=== PATIENT | female | born 1940 | race Caucasian/White ===

== ENCOUNTER → 2018-06-23 10:46 | Outpatient (CLI) | payer MEDICARE, SELFPAY ==
--- NOTE | 2018-06-23 | DI.MG.S_ITS ---
BILATERAL DIGITAL SCREENING MAMMOGRAM 3D/2D WITH CAD: 06/23/2018 CLINICAL: Routine screening. Personal history of breast cancer. Comparison is made to exams dated: 06/22/2017 mammogram, 05/24/2016 mammogram, and 05/05/2015 mammogram - [facility]. The tissue of both breasts is heterogeneously dense. This may lower the sensitivity of mammography. Current study was also evaluated with a Computer Aided Detection (CAD) system. There are benign post operative findings in the left breast. There also are benign calcifications in both breasts. No significant masses, calcifications, or other findings are seen in either breast. There has been no significant interval change. IMPRESSION: There is no mammographic evidence of malignancy. A 1 year screening mammogram is recommended. This exam was interpreted at Station ID: [id number]. NOTE: For mammograms, a report in lay terms will be sent to the patient. Approximately 15% of breast malignancies will not be visualized mammographically. In the management of a palpable breast mass, a negative mammogram must not discourage biopsy of a clinically suspicious lesion. Electronically Signed By: Ajay barrett/zaid:06/23/2018 12:11:02 copy to: Ney Matthew letter sent: Normal Exam ACR BI-RADS Category 2: Benign Finding(s) 3342F
[2018-06-23 12:15] LABS: Add Manual Diff / Slide Review NO; Basophils Absolute Auto 0 /uL (0-100); Basophils Percent Auto 0.4 % (0-2); Eosinophils Absolute Auto 300 /uL (0-450); Eosinophils Percent Auto 2.4 % (2-4); Hematocrit 41.4 % (36-46); Hemoglobin 14.2 g/dL (12.0-16.0); Lymphocytes Absolute Auto 4100 /uL (1100-4500); Lymphocytes Percent Auto 39.5 % (25-40); Mean Corpuscular HGB Conc 34.3 % (30-36); Mean Corpuscular Hemoglobin 31.2 PG (26-34); Mean Corpuscular Volume 90.8 fL (80-100); Monocytes Absolute Auto 1200 /uL (0-900); Monocytes Percent Auto 11.4 % (3-14); Neutrophils Absolute Auto 4800 /uL (1500-7000); Neutrophils Percent Auto 46.3 % (50-75); Platelet Count 175 X10^3/uL (150-400); Red Blood Cell Count 4.55 X10^6/uL (4.0-5.2); White Blood Cell Count 10.3 X10^3/uL (4.5-11.0)
[2018-06-23 12:50] LABS: Alanine Aminotransferase 28 IU/L (9-52); Albumin 4.2 g/dL (3.5-5.0); Albumin Globulin Ratio 1.4 (1.0-2.8); Alkaline Phosphatase 52 U/L (38-126); Aspartate Aminotransferase 29 IU/L (14-36); BUN Creatinine Ratio 18.9 (6-22); Bilirubin Total 0.5 mg/dL (0.2-1.3); Blood Urea Nitrogen 17 mg/dL (7-17); Calcium 10.3 mg/dL (8.4-10.2); Carbon Dioxide 28 mmol/L (22-32); Chloride 102 mmol/L (98-107); Estimated Glomerular Filt Rate > 60.0 mL/min (>60); Glucose 85 mg/dL (80-110); HEMOLYSIS < 15 (0-50); Potassium 3.9 mmol/L (3.4-5.1); Sodium 138 mmol/L (137-145); Total Protein 7.2 g/dL (6.3-8.2)
[2018-06-24 16:41] LABS: Cancer Antigen 27.29 15 U/mL (< 38)
== END ==
PROVIDERS: PCP Internal Medicine; Visit Provider Nurse Practitioner Gerontology
DX: Z12.31 Encounter for screening mammogram for malignant neoplasm of breast (principal); C50.912 Malignant neoplasm of unspecified site of left female breast
CPT/HCPCS: 36415; 77063; 77067; 80053; 85025; 86300

== ENCOUNTER → 2018-11-09 14:34 | Outpatient (CLI) | payer MEDICARE, SELFPAY ==
--- NOTE | 2018-11-09 | DI.RAD.S_ITS ---
PROCEDURE: XR CHEST 2V INDICATIONS: COUGH TECHNIQUE: 2 views of the chest were acquired. COMPARISON: Outside Film, CT, CT CHEST ABDOMEN PELVIS WITH CONTRAST, 08/19/2018, 21:21. [facility], , CHEST 1 VIEW, 04/27/2011, 18:08. FINDINGS: Surgical changes and devices: None. Lungs and pleura: Ill-defined ovoid masslike opacity measuring 5.4 x 3.4 cm projects in the right upper lobe, with central lucency, possible cavitation. No pleural effusions or pneumothorax. Scattered scarring/atelectasis. Mediastinum: Mediastinal contours are normal. Heart size is normal. Bones and chest wall: No suspicious bony abnormalities. Lateral curvature of the spine Soft tissues appear unremarkable. IMPRESSION: Ill-defined large masslike opacity with central lucency suggesting cavitation projecting in the right upper lobe, findings suspicious for cavitary pneumonia versus cavitary mass. Recommend further evaluation with dedicated chest CT. Findings and recommendations were personally telephoned and discussed with Dr. Collado at 1630 hours on 11/09/18. Dictated by: Ezekiel Castorena M.D. on 11/09/2018 at 15:52 Approved by: Ezekiel Castorena M.D. on 11/09/2018 at 16:38
== END ==
PROVIDERS: PCP Internal Medicine; Visit Provider Internal Medicine
DX: R05 Cough (principal)
CPT/HCPCS: 71046

== ENCOUNTER → 2018-11-10 11:37 | Outpatient (CLI) | payer MEDICARE, SELFPAY ==
--- NOTE | 2018-11-10 | DI.CT.S_ITS ---
PROCEDURE: CT CHEST W CON INDICATIONS: LESION OF LUNG TECHNIQUE: After the administration of intravenous contrast, 5 mm thick sections acquired from the pulmonary apices to the posterior costophrenic angles. 1 mm axial lung, 5 mm thick coronal and sagittal reformats and 7 mm axial MIP were acquired. For radiation dose reduction, the following was used: automated exposure control, adjustment of mA and/or kV according to patient size. COMPARISON: Outside Film, CT, CT CHEST ABDOMEN PELVIS WITH CONTRAST, 08/19/2018, 21:21. FINDINGS: Image quality: Excellent. Lungs and pleura: No acute air space opacities. There is a pleural-based 50 mm diameter soft tissue density focus within the right lung base posteriorly. There several new subpleural nodular densities within the right lateral and anterolateral lung base measuring 5-20 mm. There is a new cavitary mass within the superior segment right lower lobe measuring 54 mm. There is a new cavitary mass within the right upper lobe posteriorly measuring 43 mm. No pleural effusions or pneumothorax. Central and peripheral airways are patent and normal in caliber. Mediastinum: Heart size is normal. Calcification of the coronary vasculature. No pericardial effusion. No mediastinal or hilar adenopathy by size criteria. Thoracic aorta and central pulmonary arteries are normal in size. Low density filling defects within the distal aspect of the right main pulmonary artery, extending into the lobar, and segmental branches of the right upper, right middle, and right lower lobe pulmonary arterial branches. Small low density filling defects within the segmental branches of the left lower lobe pulmonary artery. Esophagus is normal in caliber. No hiatal hernia. Bones and chest wall: No suspicious bony lesions. No vertebral body compression fractures. No axillary or supraclavicular adenopathy by size criteria. Thyroid gland demonstrates a possible right lobe nodule measuring 13 mm. Abdomen: Visualized upper abdominal solid organs appear normal. Upper abdominal bowel loops are normal in caliber. IMPRESSION: 1. Bilateral right greater than left pulmonary emboli. 2. Right-sided pulmonary masses as described above, the larger 2 of which are cavitary. 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 Followup chest CT with contrast in 3 months is recommended to exclude the less likely possibility of underlying neoplasm. 3. Coronary artery disease. 4. Possible right thyroid mass, which could be further assessed with ultrasound, if clinically indicated. 5. Acute findings above discussed with Dr. Varma, covering for Dr. Collado, on 11.10.18 at 1335 hrs. Dictated by: Rolando Christine M.D. on 11/10/2018 at 13:34 Approved by: Rolando Christine M.D. on 11/10/2018 at 13:43
== END ==
PROVIDERS: PCP Internal Medicine; Visit Provider Internal Medicine
DX: J98.4 Other disorders of lung (principal); I26.99 Other pulmonary embolism without acute cor pulmonale; I25.10 Atherosclerotic heart disease of native coronary artery without angina pectoris
CPT/HCPCS: 71260; Q9967

== ENCOUNTER 2018-11-10 22:54 | Emergency (ER) | payer MEDICARE, SELFPAY ==
[2018-11-10 23:05] VITALS: BMI 25.7
[2018-11-10 23:11] VITALS: BP 107/45; PULSE 76; RESP 15; TEMP 36.5; O2SAT 95
[2018-11-10 23:30] VITALS: BP 96/44; PULSE 75; RESP 17; O2SAT 90
--- NOTE | 2018-11-10 23:48 | ED_ITS ---
HPI - SOB/Dyspnea General Chief Complaint: Shortness of Breath/Dyspnea Stated Complaint: blood clots in lungs per her doctor Time Seen by Provider: 11/10/18 23:33 Source: patient Mode of arrival: ambulatory Limitations: no limitations History of Present Illness The patient is a 77 year old Female with a history of breast cancer diagnosed i nitially in 2011. Brain metastasis were found August 2018. She completed her radiation therapy in September and has started on Faslodex and abemaciclib. She is currently on steroids daily. She has complained of a cough for the past month. She denies associated dyspnea, chest pain, or my office. Aspirin was stopped prior to the brain scans, flu fear of brain Mets. She is not otherwise anticoagulated. A CT done earlier today identified bilateral PEs. She was sent here by the on-call physician for go Dr. Varma. Review of the MRI done earlier this year showed no evidence of hemorrhage in the brain Mets. She is having no visual changes, headache, or acute mental status status. She has no focal weakness or numbness. She does have generalized weakness. She has had no fever. Other than issues involving cancer cancer treatment, she has not been ill. She has no history of GI bleed. Related Data Home Medications Medication Instructions Recorded Confirmed simvastatin 40 mg PO QDAY #0 10/04/12 11/07/18 metoprolol tartrate 25 mg PO BID #0 06/14/16 11/07/18 cholecalciferol (vitamin D3) 1,000 units DAILY 07/04/18 11/07/18 [Vitamin D3] dexamethasone 2 mg PO Q12H 09/13/18 11/07/18 docusate sodium 100 mg PO DAILY 09/13/18 11/07/18 pantoprazole [Protonix] 40 mg PO DAILY 09/13/18 11/07/18 nystatin 5 ml PO QID 09/14/18 11/07/18 Previous Rx's Medication Instructions Recorded letrozole [Femara] 2.5 mg PO QDAY #30 tab 08/19/16 abemaciclib 150 mg PO BID 30 Days #60 tab 10/10/18 dexamethasone 1 mg PO DAILY 60 Days #60 tab 10/25/18 enoxaparin [Lovenox] 80 mg SUBCUT Q12H #20 vial 11/11/18 Allergies Allergy/AdvReac Type Severity Reaction Status Date / Time Sulfa (Sulfonamide Allergy Intermediate rash, N/V Verified 11/07/18 09:39 Antibiotics) hydrochlorothiazide AdvReac Intermediate HALLUCINATI Verified 11/07/18 09:39 ONS hydrocodone AdvReac Mild N/V Verified 11/07/18 09:39 Review of Systems Review of Systems ROS Unobtainable: All systems reviewed & are unremarkable except as noted in HPI and below Constitutional Denies body ache(s), Denies fatigue, Denies fever(s), Denies headache(s), Reports lethargy and Denies weakness Eyes Denies change in vision and Denies diplopia ENT Ears, Nose, Mouth, and Throat: Denies headache(s) Comments: No complaints Cardiovascular Denies chest pain, Denies diaphoresis, Denies syncope and Denies dyspnea Respiratory Reports cough, Denies hemoptysis, Denies excessive phlegm production, Denies pain on inspiration and Denies dyspnea Gastrointestinal Gastrointestinal: Denies abdominal pain and Denies change in bowel habits Comments: No history of GI bleed Musculoskeletal Denies back pain Integumentary/Breasts Denies rash and Denies sores Neurologic Denies confusion, Denies syncope, Denies headache(s) and Denies weakness Psychiatric Denies anxiety, Denies confusion and Denies depression Endocrine Denies fatigue [facility] Medical History (Updated 11/11/18 @ 03:28 by Atul De La Fuente MD) Hyperlipidemia (Acute) Metastatic breast cancer (Acute) Social History (Updated 11/11/18 @ 03:19 by Atul De La Fuente MD) Smoking Status: Never smoker Exam Initial Vital Signs Initial Vital Signs: Vital Signs Temperature 97.7 F 11/10/18 23:11 Pulse Rate 76 11/10/18 23:11 Respiratory Rate 15 11/10/18 23:11 Blood Pressure 107/45 L 11/10/18 23:11 Pulse Oximetry 95 11/10/18 23:11 Const General: cooperative and comfortable Nutritional Appearance: well nourished Orientation: alert, awake, oriented x3 and not confused HENMT Head: normocephalic and atraumatic Face and sinus: no sinus tenderness and No dry mucous membranes Mouth: moist mucous membranes Throat: posterior oropharynx normal Eyes Conjunctivae: conjunctivae normal Sclera: sclerae normal Pupils: PERRL EOM: EOM intact bilaterally Neck Neck: No lymphadenopathy and No JVD Chest Chest: No tenderness Resp Effort & Inspection: normal respiratory effort, able to speak in complete sentences and no use of accessory muscles Auscultation: clear to auscultation bilaterally, no rales, no rhonchi and no wheezes Cardio Rate: regular rate Rhythm: regular rhythm Heart Sounds: S1 normal, S2 normal, no murmurs and no rubs Pulses: normal peripheral pulses GI Inspection: non-distended Palpation: soft, no hepatosplenomegaly, No guarding and No tender Auscultation: normal bowel sounds Skin General: no rashes or lesions noted, No jaundice and No petechiae Neuro General: alert, oriented x3, gait normal and no focal motor deficits Speech: speech normal Extrem General: full ROM and no clubbing, cyanosis or edema Psych Appearance: well kempt Mental Status: mental status grossly normal Attitude: cooperative Thought Content: normal and suicidality Judgment: judgment good Course Course Narrative: The patient came in with known bilateral PEs. The CT was based upon the patient's cough, no other symptoms. She denies chest pain, weakness, or dyspnea. Dr. Varma, the doctor who referred her here is also on- call. I reviewed a prior CT from [facility], showing the metastatic lesions, but no evidence of hemorrhage. She has the PEs. She has no evidence of acute bleeding. I had multiple conversations with the internists referred here, we decided on a repeat CT to ensure there is no necrotic change following the treatment for the metastatic lesions in her brain. There is no evidence of hemorrhage. With the ongoing conversations with Dr. Varma, it was decided that the best course of action is to treat the patient with Lovenox. Lovenox has been initiated. The patient's nurse will teach her to administer the medication at home. Orders Ordered: ED Orders 11/10/18 23:48 Prothrombin Time INR Stat 11/10/18 23:49 Consult to Respiratory Therapy Evaluate & Treat Basic Metabolic Panel Stat Blood Culture Stat Complete Blood Count AUTO DIFF Stat Magnesium Stat Procalcitonin Stat Troponin & CK Cardiac Panel Stat 11/11/18 01:13 CT head/brain wo con Stat Sodium Chloride (Normal Saline 0.9%) 1,000 mls @ 150 mls/hr IV CONT JEFFRY Last Admin: 11/11/18 00:57 Dose: 150 mls/hr Discontinued Medications Enoxaparin Sodium (Lovenox) 70 mg 1 mg/kg (70 mg) SUBCUT NOW ONE Stop: 11/11/18 02:54 Last Admin: 11/11/18 03:13 Dose: 70 mg Sodium Chloride (Normal Saline 0.9%) 1,000 mls @ 1,000 mls/hr IV BOLUS ONE Stop: 11/11/18 01:50 Last Admin: 11/11/18 02:24 Dose: Not Given Methylprednisolone (Solu-Medrol 125 Mg Vial) 125 mg IV NOW ONE Stop: 11/10/18 23:49 Last Admin: 11/11/18 00:25 Dose: 125 mg Metoprolol Tartrate (Lopressor) 5 mg IV Q5M JEFFRY Stop: 11/11/18 01:11 Metoprolol Tartrate (Lopressor) 25 mg PO NOW ONE Stop: 11/11/18 00:54 Last Admin: 11/11/18 00:57 Dose: 25 mg Vital Signs - 8 hr 11/10/18 23:11 11/10/18 23:30 11/11/18 01:09 Temperature 97.7 F Pulse Rate 76 75 83 Respiratory Rate 15 17 13 Blood Pressure [Right Arm] 107/45 L 96/44 L 93/38 L Pulse Oximetry 95 90 L 93 11/11/18 01:50 11/11/18 02:05 11/11/18 02:37 Temperature Pulse Rate 73 81 68 Respiratory Rate 18 17 21 Blood Pressure [Right Arm] 100/43 L 97/51 L 107/45 L Pulse Oximetry 93 93 98 11/11/18 03:00 Temperature Pulse Rate 74 Respiratory Rate 18 Blood Pressure [Right Arm] 108/44 L Pulse Oximetry 96 MDM - SOB/Dyspnea Lab Data Attestation: I reviewed the patient's lab results. Result diagrams: 11/11/18 00:21 11/11/18 00:21 Lab Results 11/11/18 11/11/18 11/11/18 Range/Units 00:21 00:21 00:21 WBC 4.5 (4.5-11.0) X10^3/uL RBC 3.08 L (4.0-5.2) X10^6/uL Hgb 9.7 L (12.0-16.0) g/dL Hct 28.0 L (36-46) % MCV 90.8 (80-100) fL MCH 31.5 (26-34) PG MCHC 34.7 (30-36) % RDW 18.0 H (11.6-14.8) % Plt Count 93 L (150-400) X10^3/uL Neut % (Auto) 71.0 (50-75) % Lymph % (Auto) 24.9 L (25-40) % Sampson % (Auto) 3.1 (3-14) % Eos % (Auto) 0.8 L (2-4) % Baso % (Auto) 0.2 (0-2) % Neut # (Auto) 3200 (2171-0128) /uL Lymph # (Auto) 1100 (0686-2589) /uL Sampson # (Auto) 100 (0-900) /uL Eos # (Auto) 0 (0-450) /uL Baso # (Auto) 0 (0-100) /uL PT 14.9 H (10.1-12.7) SECONDS INR 1.3 (0.9-1.3) Sodium 129 L (137-145) mmol/L Potassium 3.8 (3.4-5.1) mmol/L Chloride 94 L (98-107) mmol/L Carbon Dioxide 29 (22-32) mmol/L BUN 22 H (7-17) mg/dL Creatinine 1.30 H (0.52-1.04) mg/dL Estimated GFR 39.6 L (>60) mL/min BUN/Creatinine Ratio 16.9 (6-22) Glucose 95 (80-110) mg/dL Calcium 9.6 (8.4-10.2) mg/dL Magnesium 1.8 (1.6-2.3) mg/dL Total Creatine Kinase < 20 L (30-135) U/L CK-MB (CK-2) TNP CK-MB (CK-2) Rel Index TNP Troponin I 0.052 H (0.01-0.034) ng/mL Procalcitonin (<0.5) ng/mL 11/11/18 Range/Units 00:21 WBC (4.5-11.0) X10^3/uL RBC (4.0-5.2) X10^6/uL Hgb (12.0-16.0) g/dL Hct (36-46) % MCV (80-100) fL MCH (26-34) PG MCHC (30-36) % RDW (11.6-14.8) % Plt Count (150-400) X10^3/uL Neut % (Auto) (50-75) % Lymph % (Auto) (25-40) % Sampson % (Auto) (3-14) % Eos % (Auto) (2-4) % Baso % (Auto) (0-2) % Neut # (Auto) (3145-9158) /uL Lymph # (Auto) (6619-0816) /uL Sampson # (Auto) (0-900) /uL Eos # (Auto) (0-450) /uL Baso # (Auto) (0-100) /uL PT (10.1-12.7) SECONDS INR (0.9-1.3) Sodium (137-145) mmol/L Potassium (3.4-5.1) mmol/L Chloride (98-107) mmol/L Carbon Dioxide (22-32) mmol/L BUN (7-17) mg/dL Creatinine (0.52-1.04) mg/dL Estimated GFR (>60) mL/min BUN/Creatinine Ratio (6-22) Glucose (80-110) mg/dL Calcium (8.4-10.2) mg/dL Magnesium (1.6-2.3) mg/dL Total Creatine Kinase (30-135) U/L CK-MB (CK-2) CK-MB (CK-2) Rel Index Troponin I (0.01-0.034) ng/mL Procalcitonin 0.06 (<0.5) ng/mL Imaging Data CT scan - head: Radiologist's impression: CT findings are consistent with known metastatic lesions. There is no evidence of hemorrhage. Chest CTA: Radiologist's impression: From earlier today, CT of the chest revealed bilateral pulmonary embolism. Discharge Plan Departure Patient Disposition: Home Clinical Impression: Pulmonary embolism Instructions: DI for Pulmonary Embolism Activity Restrictions/Additional Instructions: Lovenox 70 mg injections 2 times daily as instructed by the ER nurse. Follow-up with Dr. Varma at the internal medicine clinic Tuesday morning, call for appointment. Return the ER if he developed difficulty breathing, chest pain, weakness/dizziness, or coughing blood. Prescriptions: New enoxaparin [Lovenox] 80 mg/0.8 mL syringe 80 mg SUBCUT Q12H Qty: 20 RF: 0 No Action simvastatin 40 MG tablet 40 mg PO QDAY Qty: 0 RF: 0 metoprolol tartrate 25 MG tablet 25 mg PO BID Qty: 0 RF: 0 letrozole [Femara] 2.5 MG tablet 2.5 mg PO QDAY Qty: 30 RF: 5 cholecalciferol (vitamin D3) [Vitamin D3] 1,000 unit Tablet 1,000 units DAILY RF: 0 dexamethasone 2 mg Tablet 2 mg PO Q12H RF: 0 pantoprazole [Protonix] 20 mg Tablet,Delayed Release (Dr/Ec) 40 mg PO DAILY RF: 0 docusate sodium 50 mg Capsule 100 mg PO DAILY RF: 0 nystatin 100,000 unit/mL Suspension 5 ml PO QID RF: 0 abemaciclib 150 mg Tablet 150 mg PO BID 30 Days Qty: 60 RF: 6 dexamethasone 1 mg Tablet 1 mg PO DAILY 60 Days Qty: 60 RF: 2 Referrals: Ney Matthew MD [Primary Care Provider] -
[2018-11-11] MEDS: methylPREDNISolone 125 MG/2 ML VIAL IV (00:25)
[2018-11-11 00:35] LABS: Add Manual Diff / Slide Review NO; Basophils Absolute Auto 0 /uL (0-100); Basophils Percent Auto 0.2 % (0-2); Eosinophils Absolute Auto 0 /uL (0-450); Eosinophils Percent Auto 0.8 % (2-4); Hemoglobin 9.7 g/dL (12.0-16.0); Lymphocytes Absolute Auto 1100 /uL (1100-4500); Lymphocytes Percent Auto 24.9 % (25-40); Mean Corpuscular HGB Conc 34.7 % (30-36); Mean Corpuscular Hemoglobin 31.5 PG (26-34); Mean Corpuscular Volume 90.8 fL (80-100); Monocytes Absolute Auto 100 /uL (0-900); Monocytes Percent Auto 3.1 % (3-14); Neutrophils Absolute Auto 3200 /uL (1500-7000); Platelet Count 93 X10^3/uL (150-400); Red Blood Cell Count 3.08 X10^6/uL (4.0-5.2); White Blood Cell Count 4.5 X10^3/uL (4.5-11.0)
[2018-11-11 00:36] LABS: INR 1.3 (0.9-1.3); Prothrombin Time 14.9 SECONDS (10.1-12.7)
[2018-11-11 00:42] LABS: BUN Creatinine Ratio 16.9 (6-22); Blood Urea Nitrogen 22 mg/dL (7-17); Calcium 9.6 mg/dL (8.4-10.2); Carbon Dioxide 29 mmol/L (22-32); Chloride 94 mmol/L (98-107); Creatine Kinase < 20 U/L (30-135); Estimated Glomerular Filt Rate 39.6 mL/min (>60); Glucose 95 mg/dL (80-110); HEMOLYSIS < 15 (0-50); Magnesium 1.8 mg/dL (1.6-2.3); Potassium 3.8 mmol/L (3.4-5.1); Sodium 129 mmol/L (137-145)
[2018-11-11 00:54] LABS: Troponin I 0.052 ng/mL (0.01-0.034)
[2018-11-11 00:57] LABS: Procalcitonin 0.06 ng/mL (<0.5)
[2018-11-11] MEDS: METOPROLOL IR 25 MG TABLET PO (00:57)
[2018-11-11] MEDS: SODIUM CHLORIDE 0.9% 1,000 ML 150 ML IV (00:57)
--- NOTE | 2018-11-11 00:58 | PC.NURSE ---
Patient in A-fib with RVR with rate in the 140's, Dr. De La Fuente at bedside to evaluate. patient states this happens all the time, just watch, it will go away. While writing orders, pt returned to NSR in 80's. Patient takes Metoprolol at home and order received for oral 25mg Metoprolol. Pt asymptomatic of A-fib.
[2018-11-11 01:09] VITALS: BP 93/38; PULSE 83; RESP 13; O2SAT 93
--- NOTE | 2018-11-11 01:13 | DI.CT.S_ITS ---
PROCEDURE: CT HEAD/BRAIN WO CON INDICATIONS: Breast cancer with brain Mets. TECHNIQUE: Noncontrast 4.5 mm thick angled axial sections acquired from the foramen magnum to the vertex, with coronal and sagittal reformats. For radiation dose reduction, the following was used: automated exposure control, adjustment of mA and/or kV according to patient size. COMPARISON: [facility], CT, CT HEAD WITHOUT CONTRAST, 08/19/2018, 15:54. Outside Film, CT, CT HEAD WITHOUT CONTRAST, 08/19/2018, 21:16. FINDINGS: Image quality: Excellent. CSF spaces: Basal cisterns are patent. No extra-axial fluid collections. The ventricles are symmetric in size and shape. Brain: No intracranial bleeds. Focal hypodense white matter is visualized within the left frontal lobe. When compared with the CT dated 08/19/18, this is markedly decreased in extent. Similarly, the focal hypodense mass within the left parietal lobe is markedly decreased in extent and now measures approximately 1.1 x 0.7 cm in the axial plane and previously measured 2.5 x 2.1 cm in the same plane. There is decreased mass effect and surrounding vasogenic edema. No new suspicious foci of vasogenic edema or new suspicious mass lesions. There is cerebral volume loss for age, with resultant ventricular and sulcal prominence. There are periventricular and deep white matter chronic small vessel ischemic changes. There is intracranial internal carotid artery atherosclerosis. Skull and face: Calvarium and visualized facial bones appear intact, without suspicious lesions. Sinuses: Visualized sinuses and mastoids are clear. IMPRESSION: 1. Marked decrease in the vasogenic edema likely associated with underlying mass at the right frontal lobe when compared with the CT dated 08/19/18 and marked decrease in the size of the hypodense mass within the left parietal lobe when compared with the prior CT. These findings suggest response to therapy. No new acute intracranial findings. These findings are concordant with the overnight interpretation. Dictated by: Leslie Chavarria M.D. on 11/11/2018 at 6:51 Approved by: Leslie Chavarria M.D. on 11/11/2018 at 6:55
[2018-11-11 01:50] VITALS: BP 100/43; PULSE 73; RESP 18; O2SAT 93
[2018-11-11 02:05] VITALS: BP 97/51; PULSE 81; RESP 17; O2SAT 93
[2018-11-11 02:37] VITALS: BP 107/45; PULSE 68; RESP 21; O2SAT 98
[2018-11-11 03:00] VITALS: BP 108/44; PULSE 74; RESP 18; O2SAT 96
[2018-11-11] MEDS: ENOXAPARIN 40 MG/0.4 ML SYRINGE 70 MG SUBCUT (03:13)
== END 2018-11-11 03:54 | disposition home or self-care (01) ==
PROVIDERS: Emergency Provider Emergency Medicine; PCP Internal Medicine
DX: I26.99 Other pulmonary embolism without acute cor pulmonale (principal); C79.31 Secondary malignant neoplasm of brain; I25.10 Atherosclerotic heart disease of native coronary artery without angina pectoris; J98.4 Other disorders of lung
CPT/HCPCS: 36415; 36591; 70450; 71260; 80048; 82550; 83735; 84145; 84484; 85025; 85610; 87040; 93041; 96361; 96372; 96374; 99284; J1650; J2930; Q9967

== ENCOUNTER 2018-11-13 11:00 | Emergency (ER) | payer MEDICARE, SELFPAY ==
[2018-11-13] VITALS (10 sets, daily range): BP systolic 98–146; BP diastolic 38–58; PULSE 85–114; RESP 16–25; TEMP 37.1; O2SAT 92–97
--- NOTE | 2018-11-13 11:24 | DI.RAD.S_ITS ---
PROCEDURE: XR CHEST 1V INDICATIONS: history of PE, generalized weakness TECHNIQUE: One view of the chest was acquired. COMPARISON: [facility], CR, XR CHEST 2V, 11/09/2018, 14:38. [facility], CR, CHEST 1 VIEW, 04/27/2011, 18:08. [facility], CR, CHEST 2 VIEW, 02/26/2011, 10:48. FINDINGS: Surgical changes and devices: Surgical clips project over the left axilla and lateral left chest wall. Lungs and pleura: There is redemonstration of peripherally opaque and centrally lucent masses consistent with cavitary lesions projecting over the right midlung field and right upper lobe, with the largest mass projecting over the right midlung field measuring 4.4 cm mediolateral by 3.0 cm craniocaudal (previously 5.4 cm mediolateral by 3.5 cm craniocaudal on comparison chest radiographs of 11/09/18). No pneumothorax or pleural effusion. Minimal lateral left basilar pulmonary opacities most consistent with atelectasis. Mediastinum: Mediastinal contours appear normal. Heart size is normal. There is calcified plaque of the aorta. Bones and chest wall: No suspicious bony lesions. Overlying soft tissues appear unremarkable. IMPRESSION: 1. Similar to slightly decreased in size peripherally opaque and centrally lucent masses consistent with cavitary lesions in the right lung as described above. 2. Minimal lateral left basilar pulmonary opacities most consistent with atelectasis. Dictated by: Haja Oswald M.D. on 11/13/2018 at 12:13 Approved by: Haja Oswald M.D. on 11/13/2018 at 12:20
[2018-11-13 11:39] LABS: Bacteria Urine None Seen; RBC Urine None Seen (0-5/HPF); WBC Urine None Seen (0-5/HPF)
[2018-11-13 11:41] LABS: Appearance Urine UA CLEAR; Bilirubin Urine UA NEGATIVE (NEGATIVE); Color Urine UA YELLOW; Glucose Urine UA NEGATIVE (Negative); Ketones Urine UA NEGATIVE (NEGATIVE); Leukocyte Esterase Urine UA NEGATIVE (NEGATIVE); Nitrite Urine UA NEGATIVE (Negative); Occult Blood Urine UA NEGATIVE (Negative); Protein Urine UA NEGATIVE (Negative); Specific Gravity Urine UA 1.015 (1.000-1.035); Urobilinogen Urine UA 0.2 E.U./dL (0.2)
--- NOTE | 2018-11-13 11:42 | PC.NURSE ---
c/o increased expressive aphasia and difficulty swallowing. Currently on steroid taper. Grand daughter states increase of symptoms over past 3 days. Recent dx of blood clots. On lovenox.
[2018-11-13] MEDS: SODIUM CHLORIDE 0.9% 1,000 ML 500 ML IV (11:45)
--- NOTE | 2018-11-13 11:50 | ED.WEAKNESS ---
HPI - Weakness <DIVYA Zhou - Last Filed: 11/14/18 12:30> General Chief complaint: Weakness Stated complaint: generalized weakness Time Seen by Provider: 11/13/18 11:00 Source: patient, family and EMS Mode of arrival: EMS Limitations: other (slow to answer the questions) History of Present Illness HPI Narrative: The patient is a 77 year old Female who was transported via ambulance from with chief complain of generalized weakness and dehydration. She has newly diagnosed pulmonary embolism a few days ago and had started on Lovenox 80 mg b.i.d. dose. she also has a history of breast cancer diagnosed initially in 2011. Brain metastasis were found August 2018. She completed her radiation therapy in September and has started on Faslodex and abemaciclib. She is currently on steroids daily. She denies cough, shortness of breath or chest pain. She is having no visual changes, headache, or acute mental status status changes. However, when she arrived to ED, she appears to be responding verbally in a slow manner and with difficulty selecting words or replying to questions. She has no focal weakness or numbness. She has had no fever. she reports she has been having increasing urinary output for the last couple of days since the Lasix 20 mg was started for lower leg edema. also due to this she reports having pressure injury on her buttock. She reports she was able to ambulate at home to the bathroom using a walker up until yesterday, but she could not walk today due to generalized weakness. The daughter of patient inpatient both state that patient declines to drink fluid due to the discomfort in her throat. The daughter states patient has been using Nystatin oral medication. She has an appointment with Dr. Varma who is on-call for Dr. Matthew today but was not able to make for this appointment and decided to come in for on evaluation in the ED. Related Data Home Medications Medication Instructions Recorded Confirmed simvastatin 40 mg PO QDAY #0 10/04/12 11/07/18 metoprolol tartrate 25 mg PO BID #0 06/14/16 11/07/18 cholecalciferol (vitamin D3) 1,000 units DAILY 07/04/18 11/07/18 [Vitamin D3] dexamethasone 2 mg PO Q12H 09/13/18 11/07/18 docusate sodium 100 mg PO DAILY 09/13/18 11/07/18 pantoprazole [Protonix] 40 mg PO DAILY 09/13/18 11/07/18 nystatin 5 ml PO QID 09/14/18 11/07/18 Previous Rx's Medication Instructions Recorded letrozole [Femara] 2.5 mg PO QDAY #30 tab 08/19/16 abemaciclib 150 mg PO BID 30 Days #60 tab 10/10/18 dexamethasone 1 mg PO DAILY 60 Days #60 tab 10/25/18 enoxaparin [Lovenox] 80 mg SUBCUT Q12H #20 vial 11/11/18 lidocaine HCl [Lidocaine Viscous] 15 ml MM Q4-6H PRN #60 ml 11/13/18 Allergies Allergy/AdvReac Type Severity Reaction Status Date / Time Sulfa (Sulfonamide Allergy Intermediate rash, N/V Verified 11/13/18 11:09 Antibiotics) hydrochlorothiazide AdvReac Intermediate HALLUCINATI Verified 11/13/18 11:09 ONS hydrocodone AdvReac Mild N/V Verified 11/13/18 11:09 Review of Systems <DIVYA Zhou - Last Filed: 11/14/18 12:30> Review of Systems General: see HPI. HEENT: Reports dry and sore throat, difficulty swallowing. Denies sinus pain, ear pain, dizziness. Respiratory: Denies dyspnea, cough, wheezing, hemoptysis, sputum. Cardiovascular: Reports bilateral leg swelling. Denies chest pain, palpitations, orthopnea. Gastrointestinal: See HPI. : Reports urinary frequency. Denies dysuria, hematuria, urinary retention. Musculoskeletal: Denies weakness, joint pain or bony pain. Skin: Denies rash, skin lesions, or other. Neurologic: Reports generalized weakness. Denies headache, numbness, change in speech pattern, confusion, seizures, incoordination. Psychiatric: No concerning psychosocial issues. 12-point review of systems is negative except for those stated above. PFSH <DIVYA Zhou - Last Filed: 11/14/18 12:30> Medical History (Updated 11/14/18 @ 11:41 by DIVYA Zhou) Hyperlipidemia (Acute) Metastatic breast cancer (Acute) Brain cancer (Acute) Pulmonary embolism (Acute) Social History (Updated 11/14/18 @ 11:42 by DIVYA Zhou) details: lives at home Smoking Status: Never smoker Social History (Updated 11/14/18 @ 11:42 by DIVYA Zhou) details: lives at home Smoking Status: Never smoker Exam <DIVYA Zhou - Last Filed: 11/14/18 12:30> Narrative Exam Narrative: GEN: Alert, oriented x 3, ill appearing and pale, and in no acute distress. Head: Normal cephalic, atraumatic. No scalp or temporal tenderness, palpable mass or rash. EYES: Pupils are equal, round, and reactive to light and accommodation. Extraocular muscles are intact bilaterally. There is no subconjunctival hemorrhage, exudate and sclera non-icteric. ENT: Bilateral auditory canals and tympanic membranes. Hearing grossly intact. Nose without bleeding, purulent discharge. Facial sinuses nontender to palpate. Mucous membrane very dry, no mucosal lesion. Throat without erythema, tonsillar hypertrophy or exudate. Uvula in midline, airway patent. Neck: Trachea in midline. No JVD, non-tender without lymphadenopathy. No masses or thyroid megaly. Supple, non-tender and meningeal signs. CARDIAC: Normal regular rate and rhythm without murmurs, gallops, or rubs. No chest wall tenderness. No peripheral edema, cyanosis, pale. Capillary refill is less than 2 seconds. No carotid bruits. RESPIRATORY: Lungs are cleat to auscultate bilaterally. No cough, wheezes, rales, or rhonchi. No stridor, respiratory distress, increase work of breathing, or accessary muscle used. ABD: Abdomen soft, nontender and non-distended. No guarding or rebound tenderness to palpate. Bowel sounds are normal in all 4 quadrants. There is no palpable masses or organomegaly. EXT: Painless ROM of all extremities with no loss of sensation, strength, effusion or edema. SKIN: Warm, dry, pale for patient. Large area of pressure injury stage 2 on bilateral buttock. BACK: Nontender without deformity or crepitance. No flank tenderness. NEUROLOGICAL: Alert and oriented to place, time and person. No facial droops. Strength and sensation symmetric and intact throughout. PSYCHIATRIC: No abnormal affect or abnormal behaviors during the examination. Initial Vital Signs Initial Vital Signs: Vital Signs Temperature 98.8 F 11/13/18 11:00 Pulse Rate 95 H 11/13/18 11:00 Respiratory Rate 18 11/13/18 11:00 Blood Pressure 110/48 L 11/13/18 11:00 Pulse Oximetry 95 11/13/18 11:00 <Josh Bowers DO - Last Filed: 11/14/18 23:32> Initial Vital Signs Initial Vital Signs: Vital Signs Temperature 98.8 F 11/13/18 11:00 Pulse Rate 95 H 11/13/18 11:00 Respiratory Rate 18 11/13/18 11:00 Blood Pressure 110/48 L 11/13/18 11:00 Pulse Oximetry 95 11/13/18 11:00 Course <DIVYA Zhou - Last Filed: 11/14/18 12:30> Orders Ordered: Discontinued Medications Al Hydrox/Mg Hydrox/Simethicone 20 ml/ Lidocaine HCl 15 ml 0 ml PO NOW ONE Stop: 11/13/18 16:41 Last Admin: 11/13/18 17:07 Dose: Not Given Sodium Chloride (Normal Saline 0.9%) 1,000 mls @ 500 mls/hr IV BOLUS ONE Stop: 11/13/18 13:25 Last Infusion: 11/13/18 14:05 Dose: 500 mls/hr Admin: 11/13/18 11:45 Dose: 500 mls/hr Metoprolol Tartrate (Lopressor) 25 mg PO NOW ONE Stop: 11/13/18 14:45 Last Admin: 11/13/18 14:57 Dose: Not Given Reevaluation(s) Reevaluation #2: The patient reports her weakness has improved a little after 1 liter of NS infusion. She is able to take pudding by PO with coughing, gagging. However, noticed her HR has increased to 110- 140's. The patient reports she has a history of afib and takes Metoprolol 25 mg PO as needed for this. EKG has ordered and the Metoprolol has been Rx'd Time: 15:02 Reevaluation #3: The patient is able to tolerate small sips of p.o. fluids and 2 cups of pudding without coughing, chocking, or clearing throat. I offered lidocaine oral gel for her sore throat to help hydrate herself orally but she declined to use it in ED. She was able to take a few steps with a walker and assistance. She reports her bathroom is nearby her room and she does not travel far in the house usually. Her heart rate has improved to rate in 80's after the initial dose of the patient's own metoprolol. She reports feeling improved and ready to go home. Time: 17:17 Vital Signs - 8 hr 11/13/18 11:00 11/13/18 11:37 11/13/18 12:07 Temperature 98.8 F Pulse Rate 95 H 90 87 Respiratory Rate 18 18 17 Blood Pressure 110/48 L Blood Pressure [Right Wrist] 146/54 H 121/47 L Pulse Oximetry 95 95 92 11/13/18 13:12 11/13/18 14:50 11/13/18 15:00 Temperature Pulse Rate 85 114 H 108 H Respiratory Rate 16 25 H 20 Blood Pressure Blood Pressure [Right Wrist] 113/38 L 106/41 L 103/47 L Pulse Oximetry 93 93 11/13/18 15:30 11/13/18 16:00 11/13/18 16:36 Temperature Pulse Rate 96 H 90 89 Respiratory Rate 18 19 Blood Pressure Blood Pressure [Right Wrist] 104/45 L 98/58 L 102/54 L Pulse Oximetry 97 11/13/18 17:22 Temperature Pulse Rate 94 H Respiratory Rate Blood Pressure Blood Pressure [Right Wrist] 112/41 L Pulse Oximetry 92 <Josh Bowers DO - Last Filed: 11/14/18 23:32> Orders Ordered: Discontinued Medications Al Hydrox/Mg Hydrox/Simethicone 20 ml/ Lidocaine HCl 15 ml 0 ml PO NOW ONE Stop: 11/13/18 16:41 Last Admin: 11/13/18 17:07 Dose: Not Given Sodium Chloride (Normal Saline 0.9%) 1,000 mls @ 500 mls/hr IV BOLUS ONE Stop: 11/13/18 13:25 Last Infusion: 11/13/18 14:05 Dose: 500 mls/hr Admin: 11/13/18 11:45 Dose: 500 mls/hr Metoprolol Tartrate (Lopressor) 25 mg PO NOW ONE Stop: 11/13/18 14:45 Last Admin: 11/13/18 14:57 Dose: Not Given Vital Signs - 8 hr 11/13/18 11:00 11/13/18 11:37 11/13/18 12:07 Temperature 98.8 F Pulse Rate 95 H 90 87 Respiratory Rate 18 18 17 Blood Pressure 110/48 L Blood Pressure [Right Wrist] 146/54 H 121/47 L Pulse Oximetry 95 95 92 11/13/18 13:12 11/13/18 14:50 11/13/18 15:00 Temperature Pulse Rate 85 114 H 108 H Respiratory Rate 16 25 H 20 Blood Pressure Blood Pressure [Right Wrist] 113/38 L 106/41 L 103/47 L Pulse Oximetry 93 93 11/13/18 15:30 11/13/18 16:00 11/13/18 16:36 Temperature Pulse Rate 96 H 90 89 Respiratory Rate 18 19 Blood Pressure Blood Pressure [Right Wrist] 104/45 L 98/58 L 102/54 L Pulse Oximetry 97 11/13/18 17:22 Temperature Pulse Rate 94 H Respiratory Rate Blood Pressure Blood Pressure [Right Wrist] 112/41 L Pulse Oximetry 92 MDM - Weakness <DIVYA Zhou - Last Filed: 11/14/18 12:30> Differential Diagnosis Differential diagnosis: Likely anemia, sepsis, dehydration and other (stroke, hypokalemia, hypoglycemia) Medical Records Attestation: I reviewed the patient's medical records. Lab Data Attestation: I reviewed the patient's lab results. Result diagrams: 11/13/18 12:35 11/13/18 13:33 Lab Results 11/13/18 11/13/18 11/13/18 Range/Units 11:20 12:35 12:35 WBC 3.6 L (4.5-11.0) X10^3/uL RBC 3.00 L (4.0-5.2) X10^6/uL Hgb 9.7 L (12.0-16.0) g/dL Hct 27.1 L (36-46) % MCV 90.4 (80-100) fL MCH 32.3 (26-34) PG MCHC 35.7 (30-36) % RDW 18.4 H (11.6-14.8) % Plt Count 115 L (150-400) X10^3/uL Neut % (Auto) 68.9 (50-75) % Lymph % (Auto) 26.1 (25-40) % Shelby % (Auto) 3.8 (3-14) % Eos % (Auto) 0.5 L (2-4) % Baso % (Auto) 0.7 (0-2) % Neut # (Auto) 2500 (3023-6556) /uL Lymph # (Auto) 900 L (3476-6728) /uL Shelby # (Auto) 100 (0-900) /uL Eos # (Auto) 0 (0-450) /uL Baso # (Auto) 0 (0-100) /uL PT 14.4 H (10.1-12.7) SECONDS INR 1.3 (0.9-1.3) Sodium (137-145) mmol/L Potassium (3.4-5.1) mmol/L Chloride (98-107) mmol/L Carbon Dioxide (22-32) mmol/L BUN (7-17) mg/dL Creatinine (0.52-1.04) mg/dL Estimated GFR (>60) mL/min BUN/Creatinine Ratio (6-22) Glucose (80-110) mg/dL Calcium (8.4-10.2) mg/dL Total Bilirubin (0.2-1.3) mg/dL AST (14-36) IU/L ALT (9-52) IU/L Alkaline Phosphatase (38-126) U/L Total Protein (6.3-8.2) g/dL Albumin (3.5-5.0) g/dL Globulin (1.7-4.1) g/dL Albumin/Globulin Ratio (1.0-2.8) Urine Color Yellow Urine Appearance Clear Urine pH 7.0 (4.5-8.0) Ur Specific Tyler 1.015 (1.000-1.035) Urine Protein Negative (Negative) Urine Glucose (UA) Negative (Negative) g/dL Urine Ketones Negative (NEGATIVE) Urine Occult Blood Negative (Negative) Urine Nitrate Negative (Negative) Urine Bilirubin Negative (NEGATIVE) Urine Urobilinogen 0.2 (0.2) E.U./dL Ur Leukocyte Esterase Negative (NEGATIVE) Urine RBC None seen (0-5/HPF) Urine WBC None seen (0-5/HPF) Urine Bacteria None seen (None) Ur Culture Indicated? Cult not indicated Micro UA Comment Microscopic normal 11/13/18 Range/Units 13:33 WBC (4.5-11.0) X10^3/uL RBC (4.0-5.2) X10^6/uL Hgb (12.0-16.0) g/dL Hct (36-46) % MCV (80-100) fL MCH (26-34) PG MCHC (30-36) % RDW (11.6-14.8) % Plt Count (150-400) X10^3/uL Neut % (Auto) (50-75) % Lymph % (Auto) (25-40) % Shelby % (Auto) (3-14) % Eos % (Auto) (2-4) % Baso % (Auto) (0-2) % Neut # (Auto) (8811-8829) /uL Lymph # (Auto) (7170-0297) /uL Shelby # (Auto) (0-900) /uL Eos # (Auto) (0-450) /uL Baso # (Auto) (0-100) /uL PT (10.1-12.7) SECONDS INR (0.9-1.3) Sodium 128 L (137-145) mmol/L Potassium 3.5 (3.4-5.1) mmol/L Chloride 93 L (98-107) mmol/L Carbon Dioxide 32 (22-32) mmol/L BUN 26 H (7-17) mg/dL Creatinine 1.20 H (0.52-1.04) mg/dL Estimated GFR 43.4 L (>60) mL/min BUN/Creatinine Ratio 21.7 (6-22) Glucose 74 L (80-110) mg/dL Calcium 9.2 (8.4-10.2) mg/dL Total Bilirubin 0.6 (0.2-1.3) mg/dL AST 16 (14-36) IU/L ALT 26 (9-52) IU/L Alkaline Phosphatase 67 (38-126) U/L Total Protein 5.4 L (6.3-8.2) g/dL Albumin 2.9 L (3.5-5.0) g/dL Globulin 2.5 (1.7-4.1) g/dL Albumin/Globulin Ratio 1.2 (1.0-2.8) Urine Color Urine Appearance Urine pH (4.5-8.0) Ur Specific Tyler (1.000-1.035) Urine Protein (Negative) Urine Glucose (UA) (Negative) g/dL Urine Ketones (NEGATIVE) Urine Occult Blood (Negative) Urine Nitrate (Negative) Urine Bilirubin (NEGATIVE) Urine Urobilinogen (0.2) E.U./dL Ur Leukocyte Esterase (NEGATIVE) Urine RBC (0-5/HPF) Urine WBC (0-5/HPF) Urine Bacteria (None) Ur Culture Indicated? Micro UA Comment Imaging Data Chest x-ray: Radiologist's impression: [address] [address] XRay Report Signed Patient: Val Reyes AMR#: [id number] : 1Acct:[id number] Age/Sex: 78 / FDate of Service: 11/13/18 Loc: ED Accession Number: [id number] Procedure: XR chest 1V Ordering Provider: Don Hung PROCEDURE: XR CHEST 1V INDICATIONS: history of PE, generalized weakness TECHNIQUE: One view of the chest was acquired. COMPARISON: [facility], CR, XR CHEST 2V, 11/09/2018, 14:38. [facility], CR, CHEST 1 VIEW, 04/27/2011, 18:08. [facility], CR, CHEST 2 VIEW, 02/26/2011, 10:48. FINDINGS: Surgical changes and devices: Surgical clips project over the left axilla and lateral left chest wall. Lungs and pleura: There is redemonstration of peripherally opaque and centrally lucent masses consistent with cavitary lesions projecting over the right midlung field and right upper lobe, with the largest mass projecting over the right midlung field measuring 4.4 cm mediolateral by 3.0 cm craniocaudal (previously 5.4 cm mediolateral by 3.5 cm craniocaudal on comparison chest radiographs of 11/09/18). No pneumothorax or pleural effusion. Minimal lateral left basilar pulmonary opacities most consistent with atelectasis. Mediastinum: Mediastinal contours appear normal. Heart size is normal. There is calcified plaque of the aorta. Bones and chest wall: No suspicious bony lesions. Overlying soft tissues appear unremarkable. IMPRESSION: 1. Similar to slightly decreased in size peripherally opaque and centrally lucent masses consistent with cavitary lesions in the right lung as described above. 2. Minimal lateral left basilar pulmonary opacities most consistent with atelectasis. Dictated by: Haja Oswald M.D. on 11/13/2018 at 12:13 Approved by: Haja Oswald M.D. on 11/13/2018 at 12:20 ECG Data Attestation: I personally reviewed and interpreted this ECG as follows: Prior ECG tracings: not available for review Interpretation: Sinus tachycardia with occasional size supraventricular premature complexes rate at [address] depression. normal axis. MDM Narrative Medical decision making narrative: This is a 78-year-old female patient who was brought in by ambulance from her home to ED with generalized weakness and dehydration. She has a history of breast cancer which has met her brain. She also recently diagnosed with pulmonary embolism and is on Lovenox in twice a day daily. Her daughter also reported that she recently started on Lasix 20 mg daily for her lower extremity edema. She has discomfort in her throat from thrush and this has caused for her to not hydrating adequately at home. The CBC indicates she has a neutropenia as compared to a week ago. She also has trending down hemoglobin and hematocrit as well as RBC during this month. These changes are possibly due to her new oral chemotherapy agent. Today sodium level was lower than her usual chronic hyponatremia, however her potassium was 3.5 despite her use of Lasix. The BUN, creatinine indicate, she has acute dehydration. However her GFR, creatinine have improved mildly from 2 days ago. She was received 1 L of normal saline infusion during her stay and she felt improved. Her glucose was 74 and she was able to tolerate 2 cups of pudding without nausea or vomiting. I was concerned for possible changes in her mentation and expressive aphasia initially. However, after talking with the patient and the daughter, there was no acute changes and they agreed not to repeat head CT without no focal neuro deficit. During the course of ED stay, she developed symptomatic sinus tachycardia with occasional SVT up to rate in 140s. Given her history of AFib, obtained EKG and gently corrected with patient's home medication as she requested. Her rhythm has converted to sinus rhythm rate at 80s after 30 minutes approximately and her symptoms such as palpitations improved as well. We then placed Anne catheter initially when she arrived, but it was removed prior her discharge. The urine test was negative for infection. Her chest x-ray indicates no acute changes today however it shows minimal atelectasis in left lateral basilar region. The P appears to be slightly decreased in size according to the chest x-ray. She was able to ambulate few steps with a walker and minimal assistance ED as she does not ambulate much at home at this timeWe discussed in length about the importance of hydration at home. She was informed that using lidocaine gel for her sore throat and continue to hydrate to avoid dehydration. Also we talked about using barrier cream on her buttock and to change Madeline pads frequently to avoid worsening pressure injury on her buttocks. We also talked about following up with her primary care provider on Lasix, whether this could be discontinued, changing in strength or frequency to present recurring dehydration. All the findings were discussed with patient and daughter at the bedside and all the questions expressed or addressed. They both agreed with treatment plan and discharged to be home with close follow-up with her primary physician tomorrow as scheduled. <Josh Bowers, DO - Last Filed: 11/14/18 23:32> Lab Data Lab Results 11/13/18 11/13/18 11/13/18 Range/Units 11:20 12:35 12:35 WBC 3.6 L (4.5-11.0) X10^3/uL RBC 3.00 L (4.0-5.2) X10^6/uL Hgb 9.7 L (12.0-16.0) g/dL Hct 27.1 L (36-46) % MCV 90.4 (80-100) fL MCH 32.3 (26-34) PG MCHC 35.7 (30-36) % RDW 18.4 H (11.6-14.8) % Plt Count 115 L (150-400) X10^3/uL Neut % (Auto) 68.9 (50-75) % Lymph % (Auto) 26.1 (25-40) % Shelby % (Auto) 3.8 (3-14) % Eos % (Auto) 0.5 L (2-4) % Baso % (Auto) 0.7 (0-2) % Neut # (Auto) 2500 (2348-6828) /uL Lymph # (Auto) 900 L (2500-7316) /uL Shelby # (Auto) 100 (0-900) /uL Eos # (Auto) 0 (0-450) /uL Baso # (Auto) 0 (0-100) /uL PT 14.4 H (10.1-12.7) SECONDS INR 1.3 (0.9-1.3) Sodium (137-145) mmol/L Potassium (3.4-5.1) mmol/L Chloride (98-107) mmol/L Carbon Dioxide (22-32) mmol/L BUN (7-17) mg/dL Creatinine (0.52-1.04) mg/dL Estimated GFR (>60) mL/min BUN/Creatinine Ratio (6-22) Glucose (80-110) mg/dL Calcium (8.4-10.2) mg/dL Total Bilirubin (0.2-1.3) mg/dL AST (14-36) IU/L ALT (9-52) IU/L Alkaline Phosphatase (38-126) U/L Total Protein (6.3-8.2) g/dL Albumin (3.5-5.0) g/dL Globulin (1.7-4.1) g/dL Albumin/Globulin Ratio (1.0-2.8) Urine Color Yellow Urine Appearance Clear Urine pH 7.0 (4.5-8.0) Ur Specific Tyler 1.015 (1.000-1.035) Urine Protein Negative (Negative) Urine Glucose (UA) Negative (Negative) g/dL Urine Ketones Negative (NEGATIVE) Urine Occult Blood Negative (Negative) Urine Nitrate Negative (Negative) Urine Bilirubin Negative (NEGATIVE) Urine Urobilinogen 0.2 (0.2) E.U./dL Ur Leukocyte Esterase Negative (NEGATIVE) Urine RBC None seen (0-5/HPF) Urine WBC None seen (0-5/HPF) Urine Bacteria None seen (None) Ur Culture Indicated? Cult not indicated Micro UA Comment Microscopic normal 11/13/18 Range/Units 13:33 WBC (4.5-11.0) X10^3/uL RBC (4.0-5.2) X10^6/uL Hgb (12.0-16.0) g/dL Hct (36-46) % MCV (80-100) fL MCH (26-34) PG MCHC (30-36) % RDW (11.6-14.8) % Plt Count (150-400) X10^3/uL Neut % (Auto) (50-75) % Lymph % (Auto) (25-40) % Shelby % (Auto) (3-14) % Eos % (Auto) (2-4) % Baso % (Auto) (0-2) % Neut # (Auto) (4592-9836) /uL Lymph # (Auto) (6965-1799) /uL Shelby # (Auto) (0-900) /uL Eos # (Auto) (0-450) /uL Baso # (Auto) (0-100) /uL PT (10.1-12.7) SECONDS INR (0.9-1.3) Sodium 128 L (137-145) mmol/L Potassium 3.5 (3.4-5.1) mmol/L Chloride 93 L (98-107) mmol/L Carbon Dioxide 32 (22-32) mmol/L BUN 26 H (7-17) mg/dL Creatinine 1.20 H (0.52-1.04) mg/dL Estimated GFR 43.4 L (>60) mL/min BUN/Creatinine Ratio 21.7 (6-22) Glucose 74 L (80-110) mg/dL Calcium 9.2 (8.4-10.2) mg/dL Total Bilirubin 0.6 (0.2-1.3) mg/dL AST 16 (14-36) IU/L ALT 26 (9-52) IU/L Alkaline Phosphatase 67 (38-126) U/L Total Protein 5.4 L (6.3-8.2) g/dL Albumin 2.9 L (3.5-5.0) g/dL Globulin 2.5 (1.7-4.1) g/dL Albumin/Globulin Ratio 1.2 (1.0-2.8) Urine Color Urine Appearance Urine pH (4.5-8.0) Ur Specific Tyler (1.000-1.035) Urine Protein (Negative) Urine Glucose (UA) (Negative) g/dL Urine Ketones (NEGATIVE) Urine Occult Blood (Negative) Urine Nitrate (Negative) Urine Bilirubin (NEGATIVE) Urine Urobilinogen (0.2) E.U./dL Ur Leukocyte Esterase (NEGATIVE) Urine RBC (0-5/HPF) Urine WBC (0-5/HPF) Urine Bacteria (None) Ur Culture Indicated? Micro UA Comment Discharge Plan Departure Patient Disposition: Home Clinical Impression: Generalized weakness, Dehydration, Hyponatremia Pulmonary embolism Qualifiers: Pulmonary embolism type: unspecified Chronicity: unspecified Acute cor pulmonale presence: without acute cor pulmonale Qualified Code(s): I26.99 - Other pulmonary embolism without acute cor pulmonale Discharge Date/Time: 11/13/18 17:48 Interventions: ED Discharge Assessment Last Done: 11/13/18 17:47 Instructions: DI for Dehydration -- Adult, DI for Hyponatremia, DI for Muscle Weakness Activity Restrictions/Additional Instructions: You have been diagnosed with [dehydration, generalized weakness, low sodium blood level. This may due to the medication usage of Lasix and not being able to orally hydrate from throat/mouth pain. Your lab and xray tests have no significant changes from the recent tests. What to do: *Take your medications as directed. Your medication, Lidocaine, has been eRX to [facility]. *Follow up with your primary care provider tomorrow as scheduled. Let them know you were seen in the ED and that we asked you to be seen in follow up. *Return to ED if you have any new, worsening, or concerning symptoms, such as chest pain, trouble breathing, dizziness, fainting like episodes, increasing weakness. Please Hydrate herself with gently after taking the pain medication as needed. Prescriptions: New lidocaine HCl [Lidocaine Viscous] 2 % solution 15 ml MM Q4-6H PRN (Reason: pain) Qty: 60 RF: 0 No Action simvastatin 40 MG tablet 40 mg PO QDAY Qty: 0 RF: 0 metoprolol tartrate 25 MG tablet 25 mg PO BID Qty: 0 RF: 0 letrozole [Femara] 2.5 MG tablet 2.5 mg PO QDAY Qty: 30 RF: 5 cholecalciferol (vitamin D3) [Vitamin D3] 1,000 unit Tablet 1,000 units DAILY RF: 0 dexamethasone 2 mg Tablet 2 mg PO Q12H RF: 0 pantoprazole [Protonix] 20 mg Tablet,Delayed Release (Dr/Ec) 40 mg PO DAILY RF: 0 docusate sodium 50 mg Capsule 100 mg PO DAILY RF: 0 nystatin 100,000 unit/mL Suspension 5 ml PO QID RF: 0 abemaciclib 150 mg Tablet 150 mg PO BID 30 Days Qty: 60 RF: 6 dexamethasone 1 mg Tablet 1 mg PO DAILY 60 Days Qty: 60 RF: 2 enoxaparin [Lovenox] 80 mg/0.8 mL syringe 80 mg SUBCUT Q12H Qty: 20 RF: 0 Referrals: Ney Matthew MD [Primary Care Provider] - <Josh Bowers DO - Last Filed: 11/14/18 23:32> Cosign ED Attending Evonature Attestation: I was immediately available in the department for consultation. Documentation has been reviewed. I agree with assessment and plan.
[2018-11-13 12:10] LABS: Culture Indicated Urine Cult Not Indicated; Urine Comments Microscopic Normal
[2018-11-13 12:45] LABS: Add Manual Diff / Slide Review NO; Basophils Absolute Auto 0 /uL (0-100); Basophils Percent Auto 0.7 % (0-2); Eosinophils Absolute Auto 0 /uL (0-450); Eosinophils Percent Auto 0.5 % (2-4); Hematocrit 27.1 % (36-46); Hemoglobin 9.7 g/dL (12.0-16.0); Lymphocytes Absolute Auto 900 /uL (1100-4500); Lymphocytes Percent Auto 26.1 % (25-40); Mean Corpuscular HGB Conc 35.7 % (30-36); Mean Corpuscular Hemoglobin 32.3 PG (26-34); Mean Corpuscular Volume 90.4 fL (80-100); Monocytes Absolute Auto 100 /uL (0-900); Monocytes Percent Auto 3.8 % (3-14); Neutrophils Absolute Auto 2500 /uL (1500-7000); Neutrophils Percent Auto 68.9 % (50-75); Platelet Count 115 X10^3/uL (150-400); Red Cell Distribution Width 18.4 % (11.6-14.8); White Blood Cell Count 3.6 X10^3/uL (4.5-11.0)
[2018-11-13 12:59] LABS: INR 1.3 (0.9-1.3); Prothrombin Time 14.4 SECONDS (10.1-12.7)
[2018-11-13 13:47] LABS: Alanine Aminotransferase 26 IU/L (9-52); Albumin 2.9 g/dL (3.5-5.0); Albumin Globulin Ratio 1.2 (1.0-2.8); Alkaline Phosphatase 67 U/L (38-126); Aspartate Aminotransferase 16 IU/L (14-36); BUN Creatinine Ratio 21.7 (6-22); Bilirubin Total 0.6 mg/dL (0.2-1.3); Blood Urea Nitrogen 26 mg/dL (7-17); Calcium 9.2 mg/dL (8.4-10.2); Carbon Dioxide 32 mmol/L (22-32); Chloride 93 mmol/L (98-107); Estimated Glomerular Filt Rate 43.4 mL/min (>60); Globulin 2.5 g/dL (1.7-4.1); Glucose 74 mg/dL (80-110); HEMOLYSIS 28 (0-50); Potassium 3.5 mmol/L (3.4-5.1); Sodium 128 mmol/L (137-145); Total Protein 5.4 g/dL (6.3-8.2)
--- NOTE | 2018-11-13 14:43 | ED_ITS ---
HPI - Weakness <DIVYA Zhou - Last Filed: 11/14/18 12:30> General Chief complaint: Weakness Stated complaint: generalized weakness Time Seen by Provider: 11/13/18 11:00 Source: patient, family and EMS Mode of arrival: EMS Limitations: other (slow to answer the questions) History of Present Illness HPI Narrative: The patient is a 77 year old Female who was transported via ambulance from with chief complain of generalized weakness and dehydration. She has newly diagnosed pulmonary embolism a few days ago and had started on Lovenox 80 mg b.i.d. dose. she also has a history of breast cancer diagnosed initially in 2011. Brain metastasis were found August 2018. She completed her radiation therapy in September and has started on Faslodex and abemaciclib. She is currently on steroids daily. She denies cough, shortness of breath or chest pain. She is having no visual changes, headache, or acute mental status status changes. However, when she arrived to ED, she appears to be responding verbally in a slow manner and with difficulty selecting words or replying to questions. She has no focal weakness or numbness. She has had no fever. she reports she has been having increasing urinary output for the last couple of days since the Lasix 20 mg was started for lower leg edema. also due to this she reports having pressure injury on her buttock. She reports she was able to ambulate at home to the bathroom using a walker up until yesterday, but she could not walk today due to generalized weakness. The daughter of patient inpatient both state that patient declines to drink fluid due to the discomfort in her throat. The daughter states patient has been using Nystatin oral medication. She has an appointment with Dr. Varma who is on-call for Dr. Dat reese today but was not able to make for this appointment and decided to come in for on evaluation in the ED. Related Data Home Medications Medication Instructions Recorded Confirmed simvastatin 40 mg PO QDAY #0 10/04/12 11/07/18 metoprolol tartrate 25 mg PO BID #0 06/14/16 11/07/18 cholecalciferol (vitamin D3) 1,000 units DAILY 07/04/18 11/07/18 [Vitamin D3] dexamethasone 2 mg PO Q12H 09/13/18 11/07/18 docusate sodium 100 mg PO DAILY 09/13/18 11/07/18 pantoprazole [Protonix] 40 mg PO DAILY 09/13/18 11/07/18 nystatin 5 ml PO QID 09/14/18 11/07/18 Previous Rx's Medication Instructions Recorded letrozole [Femara] 2.5 mg PO QDAY #30 tab 08/19/16 abemaciclib 150 mg PO BID 30 Days #60 tab 10/10/18 dexamethasone 1 mg PO DAILY 60 Days #60 tab 10/25/18 enoxaparin [Lovenox] 80 mg SUBCUT Q12H #20 vial 11/11/18 lidocaine HCl [Lidocaine Viscous] 15 ml MM Q4-6H PRN #60 ml 11/13/18 Allergies Allergy/AdvReac Type Severity Reaction Status Date / Time Sulfa (Sulfonamide Allergy Intermediate rash, N/V Verified 11/13/18 11:09 Antibiotics) hydrochlorothiazide AdvReac Intermediate HALLUCINATI Verified 11/13/18 11:09 ONS hydrocodone AdvReac Mild N/V Verified 11/13/18 11:09 Review of Systems <DIVYA Zhou - Last Filed: 11/14/18 12:30> Review of Systems General: see HPI. HEENT: Reports dry and sore throat, difficulty swallowing. Denies sinus pain, ear pain, dizziness. Respiratory: Denies dyspnea, cough, wheezing, hemoptysis, sputum. Cardiovascular: Reports bilateral leg swelling. Denies chest pain, palpitati ons, orthopnea. Gastrointestinal: See HPI. : Reports urinary frequency. Denies dysuria, hematuria, urinary retention. Musculoskeletal: Denies weakness, joint pain or bony pain. Skin: Denies rash, skin lesions, or other. Neurologic: Reports generalized weakness. Denies headache, numbness, change in speech pattern, confusion, seizures, incoordination. Psychiatric: No concerning psychosocial issues. 12-point review of systems is negative except for those stated above. PFSH <DIVYA Zhou - Last Filed: 11/14/18 12:30> Medical History (Updated 11/14/18 @ 11:41 by DIVYA Zhou) Hyperlipidemia (Acute) Metastatic breast cancer (Acute) Brain cancer (Acute) Pulmonary embolism (Acute) Social History (Updated 11/14/18 @ 11:42 by DIVYA Zhou) details: lives at home Smoking Status: Never smoker Social History (Updated 11/14/18 @ 11:42 by DIVYA Zhou) details: lives at home Smoking Status: Never smoker Exam <DIVYA Zhou - Last Filed: 11/14/18 12:30> Narrative Exam Narrative: GEN: Alert, oriented x 3, ill appearing and pale, and in no acute distress. Head: Normal cephalic, atraumatic. No scalp or temporal tenderness, palpable mass or rash. EYES: Pupils are equal, round, and reactive to light and accommodation. Extraocular muscles are intact bilaterally. There is no subconjunctival hemor rhage, exudate and sclera non-icteric. ENT: Bilateral auditory canals and tympanic membranes. Hearing grossly intact. Nose without bleeding, purulent discharge. Facial sinuses nontender to palpate. Mucous membrane very dry, no mucosal lesion. Throat without erythema, tonsillar hypertrophy or exudate. Uvula in midline, airway patent. Neck: Trachea in midline. No JVD, non-tender without lymphadenopathy. No masses or thyroid megaly. Supple, non-tender and meningeal signs. CARDIAC: Normal regular rate and rhythm without murmurs, gallops, or rubs. No chest wall tenderness. No peripheral edema, cyanosis, pale. Capillary refill is less than 2 seconds. No carotid bruits. RESPIRATORY: Lungs are cleat to auscultate bilaterally. No cough, wheezes, rales, or rhonchi. No stridor, respiratory distress, increase work of breathing, or accessary muscle used. ABD: Abdomen soft, nontender and non-distended. No guarding or rebound tenderness to palpate. Bowel sounds are normal in all 4 quadrants. There is no palpable masses or organomegaly. EXT: Painless ROM of all extremities with no loss of sensation, strength, effusion or edema. SKIN: Warm, dry, pale for patient. Large area of pressure injury stage 2 on bilateral buttock. BACK: Nontender without deformity or crepitance. No flank tenderness. NEUROLOGICAL: Alert and oriented to place, time and person. No facial droops. Strength and sensation symmetric and intact throughout. PSYCHIATRIC: No abnormal affect or abnormal behaviors during the examination. Initial Vital Signs Initial Vital Signs: Vital Signs Temperature 98.8 F 11/13/18 11:00 Pulse Rate 95 H 11/13/18 11:00 Respiratory Rate 18 11/13/18 11:00 Blood Pressure 110/48 L 11/13/18 11:00 Pulse Oximetry 95 11/13/18 11:00 <Josh Bowers DO - Last Filed: 11/14/18 23:32> Initial Vital Signs Initial Vital Signs: Vital Signs Temperature 98.8 F 11/13/18 11:00 Pulse Rate 95 H 11/13/18 11:00 Respiratory Rate 18 11/13/18 11:00 Blood Pressure 110/48 L 11/13/18 11:00 Pulse Oximetry 95 11/13/18 11:00 Course <Don HungDIVYA - Last Filed: 11/14/18 12:30> Orders Ordered: Discontinued Medications Al Hydrox/Mg Hydrox/Simethicone 20 ml/ Lidocaine HCl 15 ml 0 ml PO NOW ONE Stop: 11/13/18 16:41 Last Admin: 11/13/18 17:07 Dose: Not Given Sodium Chloride (Normal Saline 0.9%) 1,000 mls @ 500 mls/hr IV BOLUS ONE Stop: 11/13/18 13:25 Last Infusion: 11/13/18 14:05 Dose: 500 mls/hr Admin: 11/13/18 11:45 Dose: 500 mls/hr Metoprolol Tartrate (Lopressor) 25 mg PO NOW ONE Stop: 11/13/18 14:45 Last Admin: 11/13/18 14:57 Dose: Not Given Reevaluation(s) Reevaluation #2: The patient reports her weakness has improved a little after 1 liter of NS infusion. She is able to take pudding by PO with coughing, gagging. However, noticed her HR has increased to 110- 140's. The patient reports she has a history of afib and takes Metoprolol 25 mg PO as needed for this. EKG has ordered and the Metoprolol has been Rx'd Time: 15:02 Reevaluation #3: The patient is able to tolerate small sips of p.o. fluids and 2 cups of pudding without coughing, chocking, or clearing throat. I offered lidocaine oral gel for her sore throat to help hydrate herself orally but she declined to use it in ED. She was able to take a few steps with a walker and assistance. She reports her bathroom is nearby her room and she does not travel far in the house usually. Her heart rate has improved to rate in 80's after the initial dose of the patient's own metoprolol. She reports feeling improved and ready to go home. Time: 17:17 Vital Signs - 8 hr 11/13/18 11:00 11/13/18 11:37 11/13/18 12:07 Temperature 98.8 F Pulse Rate 95 H 90 87 Respiratory Rate 18 18 17 Blood Pressure 110/48 L Blood Pressure [Right Wrist] 146/54 H 121/47 L Pulse Oximetry 95 95 92 11/13/18 13:12 11/13/18 14:50 11/13/18 15:00 Temperature Pulse Rate 85 114 H 108 H Respiratory Rate 16 25 H 20 Blood Pressure Blood Pressure [Right Wrist] 113/38 L 106/41 L 103/47 L Pulse Oximetry 93 93 11/13/18 15:30 11/13/18 16:00 11/13/18 16:36 Temperature Pulse Rate 96 H 90 89 Respiratory Rate 18 19 Blood Pressure Blood Pressure [Right Wrist] 104/45 L 98/58 L 102/54 L Pulse Oximetry 97 11/13/18 17:22 Temperature Pulse Rate 94 H Respiratory Rate Blood Pressure Blood Pressure [Right Wrist] 112/41 L Pulse Oximetry 92 <Josh Bowers DO - Last Filed: 11/14/18 23:32> Orders Ordered: Discontinued Medications Al Hydrox/Mg Hydrox/Simethicone 20 ml/ Lidocaine HCl 15 ml 0 ml PO NOW ONE Stop: 11/13/18 16:41 Last Admin: 11/13/18 17:07 Dose: Not Given Sodium Chloride (Normal Saline 0.9%) 1,000 mls @ 500 mls/hr IV BOLUS ONE Stop: 11/13/18 13:25 Last Infusion: 11/13/18 14:05 Dose: 500 mls/hr Admin: 11/13/18 11:45 Dose: 500 mls/hr Metoprolol Tartrate (Lopressor) 25 mg PO NOW ONE Stop: 11/13/18 14:45 Last Admin: 11/13/18 14:57 Dose: Not Given Vital Signs - 8 hr 11/13/18 11:00 11/13/18 11:37 11/13/18 12:07 Temperature 98.8 F Pulse Rate 95 H 90 87 Respiratory Rate 18 18 17 Blood Pressure 110/48 L Blood Pressure [Right Wrist] 146/54 H 121/47 L Pulse Oximetry 95 95 92 11/13/18 13:12 11/13/18 14:50 11/13/18 15:00 Temperature Pulse Rate 85 114 H 108 H Respiratory Rate 16 25 H 20 Blood Pressure Blood Pressure [Right Wrist] 113/38 L 106/41 L 103/47 L Pulse Oximetry 93 93 11/13/18 15:30 11/13/18 16:00 11/13/18 16:36 Temperature Pulse Rate 96 H 90 89 Respiratory Rate 18 19 Blood Pressure Blood Pressure [Right Wrist] 104/45 L 98/58 L 102/54 L Pulse Oximetry 97 11/13/18 17:22 Temperature Pulse Rate 94 H Respiratory Rate Blood Pressure Blood Pressure [Right Wrist] 112/41 L Pulse Oximetry 92 MDM - Weakness <DIVYA Zhou - Last Filed: 11/14/18 12:30> Differential Diagnosis Differential diagnosis: Likely anemia, sepsis, dehydration and other (stroke, hypokalemia, hypoglycemia) Medical Records Attestation: I reviewed the patient's medical records. Lab Data Attestation: I reviewed the patient's lab results. Result diagrams: 11/13/18 12:35 11/13/18 13:33 Lab Results 11/13/18 11/13/18 11/13/18 Range/Units 11:20 12:35 12:35 WBC 3.6 L (4.5-11.0) X10^3/uL RBC 3.00 L (4.0-5.2) X10^6/uL Hgb 9.7 L (12.0-16.0) g/dL Hct 27.1 L (36-46) % MCV 90.4 (80-100) fL MCH 32.3 (26-34) PG MCHC 35.7 (30-36) % RDW 18.4 H (11.6-14.8) % Plt Count 115 L (150-400) X10^3/uL Neut % (Auto) 68.9 (50-75) % Lymph % (Auto) 26.1 (25-40) % [place] % (Auto) 3.8 (3-14) % Eos % (Auto) 0.5 L (2-4) % Baso % (Auto) 0.7 (0-2) % Neut # (Auto) 2500 (0045-0051) /uL Lymph # (Auto) 900 L (4264-9528) /uL [place] # (Auto) 100 (0-900) /uL Eos # (Auto) 0 (0-450) /uL Baso # (Auto) 0 (0-100) /uL PT 14.4 H (10.1-12.7) SECONDS INR 1.3 (0.9-1.3) Sodium (137-145) mmol/L Potassium (3.4-5.1) mmol/L Chloride (98-107) mmol/L Carbon Dioxide (22-32) mmol/L BUN (7-17) mg/dL Creatinine (0.52-1.04) mg/dL Estimated GFR (>60) mL/min BUN/Creatinine Ratio (6-22) Glucose (80-110) mg/dL Calcium (8.4-10.2) mg/dL Total Bilirubin (0.2-1.3) mg/dL AST (14-36) IU/L ALT (9-52) IU/L Alkaline Phosphatase (38-126) U/L Total Protein (6.3-8.2) g/dL Albumin (3.5-5.0) g/dL Globulin (1.7-4.1) g/dL Albumin/Globulin Ratio (1.0-2.8) Urine Color Yellow Urine Appearance Clear Urine pH 7.0 (4.5-8.0) Ur Specific [place] 1.015 (1.000-1.035) Urine Protein Negative (Negative) Urine Glucose (UA) Negative (Negative) g/dL Urine Ketones Negative (NEGATIVE) Urine Occult Blood Negative (Negative) Urine Nitrate Negative (Negative) Urine Bilirubin Negative (NEGATIVE) Urine Urobilinogen 0.2 (0.2) E.U./dL Ur Leukocyte Esterase Negative (NEGATIVE) Urine RBC None seen (0-5/HPF) Urine WBC None seen (0-5/HPF) Urine Bacteria None seen (None) Ur Culture Indicated? Cult not indicated Micro UA Comment Microscopic normal 11/13/18 Range/Units 13:33 WBC (4.5-11.0) X10^3/uL RBC (4.0-5.2) X10^6/uL Hgb (12.0-16.0) g/dL Hct (36-46) % MCV (80-100) fL MCH (26-34) PG MCHC (30-36) % RDW (11.6-14.8) % Plt Count (150-400) X10^3/uL Neut % (Auto) (50-75) % Lymph % (Auto) (25-40) % [place] % (Auto) (3-14) % Eos % (Auto) (2-4) % Baso % (Auto) (0-2) % Neut # (Auto) (3202-2489) /uL Lymph # (Auto) (6632-7212) /uL [place] # (Auto) (0-900) /uL Eos # (Auto) (0-450) /uL Baso # (Auto) (0-100) /uL PT (10.1-12.7) SECONDS INR (0.9-1.3) Sodium 128 L (137-145) mmol/L Potassium 3.5 (3.4-5.1) mmol/L Chloride 93 L (98-107) mmol/L Carbon Dioxide 32 (22-32) mmol/L BUN 26 H (7-17) mg/dL Creatinine 1.20 H (0.52-1.04) mg/dL Estimated GFR 43.4 L (>60) mL/min BUN/Creatinine Ratio 21.7 (6-22) Glucose 74 L (80-110) mg/dL Calcium 9.2 (8.4-10.2) mg/dL Total Bilirubin 0.6 (0.2-1.3) mg/dL AST 16 (14-36) IU/L ALT 26 (9-52) IU/L Alkaline Phosphatase 67 (38-126) U/L Total Protein 5.4 L (6.3-8.2) g/dL Albumin 2.9 L (3.5-5.0) g/dL Globulin 2.5 (1.7-4.1) g/dL Albumin/Globulin Ratio 1.2 (1.0-2.8) Urine Color Urine Appearance Urine pH (4.5-8.0) Ur Specific [place] (1.000-1.035) Urine Protein (Negative) Urine Glucose (UA) (Negative) g/dL Urine Ketones (NEGATIVE) Urine Occult Blood (Negative) Urine Nitrate (Negative) Urine Bilirubin (NEGATIVE) Urine Urobilinogen (0.2) E.U./dL Ur Leukocyte Esterase (NEGATIVE) Urine RBC (0-5/HPF) Urine WBC (0-5/HPF) Urine Bacteria (None) Ur Culture Indicated? Micro UA Comment Imaging Data Chest x-ray: Radiologist's impression: [address] [id number] XRay Report Signed Patient: Val Reyes AMR#: [id number] : 1Acct:[id number] Age/Sex: 78 / FDate of Service: 11/13/18 Loc: ED Accession Number: [id number] Procedure: XR chest 1V Ordering Provider: Don Hung PROCEDURE: XR CHEST 1V INDICATIONS: history of PE, generalized weakness TECHNIQUE: One view of the chest was acquired. COMPARISON: [facility], CR, XR CHEST 2V, 11/09/2018, 14:38. [facility], CR, CHEST 1 VIEW, 04/27/2011, 18:08. [facility], CR, CHEST 2 VIEW, 02/26/2011, 10:48. FINDINGS: Surgical changes and devices: Surgical clips project over the left axilla and la teral left chest wall. Lungs and pleura: There is redemonstration of peripherally opaque and centrally lucent masses consistent with cavitary lesions projecting over the right midlung field and right upper lobe, with the largest mass projecting over the right midlung field measuring 4.4 cm mediolateral by 3.0 cm craniocaudal (previously 5.4 cm mediolateral by 3.5 cm craniocaudal on comparison chest radiographs of 11/09/18). No pneumothorax or pleural effusion. Minimal lateral left basilar pulmonary opacities most consistent with atelectasis. Mediastinum: Mediastinal contours appear normal. Heart size is normal. There is calcified plaque of the aorta. Bones and chest wall: No suspicious bony lesions. Overlying soft tissues appear unremarkable. IMPRESSION: 1. Similar to slightly decreased in size peripherally opaque and centrally lucent masses consistent with cavitary lesions in the right lung as described above. 2. Minimal lateral left basilar pulmonary opacities most consistent with atelectasis. Dictated by: Edward Oswald, M.D. on 11/13/2018 at 12:13 Approved by: Haja Oswald M.D. on 11/13/2018 at 12:20 ECG Data Attestation: I personally reviewed and interpreted this ECG as follows: Prior ECG tracings: not available for review Interpretation: Sinus tachycardia with occasional size supraventricular premature complexes rate at [address] depression. normal axis. MDM Narrative Medical decision making narrative: This is a 78-year-old female patient who was brought in by ambulance from her home to ED with generalized weakness and dehydration. She has a history of breast cancer which has met her brain. She also recently diagnosed with pulmonary embolism and is on Lovenox in twice a day daily. Her daughter also reported that she recently started on Lasix 20 mg daily for her lower extremity edema. She has discomfort in her throat from thrush and this has caused for her to not hydrating adequately at home. The CBC indicates she has a neutropenia as compared to a week ago. She also has trending down hemoglobin and hematocrit as well as RBC during this month. These changes are possibly due to her new oral chemotherapy agent. Today sodium level was lower than her usual chronic hyponatremia, however her potassium was 3.5 despite her use of Lasix. The BUN, creatinine indicate, she has acute dehydration. However her GFR, creatinine have improved mildly from 2 days ago. She was received 1 L of normal saline infusion during her stay and she felt improved. Her glucose was 74 and she was able to tolerate 2 cups of pudding without nausea or vomiting. I was concerned for possible changes in her mentation and expressive aphasia initially. However, after talking with the patient and the daughter, there was no acute changes and they agreed not to repeat head CT without no focal neuro deficit. During the course of ED stay, she developed symptomatic sinus tachycardia with occasional SVT up to rate in 140s. Given her history of AFib, obtained EKG and gently corrected with patient's home medication as she requested. Her rhythm has converted to sinus rhythm rate at 80s after 30 minutes approximately and her symptoms such as palpitations improved as well. We then placed Anne catheter initially when she arrived, but it was removed prior her discharge. The urine test was negative for infection. Her chest x-ray indicates no acute changes today however it shows minimal atelectasis in left lateral basilar region. The P appears to be slightly decreased in size according to the chest x-ray. She was able to ambulate few steps with a walker and minimal assistance ED as she does not ambulate much at home at this timeWe discussed in length about the importance of hydration at home. She was informed that using lidocaine gel for her sore throat and continue to hydrate to avoid dehydration. Also we talked about using barrier cream on her buttock and to change Madeline pads frequently to avoid worsening pressure injury on her buttocks. We also talked about following up with her primary care provider on Lasix, whether this could be discontinued, changing in strength or frequency to present recurring dehydration. All the findings were discussed with patient and daughter at the bedside and all the questions expressed or addressed. They both agreed with treatment plan and discharged to be home with close follow-up with her primary physician tomorrow as scheduled. <Josh Bowers, DO - Last Filed: 11/14/18 23:32> Lab Data Lab Results 11/13/18 11/13/18 11/13/18 Range/Units 11:20 12:35 12:35 WBC 3.6 L (4.5-11.0) X10^3/uL RBC 3.00 L (4.0-5.2) X10^6/uL Hgb 9.7 L (12.0-16.0) g/dL Hct 27.1 L (36-46) % MCV 90.4 (80-100) fL MCH 32.3 (26-34) PG MCHC 35.7 (30-36) % RDW 18.4 H (11.6-14.8) % Plt Count 115 L (150-400) X10^3/uL Neut % (Auto) 68.9 (50-75) % Lymph % (Auto) 26.1 (25-40) % [place] % (Auto) 3.8 (3-14) % Eos % (Auto) 0.5 L (2-4) % Baso % (Auto) 0.7 (0-2) % Neut # (Auto) 2500 (5092-3856) /uL Lymph # (Auto) 900 L (9682-6530) /uL [place] # (Auto) 100 (0-900) /uL Eos # (Auto) 0 (0-450) /uL Baso # (Auto) 0 (0-100) /uL PT 14.4 H (10.1-12.7) SECONDS INR 1.3 (0.9-1.3) Sodium (137-145) mmol/L Potassium (3.4-5.1) mmol/L Chloride (98-107) mmol/L Carbon Dioxide (22-32) mmol/L BUN (7-17) mg/dL Creatinine (0.52-1.04) mg/dL Estimated GFR (>60) mL/min BUN/Creatinine Ratio (6-22) Glucose (80-110) mg/dL Calcium (8.4-10.2) mg/dL Total Bilirubin (0.2-1.3) mg/dL AST (14-36) IU/L ALT (9-52) IU/L Alkaline Phosphatase (38-126) U/L Total Protein (6.3-8.2) g/dL Albumin (3.5-5.0) g/dL Globulin (1.7-4.1) g/dL Albumin/Globulin Ratio (1.0-2.8) Urine Color Yellow Urine Appearance Clear Urine pH 7.0 (4.5-8.0) Ur Specific [place] 1.015 (1.000-1.035) Urine Protein Negative (Negative) Urine Glucose (UA) Negative (Negative) g/dL Urine Ketones Negative (NEGATIVE) Urine Occult Blood Negative (Negative) Urine Nitrate Negative (Negative) Urine Bilirubin Negative (NEGATIVE) Urine Urobilinogen 0.2 (0.2) E.U./dL Ur Leukocyte Esterase Negative (NEGATIVE) Urine RBC None seen (0-5/HPF) Urine WBC None seen (0-5/HPF) Urine Bacteria None seen (None) Ur Culture Indicated? Cult not indicated Micro UA Comment Microscopic normal 11/13/18 Range/Units 13:33 WBC (4.5-11.0) X10^3/uL RBC (4.0-5.2) X10^6/uL Hgb (12.0-16.0) g/dL Hct (36-46) % MCV (80-100) fL MCH (26-34) PG MCHC (30-36) % RDW (11.6-14.8) % Plt Count (150-400) X10^3/uL Neut % (Auto) (50-75) % Lymph % (Auto) (25-40) % [place] % (Auto) (3-14) % Eos % (Auto) (2-4) % Baso % (Auto) (0-2) % Neut # (Auto) (9622-1054) /uL Lymph # (Auto) (5701-0282) /uL [place] # (Auto) (0-900) /uL Eos # (Auto) (0-450) /uL Baso # (Auto) (0-100) /uL PT (10.1-12.7) SECONDS INR (0.9-1.3) Sodium 128 L (137-145) mmol/L Potassium 3.5 (3.4-5.1) mmol/L Chloride 93 L (98-107) mmol/L Carbon Dioxide 32 (22-32) mmol/L BUN 26 H (7-17) mg/dL Creatinine 1.20 H (0.52-1.04) mg/dL Estimated GFR 43.4 L (>60) mL/min BUN/Creatinine Ratio 21.7 (6-22) Glucose 74 L (80-110) mg/dL Calcium 9.2 (8.4-10.2) mg/dL Total Bilirubin 0.6 (0.2-1.3) mg/dL AST 16 (14-36) IU/L ALT 26 (9-52) IU/L Alkaline Phosphatase 67 (38-126) U/L Total Protein 5.4 L (6.3-8.2) g/dL Albumin 2.9 L (3.5-5.0) g/dL Globulin 2.5 (1.7-4.1) g/dL Albumin/Globulin Ratio 1.2 (1.0-2.8) Urine Color Urine Appearance Urine pH (4.5-8.0) Ur Specific [place] (1.000-1.035) Urine Protein (Negative) Urine Glucose (UA) (Negative) g/dL Urine Ketones (NEGATIVE) Urine Occult Blood (Negative) Urine Nitrate (Negative) Urine Bilirubin (NEGATIVE) Urine Urobilinogen (0.2) E.U./dL Ur Leukocyte Esterase (NEGATIVE) Urine RBC (0-5/HPF) Urine WBC (0-5/HPF) Urine Bacteria (None) Ur Culture Indicated? Micro UA Comment Discharge Plan Departure Patient Disposition: Home Clinical Impression: Generalized weakness, Dehydration, Hyponatremia Pulmonary embolism Qualifiers: Pulmonary embolism type: unspecified Chronicity: unspecified Acute cor pulmonale presence: without acute cor pulmonale Qualified Code(s): I26.99 - Ot her pulmonary embolism without acute cor pulmonale Discharge Date/Time: 11/13/18 17:48 Interventions: ED Discharge Assessment Last Done: 11/13/18 17:47 Instructions: DI for Dehydration -- Adult, DI for Hyponatremia, DI for Muscle Weakness Activity Restrictions/Additional Instructions: You have been diagnosed with [dehydration, generalized weakness, low sodium blood level. This may due to the medication usage of Lasix and not being able to orally hydrate from throat/mouth pain. Your lab and xray tests have no significant changes from the recent tests. What to do: *Take your medications as directed. Your medication, Lidocaine, has been eRX to [facility]. *Follow up with your primary care provider tomorrow as scheduled. Let them know you were seen in the ED and that we asked you to be seen in follow up. *Return to ED if you have any new, worsening, or concerning symptoms, such as chest pain, trouble breathing, dizziness, fainting like episodes, increasing weakness. Please Hydrate herself with gently after taking the pain medication as needed. Prescriptions: New lidocaine HCl [Lidocaine Viscous] 2 % solution 15 ml MM Q4-6H PRN (Reason: pain) Qty: 60 RF: 0 No Action simvastatin 40 MG tablet 40 mg PO QDAY Qty: 0 RF: 0 metoprolol tartrate 25 MG tablet 25 mg PO BID Qty: 0 RF: 0 letrozole [Femara] 2.5 MG tablet 2.5 mg PO QDAY Qty: 30 RF: 5 cholecalciferol (vitamin D3) [Vitamin D3] 1,000 unit Tablet 1,000 units DAILY RF: 0 dexamethasone 2 mg Tablet 2 mg PO Q12H RF: 0 pantoprazole [Protonix] 20 mg Tablet,Delayed Release (Dr/Ec) 40 mg PO DAILY RF: 0 docusate sodium 50 mg Capsule 100 mg PO DAILY RF: 0 nystatin 100,000 unit/mL Suspension 5 ml PO QID RF: 0 abemaciclib 150 mg Tablet 150 mg PO BID 30 Days Qty: 60 RF: 6 dexamethasone 1 mg Tablet 1 mg PO DAILY 60 Days Qty: 60 RF: 2 enoxaparin [Lovenox] 80 mg/0.8 mL syringe 80 mg SUBCUT Q12H Qty: 20 RF: 0 Referrals: Ney Matthew MD [Primary Care Provider] - <Josh Bowers DO - Last Filed: 11/14/18 23:32> Cosign ED Attending Lucia Attestation: I was immediately available in the department for consultation. Documentation has been reviewed. I agree with assessment and plan.
--- NOTE | 2018-11-13 14:58 | PC.NURSE ---
pt took home metoprolol 12.5mg, ok'd by damaris mdm sr
--- NOTE | 2018-11-13 17:06 | PC.NURSE ---
Pt drinking PO fluids without difficulty. Declines GI cocktail.
== END 2018-11-13 17:48 | disposition home or self-care (01) ==
PROVIDERS: Emergency Provider Nurse Practitioner Family; PCP Internal Medicine
DX: R53.1 Weakness (principal); E86.0 Dehydration; E87.1 Hypo-osmolality and hyponatremia; I26.99 Other pulmonary embolism without acute cor pulmonale
CPT/HCPCS: 36415; 51701; 71045; 80053; 81001; 85025; 85610; 93005; 96360; 96361; 99284; 99285

== ENCOUNTER → 2018-11-14 13:35 | Outpatient (CLI) | payer MEDICARE, SELFPAY ==
[2018-11-14 14:46] LABS: Add Manual Diff / Slide Review NO; Basophils Absolute Auto 0 /uL (0-100); Basophils Percent Auto 0.3 % (0-2); Eosinophils Absolute Auto 0 /uL (0-450); Eosinophils Percent Auto 0.3 % (2-4); Hematocrit 28.9 % (36-46); Hemoglobin 10.1 g/dL (12.0-16.0); Lymphocytes Absolute Auto 900 /uL (1100-4500); Lymphocytes Percent Auto 20.2 % (25-40); Mean Corpuscular HGB Conc 35.1 % (30-36); Mean Corpuscular Hemoglobin 31.9 PG (26-34); Mean Corpuscular Volume 91.1 fL (80-100); Monocytes Absolute Auto 100 /uL (0-900); Monocytes Percent Auto 2.8 % (3-14); Neutrophils Absolute Auto 3600 /uL (1500-7000); Neutrophils Percent Auto 76.4 % (50-75); Platelet Count 115 X10^3/uL (150-400); Red Blood Cell Count 3.17 X10^6/uL (4.0-5.2); Red Cell Distribution Width 19.9 % (11.6-14.8); White Blood Cell Count 4.7 X10^3/uL (4.5-11.0)
[2018-11-14 15:25] LABS: HEMOLYSIS < 15 (0-50); Iron 24 ug/dL (37-170)
[2018-11-14 15:27] LABS: BUN Creatinine Ratio 19.2 (6-22); Blood Urea Nitrogen 23 mg/dL (7-17); Calcium 9.8 mg/dL (8.4-10.2); Carbon Dioxide 28 mmol/L (22-32); Chloride 93 mmol/L (98-107); Estimated Glomerular Filt Rate 43.4 mL/min (>60); Glucose 170 mg/dL (80-110); HEMOLYSIS < 15 (0-50); Potassium 3.4 mmol/L (3.4-5.1); Sodium 130 mmol/L (137-145)
[2018-11-14 15:35] LABS: Percent Iron Saturation 11 % (15-50); Total Iron Binding Capacity 219 ug/dL (265-497); Transferrin 167 mg/dL (206-381)
[2018-11-14 15:57] LABS: Sodium Urine Random 21 mmol/L (30-90)
[2018-11-14 16:29] LABS: Folate 18.6 ng/mL (2.76-20.0); Vitamin B12 329 pg/mL (239-931)
[2018-11-16 16:43] LABS: Osmolality, Serum 278 mosm/kg (260-310)
[2018-11-16 16:46] LABS: Osmolality Urine 532 mOsm/kg (50-1200)
== END ==
PROVIDERS: PCP Internal Medicine; Visit Provider Internal Medicine
DX: D64.9 Anemia, unspecified (principal); R06.00 Dyspnea, unspecified; E87.1 Hypo-osmolality and hyponatremia
CPT/HCPCS: 36415; 80048; 82607; 82728; 82746; 83540; 83550; 83930; 83935; 84300; 85025

== ENCOUNTER → 2019-01-30 08:40 | Oncology outpatient (ONC) | payer MEDICARE, SELFPAY ==
[2018-07-04 13:45] VITALS: BP 147/68; PULSE 78; RESP 18; TEMP 37; O2SAT 98
--- NOTE | 2018-07-04 14:46 | ONC.APRN.PN ---
PN -Subjective Interval history: The patient is a 77 year old Female who is being seen in the clinic 07/04/2018 for left-sided breast cancer. She initially presented with a small primary lesion but had 16 of 17 nodes positive for disease. She underwent lumpectomy, lower outer quadrant, left breast on 04/27/11 with axillary dissection and went on to complete postoperative AC x 4 cycles followed by weekly Taxol, completed 11/12/11, then radiation completed 01/07/12. Letrozole initiated 12/2011. She is in her 7th year of follow up. Val continues to have chronic left arm edema. Not getting any worse, she wears a compression sleeve daily. Every now and then she will see PT she finds significant improvement after therapy, massage, and wraps. Otherwise stable no new complaints today. Although she does report and ghost rash. She reports a rash that comes and goes with no rhyme or reason. Primarily located on her back and her legs. Does not itch or burn or bother her rather she just notices it. When she takes Claritin she will not see it however if she stops the Claritin for a day or 2 the rash will appear again. She thinks it is related to letrozole. Patient denies cough, fever, chills. No chest pain, shortness of breath. No nausea or abdominal pain. No new musculoskeletal pain, headaches. No issues with bladder or bowels. Appetite is stable. Weight is stable. No headaches. No change in activity tolerance. Annual bilateral screening mammogram June 23, 2018 was without evidence of malignancy. Past Medical History The patient's past medical history is significant for: 1. Left-sided breast cancer. This was an unusual situation with a small primary but 16 of 17 nodes positive, the largest focus 2.7 cm. She underwent lumpectomy, lower outer quadrant, left breast, 04/27/2011, with axillary dissection. She completed postoperative AC x4 followed by weekly Taxol, completed 11/12/2011, with radiation completed 01/07/2012 and letrozole started 12/2011, now in year 4 followup. 2. KRISSY-BSO 1991. 3. Premarin, 1991 through 2006. 4. Appendectomy. 5. G2, P2, Ab0. 6. Hypertension. Past Surgical History The patient's past surgical history includes: 1. Left-sided breast cancer. This was an unusual situation with a small primary but 16 of 17 nodes positive, the largest focus 2.7 cm. She underwent lumpectomy, lower outer quadrant, left breast, 04/27/2011, with axillary dissection. She completed postoperative AC x4 followed by weekly Taxol, completed 11/12/2011, with radiation completed 01/07/2012 and letrozole started 12/2011, now in year 4 followup. 2. KRISSY-BSO 1991. 4. Appendectomy. Home Medications and Allergies Home Medications Medication Instructions Recorded Confirmed Type aspirin 81 mg PO QDAY #0 10/04/12 07/04/18 History simvastatin 40 mg PO QDAY #0 10/04/12 07/04/18 History metoprolol tartrate 25 mg PO BID #0 06/14/16 07/04/18 History letrozole [Femara] 2.5 mg PO QDAY #30 tab 08/19/16 07/04/18 Rx calcium carbonate [Calcium 500] 07/04/18 History cholecalciferol (vitamin D3) 07/04/18 History [Vitamin D3] Allergies Allergy/AdvReac Type Severity Reaction Status Date / Time Sulfa (Sulfonamide Allergy Unknown Unverified 08/03/17 13:01 Antibiotics) hydrochlorothiazide AdvReac Mild HALLUCINATI Unverified 08/03/17 13:01 ONS hydrocodone AdvReac Mild N/V Unverified 08/03/17 13:01 Exam Vital signs: Vital Signs Temp Pulse Resp BP Pulse Ox 07/04/18 13:45 98.6 F 78 18 147/68 H 98 Intake and Output 07/03/18 07/04/18 07/04/18 23:59 07:59 15:59 Other: Weight 71.8 kg Patient Weight 07/05/18 07:59 Weight 71.8 kg - Constitutional positive no acute distress - Routine HEENT Exam Eye: Present: conjunctivae pink. Absent: conjunctival icterus, scleral injection ENT: Present: mucous membranes moist, oropharynx clear - Routine Neck Exam Present: supple. Absent: lymphadenopathy - Routine Chest/Breast/Axilla Exam Breast: Absent: tenderness, induration, mass Axillae: Absent: lymphadenopathy, mass, tenderness - Routine Respiratory Exam Present: Clear to auscultation bilaterally, rales. Absent: rhonchi, wheezes - Routine Cardiovascular Exam Present: RRR, S1, S2. Absent: murmur, gallop, rubs, JVD - Routine Abdominal Exam Present: soft, normoactive bowel sounds. Absent: tenderness, distended, organomegaly - Routine Extremities Exam Absent: edema, calf tenderness - Routine Skin Exam Present: intact, normal turgor. Absent: rash - Routine Neurological Exam Present: alert, oriented X3 - Routine Psychiatric Exam Present: normal affect Assessment and Plan (1) Adenocarcinoma of left breast Current visit: No Status: Acute Patient is a 77-year-old female who we follow in this clinic for breast cancer. She does have high risk disease, she had a very small primary lesion however 16/17 nodes were positive. Reassuringly on exam today no clinical signs or symptoms to suggest disease recurrence. CBC, CMP unremarkable. CA 27-29 remains within normal limits. Routine annual bilateral screening mammogram June 23, 2018 was without evidence of disease. She is tolerating letrozole without adverse effects. Return to clinic in 6 months time I would like for her to establish care with 1 of our new oncologists. - Time Spent with Patient 20 mins face to face 5 mins prior review of records, labs mammo 5 mins dictation, orders
[2018-09-13 16:06] VITALS: BP 131/66; PULSE 62; RESP 18; TEMP 36.4; O2SAT 96
--- NOTE | 2018-09-13 17:17 | ONC.PN ---
PN -Subjective Interval history: Diagnosis: Breast cancer. Previous treatment: 1. Lumpectomy and axillary node dissection in April 2011. Her primary tumor measured 2.7 cm. Sixteen of 17 lymph nodes were positive. 2. Adjuvant chemotherapy with Adriamycin Cytoxan followed by Taxol finishing in October 2011. 3. Adjuvant radiation finishing in December 2011 4. Letrozole beginning in December 2011. Interval history: The patient is a 77 year old Female who is being seen in the clinic 07/04/2018 for left-sided breast cancer. Since her last visit here, she developed acute onset of word-finding difficulty. She had a CT scan and an MRI that confirmed brain metastasis. CT scan of the chest abdomen pelvis did not show any evidence of systemic disease. She was started on dexamethasone and her symptoms have improved. She was seen done in [place] and a biopsy was recommended. She did not want to go through with it. She has met with Radiation Oncology and is planning stereotactic radiation. She has had a treatment planning session but does not yet have a start date for her radiation. She is not having any pain. She denies any seizures. Her word finding difficulty has improved although not completely resolved. She has noted some vision changes that she attributes to her glasses. She has had some neuropathy in her feet that is gotten worse but denies any other focal numbness or weakness. Her appetite has been good. No nausea or vomiting. No shortness of breath or cough. No GI complaints. She is otherwise without complaint today. Past Medical History The patient's past medical history is significant for: 1. Left-sided breast cancer. This was an unusual situation with a small primary but 16 of 17 nodes positive, the largest focus 2.7 cm. She underwent lumpectomy, lower outer quadrant, left breast, 04/27/2011, with axillary dissection. She completed postoperative AC x4 followed by weekly Taxol, completed 11/12/2011, with radiation completed 01/07/2012 and letrozole started 12/2011, now in year 4 followup. 2. KRISSY-BSO 1991. 3. Premarin, 1991 through 2006. 4. Appendectomy. 5. G2, P2, Ab0. 6. Hypertension. Social history: She is here with her daughter today. She lives by herself and is a . She does smoke about a half a pack of cigarettes daily. Her family history is notable for a niece with breast cancer. There is no other family history of malignancy. Her had a mesothelial my. Home Medications and Allergies Home Medications Medication Instructions Recorded Confirmed Type simvastatin 40 mg PO QDAY #0 10/04/12 09/13/18 History metoprolol tartrate 25 mg PO BID #0 06/14/16 09/13/18 History letrozole [Femara] 2.5 mg PO QDAY #30 tab 08/19/16 09/13/18 Rx cholecalciferol (vitamin D3) 1,000 units DAILY 07/04/18 09/13/18 History [Vitamin D3] abemaciclib 150 mg PO BID 30 Days #60 tab 09/13/18 Rx dexamethasone 2 mg PO Q12H 09/13/18 09/13/18 History docusate sodium 100 mg PO DAILY 09/13/18 09/13/18 History pantoprazole [Protonix] 40 mg PO DAILY 09/13/18 09/13/18 History Allergies Allergy/AdvReac Type Severity Reaction Status Date / Time Sulfa (Sulfonamide Allergy Unknown Unverified 08/03/17 13:01 Antibiotics) hydrochlorothiazide AdvReac Mild HALLUCINATI Unverified 08/03/17 13:01 ONS hydrocodone AdvReac Mild N/V Unverified 08/03/17 13:01 Exam Vital signs: Vital Signs Temp Pulse Resp BP Pulse Ox 09/13/18 16:06 97.5 F L 62 18 131/66 96 Intake and Output 09/13/18 09/13/18 09/13/18 07:59 15:59 23:59 Other: Weight 72.6 kg Patient Weight 09/13/18 23:59 Weight 72.6 kg - Constitutional positive no acute distress, positive average body habitus - Routine HEENT Exam Head: Present: normocephalic, atraumatic Eye: Present: EOMI, PERRL. Absent: conjunctival icterus, scleral injection ENT: Present: mucous membranes moist, oropharynx clear Comments: She does have some thrush on the soft palate. - Routine Neck Exam Present: supple. Absent: lymphadenopathy, thyromegaly - Routine Respiratory Exam Present: Clear to auscultation bilaterally. Absent: rales, wheezes - Routine Cardiovascular Exam Present: RRR, S1, S2. Absent: murmur - Routine Abdominal Exam Present: soft, normoactive bowel sounds. Absent: tenderness, organomegaly, mass - Routine Extremities Exam Present: edema. Absent: cyanosis, clubbing Comments: She has 1+ bilateral lower extremity edema. - Routine Back/Spine Exam Back/Spine: Absent: paraspinal tenderness, vertebral tenderness - Routine Skin Exam Present: intact. Absent: petechiae, rash - Routine Neurological Exam Present: alert, oriented X3 Her speech is somewhat slow but clear. She is a little bit unsteady on her gait. - Routine Psychiatric Exam Present: normal affect, normal thought process Assessment and Plan (1) Adenocarcinoma of left breast Current visit: No Status: Acute 78-year-old woman with a history of node positive breast cancer. She is about 7 years out from her diagnosis and now has evidence of brain metastasis. Symptomatic leak, she has improved since starting on steroids and will continue on her current dose of 2 mg twice a day. She will go ahead with stereotactic radiation. She does not have any evidence of disease progression outside the brain. We will plan on switching her treatment to fulvestrant plus abemaciclib. Side effects including hot flashes and pain at the injection site with fulvestrant reviewed. We also talked about cytopenias and fatigue with the CDK inhibitor. She does understand that the goal of therapy is prolongation of survival but not cure. She is willing to proceed. She will continue letrozole until she starts her new treatment. I would anticipate starting shortly after the completion of her radiation.
--- NOTE | 2018-09-14 14:29 | ONC.SCHED ---
Started an expedited appeal for patients chemo drug being denied
[2018-10-10 15:01] LABS: Add Manual Diff / Slide Review NO; Basophils Absolute Auto 100 /uL (0-100); Basophils Percent Auto 0.4 % (0-2); Eosinophils Absolute Auto 0 /uL (0-450); Eosinophils Percent Auto 0.1 % (2-4); Lymphocytes Absolute Auto 11900 /uL (1100-4500); Lymphocytes Percent Auto 53.9 % (25-40); Mean Corpuscular HGB Conc 34.1 % (30-36); Monocytes Absolute Auto 600 /uL (0-900); Monocytes Percent Auto 2.9 % (3-14); Neutrophils Absolute Auto 9400 /uL (1500-7000); Neutrophils Percent Auto 42.7 % (50-75); Platelet Count 87 X10^3/uL (150-400); Red Blood Cell Count 4.18 X10^6/uL (4.0-5.2); Red Cell Distribution Width 16.4 % (11.6-14.8); White Blood Cell Count 22.1 X10^3/uL (4.5-11.0)
[2018-10-10 15:07] VITALS: BP 144/75; PULSE 63; RESP 14; TEMP 36.8; O2SAT 97
[2018-10-10] MEDS: FULVESTRANT 250 MG/5 ML SYR 500 MG IM (15:54)
--- NOTE | 2018-10-10 17:11 | P.PNONC_ITS ---
PN -Subjective Interval history: Diagnosis: Breast cancer. Previous treatment: 1. Lumpectomy and axillary node dissection in April 2011. Her primary tumor measured 2.7 cm. Sixteen of 17 lymph nodes were positive. 2. Adjuvant chemotherapy with Adriamycin Cytoxan followed by Taxol finishing in October 2011. 3. Adjuvant radiation finishing in December 2011 4. Letrozole beginning in December 2011. 5. Radiation therapy for brain metastasis finishing September 2018 6. Faslodex and abemaciclib beginning September 2018 Interval history: The patient is a 77 year old Female who is being seen in the clinic 07/04/2018 for left-sided breast cancer. Since her last visit here, she developed acute onset of word-finding difficulty. She had a CT scan and an MRI that confirmed brain metastasis. CT scan of the chest abdomen pelvis did not show any evidence of systemic disease. She was started on dexamethasone and her symptoms have improved. She has completed her stereotactic radiation and has been tapering her dose of dexamethasone. Is down to 2 mg daily. She has had some edema while she has been on the dexamethasone. She has noted some difficulty sleeping but her memory and word finding difficulties have improved. She has not had any headaches or seizures. No focal numbness or weakness. Her appetite has been good. No nausea or vomiting. No shortness of breath or cough. She has not yet received her abemaciclib pills. Past Medical History The patient's past medical history is significant for: 1. Left-sided breast cancer. This was an unusual situation with a small primary but 16 of 17 nodes positive, the largest focus 2.7 cm. She underwent lumpectomy, lower outer quadrant, left breast, 04/27/2011, with axillary dissection. She completed postoperative AC x4 followed by weekly Taxol, completed 11/12/2011, with radiation completed 01/07/2012 and letrozole started 12/2011, now in year 4 followup. 2. KRISSY-BSO 1991. 3. Premarin, 1991 through 2006. 4. Appendectomy. 5. G2, P2, Ab0. 6. Hypertension. . Home Medications and Allergies Home Medications Medication Instructions Recorded Confirmed Type simvastatin 40 mg PO QDAY #0 10/04/12 10/10/18 History metoprolol tartrate 25 mg PO BID #0 06/14/16 10/10/18 History letrozole [Femara] 2.5 mg PO QDAY #30 tab 08/19/16 10/10/18 Rx cholecalciferol (vitamin D3) 1,000 units DAILY 07/04/18 10/10/18 History [Vitamin D3] dexamethasone 2 mg PO Q12H 09/13/18 10/10/18 History docusate sodium 100 mg PO DAILY 09/13/18 10/10/18 History pantoprazole [Protonix] 40 mg PO DAILY 09/13/18 10/10/18 History nystatin 5 ml PO QID 09/14/18 10/10/18 History abemaciclib 150 mg PO BID 30 Days #60 tab 10/10/18 Rx Allergies Allergy/AdvReac Type Severity Reaction Status Date / Time Sulfa (Sulfonamide Allergy Unknown Unverified 08/03/17 13:01 Antibiotics) hydrochlorothiazide AdvReac Mild HALLUCINATI Unverified 08/03/17 13:01 ONS hydrocodone AdvReac Mild N/V Unverified 08/03/17 13:01 Exam Vital signs: Vital Signs Temp Pulse Resp BP Pulse Ox 10/10/18 15:07 98.2 F 63 14 144/75 H 97 Intake and Output 10/10/18 10/10/18 10/10/18 07:59 15:59 23:59 Other: Weight 72.8 kg Patient Weight 10/10/18 23:59 Weight 72.8 kg - Constitutional positive no acute distress, positive average body habitus Comments: She does have a mildly cushingoid appearance. - Routine HEENT Exam Head: Present: normocephalic, atraumatic Eye: Present: EOMI, PERRL. Absent: conjunctival icterus, scleral injection ENT: Present: mucous membranes moist, oropharynx clear - Routine Neck Exam Present: supple. Absent: lymphadenopathy - Routine Respiratory Exam Present: Clear to auscultation bilaterally. Absent: rales, wheezes - Routine Cardiovascular Exam Present: RRR, S1, S2. Absent: murmur - Routine Abdominal Exam Present: soft, normoactive bowel sounds. Absent: tenderness, organomegaly, mass - Routine Extremities Exam Present: edema. Absent: cyanosis, clubbing Comments: She has 2+ bilateral lower extremity edema. - Routine Skin Exam Present: intact. Absent: petechiae, rash - Routine Neurological Exam Present: alert, oriented X3 - Routine Psychiatric Exam Present: normal affect, normal thought process Results - Labs Laboratory Last Values WBC 22.1 X10^3/uL (4.5-11.0) H 10/10/18 14:45 RBC 4.18 X10^6/uL (4.0-5.2) 10/10/18 14:45 Hgb 13.0 g/dL (12.0-16.0) 10/10/18 14:45 Hct 38.0 % (36-46) 10/10/18 14:45 MCV 91.0 fL (80-100) 10/10/18 14:45 MCH 31.0 PG (26-34) 10/10/18 14:45 MCHC 34.1 % (30-36) 10/10/18 14:45 RDW 16.4 % (11.6-14.8) H 10/10/18 14:45 Plt Count 87 X10^3/uL (150-400) L 10/10/18 14:45 Neut % (Auto) 42.7 % (50-75) L 10/10/18 14:45 Lymph % (Auto) 53.9 % (25-40) H 10/10/18 14:45 [place] % (Auto) 2.9 % (3-14) L 10/10/18 14:45 Eos % (Auto) 0.1 % (2-4) L 10/10/18 14:45 Baso % (Auto) 0.4 % (0-2) 10/10/18 14:45 Neut # (Auto) 9400 /uL (7113-5745) H 10/10/18 14:45 Lymph # (Auto) 78971 /uL (4646-4774) H 10/10/18 14:45 [place] # (Auto) 600 /uL (0-900) 10/10/18 14:45 Eos # (Auto) 0 /uL (0-450) 10/10/18 14:45 Baso # (Auto) 100 /uL (0-100) 10/10/18 14:45 Assessment and Plan (1) Adenocarcinoma of left breast Current visit: No Status: Acute 78-year-old woman with a history of node positive breast cancer. She is about 7 years out from her diagnosis and now has evidence of brain metastasis. She will continue to taper her dose of dexamethasone as directed by Radiation Oncology. She did get her 1st Faslodex injection today. She will be due for her next in 2 weeks. Will trying get her started on her abemaciclib as soon as she can get the pills. She will return to clinic here in a few weeks for follow-up.
--- NOTE | 2018-10-11 09:02 | ONC.SCHED ---
Per Nancy...Schedule this patient @ 8:30 or 9:00
--- NOTE | 2018-10-11 11:15 | PC.NURSE ---
VVO order given to specialty Joan crowell for Abemaciclib.
[2018-10-25 08:49] VITALS: BP 154/89; PULSE 135; RESP 18; TEMP 36.7; O2SAT 98
--- NOTE | 2018-10-25 09:14 | P.PNONC_ITS ---
PN -Subjective Interval history: Diagnosis: Breast cancer. Previous treatment: 1. Lumpectomy and axillary node dissection in April 2011. Her primary tumor measured 2.7 cm. Sixteen of 17 lymph nodes were positive. 2. Adjuvant chemotherapy with Adriamycin Cytoxan followed by Taxol finishing in October 2011. 3. Adjuvant radiation finishing in December 2011 4. Letrozole beginning in December 2011. 5. Radiation therapy for brain metastasis finishing September 2018 6. Faslodex and abemaciclib beginning September 2018 Interval history: The patient is a 77 year old Female who returns today for follow-up. She has history of breast cancer diagnosed initially in 2011. She had 16 positive lymph nodes. She had been stable on letrozole but unfortunate was found to have brain metastasis earlier this year. She completed her radiation therapy in September and has started on Faslodex and abemaciclib. Thus far, she has been tolerating them well although she has just started the oral medication. She has not had any nausea or vomiting. No worsening hot flashes. She has not had any diarrhea. No fevers or chills. She has recently developed symptoms of UTI. She has had urinary frequency and lack of control. She also has tried to cut back on the dose of her dexamethasone from 2 mg daily to 2 mg every other day and has had increased headache and confusion with that. She has had some difficulty sleeping. Her appetite has been good. No nausea or vomiting. No shortness of breath. She denies any other changes in her health. Past Medical History The patient's past medical history is significant for: 1. Left-sided breast cancer. This was an unusual situation with a small primary but 16 of 17 nodes positive, the largest focus 2.7 cm. She underwent lumpectomy, lower outer quadrant, left breast, 04/27/2011, with axillary dissection. She completed postoperative AC x4 followed by weekly Taxol, completed 11/12/2011, with radiation completed 01/07/2012 and letrozole started 12/2011, now in year 4 followup. 2. KRISSY-BSO 1991. 3. Premarin, 1991 through 2006. 4. Appendectomy. 5. G2, P2, Ab0. 6. Hypertension. . - Patient Self-Reported Symptoms SR ears, nose, mouth, throat issues: Cough SR respiratory issues: Mucous SR Genitourinary issues: Frequent urination, Burning/painful urination, Incontinence SR Musculoskeletal issues: Muscle pain or cramps, Back or neck pain SR Neuro issues: Numbness or tingling SR Endocrine issues: Excessive urination Home Medications and Allergies Home Medications Medication Instructions Recorded Confirmed Type simvastatin 40 mg PO QDAY #0 10/04/12 10/25/18 History metoprolol tartrate 25 mg PO BID #0 06/14/16 10/25/18 History letrozole [Femara] 2.5 mg PO QDAY #30 tab 08/19/16 10/25/18 Rx cholecalciferol (vitamin D3) 1,000 units DAILY 07/04/18 10/25/18 History [Vitamin D3] dexamethasone 2 mg PO Q12H 09/13/18 10/25/18 History docusate sodium 100 mg PO DAILY 09/13/18 10/25/18 History pantoprazole [Protonix] 40 mg PO DAILY 09/13/18 10/25/18 History nystatin 5 ml PO QID 09/14/18 10/25/18 History abemaciclib 150 mg PO BID 30 Days #60 tab 10/10/18 10/25/18 Rx dexamethasone 1 mg PO DAILY 60 Days #60 tab 10/25/18 Rx nitrofurantoin monohyd/m-cryst 100 mg PO Q12H 7 Days #14 cap 10/25/18 Rx [Macrobid] Allergies Allergy/AdvReac Type Severity Reaction Status Date / Time Sulfa (Sulfonamide Allergy Unknown Unverified 08/03/17 13:01 Antibiotics) hydrochlorothiazide AdvReac Mild HALLUCINATI Unverified 08/03/17 13:01 ONS hydrocodone AdvReac Mild N/V Unverified 08/03/17 13:01 Exam Vital signs: Vital Signs Temp Pulse Resp BP Pulse Ox 10/25/18 08:49 98.1 F 135 H 18 154/89 H 98 Intake and Output 10/24/18 10/25/18 10/25/18 23:59 07:59 15:59 Other: Weight 72.1 kg Patient Weight 10/25/18 23:59 Weight 72.1 kg - Constitutional positive no acute distress, positive obese - Routine HEENT Exam Head: Present: normocephalic, atraumatic, cushingoid faces Eye: Present: EOMI, PERRL. Absent: conjunctival icterus, scleral injection ENT: Present: mucous membranes moist, oropharynx clear - Routine Neck Exam Present: supple. Absent: lymphadenopathy, thyromegaly - Routine Respiratory Exam Present: Clear to auscultation bilaterally. Absent: rales, wheezes - Routine Cardiovascular Exam Present: RRR, S1, S2. Absent: murmur - Routine Abdominal Exam Present: soft, normoactive bowel sounds. Absent: tenderness, organomegaly, mass - Routine Extremities Exam Present: edema. Absent: cyanosis, clubbing Comments: She has 1+ bilateral lower extremity edema mostly in the feet. - Routine Back/Spine Exam Back/Spine: Absent: vertebral tenderness - Routine Skin Exam Present: intact. Absent: petechiae, wounds, rash - Routine Neurological Exam Present: alert, oriented X3 - Routine Psychiatric Exam Present: normal affect, normal thought process Results - Labs Laboratory Last Values WBC 22.1 X10^3/uL (4.5-11.0) H 10/10/18 14:45 RBC 4.18 X10^6/uL (4.0-5.2) 10/10/18 14:45 Hgb 13.0 g/dL (12.0-16.0) 10/10/18 14:45 Hct 38.0 % (36-46) 10/10/18 14:45 MCV 91.0 fL (80-100) 10/10/18 14:45 MCH 31.0 PG (26-34) 10/10/18 14:45 MCHC 34.1 % (30-36) 10/10/18 14:45 RDW 16.4 % (11.6-14.8) H 10/10/18 14:45 Plt Count 87 X10^3/uL (150-400) L 10/10/18 14:45 Neut % (Auto) 42.7 % (50-75) L 10/10/18 14:45 Lymph % (Auto) 53.9 % (25-40) H 10/10/18 14:45 [place] % (Auto) 2.9 % (3-14) L 10/10/18 14:45 Eos % (Auto) 0.1 % (2-4) L 10/10/18 14:45 Baso % (Auto) 0.4 % (0-2) 10/10/18 14:45 Neut # (Auto) 9400 /uL (6142-2969) H 10/10/18 14:45 Lymph # (Auto) 93274 /uL (3176-7194) H 10/10/18 14:45 [place] # (Auto) 600 /uL (0-900) 10/10/18 14:45 Eos # (Auto) 0 /uL (0-450) 10/10/18 14:45 Baso # (Auto) 100 /uL (0-100) 10/10/18 14:45 Assessment and Plan (1) Adenocarcinoma of left breast Current visit: No Status: Acute 78-year-old woman with a history of node positive breast cancer. She is about 7 years out from her diagnosis and now has evidence of brain metastasis. I did give her prescription for 1 mg dexamethasone pills. She will trying go to 1 mg daily. If her symptoms worsen then she will stay at 1-1/2 for 2 mg daily. She is due for Faslodex injection today. I think she will start her 2nd cycle in 2 weeks. She will continue with abemacliclib. She does have symptoms of a UTI. We will plan on checking a UA and culture today. I did get a prescription for Macrobid.
[2018-10-25 09:40] LABS: Hematocrit 39.5 % (36-46); Hemoglobin 13.4 g/dL (12.0-16.0); Mean Corpuscular HGB Conc 33.9 % (30-36); Mean Corpuscular Hemoglobin 30.7 PG (26-34); Mean Corpuscular Volume 90.5 fL (80-100); Platelet Count 162 X10^3/uL (150-400); Red Blood Cell Count 4.36 X10^6/uL (4.0-5.2); Red Cell Distribution Width 17.6 % (11.6-14.8)
[2018-10-25 09:50] LABS: Add Manual Diff / Slide Review YES
[2018-10-25 09:51] LABS: Alanine Aminotransferase 29 IU/L (9-52); Albumin 3.5 g/dL (3.5-5.0); Albumin Globulin Ratio 1.2 (1.0-2.8); Alkaline Phosphatase 99 U/L (38-126); Aspartate Aminotransferase 24 IU/L (14-36); BUN Creatinine Ratio 18.9 (6-22); Bilirubin Total 0.9 mg/dL (0.2-1.3); Blood Urea Nitrogen 17 mg/dL (7-17); Calcium 9.5 mg/dL (8.4-10.2); Carbon Dioxide 27 mmol/L (22-32); Chloride 97 mmol/L (98-107); Estimated Glomerular Filt Rate > 60.0 mL/min (>60); Globulin 2.9 g/dL (1.7-4.1); Glucose 109 mg/dL (80-110); HEMOLYSIS < 15 (0-50); Sodium 133 mmol/L (137-145); Total Protein 6.4 g/dL (6.3-8.2)
[2018-10-25] MEDS: FULVESTRANT 250 MG/5 ML SYR 500 MG IM (10:10)
[2018-10-25 10:22] LABS: Appearance Urine UA CLOUDY; Bilirubin Urine UA NEGATIVE (NEGATIVE); Color Urine UA YELLOW; Glucose Urine UA NEGATIVE (Negative); Ketones Urine UA NEGATIVE (NEGATIVE); Leukocyte Esterase Urine UA 3+ (NEGATIVE); Nitrite Urine UA NEGATIVE (Negative); Occult Blood Urine UA 3+ (Negative); Protein Urine UA 1+ (Negative); Urobilinogen Urine UA 0.2 E.U./dL (0.2)
[2018-10-25 11:10] LABS: Bacteria Urine Many (>30); Culture Indicated Urine Specimen Cultured; RBC Urine 10-30/HPF (0-5/HPF); Squamous Epithelial Cell Urine 1-5 /HPF (0-5/HPF); WBC Urine >100/HPF (0-5/HPF)
[2018-10-25 11:40] LABS: Anisocytosis 1+; Nucleated Red Blood Cells 1 #/Diff; Polychromasia 1+
[2018-10-28 15:55] LABS: CA 15-3 10 U/mL (< 32)
[2018-11-07 08:43] VITALS: BP 110/46; PULSE 102; RESP 16; TEMP 36.7; O2SAT 100
--- NOTE | 2018-11-07 08:58 | ONC.PN ---
PN -Subjective Interval history: Diagnosis: Breast cancer. Previous treatment: 1. Lumpectomy and axillary node dissection in April 2011. Her primary tumor measured 2.7 cm. Sixteen of 17 lymph nodes were positive. 2. Adjuvant chemotherapy with Adriamycin Cytoxan followed by Taxol finishing in October 2011. 3. Adjuvant radiation finishing in December 2011 4. Letrozole beginning in December 2011. 5. Radiation therapy for brain metastasis finishing September 2018 6. Faslodex and abemaciclib beginning September 2018 Interval history: The patient is a 77 year old Female who returns today for follow-up. She has history of breast cancer diagnosed initially in 2011. She had 16 positive lymph nodes. She had been stable on letrozole but unfortunate was found to have brain metastasis earlier this year. She completed her radiation therapy in September and has started on Faslodex and abemaciclib. Since her last visit, she has been feeling generally well. She has been able to decrease the dose of her dexamethasone. She is currently taking a half a mg daily. Her daughter notes that following each decrease in the this, she has had about 3 days of fatigue and increased confusion that then revert to her baseline. She is not having any headaches. No fevers or chills. No focal weakness. She has been walking with a walker. Appetite has been good. No nausea or vomiting. She did have 1 or 2 episodes of diarrhea but in general has been tending towards constipation. She did have an episode were paramedics were called. She was found to have a tachycardia. At resolved with the medication and she was not brought to the hospital. There is no indication of seizures although she may have had syncope. She is not having any pain. She is tolerating the abemaciclib without any side effects. She is due for a Faslodex injection today. She denies any other changes in her health. Past Medical History The patient's past medical history is significant for: 1. Left-sided breast cancer. This was an unusual situation with a small primary but 16 of 17 nodes positive, the largest focus 2.7 cm. She underwent lumpectomy, lower outer quadrant, left breast, 04/27/2011, with axillary dissection. She completed postoperative AC x4 followed by weekly Taxol, completed 11/12/2011, with radiation completed 01/07/2012 and letrozole started 12/2011, now in year 4 followup. 2. KRISSY-BSO 1991. 3. Premarin, 1991 through 2006. 4. Appendectomy. 5. G2, P2, Ab0. 6. Hypertension. . - Patient Self-Reported Symptoms SR Constitution: Fatigue/Malaise SR ears, nose, mouth, throat issues: Cough SR respiratory issues: Cough SR Cardiovascular issues: Palpitations SR Genitourinary issues: Incontinence SR Musculoskeletal issues: Difficulty walking SR Neuro issues: Difficulty balancing SR Endocrine issues: Excessive urination Home Medications and Allergies Home Medications Medication Instructions Recorded Confirmed Type simvastatin 40 mg PO QDAY #0 10/04/12 11/07/18 History metoprolol tartrate 25 mg PO BID #0 06/14/16 11/07/18 History letrozole [Femara] 2.5 mg PO QDAY #30 tab 08/19/16 11/07/18 Rx cholecalciferol (vitamin D3) 1,000 units DAILY 07/04/18 11/07/18 History [Vitamin D3] dexamethasone 2 mg PO Q12H 09/13/18 11/07/18 History docusate sodium 100 mg PO DAILY 09/13/18 11/07/18 History pantoprazole [Protonix] 40 mg PO DAILY 09/13/18 11/07/18 History nystatin 5 ml PO QID 09/14/18 11/07/18 History abemaciclib 150 mg PO BID 30 Days #60 tab 10/10/18 11/07/18 Rx dexamethasone 1 mg PO DAILY 60 Days #60 tab 10/25/18 11/07/18 Rx Allergies Allergy/AdvReac Type Severity Reaction Status Date / Time Sulfa (Sulfonamide Allergy Unknown Unverified 08/03/17 13:01 Antibiotics) hydrochlorothiazide AdvReac Mild HALLUCINATI Unverified 08/03/17 13:01 ONS hydrocodone AdvReac Mild N/V Unverified 08/03/17 13:01 Exam Vital signs: Vital Signs Temp Pulse Resp BP Pulse Ox 11/07/18 08:43 98.0 F 102 H 16 110/46 L 100 - Constitutional positive no acute distress, positive average body habitus Comments: She is in a wheelchair. - Routine HEENT Exam Head: Present: normocephalic, atraumatic Eye: Present: EOMI, PERRL. Absent: conjunctival icterus, scleral injection ENT: Present: mucous membranes moist, oropharynx clear - Routine Neck Exam Present: supple. Absent: lymphadenopathy, thyromegaly - Routine Respiratory Exam Present: Clear to auscultation bilaterally. Absent: rales, wheezes - Routine Cardiovascular Exam Present: RRR, S1, S2. Absent: murmur - Routine Abdominal Exam Present: soft, normoactive bowel sounds. Absent: tenderness, organomegaly, mass - Routine Extremities Exam Present: edema. Absent: cyanosis, clubbing Comments: She has 1 to 2+ bilateral lower extremity edema. - Routine Skin Exam Present: intact. Absent: petechiae, rash - Routine Neurological Exam Present: alert, oriented X3 - Routine Psychiatric Exam Present: normal affect, normal thought process Results - Labs Laboratory Last Values WBC 26.0 X10^3/uL (4.5-11.0) H 10/25/18 09:25 RBC 4.36 X10^6/uL (4.0-5.2) 10/25/18 09:25 Hgb 13.4 g/dL (12.0-16.0) 10/25/18 09:25 Hct 39.5 % (36-46) 10/25/18 09:25 MCV 90.5 fL (80-100) 10/25/18 09:25 MCH 30.7 PG (26-34) 10/25/18 09:25 MCHC 33.9 % (30-36) 10/25/18 09:25 RDW 17.6 % (11.6-14.8) H 10/25/18 09:25 Plt Count 162 X10^3/uL (150-400) 10/25/18 09:25 Neut % (Auto) Not Reportable 10/25/18 09:25 Lymph % (Auto) Not Reportable 10/25/18 09:25 [place] % (Auto) Not Reportable 10/25/18 09:25 Eos % (Auto) Not Reportable 10/25/18 09:25 Baso % (Auto) Not Reportable 10/25/18 09:25 Neut # (Auto) 9400 /uL (4412-7358) H 10/10/18 14:45 Lymph # (Auto) Not Reportable 10/25/18 09:25 [place] # (Auto) Not Reportable 10/25/18 09:25 Eos # (Auto) 0 /uL (0-450) 10/10/18 14:45 Baso # (Auto) Not Reportable 10/25/18 09:25 Seg Neutrophils % 61.0 % (38-70) 10/25/18 09:25 Band Neutrophils % 4.0 % (3-7) 10/25/18 09:25 Lymphocytes % (Manual) 27.0 % (25-45) 10/25/18 09:25 Monocytes % (Manual) 8.0 % (2-11) 10/25/18 09:25 Nucleated RBCs 1 #/Diff (-0) H 10/25/18 09:25 RBC Morphology Not Reportable 10/25/18 09:25 Polychromasia 1+ H 10/25/18 09:25 Anisocytosis 1+ H 10/25/18 09:25 Sodium 133 mmol/L (137-145) L 10/25/18 09:25 Potassium 4.0 mmol/L (3.4-5.1) 10/25/18 09:25 Chloride 97 mmol/L (98-107) L 10/25/18 09:25 Carbon Dioxide 27 mmol/L (22-32) 10/25/18 09:25 BUN 17 mg/dL (7-17) 10/25/18 09:25 Creatinine 0.90 mg/dL (0.52-1.04) 10/25/18 09:25 Estimated GFR > 60.0 mL/min (>60) 10/25/18 09:25 BUN/Creatinine Ratio 18.9 (6-22) 10/25/18 09:25 Glucose 109 mg/dL (80-110) 10/25/18 09:25 Calcium 9.5 mg/dL (8.4-10.2) 10/25/18 09:25 Total Bilirubin 0.9 mg/dL (0.2-1.3) 10/25/18 09:25 AST 24 IU/L (14-36) 10/25/18 09:25 ALT 29 IU/L (9-52) 10/25/18 09:25 Alkaline Phosphatase 99 U/L (38-126) 10/25/18 09:25 Total Protein 6.4 g/dL (6.3-8.2) 10/25/18 09:25 Albumin 3.5 g/dL (3.5-5.0) 10/25/18 09:25 Globulin 2.9 g/dL (1.7-4.1) 10/25/18 09:25 Albumin/Globulin Ratio 1.2 (1.0-2.8) 10/25/18 09:25 Breast [employer] Ag 10 U/mL (< 32) 10/25/18 09:25 Urine Color Yellow 10/25/18 10:00 Urine Appearance Cloudy 10/25/18 10:00 Urine pH 8.0 (4.5-8.0) 10/25/18 10:00 Ur Specific [place] 1.020 (1.000-1.035) 10/25/18 10:00 Urine Protein 1+ (Negative) H 10/25/18 10:00 Urine Glucose (UA) Negative g/dL (Negative) 10/25/18 10:00 Urine Ketones Negative (NEGATIVE) 10/25/18 10:00 Urine Occult Blood 3+ (Negative) H 10/25/18 10:00 Urine Nitrate Negative (Negative) 10/25/18 10:00 Urine Bilirubin Negative (NEGATIVE) 10/25/18 10:00 Urine Urobilinogen 0.2 E.U./dL (0.2) 10/25/18 10:00 Ur Leukocyte Esterase 3+ (NEGATIVE) H 10/25/18 10:00 Urine RBC 10-30/hpf (0-5/HPF) H 10/25/18 10:00 Urine WBC >100/hpf (0-5/HPF) H 10/25/18 10:00 Ur Squamous Epith Cells 1-5 /hpf (0-5/HPF) 10/25/18 10:00 Urine Bacteria Many (>30) (None) H 10/25/18 10:00 Ur Culture Indicated? Specimen cultured 10/25/18 10:00 Assessment and Plan (1) Adenocarcinoma of left breast Current visit: No Status: Acute 78-year-old woman with a history of node positive breast cancer. She is about 7 years out from her diagnosis and now has evidence of brain metastasis. She has completed her radiation and is now on Faslodex and abemaciclib. She has been tolerating it well. It is too soon yet to tell whether she is responding. She will continue with her current regimen and return to clinic in about 4 weeks for follow-up. She is due for Faslodex injection today. She will continue to slowly decrease the dose of her dexamethasone. She will go to a half a mg every other day for 1-2 weeks and then try and stop.
[2018-11-07 09:05] LABS: Add Manual Diff / Slide Review NO; Basophils Absolute Auto 100 /uL (0-100); Basophils Percent Auto 0.8 % (0-2); Eosinophils Absolute Auto 100 /uL (0-450); Eosinophils Percent Auto 0.9 % (2-4); Hematocrit 31.5 % (36-46); Hemoglobin 10.8 g/dL (12.0-16.0); Lymphocytes Absolute Auto 1700 /uL (1100-4500); Lymphocytes Percent Auto 26.1 % (25-40); Mean Corpuscular HGB Conc 34.3 % (30-36); Mean Corpuscular Hemoglobin 31.2 PG (26-34); Monocytes Absolute Auto 100 /uL (0-900); Neutrophils Absolute Auto 4500 /uL (1500-7000); Neutrophils Percent Auto 70.2 % (50-75); Platelet Count 106 X10^3/uL (150-400); Red Blood Cell Count 3.46 X10^6/uL (4.0-5.2); Red Cell Distribution Width 17.5 % (11.6-14.8); White Blood Cell Count 6.4 X10^3/uL (4.5-11.0)
[2018-11-07 09:17] LABS: Alanine Aminotransferase 14 IU/L (9-52); Albumin 2.8 g/dL (3.5-5.0); Albumin Globulin Ratio 1.1 (1.0-2.8); Alkaline Phosphatase 85 U/L (38-126); Aspartate Aminotransferase 15 IU/L (14-36); Bilirubin Total 0.6 mg/dL (0.2-1.3); Blood Urea Nitrogen 22 mg/dL (7-17); Calcium 9.6 mg/dL (8.4-10.2); Carbon Dioxide 25 mmol/L (22-32); Chloride 98 mmol/L (98-107); Estimated Glomerular Filt Rate 53.6 mL/min (>60); Globulin 2.6 g/dL (1.7-4.1); Glucose 117 mg/dL (80-110); HEMOLYSIS < 15 (0-50); Potassium 4.3 mmol/L (3.4-5.1); Sodium 132 mmol/L (137-145); Total Protein 5.4 g/dL (6.3-8.2)
[2018-11-07 09:23] VITALS: BP 116/58
[2018-11-07] MEDS: FULVESTRANT 250 MG/5 ML SYR 500 MG IM (09:35)
[2018-11-09 14:23] LABS: CA 15-3 10 U/mL (< 32)
--- NOTE | 2018-11-15 14:58 | PC.NURSE ---
Spoke with pt's daughter, Chiara via phone. Chiara reports that pt was seen in the ED on Tuesday for a blood clot. Chiara wanting to know if pt should continue medication Abemaciclib, because per specialty pharmacy, Abemaciclib can cause blood clots. This poem writer spoke with Dr. Bañuelos and per Dr. Bañuelos pt needs to remain on it as long as she is taking her anticoagulants. Instructed Chiara on Dr. Bañuelos's orders and instructed her that pt would need to seek immediate medical attention if s/s of embolism returned. Discussed different s/s of blood clots with pt's daughter, she verbalized understanding. Faxed form notifying it is okay to proceed with pt's Abemaciclib to specialty pharmacy.
[2018-12-05 08:47] VITALS: BP 119/67; PULSE 100; RESP 20; TEMP 36.7; O2SAT 96
--- NOTE | 2018-12-05 09:27 | P.PNONC_ITS ---
PN -Subjective Interval history: Diagnosis: Breast cancer. Previous treatment: 1. Lumpectomy and axillary node dissection in April 2011. Her primary tumor measured 2.7 cm. Sixteen of 17 lymph nodes were positive. 2. Adjuvant chemotherapy with Adriamycin Cytoxan followed by Taxol finishing in October 2011. 3. Adjuvant radiation finishing in December 2011 4. Letrozole beginning in December 2011. 5. Radiation therapy for brain metastasis finishing September 2018 6. Faslodex and abemaciclib beginning September 2018 Interval history: The patient is a 77 year old Female who returns today for follow-up. She has history of breast cancer diagnosed initially in 2011. She had 16 positive lymph nodes. She had been stable on letrozole but unfortunate was found to have brain metastasis earlier this year. She completed her radiation therapy in September and has started on Faslodex and abemaciclib. Since her last visit, she developed some increasing shortness of breath and cough. She was seen by her primary physician. CT scan showed bilateral pulmonary emboli. She was started on Lovenox. She has been tolerating the injections without too much difficulty. She has not noticed any unusual bleeding but has had some easy bruising. She still has some cough. She also has some dyspnea on exertion. She denies any pain in the chest. A few days later, she developed some increasing lower extremity edema. She was given some Lasix. She then developed progressive weakness and fatigue. She was seen in the emergency room and treated with IV fluids with some improvement in her symptoms. Since then, she has continued to feel weak and tired. She is spending more time in bed and in a chair. She was having some diarrhea and then developed a sore on her buttocks. She has been using Silvadene cream and a pad. It is tempering kiln tender. She remains on just a half a mg daily of dexamethasone. She is not having any headaches. No focal numbness or weakness. She has not had any obvious seizures. Her daughter describe some ?blacking out episodes? these tend to last just a few seconds at a time. The patient does not lose consciousness and reports that she is able to hear during them. They seem to occur most frequently when moving from a lying to either sitting or standing position or from urination. But they do not happen every time. She has been tolerating her Faslodex injections with only some minimal pain at the injection site. She has some hot flashes but they are fairly rare. She has not noticed any side effects that she attributes to the abemaciclib. Past Medical History The patient's past medical history is significant for: 1. Left-sided breast cancer. This was an unusual situation with a small primary but 16 of 17 nodes positive, the largest focus 2.7 cm. She underwent lumpectomy, lower outer quadrant, left breast, 04/27/2011, with axillary dissection. She completed postoperative AC x4 followed by weekly Taxol, completed 11/12/2011, with radiation completed 01/07/2012 and letrozole started 12/2011, now in year 4 followup. 2. KRISSY-BSO 1991. 3. Premarin, 1991 through 2006. 4. Appendectomy. 5. G2, P2, Ab0. 6. Hypertension. 7. PE October 2018 . - Patient Self-Reported Symptoms SR Constitution: Fatigue/Malaise SR ears, nose, mouth, throat issues: Cough SR respiratory issues: Cough, Shortness of breath SR Cardiovascular issues: Palpitations, Dizzy/lightheaded SR Genitourinary issues: Incontinence SR Musculoskeletal issues: Difficulty walking SR Neuro issues: Difficulty balancing SR Endocrine issues: Cold intolerance, Excessive urination Home Medications and Allergies Home Medications Medication Instructions Recorded Confirmed Type metoprolol tartrate 25 mg PO BID #0 06/14/16 12/05/18 History dexamethasone 2 mg PO Q12H 09/13/18 12/05/18 History docusate sodium 100 mg PO DAILY 09/13/18 12/05/18 History pantoprazole [Protonix] 40 mg PO DAILY 09/13/18 12/05/18 History nystatin 5 ml PO QID 09/14/18 12/05/18 History abemaciclib 150 mg PO BID 30 Days #60 tab 10/10/18 12/05/18 Rx dexamethasone 1 mg PO DAILY 60 Days #60 tab 10/25/18 12/05/18 Rx enoxaparin [Lovenox] 80 mg SUBCUT Q12H #20 vial 11/11/18 12/05/18 Rx lidocaine HCl [Lidocaine Viscous] 15 ml MM Q4-6H PRN #60 ml 11/13/18 12/05/18 Rx acetaminophen [Tylenol] 325 mg PO Q6H PRN 12/05/18 12/05/18 History Allergies Allergy/AdvReac Type Severity Reaction Status Date / Time Sulfa (Sulfonamide Allergy Intermediate rash, N/V Verified 11/13/18 11:09 Antibiotics) hydrochlorothiazide AdvReac Intermediate HALLUCINATI Verified 11/13/18 11:09 ONS hydrocodone AdvReac Mild N/V Verified 11/13/18 11:09 Exam Vital signs: Vital Signs Temp Pulse Resp BP Pulse Ox 12/05/18 08:47 98.1 F 100 H 20 119/67 96 Intake and Output 12/04/18 12/05/18 12/05/18 23:59 07:59 15:59 Other: Weight 68.1 kg Patient Weight 12/05/18 23:59 Weight 68.1 kg - Constitutional positive no acute distress, positive chronically ill appearing Comments: She is in a wheelchair and wrapped in a blanket. She is modestly cushingoid in appearance. Her speech is somewhat slow. - Routine HEENT Exam Head: Present: normocephalic, atraumatic, cushingoid faces Eye: Present: EOMI, PERRL. Absent: conjunctival icterus, scleral injection ENT: Present: mucous membranes moist Comments: She does have some thrush on the soft palate. - Routine Neck Exam Present: supple. Absent: lymphadenopathy, thyromegaly - Routine Chest/Breast/Axilla Exam Chest wall exam standard: Absent: tenderness - Routine Respiratory Exam Present: Clear to auscultation bilaterally. Absent: rales, wheezes - Routine Cardiovascular Exam Present: RRR, S1, S2. Absent: murmur - Routine Abdominal Exam Present: soft, normoactive bowel sounds. Absent: tenderness, organomegaly, mass - Routine Extremities Exam Present: edema. Absent: cyanosis, clubbing Comments: She has trace to 1+ lower extremity edema. - Routine Skin Exam Present: intact, ecchymosis. Absent: petechiae, rash - Routine Neurological Exam Present: alert, oriented X3 - Routine Psychiatric Exam Comments: She does appear to be somewhat withdrawn or depressed. Results - Labs Laboratory Last Values WBC 6.4 X10^3/uL (4.5-11.0) 11/07/18 08:35 RBC 3.46 X10^6/uL (4.0-5.2) L 11/07/18 08:35 Hgb 10.8 g/dL (12.0-16.0) L 11/07/18 08:35 Hct 31.5 % (36-46) L 11/07/18 08:35 MCV 91.0 fL (80-100) 11/07/18 08:35 MCH 31.2 PG (26-34) 11/07/18 08:35 MCHC 34.3 % (30-36) 11/07/18 08:35 RDW 17.5 % (11.6-14.8) H 11/07/18 08:35 Plt Count 106 X10^3/uL (150-400) L 11/07/18 08:35 Neut % (Auto) 70.2 % (50-75) 11/07/18 08:35 Lymph % (Auto) 26.1 % (25-40) 11/07/18 08:35 [place] % (Auto) 2.0 % (3-14) L 11/07/18 08:35 Eos % (Auto) 0.9 % (2-4) L 11/07/18 08:35 Baso % (Auto) 0.8 % (0-2) 11/07/18 08:35 Neut # (Auto) 4500 /uL (6436-2642) 11/07/18 08:35 Lymph # (Auto) 1700 /uL (2272-7886) 11/07/18 08:35 [place] # (Auto) 100 /uL (0-900) 11/07/18 08:35 Eos # (Auto) 100 /uL (0-450) 11/07/18 08:35 Baso # (Auto) 100 /uL (0-100) 11/07/18 08:35 Seg Neutrophils % 61.0 % (38-70) 10/25/18 09:25 Band Neutrophils % 4.0 % (3-7) 10/25/18 09:25 Lymphocytes % (Manual) 27.0 % (25-45) 10/25/18 09:25 Monocytes % (Manual) 8.0 % (2-11) 10/25/18 09:25 Nucleated RBCs 1 #/Diff (-0) H 10/25/18 09:25 RBC Morphology Not Reportable 10/25/18 09:25 Polychromasia 1+ H 10/25/18 09:25 Anisocytosis 1+ H 10/25/18 09:25 Sodium 132 mmol/L (137-145) L 11/07/18 08:35 Potassium 4.3 mmol/L (3.4-5.1) 11/07/18 08:35 Chloride 98 mmol/L (98-107) 11/07/18 08:35 Carbon Dioxide 25 mmol/L (22-32) 11/07/18 08:35 BUN 22 mg/dL (7-17) H 11/07/18 08:35 Creatinine 1.00 mg/dL (0.52-1.04) 11/07/18 08:35 Estimated GFR 53.6 mL/min (>60) L 11/07/18 08:35 BUN/Creatinine Ratio 22.0 (6-22) 11/07/18 08:35 Glucose 117 mg/dL (80-110) H 11/07/18 08:35 Calcium 9.6 mg/dL (8.4-10.2) 11/07/18 08:35 Total Bilirubin 0.6 mg/dL (0.2-1.3) 11/07/18 08:35 AST 15 IU/L (14-36) 11/07/18 08:35 ALT 14 IU/L (9-52) 11/07/18 08:35 Alkaline Phosphatase 85 U/L (38-126) 11/07/18 08:35 Total Protein 5.4 g/dL (6.3-8.2) L 11/07/18 08:35 Albumin 2.8 g/dL (3.5-5.0) L 11/07/18 08:35 Globulin 2.6 g/dL (1.7-4.1) 11/07/18 08:35 Albumin/Globulin Ratio 1.1 (1.0-2.8) 11/07/18 08:35 Breast [employer] Ag 10 U/mL (< 32) 11/07/18 08:35 Urine Color Yellow 10/25/18 10:00 Urine Appearance Cloudy 10/25/18 10:00 Urine pH 8.0 (4.5-8.0) 10/25/18 10:00 Ur Specific [place] 1.020 (1.000-1.035) 10/25/18 10:00 Urine Protein 1+ (Negative) H 10/25/18 10:00 Urine Glucose (UA) Negative g/dL (Negative) 10/25/18 10:00 Urine Ketones Negative (NEGATIVE) 10/25/18 10:00 Urine Occult Blood 3+ (Negative) H 10/25/18 10:00 Urine Nitrate Negative (Negative) 10/25/18 10:00 Urine Bilirubin Negative (NEGATIVE) 10/25/18 10:00 Urine Urobilinogen 0.2 E.U./dL (0.2) 10/25/18 10:00 Ur Leukocyte Esterase 3+ (NEGATIVE) H 10/25/18 10:00 Urine RBC 10-30/hpf (0-5/HPF) H 10/25/18 10:00 Urine WBC >100/hpf (0-5/HPF) H 10/25/18 10:00 Ur Squamous Epith Cells 1-5 /hpf (0-5/HPF) 10/25/18 10:00 Urine Bacteria Many (>30) (None) H 10/25/18 10:00 Ur Culture Indicated? Specimen cultured 10/25/18 10:00 Assessment and Plan (1) Adenocarcinoma of left breast Current visit: No Status: Acute 78-year-old woman with a history of node positive breast cancer. She is about 7 years out from her diagnosis and now has evidence of brain metastasis. She has completed her radiation and is now on Faslodex and abemaciclib. It is possible that the abemaciclib may be contributing to some weakness and fatigue. She will try to hold the medication for we can see if her symptoms improve at all. If not, she will resume at her usual dose. If she does feel better, we will need to consider either dose reduction or stopping. She will continue with her Faslodex injection today. She will return to clinic in 4 weeks for follow-up. She would benefit I think from some physical therapy. It is a bit of a challenge for her daughter to bring her into clinic and if she is eligible for home physical therapy I think that would be a better option for her. Her daughter he did have questions about hospice. The specifically, she was wondering what the proper time would be. At this point, she seems to have responded to her radiation with decrease in the size of her brain metastasis and decrease in her edema. She does not have measurable disease in other locations. With therapy, her median survival I think is likely to be more than a year and potentially several years. It is difficult for me to say what her prognosis would be without active therapy, but at this point I think it is likely that she would live probably more than 6 months. If she elects to stop therapy, that may change. She will return to clinic in 4 weeks for follow-up. 40 minutes was spent with the patient and her daughter the majority in counseling.
[2018-12-05 09:54] LABS: Add Manual Diff / Slide Review NO; Basophils Absolute Auto 0 /uL (0-100); Basophils Percent Auto 0.5 % (0-2); Eosinophils Absolute Auto 0 /uL (0-450); Eosinophils Percent Auto 0.5 % (2-4); Hematocrit 29.5 % (36-46); Hemoglobin 10.4 g/dL (12.0-16.0); Lymphocytes Absolute Auto 500 /uL (1100-4500); Lymphocytes Percent Auto 10.5 % (25-40); Mean Corpuscular HGB Conc 35.1 % (30-36); Monocytes Absolute Auto 100 /uL (0-900); Monocytes Percent Auto 2.2 % (3-14); Neutrophils Absolute Auto 4000 /uL (1500-7000); Neutrophils Percent Auto 86.3 % (50-75); Platelet Count 180 X10^3/uL (150-400); Red Blood Cell Count 3.04 X10^6/uL (4.0-5.2); Red Cell Distribution Width 22.3 % (11.6-14.8); White Blood Cell Count 4.6 X10^3/uL (4.5-11.0)
[2018-12-05 10:02] LABS: Alanine Aminotransferase 12 IU/L (9-52); Albumin 2.8 g/dL (3.5-5.0); Alkaline Phosphatase 66 U/L (38-126); Aspartate Aminotransferase 20 IU/L (14-36); Bilirubin Total 0.6 mg/dL (0.2-1.3); Blood Urea Nitrogen 22 mg/dL (7-17); Calcium 11.6 mg/dL (8.4-10.2); Carbon Dioxide 28 mmol/L (22-32); Chloride 98 mmol/L (98-107); Globulin 2.9 g/dL (1.7-4.1); Glucose 122 mg/dL (80-110); HEMOLYSIS 15 (0-50); Potassium 3.1 mmol/L (3.4-5.1); Sodium 134 mmol/L (137-145); Total Protein 5.7 g/dL (6.3-8.2)
[2018-12-05 10:10] LABS: Anisocytosis 2+; Macrocytosis 1+
[2018-12-05] MEDS: FULVESTRANT 250 MG/5 ML SYR 500 MG IM (10:35)
--- NOTE | 2018-12-05 10:52 | PC.NURSE ---
pt weak. layed across stretcher for IM injections
--- NOTE | 2018-12-05 11:36 | ONC.MSW ---
Description: Home Health Referral Activity: Per Dr. Bañuelos and family's request, this V[employer] GL[employer] JOINTER FEEDBACK completed a Home Health referral to [facility]. Requesting PT and RN services. Faxed in to their intake. No further needs indicated at this time.
--- NOTE | 2018-12-06 09:03 | PC.NURSE ---
Dr. Bañuelos informed this data analyst report writer that pt needed to come into clinic for Zometa and IVF r/t to elevated calcium result. Spoke with pt's daughter, Ayesha, pt scheduled to come in at noon.
[2018-12-06 12:47] VITALS: BP 92/46; PULSE 107; RESP 20; TEMP 36.4; O2SAT 96
[2018-12-06] MEDS: SODIUM CHLORIDE 0.9% 1,000 ML 1000 ML IV (12:51)
[2018-12-06] MEDS: ZOLEDRONIC ACID 4 MG in SODIUM CHLORIDE 0.9% 100 ML 315 ML IV (12:52)
[2018-12-06 14:37] VITALS: BP 112/50; PULSE 98
--- NOTE | 2018-12-06 14:39 | ONC.MSW ---
Description: T/C re: start date for Home Health Activity: [facility] called to request a new start date for pt to begin this coming 12/08/18, and requested this in writing from Dr. Bañuelos. MANAGER SAFE obtained his signature and faxed the note back as requested.
--- NOTE | 2018-12-06 15:51 | PC.NURSE ---
Dr. Bañuelos would like pt to come in next week for blood draw, order entered. This comic book writer left message on pt's daughter's phone. Pt's daughter,Ayesha, instructed this comic book writer that if she didn't answer phone to go ahead and leave a voicemail.
[2018-12-07 15:01] LABS: CA 15-3 20 U/mL (< 32)
--- NOTE | 2018-12-12 17:59 | PC.NURSE ---
HOME HEALTH PT: Riley Auguste, PT of [facility] called that his is starting PT for patient 2x/week for 4 weeks. He will send a written order for signature by Dr. Bañuelos if no objection to this plan. Note sent to Dr. Bañuelos for approval.
[2018-12-13 10:18] LABS: Add Manual Diff / Slide Review NO; Basophils Absolute Auto 0 /uL (0-100); Basophils Percent Auto 0.8 % (0-2); Eosinophils Absolute Auto 0 /uL (0-450); Eosinophils Percent Auto 0.5 % (2-4); Hematocrit 31.1 % (36-46); Hemoglobin 10.9 g/dL (12.0-16.0); Lymphocytes Absolute Auto 600 /uL (1100-4500); Lymphocytes Percent Auto 11.7 % (25-40); Mean Corpuscular Hemoglobin 34.2 PG (26-34); Mean Corpuscular Volume 97.8 fL (80-100); Monocytes Absolute Auto 200 /uL (0-900); Monocytes Percent Auto 3.5 % (3-14); Neutrophils Absolute Auto 4200 /uL (1500-7000); Neutrophils Percent Auto 83.5 % (50-75); Platelet Count 181 X10^3/uL (150-400); Red Blood Cell Count 3.18 X10^6/uL (4.0-5.2); Red Cell Distribution Width 21.4 % (11.6-14.8); White Blood Cell Count 5.1 X10^3/uL (4.5-11.0)
[2018-12-13 10:27] LABS: Alanine Aminotransferase 37 IU/L (9-52); Albumin 2.7 g/dL (3.5-5.0); Albumin Globulin Ratio 0.9 (1.0-2.8); Alkaline Phosphatase 154 U/L (38-126); Aspartate Aminotransferase 35 IU/L (14-36); Bilirubin Total 0.7 mg/dL (0.2-1.3); Blood Urea Nitrogen 14 mg/dL (7-17); Calcium 9.3 mg/dL (8.4-10.2); Carbon Dioxide 25 mmol/L (22-32); Chloride 102 mmol/L (98-107); Estimated Glomerular Filt Rate 53.6 mL/min (>60); Globulin 3.1 g/dL (1.7-4.1); Glucose 129 mg/dL (80-110); HEMOLYSIS < 15 (0-50); Potassium 3.9 mmol/L (3.4-5.1); Sodium 135 mmol/L (137-145); Total Protein 5.8 g/dL (6.3-8.2)
[2018-12-13 10:39] LABS: Polychromasia 1+
[2018-12-13 10:40] LABS: Anisocytosis 2+
--- NOTE | 2018-12-13 14:56 | PC.NURSE ---
Per Dr. Bañuelos pt should continue oral Potassium and restart Ibrance. Spoke with pt's daughter, Ayesha, and let her know Dr. Bañuelos's instructions, Ayesha verbalized understanding.
--- NOTE | 2018-12-19 15:47 | PC.NURSE ---
HOME HEALTH-OT AND BATH AIDE: verbal order was given by Dr. Bañuelos for bath aide and OT evjewel and communicated to [facility] at [phone].
[2019-01-02 08:52] VITALS: BP 101/59; PULSE 99; RESP 16; TEMP 36.4; O2SAT 94
--- NOTE | 2019-01-02 09:03 | P.PNONC_ITS ---
PN -Subjective Interval history: Diagnosis: Breast cancer. Previous treatment: 1. Lumpectomy and axillary node dissection in April 2011. Her primary tumor measured 2.7 cm. Sixteen of 17 lymph nodes were positive. 2. Adjuvant chemotherapy with Adriamycin Cytoxan followed by Taxol finishing in October 2011. 3. Adjuvant radiation finishing in December 2011 4. Letrozole beginning in December 2011. 5. Radiation therapy for brain metastasis finishing September 2018 6. Faslodex and abemaciclib beginning September 2018 Interval history: The patient is a 77 year old Female who returns today for follow-up. She has history of breast cancer diagnosed initially in 2011. She had 16 positive lymph nodes. She had been stable on letrozole but unfortunate was found to have brain metastasis earlier this year. She completed her radiation therapy in September and has started on Faslodex and abemaciclib. Since her last visit here, she has been feeling a little bit better. She was found to have hypercalcemia at her last visit and had a Zometa infusion. She is due for another 1 today. Over the last month, her strength and energy level have improved a little bit. She is working with physical therapy at home. She has poor appetite. She is drinking plenty of fluids and protein shakes but is not eating much solid food. She has been on a half a mg a day of dexamethasone. She has not had any seizures or headache. No focal numbness or weakness. Her speech has been somewhat slow and diminished. She did resume abemaciclib and has been tolerating it without any difficulty. She denies any other changes in her health. Past Medical History The patient's past medical history is significant for: 1. Left-sided breast cancer. This was an unusual situation with a small primary but 16 of 17 nodes positive, the largest focus 2.7 cm. She underwent lumpectomy, lower outer quadrant, left breast, 04/27/2011, with axillary dissection. She completed postoperative AC x4 followed by weekly Taxol, completed 11/12/2011, with radiation completed 01/07/2012 and letrozole started 12/2011, now in year 4 followup. 2. KRISSY-BSO 1991. 3. Premarin, 1991 through 2006. 4. Appendectomy. 5. G2, P2, Ab0. 6. Hypertension. 7. PE October 2018 . - Patient Self-Reported Symptoms SR Constitution: Fatigue/Malaise SR ears, nose, mouth, throat issues: Cough SR respiratory issues: Cough, Shortness of breath SR Cardiovascular issues: Dizzy/lightheaded SR Gastrointestinal issues: Poor or no appetite SR Genitourinary issues: Incontinence SR Musculoskeletal issues: Muscle weakness SR Neuro issues: Lightheaded/dizzy SR Endocrine issues: Cold intolerance, Excessive urination Home Medications and Allergies Home Medications Medication Instructions Recorded Confirmed Type metoprolol tartrate 25 mg PO BID #0 06/14/16 12/05/18 History docusate sodium 100 mg PO DAILY 09/13/18 12/05/18 History pantoprazole [Protonix] 40 mg PO DAILY 09/13/18 12/05/18 History nystatin 5 ml PO QID 09/14/18 12/05/18 History abemaciclib 150 mg PO BID 30 Days #60 tab 10/10/18 12/05/18 Rx dexamethasone 1 mg PO DAILY 60 Days #60 tab 10/25/18 12/05/18 Rx enoxaparin [Lovenox] 80 mg SUBCUT Q12H #20 vial 11/11/18 12/05/18 Rx lidocaine HCl [Lidocaine Viscous] 15 ml MM Q4-6H PRN #60 ml 11/13/18 12/05/18 Rx acetaminophen [Tylenol] 325 mg PO Q6H PRN 12/05/18 12/05/18 History potassium chloride [Klor-Con 8 meq PO BID 30 Days #60 cap 12/05/18 Rx Sprinkle] Allergies Allergy/AdvReac Type Severity Reaction Status Date / Time Sulfa (Sulfonamide Allergy Intermediate rash, N/V Verified 11/13/18 11:09 Antibiotics) hydrochlorothiazide AdvReac Intermediate HALLUCINATI Verified 11/13/18 11:09 ONS hydrocodone AdvReac Mild N/V Verified 11/13/18 11:09 Exam Vital signs: Vital Signs Temp Pulse Resp BP Pulse Ox 01/02/19 08:52 97.6 F 99 H 16 101/59 L 94 Intake and Output 01/01/19 01/02/19 01/02/19 23:59 07:59 15:59 Other: Weight 68.1 kg Patient Weight 01/02/19 23:59 Weight 68.1 kg - Constitutional positive no acute distress, positive chronically ill appearing Comments: She has some mildly cushingoid in appearance. She is in a wheelchair. - Routine HEENT Exam Head: Present: normocephalic, atraumatic Eye: Present: EOMI, PERRL. Absent: conjunctival icterus, scleral injection ENT: Present: mucous membranes moist Comments: She has some thrush on the palate and buccal mucosa. - Routine Neck Exam Present: supple. Absent: lymphadenopathy, thyromegaly - Routine Respiratory Exam Present: Clear to auscultation bilaterally. Absent: rales, wheezes - Routine Cardiovascular Exam Present: RRR, S1, S2. Absent: murmur - Routine Abdominal Exam Present: soft, normoactive bowel sounds. Absent: tenderness, organomegaly, mass - Routine Extremities Exam Present: edema. Absent: cyanosis, clubbing Comments: She has trace to 1+ bilateral lower extremity edema. - Routine Back/Spine Exam Back/Spine: Absent: vertebral tenderness - Routine Skin Exam Present: intact. Absent: petechiae, rash - Routine Neurological Exam Present: alert, oriented X3 - Routine Psychiatric Exam Present: normal affect, normal thought process Results - Labs Laboratory Last Values WBC 5.1 X10^3/uL (4.5-11.0) 12/13/18 10:02 RBC 3.18 X10^6/uL (4.0-5.2) L 12/13/18 10:02 Hgb 10.9 g/dL (12.0-16.0) L 12/13/18 10:02 Hct 31.1 % (36-46) L 12/13/18 10:02 MCV 97.8 fL (80-100) 12/13/18 10:02 MCH 34.2 PG (26-34) H 12/13/18 10:02 MCHC 35.0 % (30-36) 12/13/18 10:02 RDW 21.4 % (11.6-14.8) H 12/13/18 10:02 Plt Count 181 X10^3/uL (150-400) 12/13/18 10:02 Neut % (Auto) 83.5 % (50-75) H 12/13/18 10:02 Lymph % (Auto) 11.7 % (25-40) L 12/13/18 10:02 [place] % (Auto) 3.5 % (3-14) 12/13/18 10:02 Eos % (Auto) 0.5 % (2-4) L 12/13/18 10:02 Baso % (Auto) 0.8 % (0-2) 12/13/18 10:02 Neut # (Auto) 4200 /uL (7761-1854) 12/13/18 10:02 Lymph # (Auto) 600 /uL (3653-5313) L 12/13/18 10:02 [place] # (Auto) 200 /uL (0-900) 12/13/18 10:02 Eos # (Auto) 0 /uL (0-450) 12/13/18 10:02 Baso # (Auto) 0 /uL (0-100) 12/13/18 10:02 Seg Neutrophils % 61.0 % (38-70) 10/25/18 09:25 Band Neutrophils % 4.0 % (3-7) 10/25/18 09:25 Lymphocytes % (Manual) 27.0 % (25-45) 10/25/18 09:25 Monocytes % (Manual) 8.0 % (2-11) 10/25/18 09:25 Nucleated RBCs 1 #/Diff (-0) H 10/25/18 09:25 RBC Morphology Not Reportable 12/13/18 10:02 Polychromasia 1+ H 12/13/18 10:02 Anisocytosis 2+ H 12/13/18 10:02 Macrocytosis 1+ H 12/05/18 09:45 Sodium 135 mmol/L (137-145) L 12/13/18 10:02 Potassium 3.9 mmol/L (3.4-5.1) 12/13/18 10:02 Chloride 102 mmol/L (98-107) 12/13/18 10:02 Carbon Dioxide 25 mmol/L (22-32) 12/13/18 10:02 BUN 14 mg/dL (7-17) 12/13/18 10:02 Creatinine 1.00 mg/dL (0.52-1.04) 12/13/18 10:02 Estimated GFR 53.6 mL/min (>60) L 12/13/18 10:02 BUN/Creatinine Ratio 14.0 (6-22) 12/13/18 10:02 Glucose 129 mg/dL (80-110) H 12/13/18 10:02 Calcium 9.3 mg/dL (8.4-10.2) 12/13/18 10:02 Total Bilirubin 0.7 mg/dL (0.2-1.3) 12/13/18 10:02 AST 35 IU/L (14-36) 12/13/18 10:02 ALT 37 IU/L (9-52) 12/13/18 10:02 Alkaline Phosphatase 154 U/L (38-126) H D 12/13/18 10:02 Total Protein 5.8 g/dL (6.3-8.2) L 12/13/18 10:02 Albumin 2.7 g/dL (3.5-5.0) L 12/13/18 10:02 Globulin 3.1 g/dL (1.7-4.1) 12/13/18 10:02 Albumin/Globulin Ratio 0.9 (1.0-2.8) L 12/13/18 10:02 Breast [employer] Ag 10 U/mL (< 32) 11/07/18 08:35 CA 15-3 Antigen 20 U/mL (< 32) 12/05/18 09:45 Urine Color Yellow 10/25/18 10:00 Urine Appearance Cloudy 10/25/18 10:00 Urine pH 8.0 (4.5-8.0) 10/25/18 10:00 Ur Specific [place] 1.020 (1.000-1.035) 10/25/18 10:00 Urine Protein 1+ (Negative) H 10/25/18 10:00 Urine Glucose (UA) Negative g/dL (Negative) 10/25/18 10:00 Urine Ketones Negative (NEGATIVE) 10/25/18 10:00 Urine Occult Blood 3+ (Negative) H 10/25/18 10:00 Urine Nitrate Negative (Negative) 10/25/18 10:00 Urine Bilirubin Negative (NEGATIVE) 10/25/18 10:00 Urine Urobilinogen 0.2 E.U./dL (0.2) 10/25/18 10:00 Ur Leukocyte Esterase 3+ (NEGATIVE) H 10/25/18 10:00 Urine RBC 10-30/hpf (0-5/HPF) H 10/25/18 10:00 Urine WBC >100/hpf (0-5/HPF) H 10/25/18 10:00 Ur Squamous Epith Cells 1-5 /hpf (0-5/HPF) 10/25/18 10:00 Urine Bacteria Many (>30) (None) H 10/25/18 10:00 Ur Culture Indicated? Specimen cultured 10/25/18 10:00 Assessment and Plan (1) Adenocarcinoma of left breast Current visit: No Status: Acute 78-year-old woman with a history of node positive breast cancer. She is about 7 years out from her diagnosis and now has evidence of brain metastasis. She has completed her radiation and is now on Faslodex and abemaciclib. She seems to be tolerating it well. Clinically she has been stable. She does have some hypercalcemia and will continue with monthly Zometa. She will continue with physical therapy. She will increase the dose of her dexamethasone to 1 mg daily. She will also restart her nystatin. She will return to clinic in about 4 weeks for follow-up.
[2019-01-02 09:55] LABS: Alanine Aminotransferase 59 IU/L (9-52); Albumin 2.6 g/dL (3.5-5.0); Alkaline Phosphatase 163 U/L (38-126); Aspartate Aminotransferase 45 IU/L (14-36); Bilirubin Total 0.4 mg/dL (0.2-1.3); Blood Urea Nitrogen 25 mg/dL (7-17); Calcium 11.2 mg/dL (8.4-10.2); Carbon Dioxide 23 mmol/L (22-32); Chloride 99 mmol/L (98-107); Estimated Glomerular Filt Rate 53.6 mL/min (>60); Globulin 2.7 g/dL (1.7-4.1); Glucose 117 mg/dL (80-110); HEMOLYSIS < 15 (0-50); Potassium 4.3 mmol/L (3.4-5.1); Sodium 133 mmol/L (137-145); Total Protein 5.3 g/dL (6.3-8.2)
[2019-01-02] MEDS: ZOLEDRONIC ACID 4 MG in SODIUM CHLORIDE 0.9% 100 ML 55 ML IV (10:29)
[2019-01-02] MEDS: SODIUM CHLORIDE 0.9% 1,000 ML 1000 ML IV (10:32)
[2019-01-02] MEDS: FULVESTRANT 250 MG/5 ML SYR 500 MG IM (12:57)
[2019-01-03 15:08] LABS: CA 15-3 22 U/mL (< 32)
[2019-01-30 08:58] VITALS: BP 121/74; PULSE 94; RESP 18; TEMP 36.8; O2SAT 100
[2019-01-30 09:16] LABS: Add Manual Diff / Slide Review NO; Basophils Absolute Auto 100 /uL (0-100); Basophils Percent Auto 1.5 % (0-2); Eosinophils Absolute Auto 100 /uL (0-450); Eosinophils Percent Auto 2.7 % (2-4); Hemoglobin 13.3 g/dL (12.0-16.0); Lymphocytes Absolute Auto 700 /uL (1100-4500); Lymphocytes Percent Auto 15.5 % (25-40); Mean Corpuscular Hemoglobin 35.1 PG (26-34); Mean Corpuscular Volume 103.2 fL (80-100); Monocytes Absolute Auto 300 /uL (0-900); Monocytes Percent Auto 7.8 % (3-14); Neutrophils Absolute Auto 3100 /uL (1500-7000); Neutrophils Percent Auto 72.5 % (50-75); Platelet Count 161 X10^3/uL (150-400); Red Blood Cell Count 3.78 X10^6/uL (4.0-5.2); Red Cell Distribution Width 16.6 % (11.6-14.8); White Blood Cell Count 4.2 X10^3/uL (4.5-11.0)
--- NOTE | 2019-01-30 09:16 | ONC.PN ---
PN -Subjective Interval history: Diagnosis: Breast cancer. Previous treatment: 1. Lumpectomy and axillary node dissection in April 2011. Her primary tumor measured 2.7 cm. Sixteen of 17 lymph nodes were positive. 2. Adjuvant chemotherapy with Adriamycin Cytoxan followed by Taxol finishing in October 2011. 3. Adjuvant radiation finishing in December 2011 4. Letrozole beginning in December 2011. 5. Radiation therapy for brain metastasis finishing September 2018 6. Faslodex and abemaciclib beginning September 2018 Interval history: The patient is a 77 year old Female who returns today for follow-up. She has history of breast cancer diagnosed initially in 2011. She had 16 positive lymph nodes. She was found to have brain metastasis earlier this year. She completed her radiation therapy in September and has started on Faslodex and abemaciclib. Since her last visit here, she increase the dose of her dexamethasone to 1.5 mg daily. She has been feeling a little bit better. Her appetite has improved. She is not having any nausea or vomiting. Her daughter notes that her speech has been better. She has been able to cooperate more with physical therapy and is able to walk to the bathroom. She is not having any pain. She denies any shortness of breath or cough. No diarrhea. No fevers chills or sweats. She has noted a decrease in her hearing. She has been on Lovenox for a PE since October. She has been getting tired of the injections into abdominal bruising. She and her daughter interested in switching to an oral medication if possible. Past Medical History The patient's past medical history is significant for: 1. Left-sided breast cancer. This was an unusual situation with a small primary but 16 of 17 nodes positive, the largest focus 2.7 cm. She underwent lumpectomy, lower outer quadrant, left breast, 04/27/2011, with axillary dissection. She completed postoperative AC x4 followed by weekly Taxol, completed 11/12/2011, with radiation completed 01/07/2012 and letrozole started 12/2011, now in year 4 followup. 2. KRISSY-BSO 1991. 3. Premarin, 1991 through 2006. 4. Appendectomy. 5. G2, P2, Ab0. 6. Hypertension. 7. PE October 2018 . - Patient Self-Reported Symptoms SR Constitution: Fatigue/Malaise SR ears, nose, mouth, throat issues: Cough SR respiratory issues: Cough, Shortness of breath SR Cardiovascular issues: Dizzy/lightheaded SR Gastrointestinal issues: Poor or no appetite SR Genitourinary issues: Incontinence SR Musculoskeletal issues: Muscle weakness SR Neuro issues: Lightheaded/dizzy SR Endocrine issues: Cold intolerance, Excessive urination Home Medications and Allergies Home Medications Medication Instructions Recorded Confirmed Type metoprolol tartrate 25 mg PO BID #0 06/14/16 01/30/19 History docusate sodium 100 mg PO DAILY 09/13/18 01/30/19 History pantoprazole [Protonix] 40 mg PO DAILY 09/13/18 01/30/19 History nystatin 5 ml PO QID 09/14/18 01/30/19 History abemaciclib 150 mg PO BID 30 Days #60 tab 10/10/18 01/30/19 Rx dexamethasone 1 mg PO DAILY 60 Days #60 tab 10/25/18 01/30/19 Rx enoxaparin [Lovenox] 80 mg SUBCUT Q12H #20 vial 11/11/18 01/30/19 Rx lidocaine HCl [Lidocaine Viscous] 15 ml MM Q4-6H PRN #60 ml 11/13/18 01/30/19 Rx acetaminophen [Tylenol] 325 mg PO Q6H PRN 12/05/18 01/30/19 History potassium chloride [Klor-Con 8 meq PO BID 30 Days #60 cap 12/05/18 01/30/19 Rx Sprinkle] rivaroxaban [Xarelto] 20 mg PO DAILY #30 tab 01/30/19 Rx Allergies Allergy/AdvReac Type Severity Reaction Status Date / Time Sulfa (Sulfonamide Allergy Intermediate rash, N/V Verified 11/13/18 11:09 Antibiotics) hydrochlorothiazide AdvReac Intermediate HALLUCINATI Verified 11/13/18 11:09 ONS hydrocodone AdvReac Mild N/V Verified 11/13/18 11:09 Exam Vital signs: Vital Signs Temp Pulse Resp BP Pulse Ox 01/30/19 08:58 98.2 F 94 H 18 121/74 100 Intake and Output 01/29/19 01/30/19 01/30/19 23:59 07:59 15:59 Other: Weight 60.2 kg Patient Weight 01/30/19 23:59 Weight 60.2 kg - Constitutional positive no acute distress, positive chronically ill appearing Comments: She is in a wheelchair. - Routine HEENT Exam Head: Present: normocephalic, atraumatic Eye: Present: EOMI, PERRL. Absent: conjunctival icterus, scleral injection ENT: Present: mucous membranes moist, oropharynx clear Comments: The left tympanic membrane appears normal. On the right, it is largely obscured by wax. - Routine Neck Exam Present: supple. Absent: lymphadenopathy, thyromegaly - Routine Chest/Breast/Axilla Exam Axillae: Absent: lymphadenopathy - Routine Respiratory Exam Present: Clear to auscultation bilaterally. Absent: rales, wheezes - Routine Cardiovascular Exam Present: RRR, S1, S2. Absent: murmur - Routine Abdominal Exam Present: soft, normoactive bowel sounds. Absent: tenderness, organomegaly, mass Comments: She does have multiple ecchymoses on the abdomen. - Routine Extremities Exam Absent: cyanosis, clubbing, edema - Routine Back/Spine Exam Back/Spine: Absent: vertebral tenderness - Routine Skin Exam Present: intact, ecchymosis. Absent: petechiae, rash - Routine Neurological Exam Present: alert She appears to be more alert and more talkative than previous visit. - Routine Psychiatric Exam Present: normal affect, normal thought process Results - Labs Laboratory Last Values WBC 5.1 X10^3/uL (4.5-11.0) 12/13/18 10:02 RBC 3.18 X10^6/uL (4.0-5.2) L 12/13/18 10:02 Hgb 10.9 g/dL (12.0-16.0) L 12/13/18 10:02 Hct 31.1 % (36-46) L 12/13/18 10:02 MCV 97.8 fL (80-100) 12/13/18 10:02 MCH 34.2 PG (26-34) H 12/13/18 10:02 MCHC 35.0 % (30-36) 12/13/18 10:02 RDW 21.4 % (11.6-14.8) H 12/13/18 10:02 Plt Count 181 X10^3/uL (150-400) 12/13/18 10:02 Neut % (Auto) 83.5 % (50-75) H 12/13/18 10:02 Lymph % (Auto) 11.7 % (25-40) L 12/13/18 10:02 [place] % (Auto) 3.5 % (3-14) 12/13/18 10:02 Eos % (Auto) 0.5 % (2-4) L 12/13/18 10:02 Baso % (Auto) 0.8 % (0-2) 12/13/18 10:02 Neut # (Auto) 4200 /uL (5775-5094) 12/13/18 10:02 Lymph # (Auto) 600 /uL (5347-9689) L 12/13/18 10:02 [place] # (Auto) 200 /uL (0-900) 12/13/18 10:02 Eos # (Auto) 0 /uL (0-450) 12/13/18 10:02 Baso # (Auto) 0 /uL (0-100) 12/13/18 10:02 Seg Neutrophils % 61.0 % (38-70) 10/25/18 09:25 Band Neutrophils % 4.0 % (3-7) 10/25/18 09:25 Lymphocytes % (Manual) 27.0 % (25-45) 10/25/18 09:25 Monocytes % (Manual) 8.0 % (2-11) 10/25/18 09:25 Nucleated RBCs 1 #/Diff (-0) H 10/25/18 09:25 RBC Morphology Not Reportable 12/13/18 10:02 Polychromasia 1+ H 12/13/18 10:02 Anisocytosis 2+ H 12/13/18 10:02 Macrocytosis 1+ H 12/05/18 09:45 Sodium 133 mmol/L (137-145) L 01/02/19 09:33 Potassium 4.3 mmol/L (3.4-5.1) 01/02/19 09:33 Chloride 99 mmol/L (98-107) 01/02/19 09:33 Carbon Dioxide 23 mmol/L (22-32) 01/02/19 09:33 BUN 25 mg/dL (7-17) H 01/02/19 09:33 Creatinine 1.00 mg/dL (0.52-1.04) 01/02/19 09:33 Estimated GFR 53.6 mL/min (>60) L 01/02/19 09:33 BUN/Creatinine Ratio 25.0 (6-22) H 01/02/19 09:33 Glucose 117 mg/dL (80-110) H 01/02/19 09:33 Calcium 11.2 mg/dL (8.4-10.2) H 01/02/19 09:33 Total Bilirubin 0.4 mg/dL (0.2-1.3) 01/02/19 09:33 AST 45 IU/L (14-36) H 01/02/19 09:33 ALT 59 IU/L (9-52) H 01/02/19 09:33 Alkaline Phosphatase 163 U/L (38-126) H 01/02/19 09:33 Total Protein 5.3 g/dL (6.3-8.2) L 01/02/19 09:33 Albumin 2.6 g/dL (3.5-5.0) L 01/02/19 09:33 Globulin 2.7 g/dL (1.7-4.1) 01/02/19 09:33 Albumin/Globulin Ratio 1.0 (1.0-2.8) 01/02/19 09:33 Breast [facility] Ag 10 U/mL (< 32) 11/07/18 08:35 CA 15-3 Antigen 22 U/mL (< 32) 01/02/19 08:16 Urine Color Yellow 10/25/18 10:00 Urine Appearance Cloudy 10/25/18 10:00 Urine pH 8.0 (4.5-8.0) 10/25/18 10:00 Ur Specific [place] 1.020 (1.000-1.035) 10/25/18 10:00 Urine Protein 1+ (Negative) H 10/25/18 10:00 Urine Glucose (UA) Negative g/dL (Negative) 10/25/18 10:00 Urine Ketones Negative (NEGATIVE) 10/25/18 10:00 Urine Occult Blood 3+ (Negative) H 10/25/18 10:00 Urine Nitrate Negative (Negative) 10/25/18 10:00 Urine Bilirubin Negative (NEGATIVE) 10/25/18 10:00 Urine Urobilinogen 0.2 E.U./dL (0.2) 10/25/18 10:00 Ur Leukocyte Esterase 3+ (NEGATIVE) H 10/25/18 10:00 Urine RBC 10-30/hpf (0-5/HPF) H 10/25/18 10:00 Urine WBC >100/hpf (0-5/HPF) H 10/25/18 10:00 Ur Squamous Epith Cells 1-5 /hpf (0-5/HPF) 10/25/18 10:00 Urine Bacteria Many (>30) (None) H 10/25/18 10:00 Ur Culture Indicated? Specimen cultured 10/25/18 10:00 Assessment and Plan (1) Adenocarcinoma of left breast Current visit: No Status: Acute 78-year-old woman with a history of node positive breast cancer. She is about 7 years out from her diagnosis and now has evidence of brain metastasis. She has completed her radiation and is now on Faslodex and abemaciclib. She seems to be tolerating it well. Clinically she has been stable. She is due for follow-up scans and will get the scheduled. She does have history of hypercalcemia and will continue with monthly Zometa. She will continue with physical therapy. She will continue with 1.5 mg daily of dexamethasone. She will also change her anticoagulant to Xarelto when she runs out of her Lovenox.. She will return to clinic in about 4 weeks for follow-up.
[2019-01-30 09:51] LABS: Alanine Aminotransferase 321 IU/L (9-52); Albumin 3.5 g/dL (3.5-5.0); Albumin Globulin Ratio 1.3 (1.0-2.8); Alkaline Phosphatase 364 U/L (38-126); Aspartate Aminotransferase 155 IU/L (14-36); BUN Creatinine Ratio 27.5 (6-22); Bilirubin Total 0.5 mg/dL (0.2-1.3); Blood Urea Nitrogen 22 mg/dL (7-17); Calcium 9.9 mg/dL (8.4-10.2); Carbon Dioxide 24 mmol/L (22-32); Chloride 101 mmol/L (98-107); Estimated Glomerular Filt Rate > 60.0 mL/min (>60); Globulin 2.7 g/dL (1.7-4.1); Glucose 110 mg/dL (80-110); HEMOLYSIS < 15 (0-50); Potassium 4.1 mmol/L (3.4-5.1); Sodium 133 mmol/L (137-145); Total Protein 6.2 g/dL (6.3-8.2)
[2019-01-30] MEDS: SODIUM CHLORIDE 0.9% 1,000 ML 1000 ML IV (11:27)
[2019-01-30] MEDS: INFLUENZA HD VACCINE 0.5 ML SYRINGE IM (11:29)
[2019-01-30] MEDS: ZOLEDRONIC ACID 4 MG in SODIUM CHLORIDE 0.9% 100 ML 200 ML IV (11:39)
[2019-01-30] MEDS: FULVESTRANT 250 MG/5 ML SYR 500 MG IM (12:00)
--- NOTE | 2019-01-30 14:53 | ONC.SCHED ---
Left msg. for daughter to schedule patient per a sticky note put on my desk.
[2019-02-01 17:02] LABS: CA 15-3 28 U/mL (< 32)
--- NOTE | 2019-02-07 11:57 | ONC.SCHED ---
telephone call from Riley therapist at [facility]: PT plan is for 2 times per week for 6 weeks
[2019-02-17 16:26] LABS: CA 15-3 14 U/mL (< 32)
--- NOTE | 2019-02-19 16:25 | PC.NURSE ---
HOLD ABEMACICLIB: per note from Dr. Bañuelos in response to patient's lab results faxed to him on 02/15, patient to continue to hold abemaciclib.
--- NOTE | 2019-02-19 16:29 | PC.NURSE ---
Daughter Ayesha informed re continued hold on oral chemotherapy.
== END ==
PROVIDERS: PCP Internal Medicine
DX: C50.512 Malignant neoplasm of lower-outer quadrant of left female breast (principal); C79.31 Secondary malignant neoplasm of brain; J90 Pleural effusion, not elsewhere classified; E83.52 Hypercalcemia; I10 Essential (primary) hypertension; Z23 Encounter for immunization; Z79.811 Long term (current) use of aromatase inhibitors
CPT/HCPCS: 36415; 80053; 81001; 85025; 86300; 87077; 87086; 87186; 90471; 90662; 96360; 96361; 96365; 96372; 96401; 96402; 99214; 99215; J3489; J9395

== ENCOUNTER 2019-02-15 07:29 | Inpatient (IN) | payer MEDICARE, SELFPAY ==
[2019-02-15] VITALS (8 sets, daily range): BP systolic 101–152; BP diastolic 43–88; PULSE 56–71; RESP 16–18; TEMP 36.2–36.8; O2SAT 98–100; BMI 21.9
--- NOTE | 2019-02-15 07:43 | ED_ITS ---
HPI - Abdominal Pain General Chief Complaint: Abdominal Pain Stated Complaint: stomach pains, lower left side Time Seen by Provider: 02/15/19 07:35 Source: patient and family Mode of arrival: Wheelchair Limitations: no limitations History of Present Illness HPI narrative: 78-year-old female here for evaluation of left-sided/left lower quadrant abdominal pain. Patient states the symptoms started last evening. Was a gradual onset. No nausea vomiting. No diarrhea. Patient has had issues with constipation in the past and has been a couple days since she has had a bowel movement. No urinary symptoms. She has had a hysterectomy and an appendectomy. She is currently on a 2 week break from an oral chemotherapy agent for breast cancer which has known metastasis in the past. Related Data Home Medications Medication Instructions Recorded Confirmed metoprolol tartrate 25 mg PO BID PRN #0 06/14/16 02/15/19 docusate sodium 100 mg PO DAILY PRN 09/13/18 02/15/19 nystatin 5 ml PO QID 09/14/18 02/15/19 acetaminophen [Tylenol] 325 mg PO Q6H PRN 12/05/18 02/15/19 dexamethasone 1.5 mg PO DAILY 02/15/19 02/15/19 enoxaparin [Lovenox] 70 mg SUBCUT Q12H 02/15/19 02/15/19 latanoprost 1 drp OPHTHALMIC (EYE) QPM 02/15/19 02/15/19 pantoprazole 40 mg PO DAILY 02/15/19 02/15/19 Previous Rx's Medication Instructions Recorded abemaciclib 150 mg PO BID 30 Days #60 tab 10/10/18 lidocaine HCl [Lidocaine Viscous] 15 ml MM Q4-6H PRN #60 ml 11/13/18 potassium chloride [Klor-Con 8 meq PO BID 30 Days #60 cap 12/05/18 Sprinkle] rivaroxaban [Xarelto] 20 mg PO DAILY #30 tab 01/30/19 Allergies Allergy/AdvReac Type Severity Reaction Status Date / Time Sulfa (Sulfonamide Allergy Intermediate rash, N/V Verified 02/15/19 07:37 Antibiotics) hydrochlorothiazide AdvReac Intermediate HALLUCINATI Verified 02/15/19 07:37 ONS hydrocodone AdvReac Mild N/V Verified 02/15/19 07:37 Review of Systems Constitutional Constitutional: Denies fever(s) and Denies headache(s) ENT Ears, Nose, Mouth, and Throat: Denies headache(s) Cardiovascular Cardiovascular: Denies chest pain and Denies dyspnea Respiratory Respiratory: Denies dyspnea Gastrointestinal Gastrointestinal: Reports abdominal pain, Reports constipation, Denies diarrhea, Denies nausea and Denies vomiting Genitourinary Genitourinary: Denies dysuria and Denies vaginal discharge Musculoskeletal Musculoskeletal: Denies myalgias and Denies arthralgias Integumentary/Breasts Skin/Breast: Denies lesions and Denies rash Neurologic Neurologic: Denies behavioral changes and Denies headache(s) Psychiatric Psychiatric: Denies behavioral changes Hematologic/Lymphatic Hematologic/Lymphatic: Denies easy bleeding and Denies easy bruising Patient History Medical History Brain cancer (Acute) Hyperlipidemia (Acute) Metastatic breast cancer (Acute) Pulmonary embolism (Acute) Surgical History History of hysterectomy (Acute) Hx of appendectomy (Acute) Social History details: lives at home Smoking Status: Never smoker alcohol intake frequency: 0-2 drinks per day Substance Use Type: does not use Exam Initial Vital Signs Initial Vital Signs: Vital Signs Temperature 98.1 F 02/15/19 07:37 Pulse Rate 61 02/15/19 07:37 Respiratory Rate 16 02/15/19 07:37 Blood Pressure 124/56 L 02/15/19 07:37 Pulse Oximetry 100 02/15/19 07:37 Const General: cooperative, comfortable and well developed Orientation: alert and awake [facility] Head: normal to inspection and normocephalic Resp Effort & Inspection: normal respiratory effort Auscultation: clear to auscultation bilaterally Cardio Rate: regular rate Rhythm: regular rhythm GI Inspection: non-distended Palpation: soft, No firm and tender (Left-sided abdomen/left lower quadrant) Skin Lesions: no lesions Rashes: no rashes Neuro General: alert and awake Cognition: normal cognition Speech: speech normal Extrem General: normal to inspection and capillary refill normal Psych Appearance: grossly normal and well kempt Scores GCS Bridget coma scale eye opening: Spontaneous Bridget coma scale verbal response: Orientated Bridget coma scale motor response: Obey commands [place] coma scale total score: 15 Course Orders Ordered: ED Orders 02/15/19 07:40 Complete Blood Count AUTO DIFF Stat Comprehensive Metabolic Panel Stat Lipase Stat Partial Thromboplastin Time Stat Prothrombin Time INR Stat 02/15/19 08:44 CT abdomen pelvis w con Stat Discontinued Medications Sodium Chloride (Normal Saline 0.9%) 1,000 mls @ 1,000 mls/hr IV BOLUS ONE Stop: 02/15/19 08:46 Last Infusion: 02/15/19 09:58 Dose: 0 mls/hr Documented by: Admin: 02/15/19 07:58 Dose: 1,000 mls/hr Documented by: BLADE Ketorolac Tromethamine (Toradol) 30 mg IV NOW ONE Stop: 02/15/19 07:48 Last Admin: 02/15/19 07:58 Dose: 30 mg Documented by: BLADE Morphine Sulfate (Morphine) 2 mg IV NOW ONE Stop: 02/15/19 12:07 Last Admin: 02/15/19 12:10 Dose: 2 mg Documented by: BLADE Vital Signs Vital signs: Vital Signs - 8 hr 02/15/19 07:37 02/15/19 08:07 02/15/19 09:02 Temperature 98.1 F Pulse Rate 61 56 L 60 Respiratory Rate 16 18 16 Blood Pressure 124/56 L Blood Pressure [Right Arm] 116/88 139/63 Pulse Oximetry 100 100 100 02/15/19 09:30 02/15/19 10:35 02/15/19 11:19 Temperature 98.1 F Pulse Rate 66 67 67 Respiratory Rate 16 16 Blood Pressure Blood Pressure [Right Arm] 152/71 H 147/63 H Pulse Oximetry 100 100 100 MDM - Abdominal Pain Lab Data Attestation: I reviewed the patient's lab results. Result diagrams: 02/15/19 07:40 02/15/19 07:40 Labs: Lab Results 02/15/19 02/15/19 02/15/19 Range/Units 07:40 07:40 07:40 WBC 5.3 (4.5-11.0) X10^3/uL RBC 3.63 L (4.0-5.2) X10^6/uL Hgb 13.2 (12.0-16.0) g/dL Hct 38.1 (36-46) % MCV 105.0 H (80-100) fL MCH 36.4 H (26-34) PG MCHC 34.6 (30-36) % RDW 16.1 H (11.6-14.8) % Plt Count 141 L (150-400) X10^3/uL Neut % (Auto) Not Reportable Lymph % (Auto) Not Reportable [place] % (Auto) Not Reportable Eos % (Auto) Not Reportable Baso % (Auto) Not Reportable Lymph # (Auto) Not Reportable [place] # (Auto) Not Reportable Baso # (Auto) Not Reportable Total Counted 100 Seg Neutrophils % 67.0 (38-70) % Band Neutrophils % 5.0 (3-7) % Lymphocytes % (Manual) 11.0 L (25-45) % Atypical Lymphs % 6.0 H ( - 0) % Monocytes % (Manual) 9.0 (2-11) % Eosinophils % (Manual) 1.0 L (2-4) % Metamyelocytes % 1.0 H (-0) % Neutrophils # (Manual) 3816 (0372-3781) /uL Platelet Estimate Decreased on smear Plt Morphology Comment RBC Morphology See below Macrocytosis 2+ H PT 10.1 (10.1-12.7) SECONDS INR 0.9 (0.9-1.3) APTT 32 (26.4-36.2) SECONDS Sodium 134 L (137-145) mmol/L Potassium 4.1 (3.4-5.1) mmol/L Chloride 100 (98-107) mmol/L Carbon Dioxide 28 (22-32) mmol/L BUN 24 H (7-17) mg/dL Creatinine 0.70 (0.52-1.04) mg/dL Estimated GFR > 60.0 (>60) mL/min BUN/Creatinine Ratio 34.3 H (6-22) Glucose 95 (80-110) mg/dL Calcium 9.8 (8.4-10.2) mg/dL Total Bilirubin 0.5 (0.2-1.3) mg/dL AST 93 H (14-36) IU/L ALT 241 H (9-52) IU/L Alkaline Phosphatase 199 H (38-126) U/L Total Protein 6.3 (6.3-8.2) g/dL Albumin 3.6 (3.5-5.0) g/dL Globulin 2.7 (1.7-4.1) g/dL Albumin/Globulin Ratio 1.3 (1.0-2.8) Lipase 255 (23-300) U/L Imaging Data CT scan - abdomen: Radiologist's impression: [address] [address] [address] Scan Report Signed Patient: Val Reyes [facility]#: [id number] : 1Acct:[id number] Age/Sex: 78 / FDate of Service: 02/15/19 Loc: ED Accession Number: [id number] Procedure: CT abdomen pelvis w con Ordering Provider: Sahil Valenica D.O. PROCEDURE: CT ABDOMEN PELVIS W CON INDICATIONS: Left-sided abdominal pain TECHNIQUE: After the administration of intravenous contrast, 5 mm thick sections acquired from the diaphragm to the symphysis. 5 mm coronal and sagittal reformats were acquired. For radiation dose reduction, the following was used: automated exposure control, adjustment of mA and/or kV according to patient size. COMPARISON: CT chest, abdomen and pelvis 08/19/2018. FINDINGS: Image quality: Excellent. ABDOMEN: Lung bases: Patchy groundglass opacity in the right lower lobe. Mild bibasilar streaky opacity. No pleural effusion. Heart size is normal. Small hiatal hernia. Solid organs: Liver is normal in size and enhancement. Gallbladder is unremarkable. Biliary system is non dilated. Pancreas enhances normally. Spleen is normal in size and enhancement. No adrenal nodules. Kidneys demonstrate normal size and enhanc ement, without hydronephrosis. Similar small renal cysts. Peritoneum and bowel: Mildly dilated loops of small bowel in the lower abdomen/pelvis, (). No free fluid or air. Appendix is absent. Surgical clips in the left abdomen and adjacent to the transverse colon. Nodes and vessels: No retroperitoneal or mesenteric adenopathy by size criteria. Aorta and inferior vena cava are normal in size. Extensive calcified plaque in the abdominal aorta. Miscellaneous: No ventral hernias. PELVIS: Genitourinary: Bladder wall thickness is normal. Trace free fluid. Miscellaneous: No inguinal hernias or adenopathy. A trace dependent fluid in the buttocks region. Small subcutaneous nodules in the ventral abdominal wall likely due to subcutaneous injections. Bones: No suspicious bony lesions. No vertebral body compression fractures. IMPRESSION: 1. A few mildly dilated loops of small bowel in the lower abdomen/pelvis with possible adhesion. Findings are suspicious for early small bowel obstruction. 2. No acute inflammatory process identified. 3. Patchy groundglass opacity at the right lung base. This may be due to infectious/inflammatory etiology or fluid overload. Less likely atelectasis. Comment: Findings were discussed with Sahil Valencia at the time of dictation. Dictated by: René Daniel M.D. on 02/15/2019 at 8:56 Approved by: René Daniel M.D. on 02/15/2019 at 9:15 MDM Narrative Medical decision making narrative: Patient does have quite a bit of tenderness in the left lower quadrant. The CT scan is concerning for potential early small-bowel obstruction. I did discuss the case with Dr. Dumont with general surgery who evaluated the patient here in the emergency department. She did not feel that the patient had an emergent surgical condition however did feel that the patient needed admitted under observation. She asked that Medicine admit the patient given her history of cancer. I did discuss the case with Dr. Terry on-call for the hospitalist team who will admit the patient. I did discuss the CT findings with the patient and family were bedside. They expressed understanding and agreement with plan. Discharge Plan Departure Patient Disposition: Admitted as Observation Clinical Impression: Small bowel obstruction, Metastatic breast cancer Discharge Date/Time: 02/15/19 12:28 Admit Date/Time: 02/15/19 12:04 Admit Provider: Paulino Terry
[2019-02-15] MEDS: SODIUM CHLORIDE 0.9% 1,000 ML 1000 ML IV (07:58)
[2019-02-15] MEDS: KETOROLAC 60 MG/2 ML VIAL 30 MG IV (07:58)
[2019-02-15 08:03] LABS: INR 0.9 (0.9-1.3); Prothrombin Time 10.1 SECONDS (10.1-12.7)
[2019-02-15 08:06] LABS: PTT Partial Thromboplastin Tim 32 SECONDS (26.4-36.2)
[2019-02-15 08:10] LABS: Alanine Aminotransferase 241 IU/L (9-52); Albumin 3.6 g/dL (3.5-5.0); Albumin Globulin Ratio 1.3 (1.0-2.8); Alkaline Phosphatase 199 U/L (38-126); Aspartate Aminotransferase 93 IU/L (14-36); BUN Creatinine Ratio 34.3 (6-22); Bilirubin Total 0.5 mg/dL (0.2-1.3); Blood Urea Nitrogen 24 mg/dL (7-17); Calcium 9.8 mg/dL (8.4-10.2); Carbon Dioxide 28 mmol/L (22-32); Chloride 100 mmol/L (98-107); Estimated Glomerular Filt Rate > 60.0 mL/min (>60); Globulin 2.7 g/dL (1.7-4.1); Glucose 95 mg/dL (80-110); HEMOLYSIS < 15 (0-50); Lipase 255 U/L (23-300); Potassium 4.1 mmol/L (3.4-5.1); Sodium 134 mmol/L (137-145); Total Protein 6.3 g/dL (6.3-8.2)
[2019-02-15 08:11] LABS: Hematocrit 38.1 % (36-46); Hemoglobin 13.2 g/dL (12.0-16.0); Mean Corpuscular HGB Conc 34.6 % (30-36); Mean Corpuscular Hemoglobin 36.4 PG (26-34); Platelet Count 141 X10^3/uL (150-400); Red Blood Cell Count 3.63 X10^6/uL (4.0-5.2); Red Cell Distribution Width 16.1 % (11.6-14.8); White Blood Cell Count 5.3 X10^3/uL (4.5-11.0)
[2019-02-15 08:14] LABS: Add Manual Diff / Slide Review YES
[2019-02-15 08:31] LABS: Neutrophils Absolute Manual 3816 /uL (3000-5900); Total Cells Counted 100
[2019-02-15 08:33] LABS: Macrocytosis 2+
[2019-02-15 08:35] LABS: Platelet Estimate Decreased on smear
--- NOTE | 2019-02-15 08:44 | DI.CT.S_ITS ---
PROCEDURE: CT ABDOMEN PELVIS W CON INDICATIONS: Left-sided abdominal pain TECHNIQUE: After the administration of intravenous contrast, 5 mm thick sections acquired from the diaphragm to the symphysis. 5 mm coronal and sagittal reformats were acquired. For radiation dose reduction, the following was used: automated exposure control, adjustment of mA and/or kV according to patient size. COMPARISON: CT chest, abdomen and pelvis 08/19/2018. FINDINGS: Image quality: Excellent. ABDOMEN: Lung bases: Patchy groundglass opacity in the right lower lobe. Mild bibasilar streaky opacity. No pleural effusion. Heart size is normal. Small hiatal hernia. Solid organs: Liver is normal in size and enhancement. Gallbladder is unremarkable. Biliary system is non dilated. Pancreas enhances normally. Spleen is normal in size and enhancement. No adrenal nodules. Kidneys demonstrate normal size and enhancement, without hydronephrosis. Similar small renal cysts. Peritoneum and bowel: Mildly dilated loops of small bowel in the lower abdomen/pelvis, (2/72). No free fluid or air. Appendix is absent. Surgical clips in the left abdomen and adjacent to the transverse colon. Nodes and vessels: No retroperitoneal or mesenteric adenopathy by size criteria. Aorta and inferior vena cava are normal in size. Extensive calcified plaque in the abdominal aorta. Miscellaneous: No ventral hernias. PELVIS: Genitourinary: Bladder wall thickness is normal. Trace free fluid. Miscellaneous: No inguinal hernias or adenopathy. A trace dependent fluid in the buttocks region. Small subcutaneous nodules in the ventral abdominal wall likely due to subcutaneous injections. Bones: No suspicious bony lesions. No vertebral body compression fractures. IMPRESSION: 1. A few mildly dilated loops of small bowel in the lower abdomen/pelvis with possible adhesion. Findings are suspicious for early small bowel obstruction. 2. No acute inflammatory process identified. 3. Patchy groundglass opacity at the right lung base. This may be due to infectious/inflammatory etiology or fluid overload. Less likely atelectasis. Comment: Findings were discussed with Sahil Valencia at the time of dictation. Dictated by: René Daniel M.D. on 02/15/2019 at 8:56 Approved by: René Daniel M.D. on 02/15/2019 at 9:15
--- NOTE | 2019-02-15 09:57 | PC.NURSE ---
noted redness, skin breakdown, related to daughter at bs.
--- NOTE | 2019-02-15 11:49 | P.CONS_ITS ---
History of Present Illness Consult details Date Patient Seen: 02/15/19 Time Patient Seen: 11:50 Chief complaint: stomach pains, lower left side Reason for consult: Abdominal pain, PSBO Requesting provider: Sahil Valencia Narrative: This is a 78 yo woman with history of chronic constipation, stage 4 breast cancer with brain mets currently on chemotherapy (which is on hold for elevated LFT's), appendectomy, trans vaginal hysterectomy, PE/DVT on chronic anticoagulation with Lovenox. She presents today with severe abdominal pain which started this morning. Per the patient's daughter she was fine last night last she checked on her around 11:00 p.m.. The patient has a tendency towards constipation, which was better while she was on her chemotherapy. However the chemotherapy was stopped about 2 weeks ago for increasing LFTs. Since then the patient has struggled again with chronic constipation, and her last bowel movement or flatus was about 2 days ago. Her daughter attempted giving her a stool softener, but did not give her a laxative as the patient was concerned about having diarrhea. Abdominal CT scan done in the ER shows a few dilated loops of small bowel in the mid abdomen, and some constipation. She is currently having some periumbilical pain. Nothing in particular seems to worsen or relieves the pain. ROS: Patient denies chest pain, shortness of breath, burning with urination, epigastric pain or postprandial pain. She reports generalized weakness and fatigue. She reports a sacral pressure sore which is healing, and urinary incontinence. Otherwise review of systems is negative other than as mentioned in the HPI. PE: GENERAL: Ill-appearing woman lying on her right side. Appears stated age. HENT: Normocephalic, atraumatic. Hearing intact. Oral mucosa dry. EYES: Conjunctiva pink, sclera white, no periorbital swelling. CARDIOVASCULAR: Regular rate, regular rhythm RESPIRATORY: Normal respiratory rate, breathing comfortably on room air. GASTROINTESTINAL: Abdomen soft and non-distended, tender to palpation in the left mid abdomen just lateral to the umbilicus. No other abdominal tenderness. Ecchymoses noted from her Lovenox shots. GENITALURINARY: No flank tenderness. MUSCULOSKELETAL: Generally weak. Equal tone and mass bilaterally. SKIN: Warm, dry, soft, appropriate color for ethnicity. NEURO: Delayed responses, but appears alert, and oriented to self and situation. No gross sensory deficits. PSYCH: Appropriate affect and mood. [facility] Medical History Brain cancer (Acute) Hyperlipidemia (Acute) Metastatic breast cancer (Acute) Pulmonary embolism (Acute) Surgical History History of hysterectomy (Acute) Hx of appendectomy (Acute) Social History details: lives at home household members: family and children Smoking Status: Former smoker alcohol intake: never Meds Home Medications and Allergies Home Medications Medication Instructions Recorded Confirmed Type metoprolol tartrate 25 mg PO BID PRN #0 06/14/16 02/15/19 History docusate sodium 100 mg PO DAILY PRN 09/13/18 02/15/19 History nystatin 5 ml PO QID 09/14/18 02/15/19 History abemaciclib 150 mg PO BID 30 Days #60 tab 10/10/18 02/15/19 Rx lidocaine HCl [Lidocaine Viscous] 15 ml MM Q4-6H PRN #60 ml 11/13/18 02/15/19 Rx acetaminophen [Tylenol] 325 mg PO Q6H PRN 12/05/18 02/15/19 History potassium chloride [Klor-Con 8 meq PO BID 30 Days #60 cap 12/05/18 02/15/19 Rx Sprinkle] rivaroxaban [Xarelto] 20 mg PO DAILY #30 tab 01/30/19 02/15/19 Rx dexamethasone 1.5 mg PO DAILY 02/15/19 02/15/19 History enoxaparin [Lovenox] 70 mg SUBCUT Q12H 02/15/19 02/15/19 History latanoprost 1 drp OPHTHALMIC (EYE) QPM 02/15/19 02/15/19 History pantoprazole 40 mg PO DAILY 02/15/19 02/15/19 History Allergies Allergy/AdvReac Type Severity Reaction Status Date / Time Sulfa (Sulfonamide Allergy Intermediate rash, N/V Verified 02/15/19 07:37 Antibiotics) hydrochlorothiazide AdvReac Intermediate HALLUCINATI Verified 02/15/19 07:37 ONS hydrocodone AdvReac Mild N/V Verified 02/15/19 07:37 Exam Vital Signs (past 8 hours): - 02/15/19 07:37 02/15/19 08:07 02/15/19 09:02 Temperature 98.1 F Pulse Rate 61 56 L 60 Respiratory Rate 16 18 16 Blood Pressure 124/56 L Blood Pressure [Right Arm] 116/88 139/63 Pulse Oximetry 100 100 100 02/15/19 09:30 02/15/19 10:35 02/15/19 11:19 Temperature 98.1 F Pulse Rate 66 67 67 Respiratory Rate 16 16 Blood Pressure Blood Pressure [Right Arm] 152/71 H 147/63 H Pulse Oximetry 100 100 100 Oxygen Delivery Method Room Air Objective Labs Result Diagrams: 02/15/19 07:40 02/15/19 07:40 Labs: Laboratory Results - last 24 hr 02/15/19 02/15/19 02/15/19 07:40 07:40 07:40 WBC 5.3 RBC 3.63 L Hgb 13.2 Hct 38.1 MCV 105.0 H MCH 36.4 H MCHC 34.6 RDW 16.1 H Plt Count 141 L Neut % (Auto) Not Reportable Lymph % (Auto) Not Reportable [place] % (Auto) Not Reportable Eos % (Auto) Not Reportable Baso % (Auto) Not Reportable Lymph # (Auto) Not Reportable [place] # (Auto) Not Reportable Baso # (Auto) Not Reportable Total Counted 100 Seg Neutrophils % 67.0 Band Neutrophils % 5.0 Lymphocytes % (Manual) 11.0 L Atypical Lymphs % 6.0 H Monocytes % (Manual) 9.0 Eosinophils % (Manual) 1.0 L Metamyelocytes % 1.0 H Neutrophils # (Manual) 3816 Platelet Estimate Decreased on smear Plt Morphology Comment RBC Morphology See below Macrocytosis 2+ H PT 10.1 INR 0.9 APTT 32 Sodium 134 L Potassium 4.1 Chloride 100 Carbon Dioxide 28 BUN 24 H Creatinine 0.70 Estimated GFR > 60.0 BUN/Creatinine Ratio 34.3 H Glucose 95 Calcium 9.8 Total Bilirubin 0.5 AST 93 H ALT 241 H Alkaline Phosphatase 199 H Total Protein 6.3 Albumin 3.6 Globulin 2.7 Albumin/Globulin Ratio 1.3 Lipase 255 Assessment & Plan Assessment and plan (1) Small bowel obstruction: Problem details: This patient has some dilated loops of small bowel, and may have an early partial small bowel obstruction. She likely has some adhesive disease in the abdomen, and with her constipation those 2 things together probably resulting in her symptoms. I recommend that we admit her to the hospital under the hospitalist service given all of her other comorbidities and illnesses, and hydrate her, and provided gentle bowel regimen until she starts to pass gas and stool. She may continue her anticoagulation at this time as she is likely not going to the operating room. If he does end up needing to go to surgery, we will have to deal with withholding her anticoagulation. She is very weak but ambulation would help her, I would recommend that we attempt to have her ambulate 20 minutes 3 times a day. Plan: NPO except sips of water and ice chips. May take her p.o. meds. Continue anticoagulation for now Ambulate 20 minutes 3 times a day--PT consult ordered Check electrolytes, and keep her potassium greater than 4 and magnesium greater than 2 Rectal suppository with Dulcolax once daily MiraLax p.o. t.i.d. until she passes a bowel movement, hold if nauseated or vomiting No NGT unless intractable vomiting Current visit: Yes Status: Acute (2) Metastatic breast cancer: Problem details: Patient's chemotherapy treatment is currently on hold. Current visit: Yes Status: Acute (3) Pulmonary embolism: Problem details: The patient is on her baseline anticoagulation, and may continue that for now as we are not currently planning to take her to surgery. Current visit: No Status: Acute (4) Anticoagulated by anticoagulation treatment: Problem details: As above Current visit: Yes Status: Acute (5) Transaminitis: Problem details: Likely secondary to her chemotherapy, and seem to be gradually resolving. Would just monitor this for now. Current visit: Yes Status: Acute
[2019-02-15] MEDS: MORPHINE 2 MG/ML INJ IV (12:10)
--- NOTE | 2019-02-15 12:19 | PC.NURSE ---
rn to call back.
--- NOTE | 2019-02-15 15:10 | PM.HP.1 ---
History of Present Illness History of Present Illness Date Patient Seen: 02/15/19 Time Patient Seen: 14:00 Chief complaint: stomach pains, lower left side Narrative: Val Reyes is a 78-year-old female with past medical history of stage IV breast cancer with brain metastases currently on chemotherapy (last dose 2 weeks ago now on hold secondary to elevated liver function tests), PE on chronic anticoagulation currently on Lovenox with plan to transition to Xarelto, chronic constipation (usually improves with chemotherapy), and hypertension who presented with left lower abdominal pain starting this morning when she woke up. She Has not last flat us or had a bowel movement in the last 2 days, and then tented Colace this morning but this did not help. She describes the abdominal pain as crampy, nonradiating, and severe at times and comes in waves. She came into the emergency room for further evaluation. She denies any fevers, chills, nausea or vomiting, dysuria. She has generalized fatigue but this is relatively unchanged. She does not feel hungry at this time. In the ED, her vital signs are unremarkable. She underwent a CT scan shows a few dilated loops of bowel and constipation. She was seen by surgery who recommended observation, but admission to medicine given her oncologic history. She does not currently have an NG tube, but she quickly developed some abdominal pain and retching when arriving to the floor so she remains NPO at this time. Patient History Medical History Brain cancer (Acute) Hyperlipidemia (Acute) Metastatic breast cancer (Acute) Pulmonary embolism (Acute) Surgical History History of hysterectomy (Acute) Hx of appendectomy (Acute) Family & Social History Social History: household members family,children Prior Living Arrangements House Safety & Behavioral: Feels Safe in Current Yes Environment Been Physically Hurt or No Threatened By a Person Suicidal Ideation Description None Suicide Plan Description No Plan Tobacco & Substance use: Tobacco type cigarettes Smoking Status Former smoker alcohol intake never alcohol intake frequency 0-2 drinks per day Substance Use Type does not use Meds Home Medications and Allergies Home Medications Medication Instructions Recorded Confirmed Type metoprolol tartrate 25 mg PO BID PRN #0 06/14/16 02/15/19 History docusate sodium 100 mg PO DAILY PRN 09/13/18 02/15/19 History nystatin 5 ml PO QID 09/14/18 02/15/19 History abemaciclib 150 mg PO BID 30 Days #60 tab 10/10/18 02/15/19 Rx lidocaine HCl [Lidocaine Viscous] 15 ml MM Q4-6H PRN #60 ml 11/13/18 02/15/19 Rx acetaminophen [Tylenol] 325 mg PO Q6H PRN 12/05/18 02/15/19 History potassium chloride [Klor-Con 8 meq PO BID 30 Days #60 cap 12/05/18 02/15/19 Rx Sprinkle] rivaroxaban [Xarelto] 20 mg PO DAILY #30 tab 01/30/19 02/15/19 Rx dexamethasone 1.5 mg PO DAILY 02/15/19 02/15/19 History enoxaparin [Lovenox] 70 mg SUBCUT Q12H 02/15/19 02/15/19 History latanoprost 1 drp OPHTHALMIC (EYE) QPM 02/15/19 02/15/19 History pantoprazole 40 mg PO DAILY 02/15/19 02/15/19 History Allergies Allergy/AdvReac Type Severity Reaction Status Date / Time Sulfa (Sulfonamide Allergy Intermediate rash, N/V Verified 02/15/19 07:37 Antibiotics) hydrochlorothiazide AdvReac Intermediate HALLUCINATI Verified 02/15/19 07:37 ONS hydrocodone AdvReac Mild N/V Verified 02/15/19 07:37 Review of Systems Review of Systems Narrative: All other systems reviewed with the patient and are negative unless otherwise stated. Exam Vital Signs (past 8 hours): - 02/15/19 07:37 02/15/19 08:07 02/15/19 09:02 Temperature 98.1 F Pulse Rate 61 56 L 60 Respiratory Rate 16 18 16 Blood Pressure 124/56 L Blood Pressure [Right Arm] 116/88 139/63 Pulse Oximetry 100 100 100 02/15/19 09:30 02/15/19 10:35 02/15/19 11:19 Temperature 98.1 F Pulse Rate 66 67 67 Respiratory Rate 16 16 Blood Pressure Blood Pressure [Right Arm] 152/71 H 147/63 H Pulse Oximetry 100 100 100 02/15/19 12:40 Temperature 98.2 F Pulse Rate 71 Respiratory Rate 18 Blood Pressure 116/63 Blood Pressure [Right Arm] Pulse Oximetry 98 Oxygen Delivery Method Room Air Oxygen Flow Rate 0 Narrative Exam Narrative: GENERAL APPEARANCE: Well developed, well nourished, in no acute distress. SKIN: Inspection of the skin reveals no rashes, ulcerations or petechiae. HEENT: The sclerae were anicteric and conjunctivae were pink and moist. Extraocular movements were intact and pupils were equal, round with normal accommodation. External inspection of the ears and nose showed no scars, lesions, or masses. Lips, teeth, and gums showed normal mucosa. The oral mucosa, hard and soft palate, tongue and posterior pharynx were unremarkable. NECK: Supple and symmetric. There was no thyroid enlargement, and no tenderness, or masses were felt. CHEST: Normal AP diameter and normal contour without any kyphoscoliosis. LUNGS: Auscultation of the lungs revealed no wheezes, rhonchi, or rales. CARDIOVASCULAR: There was a regular rate and rhythm without any murmurs, gallops, rubs. Peripheral pulses were 2+ and symmetric. ABDOMEN: Soft and nontender with normal bowel sounds. No ascites was noted. MUSCULOSKELETAL: There was no tenderness or effusions noted. Muscle strength and tone were normal. EXTREMITIES: No cyanosis, clubbing or edema. NEUROLOGIC: Alert and oriented x 3. She exhibits deficits in short-term memory. She has a lower extremity peripheral neuropathy bilaterally with diminished sensation to touch. She is overall weak and fatigued but has no localizing neurological deficits. Objective Labs Result Diagrams: 02/15/19 07:40 02/15/19 07:40 Labs: Laboratory Results - last 24 hr 02/15/19 02/15/19 02/15/19 07:40 07:40 07:40 WBC 5.3 RBC 3.63 L Hgb 13.2 Hct 38.1 MCV 105.0 H MCH 36.4 H MCHC 34.6 RDW 16.1 H Plt Count 141 L Neut % (Auto) Not Reportable Lymph % (Auto) Not Reportable [place] % (Auto) Not Reportable Eos % (Auto) Not Reportable Baso % (Auto) Not Reportable Lymph # (Auto) Not Reportable [place] # (Auto) Not Reportable Baso # (Auto) Not Reportable Total Counted 100 Seg Neutrophils % 67.0 Band Neutrophils % 5.0 Lymphocytes % (Manual) 11.0 L Atypical Lymphs % 6.0 H Monocytes % (Manual) 9.0 Eosinophils % (Manual) 1.0 L Metamyelocytes % 1.0 H Neutrophils # (Manual) 3816 Platelet Estimate Decreased on smear Plt Morphology Comment RBC Morphology See below Macrocytosis 2+ H PT 10.1 INR 0.9 APTT 32 Sodium 134 L Potassium 4.1 Chloride 100 Carbon Dioxide 28 BUN 24 H Creatinine 0.70 Estimated GFR > 60.0 BUN/Creatinine Ratio 34.3 H Glucose 95 Calcium 9.8 Total Bilirubin 0.5 AST 93 H ALT 241 H Alkaline Phosphatase 199 H Total Protein 6.3 Albumin 3.6 Globulin 2.7 Albumin/Globulin Ratio 1.3 Lipase 255 Assessment & Plan Assessment & Plan narrative: Val Reyes is a 78-year-old female with past medical history of stage IV breast cancer with brain metastases currently on chemotherapy (last dose 2 weeks ago now on hold secondary to elevated liver function tests), PE on chronic anticoagulation currently on Lovenox with plan to transition to Xarelto, chronic constipation (usually improves with chemotherapy), and hypertension who presented with left lower abdominal pain starting this morning when she woke up, she was admitted to Medicine for further observation of her small bowel obstruction as per surgery recommendation. 1. Partial small-bowel obstruction, acute, present on admission -likely secondary to adhesive disease. Appreciate surgical recommendations which are listed below. NPO except sips of water and ice chips. May take her p.o. meds. Continue anticoagulation for now Ambulate 20 minutes 3 times a day--PT consult ordered Check electrolytes, and keep her potassium greater than 4 and magnesium greater than 2 Rectal suppository with Dulcolax once daily MiraLax p.o. t.i.d. until she passes a bowel movement, hold if nauseated or vomiting No NGT unless intractable vomiting 2. Stage IV breast cancer, active, present on admission - -continue to hold patient's chemotherapy given elevated liver enzymes -she remains on dexamethasone for brain metastases. -previous breast cancer history is well outlined in Dr. Bañuelos's most recent clinic note 3. Elevated liver enzymes, present on admission -likely secondary to chemotherapy regimen. -continue to monitor LFTs 4. History of pulmonary embolism on anticoagulation, active, present on admission - -can continue Lovenox, patient currently planning to switch to Xarelto as outpatient but given possible, however unlikely, surgical intervention patient should continue Lovenox inpatient. 5. HTN - can continue home metorpolol 25 mg BID with holding parameters. 6. Chronic constipation, present on admission - please see management as noted above. Code: DNR/ DNI Dispo: Admit as inpatient for partial small bowel obstruction as stay is expected to exceed two midnight.
[2019-02-15] MEDS: ONDANSETRON 4 MG/2 ML INJ IV (15:39)
[2019-02-15] MEDS: KETOROLAC 30 MG/ML VIAL IV ×2 (15:46→21:11)
[2019-02-15] MEDS: SODIUM CHLORIDE 0.9% 1,000 ML 100 ML IV (15:47)
[2019-02-15] MEDS: POLYETHYLENE GLYCOL 3350 17 GM POWD.PACK PO ×2 (15:48→21:09)
[2019-02-15] MEDS: ENOXAPARIN 80 MG/0.8 ML SYRINGE 70 MG SUBCUT (15:48)
--- NOTE | 2019-02-15 15:50 | PC.NURSE ---
ABEMACICLIB: Patient was told per vo from Dr. Bañuelos to hold oral chemo due to a abnormal lab value on 01/30 and to recheck CMP in two weeks. Lab results sent to Dr. Bañuelos with this note for further action - please instruct patient whether to restart medication.
[2019-02-15] MEDS: BISACODYL 10 MG SUPP PR (17:29)
[2019-02-15] MEDS: DOCUSATE 100 MG CAPSULE PO (21:09)
[2019-02-15] MEDS: METOCLOPRAMIDE 10 MG/2 ML INJ 5 MG IV (22:02)
--- NOTE | 2019-02-15 22:28 | PC.NURSE ---
Addendum entered by Priti Suarez R.N. 02/15/19 22:58: NG tube attempted in R. Nare and L. Nare. Pt started to gag and pulled out tube. Sats remained 96% during insertion attempt. Pt declined further attempts. Provider called to notify but no answer in hospitalist office. Original Note: Pt continues to have nausea; zofran ordered q 8 hrs. Hospitalist notified. NG tube ordered. Discussed order with pt and pt states she is not sure if she wants it and wants time to think about it as she states she is starting to feel better. Will reattempt pt's consent in a few min.
[2019-02-16] VITALS (11 sets, daily range): BP systolic 96–145; BP diastolic 43–80; PULSE 66–127; RESP 14–18; TEMP 36.2–36.9; O2SAT 94–99; BMI 21.6
[2019-02-16] MEDS: ONDANSETRON 4 MG/2 ML INJ IV ×2 (00:53→11:33)
[2019-02-16] MEDS: SODIUM CHLORIDE 0.9% 1,000 ML 100 ML IV ×3 (00:54→21:11)
[2019-02-16] MEDS: ENOXAPARIN 80 MG/0.8 ML SYRINGE 70 MG SUBCUT ×2 (03:21→17:03)
--- NOTE | 2019-02-16 06:12 | PC.NURSE ---
Patient had 500 ml emesis. Refused NGT, right nare is bleeding. declined miralax due to nausea.
[2019-02-16 06:26] LABS: Hematocrit 38.1 % (36-46); Hemoglobin 13.1 g/dL (12.0-16.0); Mean Corpuscular HGB Conc 34.3 % (30-36); Mean Corpuscular Hemoglobin 36.1 PG (26-34); Mean Corpuscular Volume 105.2 fL (80-100); Platelet Count 125 X10^3/uL (150-400); Red Blood Cell Count 3.62 X10^6/uL (4.0-5.2); Red Cell Distribution Width 16.4 % (11.6-14.8); White Blood Cell Count 3.4 X10^3/uL (4.5-11.0)
[2019-02-16 06:28] LABS: Add Manual Diff / Slide Review YES
[2019-02-16 06:33] LABS: Albumin Globulin Ratio 1.3 (1.0-2.8); Bilirubin Total 0.9 mg/dL (0.2-1.3); Blood Urea Nitrogen 24 mg/dL (7-17); Calcium 8.7 mg/dL (8.4-10.2); Carbon Dioxide 21 mmol/L (22-32); Chloride 103 mmol/L (98-107); Estimated Glomerular Filt Rate > 60.0 mL/min (>60); Globulin 2.3 g/dL (1.7-4.1); Glucose 136 mg/dL (80-110); Magnesium 1.7 mg/dL (1.6-2.3); Sodium 133 mmol/L (137-145); Total Protein 5.3 g/dL (6.3-8.2)
[2019-02-16 06:36] LABS: HEMOLYSIS 53 (0-50)
[2019-02-16 06:37] LABS: Potassium 4.7 mmol/L (3.4-5.1)
[2019-02-16 06:38] LABS: Alanine Aminotransferase 150 IU/L (9-52); Aspartate Aminotransferase 49 IU/L (14-36)
[2019-02-16 06:40] LABS: Alkaline Phosphatase 156 U/L (38-126)
[2019-02-16] MEDS: KETOROLAC 30 MG/ML VIAL IV ×2 (06:46→14:54)
[2019-02-16 07:23] LABS: Neutrophils Absolute Manual 2516 /uL (3000-5900); Total Cells Counted 100
[2019-02-16 07:24] LABS: Macrocytosis 3+
--- NOTE | 2019-02-16 07:32 | P.PN_ITS ---
Subjective Subjective Date Patient Seen: 02/16/19 Time Patient Seen: 07:32 Interval history: Pt vomited twice overnight, and refused NGT. Had some bleeding from right nare. Extremely weak and not ambulating. Exam Vital Signs (past 8 hours): - 02/16/19 00:20 02/16/19 00:30 02/16/19 05:58 Temperature 97.7 F 97.7 F Pulse Rate 70 114 H Respiratory Rate 16 16 Blood Pressure 104/58 L 145/80 H Pulse Oximetry 99 99 94 Oxygen Delivery Method Room Air Oxygen Flow Rate 0 Narrative Exam Narrative: GENERAL: Alert, comfortable, appears fatigued HENT: Normocephalic, atraumatic. Hearing intact. Oral mucosa is pink and moist. Crust of blood at right nare. EYES: Conjunctiva pink, sclera white, no periorbital swelling. RESPIRATORY: Normal respiratory rate, breathing comfortably on room air. GASTROINTESTINAL: Abdomen soft and non-distended; mild TTP left of umbilicus GENITALURINARY: No flank tenderness. MUSCULOSKELETAL: Equal tone and mass bilaterally. NEURO: Oriented to self and situation. No gross sensory deficits PSYCH: Appropriate affect and mood. Objective Labs Result Diagrams: 02/16/19 06:05 02/16/19 06:05 Labs: Laboratory Results - last 24 hr 02/15/19 02/15/19 02/15/19 07:40 07:40 07:40 WBC 5.3 RBC 3.63 L Hgb 13.2 Hct 38.1 MCV 105.0 H MCH 36.4 H MCHC 34.6 RDW 16.1 H Plt Count 141 L Neut % (Auto) Not Reportable Lymph % (Auto) Not Reportable [place] % (Auto) Not Reportable Eos % (Auto) Not Reportable Baso % (Auto) Not Reportable Lymph # (Auto) Not Reportable [place] # (Auto) Not Reportable Baso # (Auto) Not Reportable Total Counted 100 Seg Neutrophils % 67.0 Band Neutrophils % 5.0 Lymphocytes % (Manual) 11.0 L Atypical Lymphs % 6.0 H Monocytes % (Manual) 9.0 Eosinophils % (Manual) 1.0 L Metamyelocytes % 1.0 H Neutrophils # (Manual) 3816 Platelet Estimate Decreased on smear Plt Morphology Comment RBC Morphology See below Macrocytosis 2+ H PT 10.1 INR 0.9 APTT 32 Sodium 134 L Potassium 4.1 Chloride 100 Carbon Dioxide 28 BUN 24 H Creatinine 0.70 Estimated GFR > 60.0 BUN/Creatinine Ratio 34.3 H Glucose 95 Calcium 9.8 Magnesium Total Bilirubin 0.5 AST 93 H ALT 241 H Alkaline Phosphatase 199 H Total Protein 6.3 Albumin 3.6 Globulin 2.7 Albumin/Globulin Ratio 1.3 Lipase 255 02/16/19 02/16/19 06:05 06:05 WBC 3.4 L RBC 3.62 L Hgb 13.1 Hct 38.1 MCV 105.2 H MCH 36.1 H MCHC 34.3 RDW 16.4 H Plt Count 125 L Neut % (Auto) Not Reportable Lymph % (Auto) Not Reportable [place] % (Auto) Not Reportable Eos % (Auto) Not Reportable Baso % (Auto) Not Reportable Lymph # (Auto) Not Reportable [place] # (Auto) Not Reportable Baso # (Auto) Not Reportable Total Counted 100 Seg Neutrophils % 72.0 H Band Neutrophils % 2.0 L Lymphocytes % (Manual) 15.0 L Atypical Lymphs % 8.0 H Monocytes % (Manual) 1.0 L Eosinophils % (Manual) 2.0 Metamyelocytes % Neutrophils # (Manual) 2516 L Platelet Estimate Plt Morphology Comment RBC Morphology Not Reportable Macrocytosis 3+ H PT INR APTT Sodium 133 L Potassium 4.7 Chloride 103 Carbon Dioxide 21 L BUN 24 H Creatinine 0.60 Estimated GFR > 60.0 BUN/Creatinine Ratio 40.0 H Glucose 136 H Calcium 8.7 Magnesium 1.7 Total Bilirubin 0.9 AST 49 H ALT 150 H Alkaline Phosphatase 156 H Total Protein 5.3 L Albumin 3.0 L Globulin 2.3 Albumin/Globulin Ratio 1.3 Lipase Assessment & Plan Assessment and plan (1) Transaminitis: Problem details: Likely secondary to her chemotherapy, and seem to be gradually resolving. Would just monitor this for now. Current visit: Yes Status: Acute (2) Anticoagulated by anticoagulation treatment: Problem details: As above Current visit: Yes Status: Acute (3) Pulmonary embolism: Problem details: The patient is on her baseline anticoagulation, and may continue that for now as we are not currently planning to take her to surgery. Current visit: No Status: Acute (4) Small bowel obstruction: Problem details: This patient has some dilated loops of small bowel, and may have an early partial small bowel obstruction vs back pressure from constipation. She likely has some adhesive disease in the abdomen, and with her constipation those 2 things together probably resulting in her symptoms. She vomited twice last night, and refused an NG tube. She is not currently nauseated. She has not passed any gas or stool for 3 days. She has a suppository in now and is about to attempt to get up with physical therapy. She is very weak but ambulation would help her. I would recommend that we attempt to have her ambulate 20 minutes 3 times a day. Recommendations: NPO except sips of water and ice chips. May take her p.o. meds as tolerated. If the patient continues to vomit consider re-addressing the conversation of placing an NG tube Continue anticoagulation for now Ambulate 20 minutes 3 times a day--PT consult ordered Follow electrolytes, and keep her potassium greater than 4 and magnesium greater than 2 Rectal suppository with Dulcolax once daily MiraLax p.o. t.i.d. until she passes a bowel movement, hold if nauseated or vomiting No NGT unless intractable vomiting Current visit: Yes Status: Acute (5) Hyperlipidemia: Current visit: No Status: Acute (6) Metastatic breast cancer: Problem details: Patient's chemotherapy treatment is currently on hold. Current visit: Yes Status: Acute (7) Adenocarcinoma of left breast: Current visit: No Status: Acute
[2019-02-16] MEDS: DOCUSATE 100 MG CAPSULE PO (09:22)
[2019-02-16] MEDS: dexAMETHasone 1 MG TABLET 1.5 MG PO (09:22)
[2019-02-16] MEDS: PANTOPRAZOLE 40 MG TABLET PO (09:22)
--- NOTE | 2019-02-16 10:16 | PC.NURSE ---
Day shift: Ok with Dr Lloyd for Pt to continue to sleep at this time. Will give SUP per rectum when Pt awake. Will continue to monitor. Call light in reach.
--- NOTE | 2019-02-16 10:29 | PC.NURSE ---
Day shift: Pt tachy in 110's to 120's. Denies any chest pain. Dr Lloyd is aware.
[2019-02-16] MEDS: METOPROLOL IR 25 MG TABLET PO ×2 (10:51→21:17)
[2019-02-16] MEDS: BISACODYL 10 MG SUPP PR (10:52)
--- NOTE | 2019-02-16 11:10 | PC.NURSE ---
Day shift: Gave SUP rectal at this time. Pt tolerated well. Will get her to [facility] in about 20 minutes. Will continue to monitor. CAll light in reach.
[2019-02-16] MEDS: METOPROLOL TARTRATE 5 MG/5 ML INJ IV (11:29)
--- NOTE | 2019-02-16 11:47 | PT.IIE ---
Current Diagnoses Malignant neoplasm of unspecified site of left female breast (02/15/19) Malignant neoplasm of unspecified site of unspecified female breast (02/15/19) Hyperlipidemia, unspecified (02/15/19) Other pulmonary embolism without acute cor pulmonale (02/15/19) Unspecified intestinal obstruction, unspecified as to partial versus complete obstruction (02/15/19) Nonspecific elevation of levels of transaminase and lactic acid dehydrogenase [LDH] (02/15/19) FDC (current) use of anticoagulants (02/15/19) Surgical History (Last Reviewed 02/15/19 @ 12:02 by Stefany Dumont MD) History of hysterectomy (Acute) Hx of appendectomy (Acute) Medical History (Last Reviewed 02/15/19 @ 12:02 by Stefany Dumont MD) Brain cancer (Acute) Hyperlipidemia (Acute) Metastatic breast cancer (Acute) Pulmonary embolism (Acute) Physical Therapy Inpatient Evaluation/Re-Eval M1 PT/OT-IP Prior Functional Status Start: 02/16/19 12:46 Freq: NEEDED Status: Active Protocol: Document 02/16/19 11:47 AB (Rec: 02/16/19 13:23 AB [id number]) Medical Review Prior Functional Status Medical History Reviewed Yes Diet/Fluid Consistency NPO Communication has problems with word finding Mobility and Gait per daughter: pt requires SBA with bed mobility, transfers and ambulation using FWW. uses a 4WW for outdoor ambulation but uses a manual w /c for long distance mobility. Activities of Daily Living and IADL's has a bath aide that comes in to assist pt daughter stated that she assists pt with dressing if needed Social History Household Members family,children Living Arrangements House Number of Floors (Floors) 3 or More Floors Number of Stairs To Enter/Railing? ramp to enter; pt stays on main level of the house Home Equipment Front Wheel Walker,Four Wheel Walker,Manual Wheelchair Employment Status Retired Additional Social History Comment daughter stated that pt has 24 /7 assist at home M2 PT-IP Current Condition Start: 02/16/19 12:46 Freq: NEEDED Status: Active Protocol: Document 02/16/19 11:47 AB (Rec: 02/16/19 13:23 AB [id number]) Physical Therapy Current Condition Current Condition Evaluation Date 10/25/19 Treatment Diagnosis SBO; breast CA with brain mets ; difficulty in walking Onset Date 02/15/19 Precautions Other Precautions falls M3 PT-IP Subjective Start: 02/16/19 12:46 Freq: NEEDED Status: Active Protocol: Document 02/16/19 11:47 AB (Rec: 02/16/19 13:23 AB [id number]) Subjective Physical Therapy Visit Type Type Initial Evaluation Visit Start Time 11:47 Visit Stop Time 12:12 Total Visit Minutes 25 Number of POSTPARTUM RN Visits 0 Physical Therapy Visit Comments Patient Comments pt requires encouragement to participate M4 PT-IP Mobility and Gait Start: 02/16/19 12:46 Freq: NEEDED Status: Active Protocol: Document 02/16/19 11:47 AB (Rec: 02/16/19 13:23 AB [id number]) PT-Bed Mobility Assessment Supine to Sit Supine to Sit Maximum Assistance,1 Person Assistance,2 Person Assistance ,Bedrails Sit to Supine Sit to Supine Maximum Assistance,1 Person Assistance Scooting Scooting to Edge of Bed Maximum Assistance PT-Transfer Assessment Sit to and From Stand Sit to and from Stand Maximum Assistance,1 Person Assistance,2 Person Assistance ,Use of Upper Extremities Equipment Transfer Assistive Device Gait Belt,Front Wheeled Walker Orthotic/Prosthetic Devices or Brace: No Comments Mobility Comments pt completed supine to sit max A x 1-2 and max cues; has increase posterior lean requiring max A to maintain sitting balance with initial sitting on EOB. pt required max A to scoot to the EOB. pt requesting to lie down upon sitting but encouraged to sit up and stand. pt completed sit to stand max A x 2 and max cues. pt was only able to stand for ~ 5 sec and stated that she has to lie down. unable to state what she is feeling. unable to check BP due to pt needing to urgently lie back down. pt assisted in bed. positioned in bed requiring max A x 2 and max cues. call light and table placed within reach. Gait Assessment Comments Gait Comments unable at this time PT-Balance Assessment Sitting Balance and Reactions Static Sitting Balance Ability Fair Dynamic Sitting Balance Ability Poor Standing Balance and Reactions Static Standing Balance Ability Poor Dynamic Standing Balance Ability Poor Device Used FWW M5 PT-IP Objective Assessments Start: 02/16/19 12:46 Freq: NEEDED Status: Active Protocol: Document 02/16/19 11:47 AB (Rec: 02/16/19 13:23 AB [id number]) Orientation Orientation/Cognition Level of Alertness Alert Orientation Name Language Function Ability Word Finding Difficulties,Hard of Hearing Safety Awareness Decreased Safety Awareness Memory Description Short Term Impaired,Fdc Impaired Gross Range of Motion Lower Extremity ROM Assessment Within Functional Limits Strength Lower Extremity Strength Assessment Bilaterally Impaired Hip 3+/5 Knee 3+/5 M6 PT-IP Treatment Start: 02/16/19 12:46 Freq: NEEDED Status: Active Protocol: Document 02/16/19 11:47 AB (Rec: 02/16/19 13:23 AB [id number]) Physical Therapy Treatment Education Education Provided Safety M7 PT-IP Assessment and Plan Start: 02/16/19 12:46 Freq: NEEDED Status: Active Protocol: Document 02/16/19 11:47 AB (Rec: 02/16/19 13:23 AB [id number]) PT Summary Assessment and Plan Potential Rehabilitation Potential Fair Status of Condition at Evaluation Evolving Summary Impairments Pain,ROM,Strength,Balance, Coordination,Sensation,Tone, Cognition,Bed Mobility, Transfers,Gait,Activity Tolerance Assessment Summary pt requiring max A x 2 with mobility and unable to tolerate much activity. d/c plan depending on progress. daughter stated that pt has 24 /7 assist at home. will continue to assess progress for safe d/c plan. Goals Bed Mobility Goal Standby Assistance Transfer Goal Standby Assistance,Front Wheeled Walker Gait Goal Standby Assistance,Front Wheel Walker Gait Distance 100 Days to Meet Goals 10 Frequency of Treatment Frequency Of Treatment Once a Day Treatment Plan Physical Therapy Treatment Plan Bed Mobility Training,Transfer Training,Gait Training, Therapeutic Exercise,Balance Retraining,Discharge Planning, Hot or Cold Pack,Neuromuscular Re-ed,Coordination Retraining ,Manual Therapy Other Recommendations and Next Treatment transfers, ambulation Focus Recommendations To Nursing Amount of Assist Needed 2 Person Assist Discharge Recommendations PT Discharge Recommendations Home with 24/7 Assist,SNF Rehab Other Discharge Recommendations SNF vs home wit 24/7 and HHPT: depending on progress
[2019-02-16] MEDS: POLYETHYLENE GLYCOL 3350 17 GM POWD.PACK PO ×2 (14:19→21:17)
--- NOTE | 2019-02-16 15:35 | CM.DANOTE ---
DCP Brief assessment: EMR reviewed: Patient is a 78 yr old female who was admitted IP for nausea and vomiting. Patient was very tired and in pain when CM meeting. CM met with patient at bedside and patient was on pain medication and very sleepy. patient stated her daughter is her DPOA [phone]. Patient PCP is Dr. Matthew. PT evaluation pending. Insurance: 1st: Medicare 2nd: A[employer]. Plan: To be determined once CM is able to complete assessment with patient and/ or family. PT/OT evaluations are in, CM department to follow closely to determine D/c Planning needs. Arti Lentz RN Discharge Planning/Care Management CM Discharge Assessment Start: 02/16/19 15:31 Freq: Status: Active Protocol: Document 02/16/19 15:32 HS (Rec: 02/16/19 15:35 HS [id number]) Discharge Planning Assessment Assigned Mirror Framer Arti Lentz RN DPOA/Assigned Designee Name Chiara Landry (Daughter) Contact Information [phone] Advance Directives? Yes History Provided By Patient Has Patient been admitted in last 30 No days? Prior Living Arrangements House Household Members family,children Type of transporation used prior to Drives own vehicle admit Is patient alert and oriented? No: Patient on Pain Med and sleepy Caregiver for Another No Whiteboard Updated in Patient Room with Yes name and ext. # of Mirror Framer Review Status In Process Next Review Type Continued Stay Review
--- NOTE | 2019-02-16 16:21 | DIET.PN ---
Dietary Progress Note Assessment: 78y F admitted for Partial SBO and chronic constipation, has not had BM in 3d. Pt has met Br Ca to brain experiencing 14% unintentional wt loss in 6w (severe). HT: 165.1cm WT: 59kg UBW: per [facility] records 01/02/19: 68.1kg, 10/10/18: 72.8kg BMI: 21.6 (low for age) Labs: high liver enzymes, TP 5.3 L, Alb 3.0 L, Bun 24 H MNA: 9 at risk [place]: 17 Nutrition Diagnosis: Severe Acute PCM r/t progression of met Br Ca to brain aeb 14% wt loss in 6w (severe), BMI low for age (21.6). Interventions: Recc liberalized general diet order when appropriate c PRO smoothies tid or Enlive tid to support PCM Diet Order: NPO EER: 1500kcal, 70g PRO (1.2g/kg), 1.7L fluids Monitoring/Evaluations: diet order advancement, POs, wt
--- NOTE | 2019-02-16 17:36 | PM.PN.1 ---
Subjective Subjective Date Patient Seen: 02/16/19 Interval history: Val Reyes is a 78-year-old female with past medical history of stage IV breast cancer with brain metastases currently on chemotherapy (last dose 2 weeks ago now on hold secondary to elevated liver function tests), PE on chronic anticoagulation currently on Lovenox with plan to transition to Xarelto, chronic constipation (usually improves with chemotherapy), and hypertension who presented with left lower abdominal pain. The patient is resting in bed comfortably. She lacks motivation and she herself endorses lethargy and lack of energy. She endorses mild abdominal pain but then is unable to directly show me where her pain is located. She also complains of intermittent nausea. She has had no further emesis. She has no other complaints and denies headache, shortness of breath, chest pain, abdominal pain, nausea, vomiting, fever, chills, dysuria, diarrhea or constipation. She is voiding and eliminating without difficulty. She is up ambulating with assistance. She was initially barely able to get up this morning with physical therapy but later this afternoon was able to walk to the bedside chair and around the room with nursing staff. Exam Vital Signs (past 8 hours): - 02/16/19 10:00 02/16/19 10:55 02/16/19 14:00 Temperature 98.2 F 98.5 F Pulse Rate 127 H 83 Respiratory Rate 18 18 Blood Pressure 96/43 L 96/50 L Pulse Oximetry 95 97 99 02/16/19 17:05 Temperature 98.4 F Pulse Rate 69 Respiratory Rate 16 Blood Pressure 106/57 L Pulse Oximetry 97 Oxygen Delivery Method Room Air Oxygen Flow Rate 0 Narrative Exam Narrative: General: Elderly female lying in bed and in no acute distress, appears chronically ill, lethargic and depressed mood but otherwise appropriately interactive. HEENT: Normocephalic, atraumatic. External ears without defect. Pupils equal, round, and reactive to light. Anicteric sclerae, moist conjunctivae, and no lid lag. Neck: Supple with full range of motion. No jugular venous distension. No lymphadenopathy or thyromegaly. Cardiovascular: Regular rate and rhythm without murmurs, rubs, or gallops appreciated. Small macular lesion on right chest. Pulmonary: Clear to auscultation bilaterally without crackles, wheezes, or rhonchi. Normal respiratory effort with no use of accessory muscles. Abdomen: Soft, obese, mild distention, pinpoint tenderness in LLQ. No hepatosplenomegaly or masses appreciated. Mild resolving ecchymoses on abdomen. Extremities: No clubbing, cyanosis, or edema. Skin: Normal temperature, turgor, and texture; no rash, ulcers, or subcutaneous nodules appreciated. Neurological: Cranial nerves grossly intact. Psychiatric: Depressed mood and normal affect. Alert and oriented to person, place, and time. Objective Labs Result Diagrams: 02/16/19 06:05 02/16/19 06:05 Labs: Laboratory Results - last 24 hr 02/16/19 02/16/19 06:05 06:05 WBC 3.4 L RBC 3.62 L Hgb 13.1 Hct 38.1 MCV 105.2 H MCH 36.1 H MCHC 34.3 RDW 16.4 H Plt Count 125 L Neut % (Auto) Not Reportable Lymph % (Auto) Not Reportable [place] % (Auto) Not Reportable Eos % (Auto) Not Reportable Baso % (Auto) Not Reportable Lymph # (Auto) Not Reportable [place] # (Auto) Not Reportable Baso # (Auto) Not Reportable Total Counted 100 Seg Neutrophils % 72.0 H Band Neutrophils % 2.0 L Lymphocytes % (Manual) 15.0 L Atypical Lymphs % 8.0 H Monocytes % (Manual) 1.0 L Eosinophils % (Manual) 2.0 Neutrophils # (Manual) 2516 L RBC Morphology Not Reportable Macrocytosis 3+ H Sodium 133 L Potassium 4.7 Chloride 103 Carbon Dioxide 21 L BUN 24 H Creatinine 0.60 Estimated GFR > 60.0 BUN/Creatinine Ratio 40.0 H Glucose 136 H Calcium 8.7 Magnesium 1.7 Total Bilirubin 0.9 AST 49 H ALT 150 H Alkaline Phosphatase 156 H Total Protein 5.3 L Albumin 3.0 L Globulin 2.3 Albumin/Globulin Ratio 1.3 Assessment & Plan Assessment & Plan narrative: Val Reyes is a 78-year-old female with past medical history of stage IV breast cancer with brain metastases currently on chemotherapy (last dose 2 weeks ago now on hold secondary to elevated liver function tests), PE on chronic anticoagulation currently on Lovenox with plan to transition to Xarelto, chronic constipation (usually improves with chemotherapy), and hypertension who presented with left lower abdominal pain. 1. Partial small-bowel obstruction, acute, present on admission. Active. -Patient presented with LLQ abdominal pain and was found to have partial SBO with significant stool load. -CT abdomen and pelvis demonstrated a few mildly dilated loops of small bowel in the lower abdomen/pelvis with possible adhesion suspicious for early small bowel obstruction. -Consulted general surgery, Dr. Dumont, and we appreciate her recommendations which are listed below. -NPO except sips of water and ice chips and may take her PO medications. -Continue anticoagulation with Lovenox for now. -Ambulate 20 minutes 3 times a day. Consulted physical therapy for evaluation and treatment. -Replete electrolytes as needed with goal K > 4.0 and Mg > 2.0. -Rectal suppository with Dulcolax once daily and miralax 3 times daily until she passes a bowel movement. Hold if nauseated or vomiting. -No NGT unless intractable vomiting. 2. Stage IV breast cancer with brain metastases, present on admission. Active. -Followed by Dr. Bañuelos of oncology. Continue to hold patient's chemotherapy given elevated liver enzymes. -Continue dexamethasone for brain metastases and cerebral edema and Zometa for history of hypercalcemia of malignancy. 3. Chronic transaminitis, secondary to chemotherapy, present on admission. Stable. -Followed by Dr. Bañuelos of oncology. Chemotherapy regimen with Faslodex and abemaciclib is currently on hold due to transaminitis. -Continue to monitor LFTs. 4. History of pulmonary embolism on anticoagulation, present on admission. Stable. -Patient is on Lovenox currently and plans to switch to Xarelto as an outpatient. Due to unlikely need for surgical intervention patient should continue Lovenox while inpatient. 5. Hypertension, chronic, present on admission. Stable. -Continue home metoprolol 25 mg twice daily with holding parameters. 6. Chronic constipation, present on admission - please see management as noted above. Code: DNR/ DNI Disposition: Patient will likely discharge home with home health versus intermediate facility for rehabilitation once partial small bowel obstruction has resolved.
[2019-02-16] MEDS: MAGNESIUM SULFATE 2 GM/50 ML PIGGYBACK IV (19:38)
--- NOTE | 2019-02-16 20:41 | PC.NURSE ---
Nickel sized formed stool in brief. Attempted commode with only urine and post-suppository mucous. 02/16/19 2030
[2019-02-17] VITALS (9 sets, daily range): BP systolic 121–138; BP diastolic 59–72; PULSE 74–90; RESP 14–18; TEMP 36.6–37.6; O2SAT 96–99
[2019-02-17] MEDS: ONDANSETRON 4 MG/2 ML INJ IV ×4 (00:03→12:50)
[2019-02-17] MEDS: ENOXAPARIN 80 MG/0.8 ML SYRINGE 70 MG SUBCUT ×2 (03:45→14:46)
[2019-02-17 06:53] LABS: Hematocrit 36.9 % (36-46); Hemoglobin 12.9 g/dL (12.0-16.0); Mean Corpuscular HGB Conc 34.9 % (30-36); Mean Corpuscular Hemoglobin 36.3 PG (26-34); Platelet Count 107 X10^3/uL (150-400); Red Blood Cell Count 3.55 X10^6/uL (4.0-5.2); Red Cell Distribution Width 16.2 % (11.6-14.8); White Blood Cell Count 4.5 X10^3/uL (4.5-11.0)
[2019-02-17 06:54] LABS: Add Manual Diff / Slide Review YES
[2019-02-17 07:07] LABS: Alanine Aminotransferase 110 IU/L (9-52); Albumin 2.9 g/dL (3.5-5.0); Albumin Globulin Ratio 1.1 (1.0-2.8); Alkaline Phosphatase 125 U/L (38-126); Aspartate Aminotransferase 35 IU/L (14-36); BUN Creatinine Ratio 42.9 (6-22); Bilirubin Total 0.8 mg/dL (0.2-1.3); Blood Urea Nitrogen 30 mg/dL (7-17); Calcium 8.4 mg/dL (8.4-10.2); Carbon Dioxide 21 mmol/L (22-32); Chloride 106 mmol/L (98-107); Estimated Glomerular Filt Rate > 60.0 mL/min (>60); Globulin 2.7 g/dL (1.7-4.1); Glucose 109 mg/dL (80-110); HEMOLYSIS 49 (0-50); Magnesium 2.7 mg/dL (1.6-2.3); Potassium 4.6 mmol/L (3.4-5.1); Sodium 134 mmol/L (137-145); Total Protein 5.6 g/dL (6.3-8.2)
[2019-02-17] MEDS: SODIUM CHLORIDE 0.9% 1,000 ML 100 ML IV ×2 (07:23→18:20)
[2019-02-17 07:51] LABS: Neutrophils Absolute Manual 3375 /uL (3000-5900); Total Cells Counted 100
[2019-02-17 07:54] LABS: Anisocytosis 1+; Dohle Bodies 2+; Macrocytosis 2+; Polychromasia 1+; Toxic Vacuolation Present
[2019-02-17] MEDS: BISACODYL 10 MG SUPP PR (08:50)
[2019-02-17] MEDS: KETOROLAC 30 MG/ML VIAL IV (08:58)
[2019-02-17] MEDS: PROCHLORPERAZINE 10 MG/2 ML VIAL IV ×2 (09:34→16:34)
[2019-02-17] MEDS: PANTOPRAZOLE 40 MG TABLET PO (09:38)
[2019-02-17] MEDS: dexAMETHasone 1 MG TABLET 1.5 MG PO (09:39)
--- NOTE | 2019-02-17 10:35 | PC.NURSE ---
Addendum entered by Sakshi Santamaria R.N. 02/17/19 12:14: GI/MS- awakened for phys therapy, pt assisted to dangle position w/general weakness, using fww, able stand and ambul into br w/a very small smear brown stool, states no flatus, ret to chair to try and take miralax w/sips juice. Addendum entered by Sakshi Santamaria R.N. 02/17/19 11:35: GI - pt dozing after compazine administered, ativan held at this time. Original Note: AM NOTE - pt is awake, very [place], no aids, positioned upright, has emesis bag resting on her chest, complaint continued nausea, occassional has had small emesis thin green fluid, bt are present, incont urine, while pericare performed, admin dulcolax suppos, pt has x2 areas redness each buttock, no opening noted, barrier cream applied and waffle cushion placed underneath buttock area, discussed nausea with Dr. Lloyd and new orders rec'd, admin 1st zofran, then compazine, use ativan as a x1 dose only if necessary, per pt, only takes metoprolol only when pt feels symptomatic.
--- NOTE | 2019-02-17 11:24 | P.PN_ITS ---
Subjective Subjective Date Patient Seen: 02/17/19 Time Patient Seen: 11:25 Interval history: Had a couple episodes of spit up overnight no ricki emesis. Nausea seems improved since starting Compazine in addition to Zofran. Has been receiving enemas and had 1 small hard BM overnight. Exam Vital Signs (past 8 hours): - 02/17/19 05:47 02/17/19 08:28 02/17/19 10:44 Temperature 98.6 F 98.2 F Pulse Rate 74 76 Respiratory Rate 16 14 Blood Pressure 121/59 L 126/66 Pulse Oximetry 99 97 96 Oxygen Delivery Method Room Air Oxygen Flow Rate 0 Narrative Exam Narrative: General elderly malnourished chronically ill-appearing woman Chest nonlabored respirations no audible wheezes Abdomen soft, mildly distended, no tenderness Objective Labs Result Diagrams: 02/17/19 06:40 02/17/19 06:40 Labs: Laboratory Results - last 24 hr 02/17/19 02/17/19 06:40 06:40 WBC 4.5 RBC 3.55 L Hgb 12.9 Hct 36.9 MCV 104.0 H MCH 36.3 H MCHC 34.9 RDW 16.2 H Plt Count 107 L Neut % (Auto) Not Reportable Lymph % (Auto) Not Reportable [place] % (Auto) Not Reportable Eos % (Auto) Not Reportable Baso % (Auto) Not Reportable Lymph # (Auto) Not Reportable [place] # (Auto) Not Reportable Baso # (Auto) Not Reportable Total Counted 100 Seg Neutrophils % 8.0 L D Band Neutrophils % 67.0 H Lymphocytes % (Manual) 12.0 L Monocytes % (Manual) 10.0 Eosinophils % (Manual) 1.0 L Metamyelocytes % 2.0 H Neutrophils # (Manual) 3375 Toxic Vacuolation Present H Dohle Bodies 2+ H RBC Morphology See below Polychromasia 1+ H Anisocytosis 1+ H Macrocytosis 2+ H Sodium 134 L Potassium 4.6 Chloride 106 Carbon Dioxide 21 L BUN 30 H Creatinine 0.70 Estimated GFR > 60.0 BUN/Creatinine Ratio 42.9 H Glucose 109 Calcium 8.4 Magnesium 2.7 H Total Bilirubin 0.8 AST 35 ALT 110 H Alkaline Phosphatase 125 Total Protein 5.6 L Albumin 2.9 L Globulin 2.7 Albumin/Globulin Ratio 1.1 Assessment & Plan Assessment & Plan narrative: 78-year-old woman with stage IV breast cancer with a partial small-bowel obstruction, previous abdominal surgeries. She has been refusing the NG tube thus far. In the interval 24 hours she has had a few episodes of spit up no ricki emesis and a small bowel movement. May hold off on NG tube for now continue but if true emesis will need nasogastric tube. Continue enemas as written as large component of her presentation may be secondary to chronic constipation. NPO IV fluids
--- NOTE | 2019-02-17 11:50 | PT.IPTN ---
Current Diagnoses Malignant neoplasm of unspecified site of left female breast (02/15/19) Malignant neoplasm of unspecified site of unspecified female breast (02/15/19) Hyperlipidemia, unspecified (02/15/19) Other pulmonary embolism without acute cor pulmonale (02/15/19) Unspecified intestinal obstruction, unspecified as to partial versus complete obstruction (02/15/19) Nonspecific elevation of levels of transaminase and lactic acid dehydrogenase [LDH] (02/15/19) custodial (current) use of anticoagulants (02/15/19) Physical Therapy Treatment Note M2 PT-IP Current Condition Start: 02/16/19 12:46 Freq: NEEDED Status: Active Protocol: Document 02/16/19 11:47 AB (Rec: 02/16/19 13:23 AB [id number]) Physical Therapy Current Condition Current Condition Evaluation Date 02/16/19 Treatment Diagnosis SBO; breast CA with brain mets ; difficulty in walking Onset Date 02/15/19 Precautions Other Precautions falls M3 PT-IP Subjective Start: 02/16/19 12:46 Freq: NEEDED Status: Active Protocol: Document 02/17/19 11:50 AB (Rec: 02/17/19 13:53 AB [id number]) Subjective Physical Therapy Visit Type Type Treatment Note Visit Start Time 11:50 Visit Stop Time 12:10 Total Visit Minutes 20 Number of PUBLISHING SYSTEMS ANALYST Visits 0 Physical Therapy Visit Comments Patient Comments pt agreeable to do PT M4 PT-IP Mobility and Gait Start: 02/16/19 12:46 Freq: NEEDED Status: Active Protocol: Document 02/17/19 11:50 AB (Rec: 02/17/19 13:53 AB [id number]) PT-Bed Mobility Assessment Supine to Sit Supine to Sit Maximum Assistance,1 Person Assistance PT-Transfer Assessment Sit to and From Stand Sit to and from Stand Minimal Assistance,1 Person Assistance,Use of Upper Extremities Equipment Transfer Assistive Device Gait Belt,Front Wheeled Walker Orthotic/Prosthetic Devices or Brace: No Transfers Transfer Destination Toilet Transfer Technique pt ambulated using FWW Transfer Ability Level of Assist Minimal Assistance,1 Person Assistance,Use of Upper Extremities Comments Mobility Comments pt completed supine to sit max xA and cues. presented with difficulty with bed mobility and required increase time to complete task. pt completed sit to stand from EOB min A and cues and ambulated to the toilet using FWW min A and cues. pt preferred to use the bedside commode placed in the toilet instead of the toilet seat. completed sit to stand from the commode min A and cues. agreed to ambulated and completed. pt sat on chair. positioned pt. call light and table placed within reach. BP 127/71 Gait Assessment Gait Gait Assistance Required: Minimum Assistance Distance (Feet) 40 Able to Maintain Weight Bearing Status Yes During Gait Assistive Devices Assistive Device Gait Belt,Front Wheeled Walker Orthotic/Prosthetic Devices or Brace: No Gait Deviations General Gait Pattern Antalgic,Decreased Stride Length,Decreased Feet Clearance Factors Limiting Gait Function Factors Limiting Gait Function Decreased Activity Tolerance, Decreased Strength,Poor Balance,Poor Safety Awareness Comments Gait Comments pt presents with unsteady gait with LOB x 1 requiring min A for stability. M5 PT-IP Objective Assessments Start: 02/16/19 12:46 Freq: NEEDED Status: Active Protocol: Document 02/16/19 11:47 AB (Rec: 02/16/19 13:23 AB [id number]) Orientation Orientation/Cognition Level of Alertness Alert Orientation Name Language Function Ability Word Finding Difficulties,Hard of Hearing Safety Awareness Decreased Safety Awareness Memory Description Short Term Impaired,Core Cleaner Impaired Gross Range of Motion Lower Extremity ROM Assessment Within Functional Limits Strength Lower Extremity Strength Assessment Bilaterally Impaired Hip 3+/5 Knee 3+/5 M6 PT-IP Treatment Start: 02/16/19 12:46 Freq: NEEDED Status: Active Protocol: Document 02/16/19 11:47 AB (Rec: 02/16/19 13:23 AB [id number]) Physical Therapy Treatment Education Education Provided Safety M7 PT-IP Assessment and Plan Start: 02/16/19 12:46 Freq: NEEDED Status: Active Protocol: Document 02/17/19 11:50 AB (Rec: 02/17/19 13:53 AB [id number]) PT Summary Assessment and Plan Potential Rehabilitation Potential Good Summary Progress Towards Goals Slow Progress due to Medical Issues,Slow Progress due to Activity Tolerance Assessment Summary pt requiring min A with mobility and presents with decrease activity tolerance. pt plans to go home with her daughter/family to assist her. will continue to assess progress for safe d/c plan. Goals Bed Mobility Goal Standby Assistance Transfer Goal Standby Assistance,Front Wheeled Walker Gait Goal Standby Assistance,Front Wheel Walker Gait Distance 100 Days to Meet Goals 10 Frequency of Treatment Frequency Of Treatment Once a Day Treatment Plan Physical Therapy Treatment Plan Bed Mobility Training,Transfer Training,Gait Training, Therapeutic Exercise,Balance Retraining,Discharge Planning, Hot or Cold Pack,Neuromuscular Re-ed,Coordination Retraining ,Manual Therapy Other Recommendations and Next Treatment transfers, ambulation Focus Recommendations To Nursing Amount of Assist Needed 1 Person Assist Discharge Recommendations PT Discharge Recommendations Home with 15/11 Assist,SNF Rehab Other Discharge Recommendations SNF vs home two [facility] 15/11 and HHPT: depending on progress
[2019-02-17] MEDS: DOCUSATE 100 MG CAPSULE PO (11:52)
[2019-02-17] MEDS: POLYETHYLENE GLYCOL 3350 17 GM POWD.PACK PO (11:52)
--- NOTE | 2019-02-17 14:43 | P.PN_ITS ---
Subjective Subjective Date Patient Seen: 02/17/19 Interval history: Val Reyes is a 78-year-old female with past medical history of stage IV breast cancer with brain metastases currently on chemotherapy (last dose 2 weeks ago now on hold secondary to elevated liver function tests), PE on chronic anticoagulation currently on Lovenox with plan to transition to Xarelto, chronic constipation (usually improves with chemotherapy), and hypertension who presented with left lower abdominal pain. The patient is resting in bed and appears mildly uncomfortable. She is more nauseated today and continues to spit up bile like emesis. She continues to refuse NG tube for now. She continues to endorse lethargy. She endorses mild abdominal discomfort but appears to be improved on physical exam. She has no other complaints and denies headache, shortness of breath, chest pain, abdominal pain, nausea, vomiting, fever, chills, dysuria, diarrhea or constipation. She is voiding without difficulty. She Has had 1 small BM with suppository. She is up ambulating with assistance and encouraged to continue to get up and ambulate. Exam Vital Signs (past 8 hours): - 02/17/19 10:44 02/17/19 12:16 02/17/19 15:35 Temperature 98 F 98.1 F Pulse Rate 83 Respiratory Rate 14 16 Blood Pressure 125/71 138/72 Pulse Oximetry 96 98 96 02/17/19 16:42 Temperature Pulse Rate Respiratory Rate Blood Pressure Pulse Oximetry 96 Oxygen Delivery Method Room Air Oxygen Flow Rate 0 Narrative Exam Narrative: General: Elderly female lying in bed and in no acute distress, appears chronically ill, lethargic and depressed mood but otherwise appropriately interactive. HEENT: Normocephalic, atraumatic. External ears without defect. Pupils equal, round, and reactive to light. Anicteric sclerae, moist conjunctivae, and no lid lag. Neck: Supple with full range of motion. No jugular venous distension. No lymphadenopathy or thyromegaly. Cardiovascular: Regular rate and rhythm without murmurs, rubs, or gallops appreciated. Small macular lesion on right chest. Pulmonary: Clear to auscultation bilaterally without crackles, wheezes, or rhonchi. Normal respiratory effort with no use of accessory muscles. Abdomen: Soft, obese, bowel sounds present, mild distention, minimal tenderness to palpation. No hepatosplenomegaly or masses appreciated. Mild resolving ecchymoses on abdomen. Extremities: No clubbing, cyanosis, or edema. Skin: Normal temperature, turgor, and texture; no rash, ulcers, or subcutaneous nodules appreciated. Neurological: Cranial nerves grossly intact. Psychiatric: Depressed mood and normal affect. Alert and oriented to person, place, and time. Objective Labs Result Diagrams: 02/17/19 06:40 02/17/19 06:40 Labs: Laboratory Results - last 24 hr 02/17/19 02/17/19 06:40 06:40 WBC 4.5 RBC 3.55 L Hgb 12.9 Hct 36.9 MCV 104.0 H MCH 36.3 H MCHC 34.9 RDW 16.2 H Plt Count 107 L Neut % (Auto) Not Reportable Lymph % (Auto) Not Reportable [place] % (Auto) Not Reportable Eos % (Auto) Not Reportable Baso % (Auto) Not Reportable Lymph # (Auto) Not Reportable [place] # (Auto) Not Reportable Baso # (Auto) Not Reportable Total Counted 100 Seg Neutrophils % 8.0 L D Band Neutrophils % 67.0 H Lymphocytes % (Manual) 12.0 L Monocytes % (Manual) 10.0 Eosinophils % (Manual) 1.0 L Metamyelocytes % 2.0 H Neutrophils # (Manual) 3375 Toxic Vacuolation Present H Dohle Bodies 2+ H RBC Morphology See below Polychromasia 1+ H Anisocytosis 1+ H Macrocytosis 2+ H Sodium 134 L Potassium 4.6 Chloride 106 Carbon Dioxide 21 L BUN 30 H Creatinine 0.70 Estimated GFR > 60.0 BUN/Creatinine Ratio 42.9 H Glucose 109 Calcium 8.4 Magnesium 2.7 H Total Bilirubin 0.8 AST 35 ALT 110 H Alkaline Phosphatase 125 Total Protein 5.6 L Albumin 2.9 L Globulin 2.7 Albumin/Globulin Ratio 1.1 Assessment & Plan Assessment & Plan narrative: Val Reyes is a 78-year-old female with past medical history of stage IV breast cancer with brain metastases currently on chemotherapy (last dose 2 weeks ago now on hold secondary to elevated liver function tests), PE on chronic anticoagulation currently on Lovenox with plan to transition to Xarelto, chronic constipation (usually improves with chemotherapy), and hypertension who presented with left lower abdominal pain. 1. Partial small-bowel obstruction, acute, present on admission. Active. -Patient presented with LLQ abdominal pain and was found to have partial SBO with significant stool load. -CT abdomen and pelvis demonstrated a few mildly dilated loops of small bowel in the lower abdomen/pelvis with possible adhesion suspicious for early small bowel obstruction. -Consulted general surgery, Dr. Brown, who continues to follow and we appreciate his time and care of the patient. -NPO except sips of water and ice chips and may take her PO medications. -Continue anticoagulation with Lovenox for now. -Continue physical therapy for evaluation and treatment and encourage ambulation 3 times daily. -Replete electrolytes as needed with goal K > 4.0 and Mg > 2.0. -Rectal suppository with Dulcolax once daily and miralax 3 times daily until she passes a bowel movement. Hold if nauseated or vomiting. -No NGT unless intractable vomiting. 2. Stage IV breast cancer with brain metastases, present on admission. Active. -Followed by Dr. Bañuelos of oncology. Continue to hold patient's chemotherapy given elevated liver enzymes. -Continue dexamethasone for brain metastases and cerebral edema and Zometa for history of hypercalcemia of malignancy. 3. Chronic transaminitis, secondary to chemotherapy, present on admission. Stable. -Followed by Dr. Bañuelos of oncology. Chemotherapy regimen with Faslodex and abemaciclib is currently on hold due to transaminitis. -Continue to monitor LFTs. 4. History of pulmonary embolism on anticoagulation, present on admission. Stable. -Patient is on Lovenox currently and plans to switch to Xarelto as an outpatien t. Due to unlikely need for surgical intervention patient should continue Lovenox while inpatient. 5. Hypertension, chronic, present on admission. Stable. -Continue home metoprolol 25 mg twice daily with holding parameters. 6. Chronic constipation, present on admission. Active. -See management as noted above. Code: DNR/ DNI Disposition: Patient remains inpatient and will likely discharge home with home health versus senior living facility for rehabilitation once partial small bowel obstruction has resolved.
--- NOTE | 2019-02-17 15:13 | CM.DPC ---
DCP Cont: Called daughter, Chiara Landry, to reach out to her and discuss planning. Daughter stated, she does not want to go to skilled, and she has plenty of support. Daughter stated that she has caregiving experience, lives with patient, and has her children for support as well. Stated that patient was recently discharged from [facility], and would like to pursue this. She would need new orders, as well as face to face. Met briefly with patient who was sitting up in bed, quiet. She is ok with plan for home health. Daughter, Chiara, stated that her oncologist in [facility] was to order MRI for her head, and was to be done outpatient on Tuesday. She is wondering if they can do that here, if she isn't discharged yet. Let her know that this can be discussed at team rounds. P: DCP to continue to follow. At this time, plan is for home health with [facility]. Will need nursing, P.T, O.T, and new face to face. Sofia Alexandre RN/Vault Installer
--- NOTE | 2019-02-17 15:30 | OT.IP.TRT ---
Current Diagnoses Malignant neoplasm of unspecified site of left female breast (02/15/19) Malignant neoplasm of unspecified site of unspecified female breast (02/15/19) Hyperlipidemia, unspecified (02/15/19) Other pulmonary embolism without acute cor pulmonale (02/15/19) Unspecified intestinal obstruction, unspecified as to partial versus complete obstruction (02/15/19) Nonspecific elevation of levels of transaminase and lactic acid dehydrogenase [LDH] (02/15/19) terminal gauger supervisor (current) use of anticoagulants (02/15/19) Occupational Therapy Treatment Note M3 OT- IP Subjective and Pain Start: 02/17/19 18:23 Freq: Status: Active Protocol: Document 02/17/19 15:30 [facility] (Rec: 02/17/19 18:26 [facility] [id number]) OT- Subjective Occupational Therapy Visit Type Type Patient Refusal Notes Attempted to see pt for OT eval. Pt states feeling nauseous and not wanting to do OT eval. In addition pt states able to do her ADL's and daughter can assist if needed.
[2019-02-18] VITALS (9 sets, daily range): BP systolic 118–143; BP diastolic 60–90; PULSE 77–90; RESP 16–18; TEMP 36.1–37.6; O2SAT 90–98
[2019-02-18] MEDS: ONDANSETRON 4 MG/2 ML INJ IV ×2 (03:36→22:21)
[2019-02-18] MEDS: ENOXAPARIN 80 MG/0.8 ML SYRINGE 70 MG SUBCUT ×2 (03:37→18:06)
[2019-02-18] MEDS: SODIUM CHLORIDE 0.9% 1,000 ML 100 ML IV ×2 (03:39→14:18)
[2019-02-18 05:48] LABS: Hematocrit 33.9 % (36-46); Hemoglobin 11.8 g/dL (12.0-16.0); Mean Corpuscular Hemoglobin 36.4 PG (26-34); Mean Corpuscular Volume 104.2 fL (80-100); Platelet Count 120 X10^3/uL (150-400); Red Blood Cell Count 3.25 X10^6/uL (4.0-5.2); Red Cell Distribution Width 15.5 % (11.6-14.8); White Blood Cell Count 4.7 X10^3/uL (4.5-11.0)
[2019-02-18 05:52] LABS: Add Manual Diff / Slide Review YES
[2019-02-18 05:53] LABS: Magnesium 2.6 mg/dL (1.6-2.3)
[2019-02-18 05:54] LABS: Alanine Aminotransferase 85 IU/L (9-52); Albumin 2.6 g/dL (3.5-5.0); Alkaline Phosphatase 112 U/L (38-126); Aspartate Aminotransferase 27 IU/L (14-36); BUN Creatinine Ratio 44.3 (6-22); Bilirubin Total 0.7 mg/dL (0.2-1.3); Blood Urea Nitrogen 31 mg/dL (7-17); Calcium 7.7 mg/dL (8.4-10.2); Carbon Dioxide 22 mmol/L (22-32); Chloride 109 mmol/L (98-107); Estimated Glomerular Filt Rate > 60.0 mL/min (>60); Globulin 2.6 g/dL (1.7-4.1); Glucose 108 mg/dL (80-110); HEMOLYSIS 50 (0-50); Potassium 4.2 mmol/L (3.4-5.1); Sodium 135 mmol/L (137-145); Total Protein 5.2 g/dL (6.3-8.2)
[2019-02-18 07:06] LABS: Anisocytosis 1+; Dohle Bodies 3+; Macrocytosis 1+; Neutrophils Absolute Manual 3760 /uL (3000-5900); Polychromasia 1+; Total Cells Counted 100; Toxic Granulation Present
[2019-02-18] MEDS: PROCHLORPERAZINE 10 MG/2 ML VIAL IV ×2 (08:18→23:35)
[2019-02-18] MEDS: dexAMETHasone 1 MG TABLET 1.5 MG PO (10:10)
[2019-02-18] MEDS: PANTOPRAZOLE 40 MG TABLET PO (10:13)
[2019-02-18] MEDS: DOCUSATE 100 MG CAPSULE PO (10:13)
[2019-02-18] MEDS: BISACODYL 10 MG SUPP PR (10:14)
[2019-02-18] MEDS: METOPROLOL IR 25 MG TABLET PO (10:16)
--- NOTE | 2019-02-18 10:43 | PC.NURSE ---
Addendum entered by Sakshi Santamaria R.N. 02/18/19 15:06: GI - per berna Suggs in xr, pt ng was clamped for test at 1420. Addendum entered by Sakshi Santamaria R.N. 02/18/19 12:09: GI - pt given 0.25mg iv ativan prior to placement ng tube by ER nurse, immediate return medium brown thin fluid, placed on LIS, taped at 65cm, xr for placement completed, pt tolerated well. Original Note: AM NOTE - pt is awake, continues to hold emesis bag under chin but states she feels better, underlying nausea is present and when repositioned will have a hiccup w/small qty thin green bile like fluid, denies flatus, bt are hypo, greater r quadrant, admin compazine for nausea this am and pt was able to mckinley meds with sip water later, dulcolax suppos admin, barrier cream to redness buttock area, no openings noted, phys therapy in to mobilize and pt was assisted up with fww, able ambul around in room to bsc, hr did elev to 160's during activity, sat in chair to rest.
--- NOTE | 2019-02-18 10:58 | PT.IPTN ---
Current Diagnoses Malignant neoplasm of unspecified site of left female breast (02/15/19) Malignant neoplasm of unspecified site of unspecified female breast (02/15/19) Hyperlipidemia, unspecified (02/15/19) Other pulmonary embolism without acute cor pulmonale (02/15/19) Unspecified intestinal obstruction, unspecified as to partial versus complete obstruction (02/15/19) Nonspecific elevation of levels of transaminase and lactic acid dehydrogenase [LDH] (02/15/19) nursing home (current) use of anticoagulants (02/15/19) Physical Therapy Treatment Note M2 PT-IP Current Condition Start: 02/16/19 12:46 Freq: NEEDED Status: Active Protocol: Document 02/16/19 11:47 AB (Rec: 02/16/19 13:23 AB [id number]) Physical Therapy Current Condition Current Condition Evaluation Date 02/16/19 Treatment Diagnosis SBO; breast CA with brain mets ; difficulty in walking Onset Date 02/15/19 Precautions Other Precautions falls M3 PT-IP Subjective Start: 02/16/19 12:46 Freq: NEEDED Status: Active Protocol: Document 02/18/19 10:37 [facility] (Rec: 02/18/19 11:25 [facility] [id number]) Subjective Physical Therapy Visit Type Type Treatment Note Visit Start Time 10:37 Visit Stop Time 10:58 Total Visit Minutes 21 Number of ROUNDHOUSE FIRER/FIREMAN Visits 1 Physical Therapy Visit Comments Patient Comments pt agreeable to do PT M4 PT-IP Mobility and Gait Start: 02/16/19 12:46 Freq: NEEDED Status: Active Protocol: Document 02/18/19 10:37 [facility] (Rec: 02/18/19 11:25 [facility] [id number]) PT-Bed Mobility Assessment Supine to Sit Supine to Sit Minimal Assistance,1 Person Assistance,Head of Bed Elevated,Bedrails Sit to Supine Sit to Supine Standby Assistance Scooting Scooting to Edge of Bed Standby Assistance PT-Transfer Assessment Sit to and From Stand Sit to and from Stand Contact Guard Assistance,1 Person Assistance,Use of Upper Extremities Equipment Transfer Assistive Device Gait Belt,Front Wheeled Walker Orthotic/Prosthetic Devices or Brace: No Transfers Transfer Destination Bed,Chair,Toilet Transfer Technique pt ambulated using FWW Transfer Ability Level of Assist Minimal Assistance,1 Person Assistance,Use of Upper Extremities Comments Mobility Comments Pt required Min A for supine to sit with cues for sequencing logroll to right. Pt able to stand CGA and get back into bed SBA. Pt sat on BSC but was unable to have BM, RN informed. Gait Assessment Gait Gait Assistance Required: Minimum Assistance Distance (Feet) 20 Able to Maintain Weight Bearing Status Yes During Gait Assistive Devices Assistive Device Gait Belt,Front Wheeled Walker Orthotic/Prosthetic Devices or Brace: No Factors Limiting Gait Function Factors Limiting Gait Function Decreased Activity Tolerance, Decreased Strength,Poor Balance,Poor Safety Awareness Comments Gait Comments Pt had no LOB but required Min A and assist with IV pole. M5 PT-IP Objective Assessments Start: 02/16/19 12:46 Freq: NEEDED Status: Active Protocol: Document 02/16/19 11:47 AB (Rec: 02/16/19 13:23 AB [id number]) Orientation Orientation/Cognition Level of Alertness Alert Orientation Name Language Function Ability Word Finding Difficulties,Hard of Hearing Safety Awareness Decreased Safety Awareness Memory Description Short Term Impaired,Bilingual Spanish Inbound Sales Impaired Gross Range of Motion Lower Extremity ROM Assessment Within Functional Limits Strength Lower Extremity Strength Assessment Bilaterally Impaired Hip 3+/5 Knee 3+/5 M6 PT-IP Treatment Start: 02/16/19 12:46 Freq: NEEDED Status: Active Protocol: Document 02/16/19 11:47 AB (Rec: 02/16/19 13:23 AB [id number]) Physical Therapy Treatment Education Education Provided Safety M7 PT-IP Assessment and Plan Start: 02/16/19 12:46 Freq: NEEDED Status: Active Protocol: Document 02/18/19 10:37 [facility] (Rec: 02/18/19 11:25 CLB [id number]) PT Summary Assessment and Plan Summary Progress Towards Goals Slow Progress due to Medical Issues,Slow Progress due to Activity Tolerance Assessment Summary Pt with decreased activity tolerance was able to ambulate ~20ft before she felt she could do no more. Pt agreed to sit on BSC but was unable to have BM. Pt did improve with bed mobility and sit-stand. Pt had emesis after ambulation. Left pt in bed with alarm on and all needs within reach. Daughter present in room. Goals Bed Mobility Goal Standby Assistance Transfer Goal Standby Assistance,Front Wheeled Walker Gait Goal Standby Assistance,Front Wheel Walker Gait Distance 100 Days to Meet Goals 10 Frequency of Treatment Frequency Of Treatment Once a Day Treatment Plan Physical Therapy Treatment Plan Bed Mobility Training,Transfer Training,Gait Training, Therapeutic Exercise,Balance Retraining,Discharge Planning, Hot or Cold Pack,Neuromuscular Re-ed,Coordination Retraining ,Manual Therapy Other Recommendations and Next Treatment transfers, ambulation Focus Recommendations To Nursing Amount of Assist Needed 1 Person Assist Discharge Recommendations PT Discharge Recommendations Home with 15/11 Assist,SNF Rehab Other Discharge Recommendations SNF vs home [facility] 15/11 and HHPT: depending on progress
--- NOTE | 2019-02-18 11:37 | PM.PN.1 ---
Subjective Subjective Date Patient Seen: 02/18/19 Interval history: Val Reyes is a 78-year-old female with past medical history of stage IV breast cancer with brain metastases currently on chemotherapy (last dose 2 weeks ago now on hold secondary to elevated liver function tests), PE on chronic anticoagulation currently on Lovenox with plan to transition to Xarelto, chronic constipation (usually improves with chemotherapy), and hypertension who presented with left lower abdominal pain and found to have partial SBO. The patient is resting in bed. She continues to be intermittently nauseated and spitting up bile like emesis. Again discussed NG tube for which the patient is now willing to again attempt placement of NG tube to help with bowel decompression and perform a small-bowel follow-through in the next several days. She continues to have mild pinpoint tenderness and left lower quadrant of abdomen on exam. She continues to endorse lethargy. She has no other complaints and denies headache, shortness of breath, chest pain, fever, chills, dysuria, diarrhea or constipation. She is voiding without difficulty. She has had 1 small BM with suppository. She is up ambulating with assistance and continue to encourage ambulation with nursing 3 times a day. Exam Vital Signs (past 8 hours): - 02/18/19 03:40 02/18/19 07:45 02/18/19 09:00 Temperature 99.6 F 98.7 F Pulse Rate 79 90 Respiratory Rate 18 17 Blood Pressure 140/62 141/62 H Pulse Oximetry 95 97 95 Oxygen Delivery Method Room Air Oxygen Flow Rate 0 Narrative Exam Narrative: General: Elderly female lying in bed and in no acute distress, appears chronically ill, lethargic and depressed mood but otherwise appropriately interactive. HEENT: Normocephalic, atraumatic. External ears without defect. Pupils equal, round, and reactive to light. Anicteric sclerae, moist conjunctivae, and no lid lag. Neck: Supple with full range of motion. No jugular venous distension. No lymphadenopathy or thyromegaly. Cardiovascular: Regular rate and rhythm without murmurs, rubs, or gallops appreciated. Small macular lesion on right chest. Pulmonary: Clear to auscultation bilaterally without crackles, wheezes, or rhonchi. Normal respiratory effort with no use of accessory muscles. Abdomen: Soft, obese, hypoactive bowel sounds, mild distention, mild pinpoint tenderness to palpation in LLQ. No hepatosplenomegaly or masses appreciated. Mild resolving ecchymoses on abdomen. Extremities: No clubbing, cyanosis, or edema. Skin: Normal temperature, turgor, and texture; no rash, ulcers, or subcutaneous nodules appreciated. Neurological: Cranial nerves grossly intact. Psychiatric: Depressed mood and normal affect. Alert and oriented to person, place, and time. Objective Labs Result Diagrams: 02/18/19 05:35 02/18/19 05:35 Labs: Laboratory Results - last 24 hr 02/18/19 02/18/19 02/18/19 05:35 05:35 05:35 WBC 4.7 RBC 3.25 L Hgb 11.8 L Hct 33.9 L MCV 104.2 H MCH 36.4 H MCHC 35.0 RDW 15.5 H Plt Count 120 L Neut % (Auto) Not Reportable Lymph % (Auto) Not Reportable [place] % (Auto) Not Reportable Eos % (Auto) Not Reportable Baso % (Auto) Not Reportable Lymph # (Auto) Not Reportable [place] # (Auto) Not Reportable Baso # (Auto) Not Reportable Total Counted 100 Seg Neutrophils % 33.0 L D Band Neutrophils % 47.0 H Lymphocytes % (Manual) 8.0 L Monocytes % (Manual) 11.0 Metamyelocytes % 1.0 H Neutrophils # (Manual) 3760 Toxic Granulation Present H Dohle Bodies 3+ H RBC Morphology See below Polychromasia 1+ H Anisocytosis 1+ H Macrocytosis 1+ H Sodium 135 L Potassium 4.2 Chloride 109 H Carbon Dioxide 22 BUN 31 H Creatinine 0.70 Estimated GFR > 60.0 BUN/Creatinine Ratio 44.3 H Glucose 108 Calcium 7.7 L Magnesium 2.6 H Total Bilirubin 0.7 AST 27 ALT 85 H Alkaline Phosphatase 112 Total Protein 5.2 L Albumin 2.6 L Globulin 2.6 Albumin/Globulin Ratio 1.0 Assessment & Plan Assessment & Plan narrative: Val Reyes is a 78-year-old female with past medical history of stage IV breast cancer with brain metastases currently on chemotherapy (last dose 2 weeks ago now on hold secondary to elevated liver function tests), PE on chronic anticoagulation currently on Lovenox with plan to transition to Xarelto, chronic constipation (usually improves with chemotherapy), and hypertension who presented with left lower abdominal pain. 1. Partial small-bowel obstruction, acute, present on admission. Active. -Patient presented with LLQ abdominal pain and was found to have partial SBO with significant stool load. -CT abdomen and pelvis demonstrated a few mildly dilated loops of small bowel in the lower abdomen/pelvis with possible adhesion suspicious for early small bowel obstruction. -Consulted general surgery who continue to follow and we appreciate their time and care of the patient. -NPO except sips of water and ice chips and PO medications. -Continue anticoagulation with Lovenox for now. -Continue physical therapy for evaluation and treatment and encourage ambulation 3 times daily with nursing. -Replete electrolytes as needed with goal K > 4.0 and Mg > 2.0. -Rectal suppository with Dulcolax once daily and Miralax 3 times daily until she passes a bowel movement. Hold if nauseated or vomiting. -Plan to again attempt NG tube placement for bowel decompression and to perform small bowel follow through. 2. Stage IV breast cancer with brain metastases, present on admission. Active. -Followed by Dr. Bañuelos of oncology. Continue to hold patient's chemotherapy given elevated liver enzymes. -Continue dexamethasone for brain metastases and cerebral edema and Zometa for history of hypercalcemia of malignancy. 3. Chronic transaminitis, secondary to chemotherapy, present on admission. Resolving. -Followed by Dr. Bañuelos of oncology. Chemotherapy regimen with Faslodex and abemaciclib is currently on hold due to transaminitis. -Continue to monitor LFTs. 4. History of pulmonary embolism on anticoagulation, present on admission. Stable. -Patient is on Lovenox currently and plans to switch to Xarelto as an outpatient. Due to unlikely need for surgical intervention patient should continue Lovenox while inpatient. 5. Hypertension, chronic, present on admission. Stable. -Continue home metoprolol 25 mg twice daily with holding parameters. 6. Chronic constipation, present on admission. Active. -See management as noted above. Code: DNR/ DNI Disposition: Patient remains inpatient and will likely discharge home with home health versus shelter facility for rehabilitation once partial small bowel obstruction has resolved.
[2019-02-18] MEDS: LORazepam 2 MG/ML INJ 0.25 MG IV (11:46)
[2019-02-18] MEDS: LIDOCAINE 2% INJ SDV 3.1 ML INH (11:49)
--- NOTE | 2019-02-18 12:05 | DI.RAD.S_ITS ---
PROCEDURE: XR CHEST 1V INDICATIONS: NG placement TECHNIQUE: One view of the chest was acquired. COMPARISON: [facility], CR, XR CHEST 1V, 11/13/2018, 11:47. FINDINGS: Surgical changes and devices: A nasogastric tube is present curled in the left upper quadrant of the abdomen. Surgical clips of left breast lumpectomy and left axillary dissection are present. Lungs and pleura: Multifocal bilateral patchy alveolar opacities are present in the visible lung rodriguez. Overall lung volumes are low which accentuates the interstitial markings. No pleural effusions or pneumothorax. Mediastinum: Mediastinal contours appear normal. Heart size is normal. Bones and chest wall: No suspicious bony lesions. Overlying soft tissues appear unremarkable. IMPRESSION: 1. Adequate placement of nasogastric tube. 2. Since the prior study there has been decrease in lung volumes and bilateral mild patchy alveolar opacities superimposed on coarse interstitial markings. Underlying infection is not excluded. Clinical correlation recommended. Dictated by: Ana Toribio M.D. on 02/18/2019 at 12:26 Approved by: Ana Toribio M.D. on 02/18/2019 at 12:29
--- NOTE | 2019-02-18 12:25 | CM.DPC ---
DCP Cont: Discussed patient at team rounds. Dr. Lloyd is encouraging patient to have NG tube, and will be discussing with her today. Discussed home health services as well, and had Dr. Lloyd sign face to face. Patient had used [facility] before, so will use them again, for they are familiar with patient. Added nursing to assess bowel sounds, med management, and also added P.T, O.T. Went ahead and faxed over history and physical, today's progress notes, orders, face to face, and face sheet to [facility]. Daughter is primary caregiver. P: Anticipate that patient will be here for a few more days, but went ahead and initiated home health process with [facility], so they can review. They will need discharge summary when patient is discharged. Daughter and patient have re-emphasized that she does not want detention. Sofia Alexandre, RN/Product Management Specialist
--- NOTE | 2019-02-18 13:40 | DI.RAD.S_ITS ---
PROCEDURE: XR ABDOMEN MIN 2V INDICATIONS: f/u sbo vs ileus/obstipation TECHNIQUE: 2 views of the abdomen were acquired. COMPARISON: [facility], CR, XR CHEST 1V, 02/18/2019, 12:07. [facility], CT, CT ABDOMEN PELVIS W CON, 02/15/2019, 8:18. FINDINGS: Surgical changes and devices: A gastric tube is seen, with the tip overlying the fundus of the stomach. Abdominal clips are seen, which are most numerous within the right lower quadrant. Bowel: No pneumoperitoneum. Abnormally dilated loops of small bowel are seen, which measure up to 3.8 cm. On the decubitus image, no differential air-fluid levels can be seen. Soft tissues: No masses; visualized solid organ contours appear normal in size. No suspicious abdominal calcifications. Bones: No suspicious bony abnormalities. Degenerative changes are seen, which are worst involving the lower lumbar spine. IMPRESSION: Abnormally dilated loops of small bowel are seen. These imaging findings are most in keeping with ileus, although differential diagnosis would also include small bowel obstruction. If clinically appropriate, a followup CT study, performed with oral contrast with a long dwell time (at least 4 hours) could be considered for further evaluation. Dictated by: Joaquin Velasquez M.D. on 02/18/2019 at 13:08 Approved by: Joaquin Velasquez M.D. on 02/18/2019 at 13:10
--- NOTE | 2019-02-18 14:12 | DI.RAD.S_ITS ---
PROCEDURE: FL SMALL BOWEL FOLLOW THROUGH INDICATIONS: diagnostic/therapeutic. sbo vs other COMPARISON: [facility], CR, XR ABDOMEN 1V, 02/19/2019, 8:13. FINDINGS: KUB: Preprocedural messenger copy film demonstrates a normal bowel gas pattern. No suspicious abdominal calcifications. Visualized solid organ contours appear normal. No suspicious bony abnormalities. Small bowel: Stomach is markedly dilated There is delayed transit time of contrast through the small bowel. Small bowel loops are diffusely dilated. Mucosal folds are smooth and of normal thickness. No definite focal transition point clearly identified Ill-defined opacities in the right lung. IMPRESSION: Appearance compatible with distal small bowel obstruction. If the patient's symptoms do not improve, continued surveillance with abdominal series radiographs could be performed. Dictated by: Ezekiel Castorena M.D. on 02/19/2019 at 11:00 Approved by: Ezekiel Castorena M.D. on 02/19/2019 at 11:10
--- NOTE | 2019-02-18 14:42 | P.PN_ITS ---
Subjective Subjective Date Patient Seen: 02/18/19 Time Patient Seen: 14:00 Interval history: Patient was seen. She is rather somnolent after Ativan to place an NG tube. Exam Vital Signs (past 8 hours): - 02/18/19 07:45 02/18/19 09:00 Temperature 98.7 F Pulse Rate 90 Respiratory Rate 17 Blood Pressure 141/62 H Pulse Oximetry 97 95 Oxygen Delivery Method Room Air Oxygen Flow Rate 0 Narrative Exam Narrative: Palpating her abdomen did not cause her to be aroused. She is breathing spontaneously. No palpable masses or obvious hernias of the abdominal wall. Objective Labs Result Diagrams: 02/18/19 05:35 02/18/19 05:35 Labs: Laboratory Results - last 24 hr 02/18/19 02/18/19 02/18/19 05:35 05:35 05:35 WBC 4.7 RBC 3.25 L Hgb 11.8 L Hct 33.9 L MCV 104.2 H MCH 36.4 H MCHC 35.0 RDW 15.5 H Plt Count 120 L Neut % (Auto) Not Reportable Lymph % (Auto) Not Reportable [place] % (Auto) Not Reportable Eos % (Auto) Not Reportable Baso % (Auto) Not Reportable Lymph # (Auto) Not Reportable [place] # (Auto) Not Reportable Baso # (Auto) Not Reportable Total Counted 100 Seg Neutrophils % 33.0 L D Band Neutrophils % 47.0 H Lymphocytes % (Manual) 8.0 L Monocytes % (Manual) 11.0 Metamyelocytes % 1.0 H Neutrophils # (Manual) 3760 Toxic Granulation Present H Dohle Bodies 3+ H RBC Morphology See below Polychromasia 1+ H Anisocytosis 1+ H Macrocytosis 1+ H Sodium 135 L Potassium 4.2 Chloride 109 H Carbon Dioxide 22 BUN 31 H Creatinine 0.70 Estimated GFR > 60.0 BUN/Creatinine Ratio 44.3 H Glucose 108 Calcium 7.7 L Magnesium 2.6 H Total Bilirubin 0.7 AST 27 ALT 85 H Alkaline Phosphatase 112 Total Protein 5.2 L Albumin 2.6 L Globulin 2.6 Albumin/Globulin Ratio 1.0 Assessment & Plan Assessment & Plan narrative: I reviewed the patient's x-rays from earlier today. She has some small bowel dilatation filled with air in the central abdomen. No free air is appreciated. NG tube is in the stomach. Will begin a small-bowel follow-through with water soluble contrast. Patient is presently fully anticoagulated on Lovenox. I am quite concerned about her left shift with 47 bands. It turns out this is an improvement over yesterday when they were over 60. She is on a variety of medications that may impact her white blood cell count and I am not sure where she is in her treatment for her breast cancer and whether that had caused a leukopenia and she is now producing white cells. Will continue to follow. Small-bowel follow-through ordered.
[2019-02-18] MEDS: KETOROLAC 30 MG/ML VIAL IV (19:21)
--- NOTE | 2019-02-18 20:55 | PC.NURSE ---
PATIENTS NG TUBE CONTINUES TO BE CLAMPED FOR SMALL BOWEL FOLLOW THROUGH, HAS HAD 1 SMALL EMESIS OF APROX.75ML. UP OUT OF BED AMBULATING IN HALLS WITH WALKER AND SBA.
[2019-02-19] VITALS (27 sets, daily range): BP systolic 76–143; BP diastolic 17–85; PULSE 83–240; RESP 12–20; TEMP 36.3–36.8; O2SAT 50–100
--- NOTE | 2019-02-19 | PATH_ITS ---
[facility] Accession Number: [id number] . 01 Material submitted: . small bowel - SMALL BOWEL SEGMENT WITH PERFORATION . 01 Clinical history: . STOMACH PAINS, LOWER LEFT SIDE . 02 Diagnosis: Small Bowel Segment, Resection: Ulcerated small bowel with perforation and focal serositis. No evidence of vasculitis or thrombosis. Adjacent mucosa is negative for chronic or active inflammation. Serosal fibrovascular tissue, consistent with adhesion. Negative for dysplasia and malignancy. MRV 02/22/2019 1309 Local . 02 Electronically signed: . June Obando MD, Pathologist NPI- [id number] . 01 Gross description: . Received in formalin, labeled small bowel segment with perforation, is an unoriented segment of small bowel (length-2.5 cm, resection margin #1 diameter-2.2 cm, resection margin #2 diameter-1.4 cm). The resection margins are received opened. The mucosa is escobar with normal folds. No nodules, masses or lesions are identified. The resection margins are inked black. Section code: (A1) longitudinal sections with resection margins and defect, defect is entirely submitted; (A2) additional longitudinal sections with margins containing tissue surrounding the defect. ([id number]) /MRV 02/22/2019 1309 Local . 02 Pathologist provided ICD-10: K56.609 . 02 CPT . 759860 Performed at: 01 [facility] [address] [facility] [address], [place], [place] [id number] MD Joel Lindo MD Phone: [phone] Performed at: 02 [facility] [address] [place], [place] [id number] MD June Obando MD Phone: [phone]
--- NOTE | 2019-02-19 | DI.RAD.S_ITS ---
PROCEDURE: XR CHEST 1V INDICATIONS: ET LINE PLACEMENT/STATUS POST SURGERY TECHNIQUE: One view of the chest was acquired. COMPARISON: [facility], CR, XR CHEST 1V, 02/20/2019, 5:45. [facility], CR, XR CHEST 1V, 02/18/2019, 12:07. FINDINGS: Surgical changes and devices: The endotracheal tube is present with the tip 4 cm above norm. There is a right PICC with the tip in the area of SVC. A nasogastric tube is present with the tip in the stomach. Lungs and pleura: Bilateral air space infiltrates consistent with pneumonia, slightly increased compared to last exam. No pleural effusions or pneumothorax. Mediastinum: Mediastinal contours appear normal. Heart size is normal. Bones and chest wall: No suspicious bony lesions. Overlying soft tissues appear unremarkable. IMPRESSION: 1. Endotracheal tube, right PICC and nasogastric tube as described. 2. Bilateral air space infiltrates appear slightly increased, consistent with worsening pneumonia. No significant discrepancy with the security shift supervisor radiology preliminary report. Dictated by: Dorothea Doan M.D. on 02/20/2019 at 8:19 Approved by: Dorothea Doan M.D. on 02/20/2019 at 8:22
[2019-02-19] MEDS: SODIUM CHLORIDE 0.9% 1,000 ML 100 ML IV (00:16)
[2019-02-19] MEDS: KETOROLAC 30 MG/ML VIAL IV (02:13)
[2019-02-19] MEDS: ENOXAPARIN 80 MG/0.8 ML SYRINGE 70 MG SUBCUT (03:14)
--- NOTE | 2019-02-19 03:44 | DI.RAD.S_ITS ---
PROCEDURE: XR ACUTE ABDOMEN SERIES INDICATIONS: abdominal pain TECHNIQUE: One view chest and two views of the abdomen were acquired. COMPARISON: [facility], CR, XR CHEST 1V, 02/18/2019, 12:07. FINDINGS: Surgical changes and devices: Enteric tube is present with its tip projecting in the stomach. Multiple surgical clips. Chest: Multifocal right lung patchy consolidative opacities which appear increased since the prior study. Heart size is normal. No pleural effusions. No pneumoperitoneum. Multiple dilated small bowel loops are seen diffusely. No definite transition point is seen however this suggests distal small obstruction. There are air-fluid levels. Bones: No suspicious bony lesions. IMPRESSION: Radiographic appearance suggests distal small bowel obstruction. Enteric tube as above. Multifocal right lung consolidative opacities suggesting pneumonia and/or aspiration. Findings concordant with the preliminary study interpretation provided at the time of the exam. Dictated by: Ezekiel Castorena M.D. on 02/19/2019 at 8:45 Approved by: Ezekiel Castorena M.D. on 02/19/2019 at 8:50
[2019-02-19] MEDS: SODIUM CHLORIDE 0.9% 500 ML IV (04:32)
[2019-02-19 04:33] LABS: PCO2 ABG 22.9 mmHg (35-45); PO2 ABG 88 mmHg (80-100); pH ABG 7.36 (7.35-7.45)
[2019-02-19 04:34] LABS: HCO3 ABG 13 mmol/L (22-26); Oxygen Saturation ABG 97 % (95-100); TCO2 ABG 14 mmol/L (21-31)
[2019-02-19 04:35] LABS: Fractionated Inspired Oxygen 100
[2019-02-19 04:39] LABS: Add Manual Diff / Slide Review YES; Hematocrit 32.5 % (36-46); Hemoglobin 11.5 g/dL (12.0-16.0); Mean Corpuscular HGB Conc 35.5 % (30-36); Mean Corpuscular Hemoglobin 36.2 PG (26-34); Platelet Count 134 X10^3/uL (150-400); Red Blood Cell Count 3.19 X10^6/uL (4.0-5.2); Red Cell Distribution Width 15.6 % (11.6-14.8); White Blood Cell Count 2.2 X10^3/uL (4.5-11.0)
[2019-02-19 04:43] LABS: Lactate (Lactic Acid) 2.7 mmol/L (0.7-2.1)
[2019-02-19 04:45] LABS: Alanine Aminotransferase 67 IU/L (9-52); Albumin 2.4 g/dL (3.5-5.0); Alkaline Phosphatase 107 U/L (38-126); Aspartate Aminotransferase 17 IU/L (14-36); BUN Creatinine Ratio 33.3 (6-22); Bilirubin Total 0.8 mg/dL (0.2-1.3); Blood Urea Nitrogen 30 mg/dL (7-17); Calcium 7.7 mg/dL (8.4-10.2); Carbon Dioxide 17 mmol/L (22-32); Chloride 121 mmol/L (98-107); Estimated Glomerular Filt Rate > 60.0 mL/min (>60); Globulin 2.5 g/dL (1.7-4.1); Glucose 144 mg/dL (80-110); HEMOLYSIS < 15 (0-50); Sodium 144 mmol/L (137-145); Total Protein 4.9 g/dL (6.3-8.2)
[2019-02-19 04:51] LABS: Magnesium 2.5 mg/dL (1.6-2.3)
[2019-02-19] MEDS: METOPROLOL TARTRATE 5 MG/5 ML INJ IV ×4 (04:52→18:46)
[2019-02-19 04:53] LABS: Potassium 2.7 mmol/L (3.4-5.1)
[2019-02-19] MEDS: SODIUM CHLORIDE 0.9% 500 ML 1000 ML IV (04:54)
[2019-02-19 05:00] LABS: Troponin I 0.321 ng/mL (0.01-0.034)
[2019-02-19] MEDS: POTASSIUM CHLORIDE 40 MEQ in SODIUM CHLORIDE 0.9% 500 ML 130 ML IV (05:22)
--- NOTE | 2019-02-19 05:42 | P.EN_ITS ---
Event Note Date Patient Seen: 02/19/19 Time Patient Seen: 03:30 Event Note: Approached by RN at approximately 0330 am notified of status change in patient's condition Patient reported to be tachycardic, hypoxic, and hypotensive w/ SBP in the mid 80s and labile heart rate of 160-200s Off Note At approximately 3:00 a.m. f/u on status of patient's NGT, still clamped. Asked RN to call Radiology STAT to discuss. Patient was undergoing small bowel study, with extended well time. There has not been any communication from Radiology since most recent imaging at approximately 11:30 p.m. on 02/18. Patient was nauseated, she has not had any overt vomiting or complaints of abdominal discomf ort since imaging from 23:30. Vitals have been fairly stable. It was reported to me that there was no further movement of the contrast with 2330 abdominal imaging. There was no notification received from radiology and no imaging available for review in the diagnostic section. Asked for patient's NG to be re-connected to low intermittent suction. - STAT EKG - Patient was seen at bedside immediately Exam Patient is awake and alert, does respond to questions appropriately, there is degree of anxiety Reports not feeling well, however unable to explain the problem On the monitor heart rate noted to be in the 220s and BP mid to upper 80s NGT now hooked to suction and has put out 1000 ml and continues, asked RN to change to continuous suction for short duration Tachycardic on auscultation. Coarse breath sounds bilaterally, but greater in the right upper, middle, and lower lobe. Hypoxic with SpO2 in the mid 80s on 2 of oxygen with progressively downward trending SpO2 level in matter of minutes. Transition patient to 100% non-rebreather, with the improvement in SpO2 Abdomen distended, NGT present with high output Lower extremities noted to be mottled Peripheral pulses weak and thready - Stat EKG reviewed AFIB RVR - Stat 500 ml NS bolus - Stat ABG and LABS - CBC, CMP, Mg, Trop, Lactate ABG results reviewed pH 7.36 pCO2 22.9 H CO3 12.9 - Stat Abdominal Series - Placed on telemetry monitoring - After initial bolus was complete. Continued with another 500 ml NS bolus. Implementing on aggressive hydration. - NGT changed to LIS, at 4:00 a.m., respectively. NGT output at 2600 ml - HR and BP improving with aggressive hydration. Still in AFIB RVR rates 140- 160s. Ordered 5 mg IV Metoprolol. Patient re-examined. Feeling better. More communicative. Abdominal distention improved, now soft. Mottling improving. Breath sounds improving; however, course in the right lung field. Tachypnea resolved. STAT labs available for review at 0453 WBC 2.2 RBC 3.19 HGB 11.5 PLT 134 Lactate 2.7 NA 144 K 2.7 Mg 2.5 Cl 121 Ca 7.7 CO2 17 BUN 30 Cr 0.9 BUN:Cr 33.3 GLU 144 T.Bili 0.8 AST 17 ALT 67 ALK Phos Trop 0.321 - 40 mEq KCL rider - Consult PICC RN for placement - Asked RN to trial wean from non-rebreather, placed on 5 L NC, SpO2 downward trending Received call from on-call Radiology with preliminary results of the imaging at of 5:12 a.m. High-grade distal small-bowel obstruction. No free air or pneumatosis identified. Moderate to severe pulmonary patchy right lung opacities, concerning for pneumonia. At present time patient continues to be on low intermittent suction. - Will start patient on Unasyn 3 gm Q6H out of concern for aspiration pneumonia Discussed with RN. Unasyn to be given right away. May interrupt administration of the K rider in order to do that. - Change IV fluids to lactated Ringer - Asked for 2nd IV access concern for potential delay in administration of medications, PICC line RN consulted (initially urgently, but changing to STAT discussed w/ powerhouse mechanic supervisor). Staff unable to place 2nd site for IV access. - STAT repeat labs at 0700. BMP, Trop, Lactate, PCT, ABG, EKG - bladder was scanned with slightly over 400 mls of urine, will straight cath x1 and monitor for urinary retention, will hold off on placing Anne catheter at this time - 0600, heart rate slightly above 100, will give another 5 mg of IV metoprolol BP tolerating, improving with rate control Patient condition significantly improved with stat interventions. Patient stabilized. At no need to move her to the ICU at this time. Patient and course of events discussed with Dr. Lloyd in the morning. 7:00 a.m. labs still have not been completed at that time. AM EKG showing patient in SR.
[2019-02-19] MEDS: AMPICILLIN/SULBACTAM 3 GM 3 GM in SODIUM CHLORIDE 0.9% 100 ML IV ×3 (06:26→18:45)
[2019-02-19 06:30] LABS: Reflexed Lactate in 2 Hours Y
[2019-02-19] MEDS: ASPIRIN 300 MG SUPP PR (06:46)
[2019-02-19 06:47] LABS: Anisocytosis 1+; Dohle Bodies 3+; Macrocytosis 1+; Neutrophils Absolute Manual 1716 /uL (3000-5900); Poikilocytosis 1+; Total Cells Counted 100
--- NOTE | 2019-02-19 07:43 | PC.NURSE ---
Per report from evening shift RN, pt was to be getting X-rays q2h for a small bowel follow-thru, and that X-ray would call to let us know when to set up the NGT to suction. X-ray was taken at 2300 and I never got a phone call or heard of anything again until 0300 when i called to ask them what they saw. X-ray said it still wasn't moving and hadn't reached her cecum yet either and that we should probably just hook her up to suction at this point. Pt was shaking a bit so i took her temp and she was afebrile. We did Vitals after that and her HR was in the 240s, SBP in the low 80s, O2 sat on RA in the high 70s, and tachypneic. Not on tele at the time. I immediately got DIVYA Briscoe to come assess pt at bedside and I hooked her NGT to suction. Almost immediately got out over 1,000mL of bile. STAT EKG (Afib RVR), ABG, labs, and X-rays were taken at this point. Little over 1,000mL fluid bolus administered which brought her HR down to the 160s after a while. IV metoprolol was administered twice overnight as well. Breath sounds became course (only diminished at beginning of shift) and we placed her on a non-rebreather on 10L. Once sats came up we eventually tried to wean her down to 5L NC and she eventually dropped again to 80%. Placed on Telemetry. Total of 2,600mL gastric drainage out of NGT from [id number]. Abdomen was firm/distended at start of shift, much softer now this morning. NGT to low intermittent suction. Pt also retaining urine. Bladder scan revealed 433mL; straight cath was ordered but only 175mL of dark yellow urine came out at 0600 this morning. Aspirin 300mg Rectal suppository ordered and given this morning. Troponins elevated; K+ low, rider ordered. Patients PIV is expiring today; another RN attempted a 2nd IV but unsuccessful, PICC line placement ordered for today. Skin to buttocks is pretty red but blanchable. T&P q2h.
--- NOTE | 2019-02-19 08:02 | DI.RAD.S_ITS ---
PROCEDURE: XR ABDOMEN 1V INDICATIONS: f/u sbft TECHNIQUE: One view of the abdomen acquired. COMPARISON: [facility], CR, XR ACUTE ABDOMEN SERIES, 02/19/2019, 3:52. [facility], CR, XR ABDOMEN MIN 2V, 02/18/2019, 13:45. FINDINGS: Surgical changes and devices: Partially visualized enteric tube with the tip projecting in the stomach. Scattered surgical clips. Bowel: Bowel gas pattern is grossly unchanged with numerous dilated small bowel loops measuring up to 3.7 cm.. Soft tissues: No suspicious abdominal calcifications. Visualized solid organ contours appear normal in size. Bones: No suspicious bony lesions. Multilevel spondylosis IMPRESSION: No interval change in small bowel obstruction. Dictated by: Ezekiel Castorena M.D. on 02/19/2019 at 9:42 Approved by: Ezekiel Castorena M.D. on 02/19/2019 at 9:44
[2019-02-19 08:45] LABS: Lactate (Lactic Acid) 3.3 mmol/L (0.7-2.1)
--- NOTE | 2019-02-19 09:37 | PC.NURSE ---
Addendum entered by Josie Galvan R.N. 02/19/19 13:50: Patient has not voided yet today. Doctor notified, bladder scan revealed 150 ml. No catheter needed at this time. Patients brief is dry. Will continue to monitor. Patient repositioned to the right, IV removed from right AC, PICC line is intact, patent and infusing at this time. Call light in reach. Will continue to monitor. Addendum entered by Josie Galvan R.N. 02/19/19 12:49: Patient given suppository, brief changed, patient tolerated well. IV antibiotics hanging, patient given IV medications via PICC line. O2 titrated to 2L, patient at 94%. Addendum entered by Josie Galvan R.N. 02/19/19 11:54: PICC in place, confirmed by Xray, co-band in place until 1700. Ordered labs drawn and sent. Cap changed. Patient tolerated well. Patient turned to side. Critical Troponin and Chloride communicated to Dr. Lloyd. Medications changed and confirmed by pharmacy from PO to IV. Original Note: DI nurse in to place PICC at this time.
--- NOTE | 2019-02-19 09:45 | DI.RAD.S_ITS ---
PROCEDURE: XR CHEST FOR PICC 1V INDICATIONS: PICC Placement COMPARISON: [facility], [facility], XR ACUTE ABDOMEN SERIES, 02/19/2019, 3:52. [facility], CR, XR CHEST 1V, 02/18/2019, 12:07. FINDINGS: PICC was placed by the intravenous therapy team from the right side. Fluoroscopic spot film demonstrates the tip of PICC projecting to the area of upper SVC. Enteric tube is present the tip projecting in the stomach as before. Numerous surgical clips. Multifocal ill-defined and patchy bilateral pulmonary opacities as before IMPRESSION: Tip of PICC projects in the area of the upper SVC. Dictated by: Ezekiel Castorena M.D. on 02/19/2019 at 10:57 Approved by: Ezekiel Castorena M.D. on 02/19/2019 at 10:59
--- NOTE | 2019-02-19 10:03 | OT.IP.TRT ---
Current Diagnoses Malignant neoplasm of unspecified site of left female breast (02/15/19) Malignant neoplasm of unspecified site of unspecified female breast (02/15/19) Hyperlipidemia, unspecified (02/15/19) Other pulmonary embolism without acute cor pulmonale (02/15/19) Unspecified intestinal obstruction, unspecified as to partial versus complete obstruction (02/15/19) Nonspecific elevation of levels of transaminase and lactic acid dehydrogenase [LDH] (02/15/19) electrical apprentice (current) use of anticoagulants (02/15/19) Occupational Therapy Treatment Note M3 OT- IP Subjective and Pain Start: 02/17/19 18:23 Freq: Status: Active Protocol: Document 02/19/19 10:01 [facility] (Rec: 02/19/19 10:03 [facility] [id number]) OT- Subjective Occupational Therapy Visit Type Type Administrative Note Notes Per nursing, pt down in x-ray per, has not having a good morning and requesting OT to check on pt this PM.
--- NOTE | 2019-02-19 10:15 | PT.IPTN ---
Current Diagnoses Malignant neoplasm of unspecified site of left female breast (02/15/19) Malignant neoplasm of unspecified site of unspecified female breast (02/15/19) Hyperlipidemia, unspecified (02/15/19) Other pulmonary embolism without acute cor pulmonale (02/15/19) Unspecified intestinal obstruction, unspecified as to partial versus complete obstruction (02/15/19) Nonspecific elevation of levels of transaminase and lactic acid dehydrogenase [LDH] (02/15/19) skilled nursing (current) use of anticoagulants (02/15/19) Physical Therapy Treatment Note M2 PT-IP Current Condition Start: 02/16/19 12:46 Freq: NEEDED Status: Active Protocol: Document 02/16/19 11:47 AB (Rec: 02/16/19 13:23 AB [id number]) Physical Therapy Current Condition Current Condition Evaluation Date 02/16/19 Treatment Diagnosis SBO; breast CA with brain mets ; difficulty in walking Onset Date 02/15/19 Precautions Other Precautions falls M3 PT-IP Subjective Start: 02/16/19 12:46 Freq: NEEDED Status: Active Protocol: Document 02/19/19 10:15 CLB (Rec: 02/19/19 10:15 CLB [id number]) Subjective Physical Therapy Visit Type Type Patient Unavailable Notes Pt having PICC line placed. RN requested pt be check on this afternoon. M4 PT-IP Mobility and Gait Start: 02/16/19 12:46 Freq: NEEDED Status: Active Protocol: Document 02/18/19 10:37 CLB (Rec: 02/18/19 11:25 CLB [id number]) PT-Bed Mobility Assessment Supine to Sit Supine to Sit Minimal Assistance,1 Person Assistance,Head of Bed Elevated,Bedrails Sit to Supine Sit to Supine Standby Assistance Scooting Scooting to Edge of Bed Standby Assistance PT-Transfer Assessment Sit to and From Stand Sit to and from Stand Contact Guard Assistance,1 Person Assistance,Use of Upper Extremities Equipment Transfer Assistive Device Gait Belt,Front Wheeled Walker Orthotic/Prosthetic Devices or Brace: No Transfers Transfer Destination Bed,Chair,Toilet Transfer Technique pt ambulated using FWW Transfer Ability Level of Assist Minimal Assistance,1 Person Assistance,Use of Upper Extremities Comments Mobility Comments Pt required Min A for supine to sit with cues for sequencing logroll to right. Pt able to stand CGA and get back into bed SBA. Pt sat on BSC but was unable to have BM, RN informed. Gait Assessment Gait Gait Assistance Required: Minimum Assistance Distance (Feet) 20 Able to Maintain Weight Bearing Status Yes During Gait Assistive Devices Assistive Device Gait Belt,Front Wheeled Walker Orthotic/Prosthetic Devices or Brace: No Factors Limiting Gait Function Factors Limiting Gait Function Decreased Activity Tolerance, Decreased Strength,Poor Balance,Poor Safety Awareness Comments Gait Comments Pt had no LOB but required Min A and assist with IV pole. M5 PT-IP Objective Assessments Start: 02/16/19 12:46 Freq: NEEDED Status: Active Protocol: Document 02/16/19 11:47 AB (Rec: 02/16/19 13:23 AB [id number]) Orientation Orientation/Cognition Level of Alertness Alert Orientation Name Language Function Ability Word Finding Difficulties,Hard of Hearing Safety Awareness Decreased Safety Awareness Memory Description Short Term Impaired,Custodial Impaired Gross Range of Motion Lower Extremity ROM Assessment Within Functional Limits Strength Lower Extremity Strength Assessment Bilaterally Impaired Hip 3+/5 Knee 3+/5 M6 PT-IP Treatment Start: 02/16/19 12:46 Freq: NEEDED Status: Active Protocol: Document 02/16/19 11:47 AB (Rec: 02/16/19 13:23 AB [id number]) Physical Therapy Treatment Education Education Provided Safety M7 PT-IP Assessment and Plan Start: 02/16/19 12:46 Freq: NEEDED Status: Active Protocol: Document 02/18/19 10:37 CLB (Rec: 02/18/19 11:25 CLB [id number]) PT Summary Assessment and Plan Summary Progress Towards Goals Slow Progress due to Medical Issues,Slow Progress due to Activity Tolerance Assessment Summary Pt with decreased activity tolerance was able to ambulate ~20ft before she felt she could do no more. Pt agreed to sit on BSC but was unable to have BM. Pt did improve with bed mobility and sit-stand. Pt had emesis after ambulation. Left pt in bed with alarm on and all needs within reach. Daughter present in room. Goals Bed Mobility Goal Standby Assistance Transfer Goal Standby Assistance,Front Wheeled Walker Gait Goal Standby Assistance,Front Wheel Walker Gait Distance 100 Days to Meet Goals 10 Frequency of Treatment Frequency Of Treatment Once a Day Treatment Plan Physical Therapy Treatment Plan Bed Mobility Training,Transfer Training,Gait Training, Therapeutic Exercise,Balance Retraining,Discharge Planning, Hot or Cold Pack,Neuromuscular Re-ed,Coordination Retraining ,Manual Therapy Other Recommendations and Next Treatment transfers, ambulation Focus Recommendations To Nursing Amount of Assist Needed 1 Person Assist Discharge Recommendations PT Discharge Recommendations Home with 15/11 Assist,SNF Rehab Other Discharge Recommendations SNF vs home [facility] 15/11 and HHPT: depending on progress
[2019-02-19 10:22] LABS: Reflexed Lactate in 2 Hours Y
[2019-02-19 11:05] LABS: Fractionated Inspired Oxygen 44; HCO3 ABG 17 mmol/L (22-26); Oxygen Saturation ABG 93 % (95-100); PCO2 ABG 26.4 mmHg (35-45); PO2 ABG 65 mmHg (80-100); TCO2 ABG 17 mmol/L (21-31)
[2019-02-19 11:21] LABS: BUN Creatinine Ratio 35.6 (6-22); Blood Urea Nitrogen 32 mg/dL (7-17); Calcium 7.8 mg/dL (8.4-10.2); Carbon Dioxide 20 mmol/L (22-32); Estimated Glomerular Filt Rate > 60.0 mL/min (>60); Glucose 104 mg/dL (80-110); HEMOLYSIS < 15 (0-50); Sodium 148 mmol/L (137-145)
[2019-02-19 11:23] LABS: Chloride 122 mmol/L (98-107)
[2019-02-19 11:36] LABS: Procalcitonin 2.89 ng/mL (<0.5)
[2019-02-19 11:51] LABS: Lactate 2HR (Lactic Acid Rflx) 1.5 mmol/L (0.7-2.1)
[2019-02-19] MEDS: BISACODYL 10 MG SUPP PR (12:10)
[2019-02-19] MEDS: DEXAMETHASONE 4 MG/ML VIAL 1.5 MG IV (12:11)
[2019-02-19] MEDS: DEXTROSE 5% WATER 1,000 ML 100 ML IV (12:12)
[2019-02-19] MEDS: PANTOPRAZOLE 40 MG VIAL IV (12:12)
--- NOTE | 2019-02-19 13:55 | OT.IP.EVAL ---
Current Diagnoses Malignant neoplasm of unspecified site of left female breast (02/15/19) Malignant neoplasm of unspecified site of unspecified female breast (02/15/19) Hyperlipidemia, unspecified (02/15/19) Other pulmonary embolism without acute cor pulmonale (02/15/19) Unspecified intestinal obstruction, unspecified as to partial versus complete obstruction (02/15/19) Nonspecific elevation of levels of transaminase and lactic acid dehydrogenase [LDH] (02/15/19) retirement (current) use of anticoagulants (02/15/19) Surgery Performed Operation Date: 02/19/19 17:15 <No data on this case meets the specified criteria> Past Medical History (Last Reviewed 02/15/19 @ 12:02 by Stefany Dumont MD) Brain cancer (Acute) Hyperlipidemia (Acute) Metastatic breast cancer (Acute) Pulmonary embolism (Acute) Surgical History (Last Reviewed 02/15/19 @ 12:02 by Stefany Dumont MD) History of hysterectomy (Acute) Hx of appendectomy (Acute) Occupational Therapy Inpatient Evaluation/Re-Eval M1 PT/OT-IP Prior Functional Status Start: 02/17/19 18:23 Freq: NEEDED Status: Active Protocol: Document 02/19/19 14:39 [facility] (Rec: 02/19/19 15:05 [facility] [id number]) Medical Review Prior Functional Status Medical History Reviewed Yes Diet/Fluid Consistency NPO Communication has problems with word finding Mobility and Gait per daughter: pt requires SBA with bed mobility, transfers and ambulation using FWW. uses a 4WW for outdoor ambulation but uses a manual w /c for long distance mobility. Activities of Daily Living and IADL's has a bath aide that comes in to assist pt daughter stated that she assists pt with dressing if needed Daughter states she is mainly SBA and vc for safety awareness mostly. Social History Household Members family,children Living Arrangements House Number of Floors (Floors) 3 or More Floors Number of Stairs To Enter/Railing? ramp to enter; pt stays on main level of the house Home Equipment Front Wheel Walker,Four Wheel Walker,Manual Wheelchair Employment Status Retired Additional Social History Comment daughter stated that pt has 24 /7 assist at home M2 OT-IP Current Condition Start: 02/17/19 18:23 Freq: Status: Active Protocol: Document 02/19/19 14:39 [facility] (Rec: 02/19/19 15:05 [facility] [id number]) Occupational Therapy Current Condition Current Condition Evaluation Date 02/19/19 Treatment Diagnosis Partial bowel obstruction, weakness Diagnosis Onset Date 02/15/19 Weight Bearing Status Weight Bearing Status Weight Bear as Tolerated M3 OT- IP Subjective and Pain Start: 02/17/19 18:23 Freq: Status: Active Protocol: Document 02/19/19 14:39 [facility] (Rec: 02/19/19 15:05 [facility] [id number]) OT- Subjective Occupational Therapy Visit Type Type Initial Evaluation Visit Start Time 13:55 Visit Stop Time 14:24 Total Visit Minutes 29 Notes Pt's daughter present for OT eval. Occupational Therapy Visit Comments Patient Comments Pt after encouragement agreed to try to sit on the BSC. Patient/Caregiver Goals When medically stable wanting to go home. OT Pain Assessment Pain When Pain Assessed At Rest Pain Present Pain Present Denied Pain M4 OT- IP ADL's Start: 02/17/19 18:23 Freq: Status: Active Protocol: Document 02/19/19 14:39 [facility] (Rec: 02/19/19 15:05 [facility] [id number]) OT [id number] Comments OT Self-Feeding Comments NPO at this time. OT ADL-Grooming General Evaluation Grooming Ability Standby Assistance Areas Needing Assistance Retrieving/Set-up of Grooming Items Comments OT Grooming Comments Pt able to wash her hands, face and swab her mouth after set-up of items while sitting on the commode. OT ADL-Oral Care General Eval Oral Care Ability Standby Assistance Comments Oral Care Comments vc for completeness OT ADL-Dressing General Eval Lower Body Dressing Ability Maximum Assistance Areas Needing Assistance Underpants/Brief,Socks Comments OT Dressing Comments Due to fatigue and all the medical lines and tubing needing MAX A for socks and brief management needs at this time. OT ADL-Toileting General Evaluation Toileting Ability Maximum Assistance Areas Needing Assistance Manage Clothing,Perform Perineal Hygiene Devices Toileting Assistive Devices Commode Comments OT Toileting Comments Pt needing MIN/MODA for balance to stand while trying to wipe, however needing assist of another person for completeness. Pt's daughter there to assist during toileting needs. OT ADL-Bathing Comments OT Bathing Comments Not at this time. Pt on NG tube and limited for how much pt able to move from the bed. M6 OT- IP Functional Cognition Start: 02/17/19 18:23 Freq: Status: Active Protocol: Document 02/19/19 14:39 [facility] (Rec: 02/19/19 15:05 [facility] [id number]) Cognitive Factors Limiting Selfcare Function Cognitive Ability Level of Alertness Alert,Confusional State Patient Orientation Name Attention Span Ability Capable of Focused Attention, Unable to Sustain Attention Ability to Follow Commands Able to Follow One Step Commands with Increased Time, Able to Follow One Step Commands with Repetition Memory Description Short Term Impaired Cognitive Comments Cognitive Assessment Comments Pt hard of hearing and also has difficulty to remember and comprehend what is begin said to her. Pt able to follow step by step commands for safety. Pt a bit impulsive and needing cues to wait to move as therapist trying to manage all her medical line. OT- Vision and Hearing OT- Hearing Assessment OT- Hearing Assessment Hearing Impaired M7 OT- IP Mobility and Balance Start: 02/17/19 18:23 Freq: Status: Active Protocol: Document 02/19/19 14:39 [facility] (Rec: 02/19/19 15:05 [facility] [id number]) OT- Bed Mobility Assessment Rolling Type of Rolling Roll to Left Supine to Sit Supine to Sit Assist Moderate Assistance,1 Person Assistance Sit to Supine Sit to Supine Assist Moderate Assistance,1 Person Assistance Scooting Scooting to Edge of Bed Minimal Assistance,1 Person Assistance OT-Transfer Assessment Sit to and From Stand Sit to and from Stand Moderate Assistance Transfers Transfer Ability Minimal Assistance,Moderate Assistance Technique Transfer Destination Bed,Bedside Commode Transfer Technique Stand Step Pivot Devices Transfer Assistive Devices Gait Belt,Front Wheeled Walker Comments Mobility Comments Pt needing MODA to come up from side lying and cue of hand placements on the bed to help to push up. MODA to stand and assist to keep her feet from sliding forwards, assist to stand and to guide FWW to the commode. O2 on readings from 84-96%, pt needing vc to take deep breaths in, in addition O2 tubing placed in her mouth as o2 tubing per pt bothering the NG tube. OT- Gait Assessment Comments Gait Ability Comments Not able to walk due to NG tubing in. OT- Balance Assessment Sitting Balance and Reactions Static Sitting Balance Ability Good Dynamic Sitting Balance Ability Fair Standing Balance and Reactions Static Standing Balance Ability Fair Dynamic Standing Balance Ability Poor M8 OT- IP Objective Assessments Start: 02/17/19 18:23 Freq: Status: Active Protocol: Document 02/19/19 14:39 [facility] (Rec: 02/19/19 15:05 [facility] [id number]) OT Gross Range of Motion Upper Extremity Range of Motion Assessment Within Functional Limits OT Strength Comments Strength Comments BUE strength 4-/5 OT-Muscle Tone Assessment Muscle Tone WNL Yes M9 OT- IP Assessment and Plan Start: 02/17/19 18:23 Freq: Status: Active Protocol: Document 02/19/19 14:39 [facility] (Rec: 02/19/19 15:05 [facility] [id number]) OT Summary Assessment and Plan Potential Rehabilitation Potential Fair Analytic Complexity at Evaluation Moderate Summary OT Impairments Balance,Functional Cognition, Functional Mobility,Dressing, Toileting,Bathing,Toilet Transfers,Shower Transfers Progress Towards Goals Slow Progress due to Medical Issues,Slow Progress due to Activity Tolerance,Slow Progress due to Cognition Assessment Summary Pt MOD complexity due to breast CA with brain mets now having small bowel obstruction and decreased overall activity tolerance and needing more assist for ADl's and functional mobility needs as prior pt mainly SBA for needs except needing more assist for showers. Pt has supportive family and willing to assist pt more at home as needed. Therefore recommend home with 24/7 assist and home health when pt medically stable. Goals Grooming Goal Independent Dressing Goal Minimal Assistance Toileting Goal Minimal Assistance Toilet Transfer Goal Standard Toilet Patient/Caregiver Education Goal Caregiver Independent Assisting Patient Days to Meet Goals 7 Frequency of Treatment Frequency Of Treatment Once a Day Treatment Plan OT Treatment Plan ADL Training,Functional Cognition Training,Functional Mobility,Patient/Family Education,Discharge Planning Other Treatment Recommendations and Next CGA for BSC transfer with BSC. Treatment Focus Discharge Recommendations OT Discharge Recommendations Home with 24/7 Assist,Home Health
--- NOTE | 2019-02-19 14:12 | PM.PN.1 ---
Subjective Subjective Date Patient Seen: 02/19/19 Interval history: Val Reyes is a 78-year-old female with past medical history of stage IV breast cancer with brain metastases currently on chemotherapy (last dose 2 weeks ago now on hold secondary to elevated liver function tests), PE on chronic anticoagulation currently on Lovenox with plan to transition to Xarelto, chronic constipation (usually improves with chemotherapy), and hypertension who presented with left lower abdominal pain and found to have partial SBO. Interval history: The patient's NG tube was left off suction for small-bowel follow-through study yesterday evening and patient aspirated overnight. She became hypoxemic due to the aspiration event and went into RVR with her atrial fibrillation. The patient was stabilized is no longer hypoxemic and off of oxygen. Her atrial fibrillation is now well controlled after IV fluid administration and rate control medication administration. Her small-bowel follow-through demonstrated high-grade small-bowel obstruction. The patient is resting in bed and appears comfortable. She is eager to undergo surgery for resolution of her bowel obstruction, as well as, have the NG tube removed. She reports she is thirsty and her mouth is dry. She denies nausea. She no longer has pinpoint tenderness but has mild tenderness diffusely. Her abdomen is more distended than yesterday. She denies headache, chest pain, shortness of breath, fever or chills. She is voiding without difficulty. She has had 1 small BM with suppository. Plan for surgery later this afternoon/evening. Exam Vital Signs (past 8 hours): - 02/19/19 12:00 02/19/19 15:00 02/19/19 15:47 Temperature 97.9 F 97.8 F Pulse Rate 100 H 90 Respiratory Rate 20 18 Blood Pressure 137/85 124/67 Pulse Oximetry 95 94 100 Oxygen Delivery Method Room Air Oxygen Flow Rate 4 Narrative Exam Narrative: General: Elderly female lying in bed and in no acute distress, appears chronically ill, lethargic and depressed mood but otherwise appropriately interactive. HEENT: Normocephalic, atraumatic. External ears without defect. Pupils equal, round, and reactive to light. Anicteric sclerae, moist conjunctivae, and no lid lag. NG tube in place with biliary/dark drainage. Neck: Supple with full range of motion. No jugular venous distension. No lymphadenopathy or thyromegaly. Cardiovascular: No longer in atrial fibrillation. Regular rate and rhythm without murmurs, rubs, or gallops appreciated. Small macular lesion on right chest. Pulmonary: Clear to auscultation bilaterally without crackles, wheezes, or rhonchi. Normal respiratory effort with no use of accessory muscles. Abdomen: Soft, obese, hypoactive bowel sounds, mild to moderate distention, mild diffuse tenderness to palpation. No longer having pinpoint tendeness in LLQ. No hepatosplenomegaly or masses appreciated. Mild resolving ecchymoses on abdomen. Extremities: No clubbing, cyanosis, or edema. Skin: Normal temperature, turgor, and texture; no rash, ulcers, or subcutaneous nodules appreciated. Neurological: Cranial nerves grossly intact. Psychiatric: Depressed mood and normal affect. Alert and oriented to person, place, and time. Objective Labs Result Diagrams: 02/19/19 04:15 02/19/19 10:45 Labs: Laboratory Results - last 24 hr 02/19/19 02/19/19 02/19/19 04:15 04:15 04:15 WBC 2.2 L D RBC 3.19 L Hgb 11.5 L Hct 32.5 L MCV 102.0 H MCH 36.2 H MCHC 35.5 RDW 15.6 H Plt Count 134 L Neut % (Auto) Not Reportable Lymph % (Auto) Not Reportable [place] % (Auto) Not Reportable Eos % (Auto) Not Reportable Baso % (Auto) Not Reportable Lymph # (Auto) Not Reportable [place] # (Auto) Not Reportable Baso # (Auto) Not Reportable Total Counted 100 Seg Neutrophils % 19.0 L Band Neutrophils % 59.0 H Lymphocytes % (Manual) 15.0 L Atypical Lymphs % 1.0 H Monocytes % (Manual) 4.0 Metamyelocytes % 2.0 H Neutrophils # (Manual) 1716 L Dohle Bodies 3+ H RBC Morphology See below Poikilocytosis 1+ H Anisocytosis 1+ H Macrocytosis 1+ H ABG pH ABG pCO2 ABG pO2 ABG HCO3 ABG Total CO2 ABG O2 Saturation ABG Base Excess FiO2 Sodium 144 Potassium 2.7 L* D Chloride 121 H Carbon Dioxide 17 L BUN 30 H Creatinine 0.90 Estimated GFR > 60.0 BUN/Creatinine Ratio 33.3 H Glucose 144 H Lactate 2.7 H Calcium 7.7 L Magnesium Total Bilirubin 0.8 AST 17 ALT 67 H Alkaline Phosphatase 107 Troponin I 0.321 H* Total Protein 4.9 L Albumin 2.4 L Globulin 2.5 Albumin/Globulin Ratio 1.0 Procalcitonin 02/19/19 02/19/19 02/19/19 04:15 04:15 08:20 WBC RBC Hgb Hct MCV MCH MCHC RDW Plt Count Neut % (Auto) Lymph % (Auto) [place] % (Auto) Eos % (Auto) Baso % (Auto) Lymph # (Auto) [place] # (Auto) Baso # (Auto) Total Counted Seg Neutrophils % Band Neutrophils % Lymphocytes % (Manual) Atypical Lymphs % Monocytes % (Manual) Metamyelocytes % Neutrophils # (Manual) Dohle Bodies RBC Morphology Poikilocytosis Anisocytosis Macrocytosis ABG pH 7.36 ABG pCO2 22.9 L* ABG pO2 88 ABG HCO3 13 L ABG Total CO2 14 L ABG O2 Saturation 97 ABG Base Excess -13.0 L FiO2 100 Sodium Potassium Chloride Carbon Dioxide BUN Creatinine Estimated GFR BUN/Creatinine Ratio Glucose Lactate 3.3 H Calcium Magnesium 2.5 H Total Bilirubin AST ALT Alkaline Phosphatase Troponin I Total Protein Albumin Globulin Albumin/Globulin Ratio Procalcitonin 02/19/19 02/19/19 02/19/19 10:45 10:45 10:51 WBC RBC Hgb Hct MCV MCH MCHC RDW Plt Count Neut % (Auto) Lymph % (Auto) [place] % (Auto) Eos % (Auto) Baso % (Auto) Lymph # (Auto) [place] # (Auto) Baso # (Auto) Total Counted Seg Neutrophils % Band Neutrophils % Lymphocytes % (Manual) Atypical Lymphs % Monocytes % (Manual) Metamyelocytes % Neutrophils # (Manual) Dohle Bodies RBC Morphology Poikilocytosis Anisocytosis Macrocytosis ABG pH 7.40 ABG pCO2 26.4 L ABG pO2 65 L ABG HCO3 17 L ABG Total CO2 17 L ABG O2 Saturation 93 L ABG Base Excess -8.0 L FiO2 44 Sodium 148 H Potassium 4.0 D Chloride 122 H* Carbon Dioxide 20 L BUN 32 H Creatinine 0.90 Estimated GFR > 60.0 BUN/Creatinine Ratio 35.6 H Glucose 104 Lactate Calcium 7.8 L Magnesium Total Bilirubin AST ALT Alkaline Phosphatase Troponin I 0.270 H* Total Protein Albumin Globulin Albumin/Globulin Ratio Procalcitonin 2.89 H 02/19/19 11:20 WBC RBC Hgb Hct MCV MCH MCHC RDW Plt Count Neut % (Auto) Lymph % (Auto) [place] % (Auto) Eos % (Auto) Baso % (Auto) Lymph # (Auto) [place] # (Auto) Baso # (Auto) Total Counted Seg Neutrophils % Band Neutrophils % Lymphocytes % (Manual) Atypical Lymphs % Monocytes % (Manual) Metamyelocytes % Neutrophils # (Manual) Dohle Bodies RBC Morphology Poikilocytosis Anisocytosis Macrocytosis ABG pH ABG pCO2 ABG pO2 ABG HCO3 ABG Total CO2 ABG O2 Saturation ABG Base Excess FiO2 Sodium Potassium Chloride Carbon Dioxide BUN Creatinine Estimated GFR BUN/Creatinine Ratio Glucose Lactate 1.5 Calcium Magnesium Total Bilirubin AST ALT Alkaline Phosphatase Troponin I Total Protein Albumin Globulin Albumin/Globulin Ratio Procalcitonin Assessment & Plan Assessment & Plan narrative: Val Reyes is a 78-year-old female with past medical history of stage IV breast cancer with brain metastases currently on chemotherapy (last dose 2 weeks ago now on hold secondary to elevated liver function tests), PE on chronic anticoagulation currently on Lovenox with plan to transition to Xarelto, chronic constipation (usually improves with chemotherapy), and hypertension who presented with left lower abdominal pain. 1. Now high-grade small-bowel obstruction, acute, present on admission. Active. -Patient presented with LLQ abdominal pain and was found to have partial SBO with significant stool load. -CT abdomen and pelvis demonstrated a few mildly dilated loops of small bowel in the lower abdomen/pelvis with possible adhesion suspicious for early small bowel obstruction. -Small-bowel follow-through demonstrated high-grade small-bowel obstruction. -Continue strict NPO status as plan for surgical intervention later this afternoon/evening. Continue NG tube to suction. -Held anticoagulation with therapeutic Lovenox. -Replete electrolytes as needed with goal K > 4.0 and Mg > 2.0. -Continue IV fluids with D5 water x1 L as patient now has hyperchloremic acidosis and 1 L free water deficit from normal saline administration. 2. Acute aspiration with hypoxemic respiratory failure, not present on admission. Resolved. -Patient's NG tube was off of suction overnight and patient aspirated becoming hypoxemic and was provided supplemental oxygen as necessary to keep oxygen saturation 88-92%. Patient no longer hypoxemic and off oxygen. -Started Unasyn 3 g every 6 hours and will continue until after surgery then may discontinue. 3. Demand ischemia, secondary to acute hypoxemia and atrial fibrillation with RVR, not present on admission. Resolved. -Initial troponin 0.321. Repeat troponin trending down 0.270. No need to further trend as hypoxemia resolved and demand ischemia resolved. -Patient denies chest pain or ACS symptoms. No acute ischemic changes on EKG. 4. Paroxysmal atrial fibrillation with history of pulmonary embolism on anticoagulation, now with acute episode of RVR due to aspiration with hypoxemia, not present on admission. RVR resolved. -Patient is on Lovenox currently and plans to switch to Xarelto as an outpatient. -Held therapeutic Lovenox due to anticipation of surgical intervention later this afternoon/evening. Will need to restart Lovenox tomorrow per surgery clearance. -Continue metoprolol 5 mg IV every 6 hours with holding parameters. 5. Stage IV breast cancer with brain metastases, present on admission. Active. -Followed by Dr. Bañuelos of oncology. Continue to hold patient's chemotherapy given elevated liver enzymes. -Continue dexamethasone for brain metastases and cerebral edema and Zometa for history of hypercalcemia of malignancy. 6. Chronic transaminitis, secondary to chemotherapy, present on admission. Resolved. -Followed by Dr. Bañuelos of oncology. Chemotherapy regimen with Faslodex and abemaciclib is currently on hold due to transaminitis. -Continue to monitor LFTs. 7. Acute severe protein calorie malnutrition, present on admission. Active. -BMI 21.6 which is low for her age. -Due to progression of metastatic breast cancer to brain with 14% wt loss in in 6 weeks., BMI low for age (21.6). -Consulted dietitian and we appreciate her recommendations. 8. Hypertension, chronic, present on admission. Stable. -Continue metoprolol 5 mg IV every 6 hours with holding parameters. 9. Chronic constipation, present on admission. Active. -See management as noted above. Code: DNR/ DNI Disposition: Patient remains inpatient with plans to undergo surgery this afternoon/evening to resolve high-grade small-bowel obstruction. Patient undoubtedly need [facility] facility for rehabilitation after her hospitalization.
--- NOTE | 2019-02-19 14:57 | CM.DPC ---
DCP Cont: Per MD, pt had a difficult night last night with her NG tube and aspiration and PICC placed today and Surgeon continues to consult and manage conservatively but pt may not be progressing and might need surgical intervention. SW inquired with RN and power tool repair technician and as of 1499 still undetermined if surgery is needed. SW spoke to [facility] and confirmed they received the referral, F2F and MD orders yesterday and [facility] states they can accept the pt for restart of care (as she was recently discharged from their service) and SW updated on unclear if pt will need surgical intervention. [facility] tentatively had pt as start of care beginning tomorrow 02/20/19 but now aware pt will likely still be in the hospital and d/c timeline pending possible surg. Plan: SW to follow closely to determine if pt can be conservatively managed or if she needs surgical intervention. [facility] can accept the pt at d/c, just needs discharge summary faxed, if pt is safe for d/c home with Dtr assist. MARY Pritchard
--- NOTE | 2019-02-19 16:40 | PM.PREOP ---
Pre-operative Note Interval Note History & Physical reviewed/Exam performed by Physician: Yes Changes to H&P: Yes H&P completed within 30 days and has changed as indicated here:: Lungs are clear. Abdomen regular rate and rhythm at this time despite her history of AFib. Abdomen is distended soft but tender in the lower abdomen. No involuntary guarding. No hernias appreciated. Patient is alert. I have discussed my plan to operate on her later tonight. I have been waiting for the effect of her full dose anticoagulation of Lovenox to wear off. I also have been waiting to see what was happening with her lungs as she appeared to be getting better and indeed is requiring less oxygen to maintain a good saturation. Discussed risks of bleeding infection uncertainty the operation. Discussed hernia with her. Discussed problems with her lungs postop as well as her heart including a heart attack. Possibility of discussed. All questions answered. I note that her troponin level is coming down. She has been asymptomatic without a change in her EKG though at this is a very worrisome thing.
[2019-02-19] MEDS: LACTATED RINGERS 1,000 ML 100 ML IV ×3 (20:00→23:57)
[2019-02-19] MEDS: PIPERACILLIN-TAZO 3.375 GM/50 ML FROZ.PIGGY IV ×2 (20:15→23:42)
--- NOTE | 2019-02-19 23:08 | SUR.PHASEI ---
Pt transfered directly to ICCU from OR due to pt needing vent. Pt transfered to room 105 via bed accompanied by Sakshi Day, RN and myself on monitor and being bagged by Dr. Khanna. RT with vent ready in room. Report to Margaret and Adrianne ICCU RNs. Chest xray obtained seen by Dr. Robles. NGT attached to LIS. Dressing remained C/D/I.Retraints placed to protect ETT.
--- NOTE | 2019-02-19 23:09 | PM.OP.1 ---
Operative Date/Time/Diagnoses Date of procedure: 02/19/19 Time of procedure: 22:40 Pre-op diagnosis: Small-bowel obstruction Post-op diagnosis: same (Adhesive small bowel obstruction) Procedure & Clinicians Procedure: Exploratory laparotomy with small-bowel resection and primary end-to-end anastomosis Same procedure as scheduled: Yes Indications: Complete small bowel obstruction Click Yes if Unassisted: Yes Anesthesia Type: General Operative Notes Findings: Adhesions in the right pelvis caused the obstruction. Once lysis there was a defect in a loop of small bowel that required resection. We removed about an inch long segment of intestine. The anastomosis was intact, patent and without leak. There was very little blood loss. Closure Type: primary Specimen(s): other (Segment small bowel) Applied: catheter (herrera and NG) Estimated Blood Loss (mL): 40 Blood products transfused: none Procedure in detail: The patient was placed supine on the operating room table and underwent general endotracheal anesthesia. She already had a Herrera in and an NG tube in. The patient was prepped and draped in the usual fashion. A vertical incision was made from the umbilicus down and carried into the peritoneal cavity. The fluid was clear. The small bowel was dilated but viable. Adhesions in the pelvis were clearly the cause of the obstruction. These were lysed and the small bowel freed. In 1 area of very tight adhesion and opening was present in the small bowel and this was quickly closed off with bowel clamps. There was minimal spillage. The pelvis was irrigated and suctioned free of fluid. All the adhesions causing the process had been lysed. The hole was within 6 in of the ileocecal valve. Using cautery I resected this very small segment of disease small-bowel and submitted as specimen. I cheatled the distal to correct for the size mismatch between proximal to the obstruction and distal. I then created an end-to-end anastomosis with interrupted seromuscular silks externally in a running 3 0 Vicryl Kory type inner layer. And there was no mesenteric defect to speak of due to the very short segment of bowel removed. I tested the anastomosis. It was palpably patent. Proximal contents flowed easily across it and there was no evidence of leak. The intestine was returned to the abdomen. There was 1 other area where an adhesion had created a scar in the small bowel and I sutured over this with seromuscular silk sutures in case there was an area of weakness in that region. Once the intestine was returned to the abdomen Dylan irrigated the area beneath my incision and the pelvis and suctioned it free of fluid. The omentum was brought down under the incision. The fascia was closed with a running 1. Maxon double-stranded suture with occasional interrupted [id number] Vicryl sutures. The patient was left intubated and taken to the ICU in stable condition. Complications: none Post-operative Condition: stable Disposition: ICU
--- NOTE | 2019-02-19 23:14 | SUR.PHASEI ---
BP low, treated by Dr. Khanna with phenlephrine.
[2019-02-19] MEDS: PROPOFOL 1,000 MG/100 ML VIAL 9.3 MG IV (23:57)
[2019-02-20] VITALS (35 sets, daily range): BP systolic 74–151; BP diastolic 36–81; PULSE 77–128; RESP 12–38; TEMP 36.2–37.3; O2SAT 90–100
--- NOTE | 2019-02-20 00:24 | PM.EVENT ---
Event Note Date Patient Seen: 02/19/19 Time Patient Seen: 23:50 Event Note: Admission to intensive care unit. 1. Status post laparotomy for small-bowel obstruction with small-bowel resection and end-to-end anastomosis 2. Acute respiratory failure with hypoxemia remaining on the ventilator. 3. Hypotension responsive to fluid bolus. 4. Paroxysmal atrial fibrillation transient self resolving during surgery. The patient has returned from the OR and is admitted to the ICU remaining on the ventilator following exploratory laparotomy for complete bowel obstruction resulting in a short segment of small bowel resection with end-to-end anastomosis per Dr. Robles. Spoke with Dr. Khanna, anesthesiologist who noted the patient remained hemostatic dynamically stable during the surgical procedure of with 1 brief episode of atrial fibrillation into the 120s spontaneously resolving. She further notes the patient has a very low threshold for sedation. I return from the OR the patient is fully sedated on propofol 25 micrograms/kilos per minute and per Anesthesia just received fentanyl and had an episode of hypotension with a pressure of 78/34. Dr. Khanna administered 200 mcg of phenylephrine. LR bolus of 250 cc was also administered. A propofol decreased to 10 mcg per kg per minute. Breath sounds heard diminished without coarseness in scattered faint crackles. Chest x-ray has been taken with ET tube in adequate position with patchy infiltrates. The patient is on a tidal volume 350, rate of 14 with 5 of peep. On ABG she is noted have a pH of 7.37, pCO2 35.9, PO2 of 126, bicarbonate of 21 with a base excess of -5 on 50% FiO2. The FiO2 was lowered to 40%. Midline abdominal dressing is clean dry and intact. Patient has 1+ pedal edema. The patient remains in normal sinus rhythm with occasional PAC and is unresponsive to stimulation. Blood pressure is now stable at 1 100/46 with a mean of 68. Patient is hemodynamically stable at this time will continue LR at 100 cc/hour and monitor closely. Critical care time: 30 minutes
[2019-02-20 00:28] LABS: HCO3 ABG 21 mmol/L (22-26); Oxygen Saturation ABG 99 % (95-100); PCO2 ABG 35.9 mmHg (35-45); PO2 ABG 126 mmHg (80-100); TCO2 ABG 22 mmol/L (21-31); pH ABG 7.37 (7.35-7.45)
[2019-02-20 00:57] LABS: Hematocrit 28.5 % (36-46); Mean Corpuscular HGB Conc 35.2 % (30-36); Mean Corpuscular Hemoglobin 36.8 PG (26-34); Mean Corpuscular Volume 104.4 fL (80-100); Platelet Count 110 X10^3/uL (150-400); Red Blood Cell Count 2.73 X10^6/uL (4.0-5.2); Red Cell Distribution Width 15.6 % (11.6-14.8); White Blood Cell Count 2.4 X10^3/uL (4.5-11.0)
[2019-02-20 01:00] LABS: Add Manual Diff / Slide Review YES; Magnesium 2.4 mg/dL (1.6-2.3)
[2019-02-20] MEDS: LACTATED RINGERS 250 ML 1000 ML IV (01:37)
[2019-02-20 01:57] LABS: Alanine Aminotransferase 57 IU/L (9-52); Albumin 2.1 g/dL (3.5-5.0); Albumin Globulin Ratio 0.9 (1.0-2.8); Alkaline Phosphatase 75 U/L (38-126); Aspartate Aminotransferase 21 IU/L (14-36); BUN Creatinine Ratio 42.9 (6-22); Bilirubin Total 0.6 mg/dL (0.2-1.3); Blood Urea Nitrogen 30 mg/dL (7-17); Calcium 7.4 mg/dL (8.4-10.2); Carbon Dioxide 23 mmol/L (22-32); Chloride 119 mmol/L (98-107); Estimated Glomerular Filt Rate > 60.0 mL/min (>60); Globulin 2.3 g/dL (1.7-4.1); Glucose 129 mg/dL (80-110); HEMOLYSIS < 15 (0-50); Potassium 3.6 mmol/L (3.4-5.1); Sodium 144 mmol/L (137-145); Total Protein 4.4 g/dL (6.3-8.2)
[2019-02-20] MEDS: MORPHINE 2 MG/ML INJ IV ×4 (02:06→23:48)
[2019-02-20 02:23] LABS: Neutrophils Absolute Manual 1296 /uL (3000-5900); Total Cells Counted 100
[2019-02-20 02:24] LABS: Anisocytosis 1+; Macrocytosis 1+
[2019-02-20] MEDS: PIPERACILLIN-TAZO 3.375 GM/50 ML FROZ.PIGGY IV ×4 (03:08→19:57)
[2019-02-20] MEDS: METOPROLOL TARTRATE 5 MG/5 ML INJ IV ×4 (03:11→19:56)
[2019-02-20] MEDS: LACTATED RINGERS 1,000 ML 100 ML IV ×2 (05:59→19:11)
--- NOTE | 2019-02-20 06:00 | DI.RAD.S_ITS ---
PROCEDURE: XR CHEST 1V INDICATIONS: Intubation TECHNIQUE: One view of the chest was acquired. COMPARISON: [facility], CR, XR CHEST 1V, 02/19/2019, 22:57. FINDINGS: Surgical changes and devices: Nasogastric tube and endotracheal tubes are unchanged in position. Right-sided PICC line is stable. Left axillary clips are noted. Lungs and pleura: Prominent bilateral pulmonary opacities with minimal improvement on the left. Mediastinum: Mediastinal contours appear normal. Heart size is normal. Bones and chest wall: No suspicious bony lesions. Overlying soft tissues appear unremarkable. IMPRESSION: Support lines as above. Minimal interval improvement of bilateral pulmonary opacities suggestive of pneumonia. Underlying areas of edema and/or atelectasis cannot be excluded. Dictated by: Maria R Geronimo M.D. on 02/20/2019 at 10:44 Approved by: Maria R Geronimo M.D. on 02/20/2019 at 10:45
[2019-02-20 06:06] LABS: Hemoglobin 10.2 g/dL (12.0-16.0); Mean Corpuscular HGB Conc 35.1 % (30-36); Mean Corpuscular Hemoglobin 36.6 PG (26-34); Mean Corpuscular Volume 104.3 fL (80-100); Platelet Count 106 X10^3/uL (150-400); Red Blood Cell Count 2.78 X10^6/uL (4.0-5.2); Red Cell Distribution Width 15.7 % (11.6-14.8); White Blood Cell Count 4.6 X10^3/uL (4.5-11.0)
[2019-02-20 06:10] LABS: Lactate (Lactic Acid) 1.3 mmol/L (0.7-2.1)
[2019-02-20] MEDS: LACTATED RINGERS 500 ML 1000 ML IV (06:10)
[2019-02-20 06:27] LABS: Troponin I 0.122 ng/mL (0.01-0.034)
[2019-02-20 06:30] LABS: Alanine Aminotransferase 50 IU/L (9-52); Albumin 2.1 g/dL (3.5-5.0); Albumin Globulin Ratio 0.9 (1.0-2.8); Alkaline Phosphatase 72 U/L (38-126); Aspartate Aminotransferase 21 IU/L (14-36); BUN Creatinine Ratio 41.4 (6-22); Bilirubin Total 0.6 mg/dL (0.2-1.3); Blood Urea Nitrogen 29 mg/dL (7-17); Calcium 7.5 mg/dL (8.4-10.2); Carbon Dioxide 23 mmol/L (22-32); Chloride 118 mmol/L (98-107); Estimated Glomerular Filt Rate > 60.0 mL/min (>60); Globulin 2.4 g/dL (1.7-4.1); Glucose 121 mg/dL (80-110); HEMOLYSIS < 15 (0-50); Potassium 3.4 mmol/L (3.4-5.1); Sodium 144 mmol/L (137-145); Total Protein 4.5 g/dL (6.3-8.2)
[2019-02-20 06:52] LABS: Procalcitonin 3.45 ng/mL (<0.5)
[2019-02-20 07:15] LABS: Neutrophils Absolute Manual 3174 /uL (3000-5900); Total Cells Counted 100
[2019-02-20 07:16] LABS: Macrocytosis 2+
[2019-02-20] MEDS: PANTOPRAZOLE 40 MG VIAL IV (08:44)
[2019-02-20] MEDS: DEXAMETHASONE 4 MG/ML VIAL 1.5 MG IV (08:46)
--- NOTE | 2019-02-20 09:30 | PC.NURSE ---
Addendum entered by Dara Lodr R.N. 02/20/19 10:22: ABG drawn by RT and results reviewed with Dr. Terry. Order received to extubate. Pt extubated to 3L NC by RT, pt tolerated well. Weak cough on command. Bleeding noted around mouth, appears to have old scabbing in right corner. Mouth moisturizer applied. 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 Pt denies pain. Oriented to call light and to room/situation/place. Oriented self only at this time, mildly anxious. Original Note: Day Shift Note Pt drowsy but able to open eyes to voice on AM assessment, some tracking with eyes noted, quickly falls back asleep. Following most commands. On ventilator with FiO2 40% and SpO2 97-100%. Lung sounds decreased with some slight crackles posteriorly. Oral care provided, no sputum noted upon suctioning. Pt shook head no when asked if she had any pain. Repositioning every 2 hours. NG tube to LIS with brown/yellow output. Midline abdominal incision C/D/I. Anne in place and draining clear yellow urine. Dr. Robles and Dr. Terry rounded this AM - plan of care reviewed. Propofol at 10 mcg/kg/min this AM, turned off at 0825 for sedation vacation and CPAP trial started at 0828 by RT. HR up to 110-120s (ST) once propofol off - scheduled metoprolol IV given and rate now in the 70-80s NSR. Tolerating CPAP trial well thus far, maintaining SpO2 96-97%, RR 14-20, breathing appears nonlabored. Soft wrist restraints in place as pt does pull at restraints and attempts to reach for tubes. Daughter Ayesha updated via phone. Call light within reach, bed alarm is on.
--- NOTE | 2019-02-20 10:13 | P.PN_ITS ---
Subjective Subjective Date Patient Seen: 02/20/19 Time Patient Seen: 10:19 Interval history: Val Reyes is a 78-year-old female with past medical history of stage IV breast cancer with brain metastases currently on chemotherapy (last dose 2 weeks ago now on hold secondary to elevated liver function tests), PE on chronic anticoagulation currently on Lovenox with plan to transition to Xarelto, chronic constipation (usually improves with chemotherapy), and hypertension who presented with left lower abdominal pain and has been admitted for a small-bowel obstruction. She is now postoperative day 1 from lysis of adhesions and small-bowel resection. She remained intubated overnight given her aspiration event yesterday as previously documented, and is somewhat difficult intubation (needing a 6.5 ETT). This morning her sedation was held, and patient tolerated 1 hour of a spontaneous breathing trial with pressure support given her small endotracheal tube. Her blood gas was unremarkable after breathing trial and her labs have been relatively stable so patient was extubated after her breathing trial to nasal cannula. Exam Vital Signs (past 8 hours): - 02/20/19 03:00 02/20/19 04:00 02/20/19 05:00 Temperature 99.1 F Pulse Rate 128 H 77 83 Respiratory Rate 14 14 14 Blood Pressure 118/61 112/52 L 100/47 L Pulse Oximetry 97 99 96 02/20/19 06:00 02/20/19 06:18 02/20/19 06:30 Temperature Pulse Rate 78 88 83 Respiratory Rate 14 14 14 Blood Pressure 74/36 L 127/70 112/62 Pulse Oximetry 98 95 99 02/20/19 06:59 02/20/19 08:00 02/20/19 08:28 Temperature 97.2 F L Pulse Rate 82 87 108 H Respiratory Rate 14 14 18 Blood Pressure 112/61 123/81 Pulse Oximetry 99 99 96 02/20/19 09:00 02/20/19 09:34 Temperature Pulse Rate 87 Respiratory Rate 12 Blood Pressure 151/65 H Pulse Oximetry 96 95 Fraction of Inspired Oxygen 0.3 Oxygen Delivery Method Mechanical Ventilation Oxygen Flow Rate 30 Narrative Exam Narrative: GENERAL APPEARANCE: Chronically ill appearing, pale, fatigued. Groggy but following commands. Seen prior to and post extubation. SKIN: Macular lesion present on the right chest wall. HEENT: Dry Mucosa, NG tube in place. ETT in place prior to extubation. NECK: Supple and symmetric. There was no thyroid enlargement, and no tenderness, or masses were felt. CHEST: Normal AP diameter and normal contour without any kyphoscoliosis. LUNGS: Auscultation of the lungs revealed no wheezes, rhonchi, or rales. CARDIOVASCULAR: Tachycardic without any murmurs, gallops, rubs. Peripheral pulses were 2+ and symmetric. ABDOMEN: Soft, non-distended. No ascites was noted. Midline surgical dressing c/ d/i. MUSCULOSKELETAL: There was no tenderness or effusions noted. Muscle strength and tone were normal. EXTREMITIES: No cyanosis, clubbing or edema. NEUROLOGIC: Groggy as noted above. Folowing commands. Strength exam limited by effort but moving all extremities equally. Objective Labs Result Diagrams: 02/20/19 05:30 02/20/19 05:30 Labs: Laboratory Results - last 24 hr 02/19/19 02/19/19 02/19/19 10:45 10:45 10:51 WBC RBC Hgb Hct MCV MCH MCHC RDW Plt Count Neut % (Auto) Lymph % (Auto) Donley % (Auto) Eos % (Auto) Baso % (Auto) Lymph # (Auto) Donley # (Auto) Baso # (Auto) Total Counted Seg Neutrophils % Band Neutrophils % Lymphocytes % (Manual) Atypical Lymphs % Monocytes % (Manual) Metamyelocytes % Myelocytes % Neutrophils # (Manual) RBC Morphology Anisocytosis Macrocytosis ABG pH 7.40 ABG pCO2 26.4 L ABG pO2 65 L ABG HCO3 17 L ABG Total CO2 17 L ABG O2 Saturation 93 L ABG Base Excess -8.0 L FiO2 44 Sodium 148 H Potassium 4.0 D Chloride 122 H* Carbon Dioxide 20 L BUN 32 H Creatinine 0.90 Estimated GFR > 60.0 BUN/Creatinine Ratio 35.6 H Glucose 104 Lactate Calcium 7.8 L Magnesium Total Bilirubin AST ALT Alkaline Phosphatase Troponin I 0.270 H* Total Protein Albumin Globulin Albumin/Globulin Ratio Procalcitonin 2.89 H Nasal Screen MRSA (PCR) 02/19/19 02/19/19 02/20/19 11:20 23:25 00:01 WBC RBC Hgb Hct MCV MCH MCHC RDW Plt Count Neut % (Auto) Lymph % (Auto) Donley % (Auto) Eos % (Auto) Baso % (Auto) Lymph # (Auto) Donley # (Auto) Baso # (Auto) Total Counted Seg Neutrophils % Band Neutrophils % Lymphocytes % (Manual) Atypical Lymphs % Monocytes % (Manual) Metamyelocytes % Myelocytes % Neutrophils # (Manual) RBC Morphology Anisocytosis Macrocytosis ABG pH 7.37 ABG pCO2 35.9 ABG pO2 126 H ABG HCO3 21 L ABG Total CO2 22 ABG O2 Saturation 99 ABG Base Excess -5.0 L FiO2 0.50 Sodium Potassium Chloride Carbon Dioxide BUN Creatinine Estimated GFR BUN/Creatinine Ratio Glucose Lactate 1.5 Calcium Magnesium Total Bilirubin AST ALT Alkaline Phosphatase Troponin I Total Protein Albumin Globulin Albumin/Globulin Ratio Procalcitonin Nasal Screen MRSA (PCR) Negative for mrsa 02/20/19 02/20/19 02/20/19 00:40 00:40 00:40 WBC 2.4 L RBC 2.73 L Hgb 10.0 L Hct 28.5 L MCV 104.4 H MCH 36.8 H MCHC 35.2 RDW 15.6 H Plt Count 110 L Neut % (Auto) Not Reportable Lymph % (Auto) Not Reportable Donley % (Auto) Not Reportable Eos % (Auto) Not Reportable Baso % (Auto) Not Reportable Lymph # (Auto) Not Reportable Donley # (Auto) Not Reportable Baso # (Auto) Not Reportable Total Counted 100 Seg Neutrophils % 23.0 L Band Neutrophils % 31.0 H Lymphocytes % (Manual) 10.0 L Atypical Lymphs % Monocytes % (Manual) 6.0 Metamyelocytes % 18.0 H Myelocytes % 12.0 H Neutrophils # (Manual) 1296 L RBC Morphology See below Anisocytosis 1+ H Macrocytosis 1+ H ABG pH ABG pCO2 ABG pO2 ABG HCO3 ABG Total CO2 ABG O2 Saturation ABG Base Excess FiO2 Sodium 144 Potassium 3.6 Chloride 119 H Carbon Dioxide 23 BUN 30 H Creatinine 0.70 Estimated GFR > 60.0 BUN/Creatinine Ratio 42.9 H Glucose 129 H Lactate Calcium 7.4 L Magnesium 2.4 H Total Bilirubin 0.6 AST 21 ALT 57 H Alkaline Phosphatase 75 Troponin I Total Protein 4.4 L Albumin 2.1 L Globulin 2.3 Albumin/Globulin Ratio 0.9 L Procalcitonin Nasal Screen MRSA (PCR) 02/20/19 02/20/19 02/20/19 05:30 05:30 05:30 WBC 4.6 D RBC 2.78 L Hgb 10.2 L Hct 29.0 L MCV 104.3 H MCH 36.6 H MCHC 35.1 RDW 15.7 H Plt Count 106 L Neut % (Auto) Lymph % (Auto) Donley % (Auto) Eos % (Auto) Baso % (Auto) Lymph # (Auto) Donley # (Auto) Baso # (Auto) Total Counted 100 Seg Neutrophils % 37.0 L D Band Neutrophils % 32.0 H Lymphocytes % (Manual) 18.0 L Atypical Lymphs % 4.0 H Monocytes % (Manual) 6.0 Metamyelocytes % 3.0 H Myelocytes % Neutrophils # (Manual) 3174 RBC Morphology Not Reportable Anisocytosis Macrocytosis 2+ H ABG pH ABG pCO2 ABG pO2 ABG HCO3 ABG Total CO2 ABG O2 Saturation ABG Base Excess FiO2 Sodium Potassium Chloride Carbon Dioxide BUN Creatinine Estimated GFR BUN/Creatinine Ratio Glucose Lactate 1.3 Calcium Magnesium Total Bilirubin AST ALT Alkaline Phosphatase Troponin I 0.122 H* Total Protein Albumin Globulin Albumin/Globulin Ratio Procalcitonin Nasal Screen MRSA (PCR) 02/20/19 02/20/19 05:30 05:30 WBC RBC Hgb Hct MCV MCH MCHC RDW Plt Count Neut % (Auto) Lymph % (Auto) Donley % (Auto) Eos % (Auto) Baso % (Auto) Lymph # (Auto) Donley # (Auto) Baso # (Auto) Total Counted Seg Neutrophils % Band Neutrophils % Lymphocytes % (Manual) Atypical Lymphs % Monocytes % (Manual) Metamyelocytes % Myelocytes % Neutrophils # (Manual) RBC Morphology Anisocytosis Macrocytosis ABG pH ABG pCO2 ABG pO2 ABG HCO3 ABG Total CO2 ABG O2 Saturation ABG Base Excess FiO2 Sodium 144 Potassium 3.4 Chloride 118 H Carbon Dioxide 23 BUN 29 H Creatinine 0.70 Estimated GFR > 60.0 BUN/Creatinine Ratio 41.4 H Glucose 121 H Lactate Calcium 7.5 L Magnesium Total Bilirubin 0.6 AST 21 ALT 50 Alkaline Phosphatase 72 Troponin I Total Protein 4.5 L Albumin 2.1 L Globulin 2.4 Albumin/Globulin Ratio 0.9 L Procalcitonin 3.45 H Nasal Screen MRSA (PCR) Assessment & Plan Assessment & Plan narrative: Val Reyes is a 78-year-old female with past medical history of stage IV breast cancer with brain metastases currently on chemotherapy (last dose 2 weeks ago now on hold secondary to elevated liver function tests), PE on chronic anticoagulation currently on Lovenox with plan to transition to Xarelto, chronic constipation (usually improves with ch emotherapy), and hypertension who presented with left lower abdominal pain and has been admitted for a small-bowel obstruction. She is now postoperative day 1 from lysis of adhesions and small-bowel resection. Given aspiration event on the day prior to operative intervention as well as difficult intubation in the operating room, patient remained intubated overnight. She did well on her breathing trial and her blood gas was okay so she was extubated on postoperative day 1 to nasal cannula. 1. Now high-grade small-bowel obstruction, acute, present on admission. Active. -Patient presented with LLQ abdominal pain and was found to have partial SBO with significant stool load. -CT abdomen and pelvis demonstrated a few mildly dilated loops of small bowel in the lower abdomen/pelvis with possible adhesion suspicious for early small bowel obstruction. -Small-bowel follow-through demonstrated high-grade small-bowel obstruction. -patient is now postoperative day 1 from lysis of adhesions and small-bowel resection with end-to-end anastomosis. -Held anticoagulation with therapeutic Lovenox. -Replete electrolytes as needed with goal K > 4.0 and Mg > 2.0. -Continue LR @ 125 cc post operatively, follow BMP closely given electrolyte abnormalities yesterday and hyperchloremia. 2. Acute aspiration with hypoxemic respiratory failure and aspiration pneumonia, not present on admission. Improving. -Patient's NG tube was off of suction overnight and patient aspirated becoming hypoxemic and was provided supplemental oxygen as necessary to keep oxygen saturation 88-92%. Patient was off NC O2 prior to OR. She remained intubated overnight following operative interventions and was extubated the following morning to nasal cannula. She is still requiring some supplemental oxygen at this time. -Started Unasyn 3 g every 6 hours and will continue given new infiltrate on imaging and continued hypoxemia following intubation and pro-calcitionin increase. Currently procalcitonin at 3.45 will continue to follow. 3. Demand ischemia / type II TX, secondary to acute hypoxemia and atrial fibri llation with RVR, not present on admission. Resolved. -Initial troponin 0.321. Repeat troponin trending down 0.270. No need to further trend as hypoxemia resolved and demand ischemia resolved. -Patient denies chest pain or ACS symptoms. No acute ischemic changes on EKG. 4. Paroxysmal atrial fibrillation with history of pulmonary embolism on anticoagulation, now with acute episode of RVR due to aspiration with hypoxemia, not present on admission. RVR resolved. -Patient is on Lovenox currently and plans to switch to Xarelto as an outpatient. -Held therapeutic Lovenox due to anticipation of surgical intervention later this afternoon/evening. Will need to restart per surgery clearance, likely this evening. -Continue metoprolol 5 mg IV every 6 hours with holding parameters. -restart metoprolol when able pending diet advancement after removal of NG tube. 5. Stage IV breast cancer with brain metastases, present on admission. Active. -Followed by Dr. Bañuelos of oncology. Continue to hold patient's chemotherapy given elevated liver enzymes. -Continue dexamethasone for brain metastases and cerebral edema and Zometa for history of hypercalcemia of malignancy. 6. Chronic transaminitis, secondary to chemotherapy, present on admission. Resolved. -Followed by Dr. Bañuelos of oncology. Chemotherapy regimen with Faslodex and abemaciclib is currently on hold due to transaminitis. -Continue to monitor LFTs. 7. Acute severe protein calorie malnutrition, present on admission. Active. -BMI 21.6 which is low for her age. -Due to progression of metastatic breast cancer to brain with 14% wt loss in in 6 weeks., BMI low for age (21.6). -Consulted dietitian and we appreciate her recommendations. 8. Hypertension, chronic, present on admission. Stable. -Continue metoprolol 5 mg IV every 6 hours with holding parameters. Restart metoprolol when tolerating meds. 9. Chronic constipation, present on admission. Active. -See management as noted above. Code: DNR/ DNI Disposition: Will likely be stable for regular floor after she is monitored for a few hours following her extubation this morning.
[2019-02-20] MEDS: LACTATED RINGERS 1,000 ML 125 ML IV (11:08)
[2019-02-20 11:37] LABS: pH ABG 7.44 (7.35-7.45)
[2019-02-20 11:38] LABS: HCO3 ABG 20 mmol/L (22-26); Oxygen Saturation ABG 97 % (95-100); PCO2 ABG 29.7 mmHg (35-45); PO2 ABG 82 mmHg (80-100); TCO2 ABG 21 mmol/L (21-31)
[2019-02-20] MEDS: ENOXAPARIN 40 MG/0.4 ML SYRINGE SUBCUT (13:59)
[2019-02-20] MEDS: ACETAMINOPHEN 650 MG SUPP PR (13:59)
--- NOTE | 2019-02-20 14:21 | CM.DPC ---
DCP: continued: case received and EMR reviewed. Noted that pt did admit on 02/15: INPT admission status. Payer: Medicare and [employer] Admitted to care of hospitalist team. Noted also that pt has an ocologist in [facility] and carries dx of starge IV breast cancer with mets to brain. On chemotherapy. [facility] consulted: Dr. Robles took pt to surgery last night 2200 for an exploratory laparotomy: SANCHEZ and small bowel resection. Went to ICU setting on ventilator support after surgery. Discussed case in Team Rounds this morning and plan was to attempt ventilator wean later in day. At this point this has been successfully accomplished. P: pt now post op day one and with multiple medical comorbidities. DCP team will continue. See that home with HH services has been considered but is unclear at this point if this service will provide enough support. DCP team will be following closely.
--- NOTE | 2019-02-20 15:04 | DIET.PN ---
Dietary Progress Note Pt had small bowel resection orestes of 02/19, was on vent until 1100 on 02/20, currently NPO c NG suction with severe protein-calorie malnutrition. Pt ate 75% of one meal on 02/19 otherwise no meaningful POs since admit on 02/15. Recc starting TPN on 02/21 if pt NPO. Please begin at 15mL/h for the first 24h with daily checks of labs (Mg, Phos, BG, K+) as pt high risk for refeeding sydrome. Pt is up 6kg since admit but this is likely due to fluid status. HT: 165.1cm WT: 59kg UBW: per [facility] records 01/02/19: 68.1kg, 10/10/18: 72.8kg BMI: 21.6 (low for age) Labs: high liver enzymes, TP 4.5 L, Alb 2.1 L MNA: 9 at risk Jackson: 17 Nutrition Diagnosis: Severe Acute PCM r/t progression of met Br Ca to brain aeb 14% wt loss in 6w (severe), BMI low for age (21.6). Interventions: 1.Recc liberalized general diet order when appropriate c PRO smoothies tid or Ensure Surgery bid to support PCM. 2.Recc starting TPN on 02/21 if pt NPO. Please begin at 15mL/h for the first 24h with daily checks of labs (Mg, Phos, BG, K+) as pt high risk for refeeding sydrome. Diet Order: NPO BM: 1 on 02/16 EER: 1500kcal, 70g PRO (1.2g/kg), 1.7L fluids Monitoring/Evaluations: diet order advancement, POs, wt
--- NOTE | 2019-02-20 18:31 | PC.NURSE ---
Dr Terry aware of HR fluctuating from 95-140s. ST unsustained, pt settles down within minutes after movement or anxiety with calming approach and reinforcement. Dr. Robles aware of low UOP. Confirmed decrease in IVF from 125cc/hr to 100cc/hr per order. Pt satting 93 on 3LNC. No SOB noted. Lung sounds clear with fine crackles heard in bilateral lower bases. Pt requiring verbal reorientation of surroundings and the need to not pull on NGT, IV tubing and SCDs. Pt stating she is pain free now, smiling during conversation and no grimacing.
--- NOTE | 2019-02-20 18:55 | PC.NURSE ---
Addendum entered by Alesia Shaw R.N. 02/20/19 22:48: Pt sattign 95% on 5LNC. AUTOMATIC GRINDER OPERATOR notified. Heated hi flow nasal cannula ordered by AUTOMATIC GRINDER OPERATOR. RT notified. Addendum entered by Alesia Shaw R.N. 02/20/19 22:40: Pt on 3LNC, desatting to 84%. Placed on 5LNC, satting 94%. Addendum entered by Alesia Shaw R.N. 02/20/19 20:18: KCL infusion started for K 3.3. IV Lopressor given early for HR 140s. AUTOMATIC GRINDER OPERATOR aware. Pt sleeping well now. Needing increased amount of reorientation and verbal comfort for anxiety, asking repeatedly to go home, and casually pulling on NGT and IV tubing. Addendum entered by Alesia Shaw R.N. 02/20/19 19:13: Labs drawn and sent. HR 98 NSR at this time. Original Note: Blood Sugar 117. notified. Pt with paroxysmal Afib, increased frequency of HR increasing from 90s to 130s seen this hour. No PVCs. Dr Terry notified. Will check electrolytes.
[2019-02-20 19:29] LABS: BUN Creatinine Ratio 33.8 (6-22); Blood Urea Nitrogen 27 mg/dL (7-17); Calcium 7.5 mg/dL (8.4-10.2); Carbon Dioxide 25 mmol/L (22-32); Chloride 117 mmol/L (98-107); Estimated Glomerular Filt Rate > 60.0 mL/min (>60); Glucose 103 mg/dL (80-110); HEMOLYSIS < 15 (0-50); Magnesium 2.4 mg/dL (1.6-2.3); Potassium 3.3 mmol/L (3.4-5.1); Sodium 143 mmol/L (137-145)
[2019-02-20] MEDS: ENOXAPARIN 80 MG/0.8 ML SYRINGE 65 MG SUBCUT (20:00)
[2019-02-20] MEDS: POTASSIUM CHLORIDE 60 MEQ in SODIUM CHLORIDE 0.9% 500 ML 88.333 ML IV (20:15)
[2019-02-20] MEDS: MORPHINE 2 MG/ML INJ 1 MG IV (20:53)
[2019-02-21] VITALS (27 sets, daily range): BP systolic 68–142; BP diastolic 32–80; PULSE 70–172; RESP 14–31; TEMP 36.1–37.2; O2SAT 88–100
[2019-02-21] MEDS: PIPERACILLIN-TAZO 3.375 GM/50 ML FROZ.PIGGY IV ×4 (02:25→20:48)
[2019-02-21] MEDS: METOPROLOL TARTRATE 5 MG/5 ML INJ IV ×4 (02:25→13:56)
[2019-02-21] MEDS: MORPHINE 2 MG/ML INJ IV ×6 (03:54→23:51)
[2019-02-21 04:53] LABS: Hematocrit 27.9 % (36-46); Hemoglobin 9.7 g/dL (12.0-16.0); Mean Corpuscular HGB Conc 34.6 % (30-36); Mean Corpuscular Hemoglobin 36.2 PG (26-34); Mean Corpuscular Volume 104.6 fL (80-100); Platelet Count 93 X10^3/uL (150-400); Red Blood Cell Count 2.67 X10^6/uL (4.0-5.2); Red Cell Distribution Width 15.9 % (11.6-14.8); White Blood Cell Count 8.6 X10^3/uL (4.5-11.0)
[2019-02-21 04:55] LABS: Add Manual Diff / Slide Review YES
[2019-02-21 05:00] LABS: Alanine Aminotransferase 49 IU/L (9-52); Albumin 2.1 g/dL (3.5-5.0); Alkaline Phosphatase 72 U/L (38-126); Aspartate Aminotransferase 32 IU/L (14-36); BUN Creatinine Ratio 35.7 (6-22); Bilirubin Total 0.7 mg/dL (0.2-1.3); Blood Urea Nitrogen 25 mg/dL (7-17); Calcium 7.5 mg/dL (8.4-10.2); Carbon Dioxide 25 mmol/L (22-32); Chloride 119 mmol/L (98-107); Estimated Glomerular Filt Rate > 60.0 mL/min (>60); Globulin 2.1 g/dL (1.7-4.1); Glucose 84 mg/dL (80-110); HEMOLYSIS < 15 (0-50); Magnesium 2.4 mg/dL (1.6-2.3); Phosphorous 1.8 mg/dL (2.8-4.1); Potassium 4.1 mmol/L (3.4-5.1); Sodium 144 mmol/L (137-145); Total Protein 4.2 g/dL (6.3-8.2)
[2019-02-21 05:19] LABS: Procalcitonin 2.75 ng/mL (<0.5)
[2019-02-21] MEDS: LACTATED RINGERS 1,000 ML 100 ML IV (05:46)
[2019-02-21 05:55] LABS: Total Cells Counted 100
[2019-02-21 05:56] LABS: Neutrophils Absolute Manual 7654 /uL (3000-5900)
[2019-02-21 05:57] LABS: Anisocytosis 2+; Macrocytosis 1+
--- NOTE | 2019-02-21 06:07 | PC.NURSE ---
Addendum entered by Celestina Massey R.N. 02/21/19 06:37: 0630 Pt awake, crying out help me won't let RN leave bedside, clutching arm. HR above 150 sustained Afib. VSS. Erika STOKES notified, one time IVP dosage of Metroprolol IV given. Cont. to monitor. Original Note: NOC Shift: POD #2 SBO repair, pt awake most of the night tearful, moaning cannot communicate exactly where pain is states everywhere most of the time. Pt oriented to self, continues to ask staff to take her home, wants to go home. Pt is cooperative and consolable w/emotional support. Given morphine throughout shift for pain control, have not had any issues with pt inability to wake up. VSS, Afib RVR/CVR on tele. O2 support changed to heated hiflow NC 45L 50% FIO2. Low urine output per MD javier aware. NG LIS. NPO.
[2019-02-21] MEDS: DIGOXIN 500 MCG/2 ML AMPUL 250 MCG IV (07:07)
[2019-02-21] MEDS: FUROSEMIDE 40 MG/4 ML VIAL IV ×2 (07:56→11:25)
[2019-02-21] MEDS: dilTIAZem 5 MG/ML SDV 10 MG IV (08:08)
--- NOTE | 2019-02-21 08:12 | RT ---
PER VERBAL ORDER BY DR. JAMES, KEEP SPO2 >/= 90%.
[2019-02-21] MEDS: DILTIAZEM 125 MG/125 ML PIGGYBACK IV (08:29)
[2019-02-21] MEDS: PANTOPRAZOLE 40 MG VIAL IV (08:37)
[2019-02-21] MEDS: DEXAMETHASONE 4 MG/ML VIAL 1.5 MG IV (08:37)
[2019-02-21 08:38] LABS: B Type Natriuretic Peptide 497 (<100)
[2019-02-21] MEDS: ENOXAPARIN 80 MG/0.8 ML SYRINGE 65 MG SUBCUT ×2 (08:38→20:47)
[2019-02-21] MEDS: NOREPINEPHRINE 4 MG in DEXTROSE 5% IN WATER 250 ML 7.62 ML IV (11:04)
--- NOTE | 2019-02-21 11:57 | DIET.PN ---
Dietary Progress Note TPN order: Continuous Central TPN: Clinimix 5/20 starting @ 15mL/h for the first 24h c daily checks of labs (Mg, Phos, K+) repleting as needed. Pt at high risk for refeeding syndrome for first 48hr. Increase rate by 10mL/h Q12h as tolerated until reaching goal rate of 60mL/h with 250mL IVFE added on M, W, F to avoid fatty acid deficiency. Goal TPN provides 1468kcal, 61g PRO and 1440mL fluids. Recc continue TPN until pt is able to meet 75% of EERs c PO intake for 3 consecutive days. See previous Dietary notes for pt hx. EER: 1500kcal, 70g PRO (1.2g/kg), 1.7L fluids Monitoring/Evaluations: diet order advancement, POs, wt
--- NOTE | 2019-02-21 12:28 | P.PN_ITS ---
Subjective Subjective Date Patient Seen: 02/21/19 Time Patient Seen: 12:29 Interval history: Val Reyes is a 78-year-old female with past medical history of stage IV breast cancer with brain metastases currently on chemotherapy (last dose 2 weeks ago now on hold secondary to elevated liver function tests), PE on chronic anticoagulation currently on Lovenox with plan to transition to Xarelto, chronic constipation (usually improves with chemotherapy), and hypertension who presented with left lower abdominal pain and has been admitted for a small-bowel obstruction. She is now postoperative day 2 from lysis of adhesions and small-bowel resection. She was extubated yesterday and was doing well on nasal cannula. However her AFib has become more increasin gly out of control and this morning she was sustained in the 150s with peak heart rates of 180. She appeared fluid overloaded on exam with JVD and bibasilar crackles as well as having increasing oxygen requirements. I added on a BNP which was elevated at 497 this morning. Her other electrolytes were okay. We planned starting TPN later today. Her blood pressure dropped with the tachycardia. She has been on IV metoprolol but this has been insufficient, and she needed to be started on a Dilt infusion. I called Dr. Ruiz the instructional technology teacher food taster who is said to stop this infusion and instead to start on amiodarone and recommended a stat echo to help assess the situation. Her blood pressures could not tolerate diuresis so she was started on small dose Levophed which is currently at 2 mcg to assist with diuresis at this time Exam Vital Signs (past 8 hours): - 02/21/19 07:07 02/21/19 08:00 02/21/19 08:02 Temperature 98.5 F Pulse Rate 172 H 168 H 164 H Respiratory Rate 31 H 27 H Blood Pressure 102/47 L 72/48 L Pulse Oximetry 89 L 02/21/19 08:15 02/21/19 08:30 02/21/19 09:00 Temperature Pulse Rate 160 H 158 H Respiratory Rate 23 26 H Blood Pressure 80/49 L 68/46 L Pulse Oximetry 90 L 96 90 L 02/21/19 09:30 02/21/19 10:00 02/21/19 10:30 Temperature Pulse Rate 146 H 136 H 76 Respiratory Rate 24 22 22 Blood Pressure 79/52 L 79/40 L 76/36 L Pulse Oximetry 88 L 91 96 02/21/19 10:48 02/21/19 11:00 02/21/19 11:15 Temperature Pulse Rate 76 81 Respiratory Rate 20 23 Blood Pressure 76/32 L 102/43 L Pulse Oximetry 90 L 98 97 02/21/19 11:30 Temperature Pulse Rate 87 Respiratory Rate 19 Blood Pressure 106/39 L Pulse Oximetry 98 Fraction of Inspired Oxygen 0.7 Oxygen Delivery Method Heated High Flow Oxygen Flow Rate 55 Narrative Exam Narrative: GENERAL APPEARANCE: Chronically ill appearing, pale, fatigued. Groggy but following commands. Seen prior to and post extubation. SKIN: Macular lesion present on the right chest wall. HEENT: Dry Mucosa, NG tube in place. ETT in place prior to extubation. NECK: Supple and symmetric. There was no thyroid enlargement, and no tenderness, or masses were felt. CHEST: Normal AP diameter and normal contour without any kyphoscoliosis. LUNGS: Auscultation of the lungs revealed no wheezes, rhonchi, or rales. CARDIOVASCULAR: Tachycardic without any murmurs, gallops, rubs. Peripheral pulses were 2+ and symmetric. ABDOMEN: Soft, non-distended. No ascites was noted. Midline surgical dressing c/d/i. MUSCULOSKELETAL: There was no tenderness or effusions noted. Muscle strength and tone were normal. EXTREMITIES: No cyanosis, clubbing or edema. NEUROLOGIC: Groggy as noted above. Folowing commands. Strength exam limited by effort but moving all extremities equally. Objective Labs Result Diagrams: 02/21/19 04:35 02/21/19 04:35 Labs: Laboratory Results - last 24 hr 02/20/19 02/20/19 02/21/19 00:00 19:09 04:35 WBC 8.6 D RBC 2.67 L Hgb 9.7 L Hct 27.9 L MCV 104.6 H MCH 36.2 H MCHC 34.6 RDW 15.9 H Plt Count 93 L Neut % (Auto) Not Reportable Lymph % (Auto) Not Reportable [place]cock % (Auto) Not Reportable Eos % (Auto) Not Reportable Baso % (Auto) Not Reportable Lymph # (Auto) Not Reportable [place]cock # (Auto) Not Reportable Baso # (Auto) Not Reportable Total Counted 100 Seg Neutrophils % 63.0 D Band Neutrophils % 26.0 H Lymphocytes % (Manual) 8.0 L Monocytes % (Manual) 1.0 L Metamyelocytes % 1.0 H Myelocytes % 1.0 H Neutrophils # (Manual) 7654 H RBC Morphology See below Anisocytosis 2+ H Macrocytosis 1+ H ABG pH 7.37 ABG pCO2 35.9 ABG pO2 126 H ABG HCO3 21 L ABG Total CO2 22 ABG O2 Saturation 99 ABG Base Excess -5.0 L FiO2 0.50 Sodium 143 Potassium 3.3 L Chloride 117 H Carbon Dioxide 25 BUN 27 H Creatinine 0.80 Estimated GFR > 60.0 BUN/Creatinine Ratio 33.8 H Glucose 103 Calcium 7.5 L Phosphorus Magnesium 2.4 H Total Bilirubin AST ALT Alkaline Phosphatase B-Natriuretic Peptide Total Protein Albumin Globulin Albumin/Globulin Ratio Procalcitonin 02/21/19 02/21/19 02/21/19 04:35 04:35 04:35 WBC RBC Hgb Hct MCV MCH MCHC RDW Plt Count Neut % (Auto) Lymph % (Auto) Glasscock % (Auto) Eos % (Auto) Baso % (Auto) Lymph # (Auto) Glasscock # (Auto) Baso # (Auto) Total Counted Seg Neutrophils % Band Neutrophils % Lymphocytes % (Manual) Monocytes % (Manual) Metamyelocytes % Myelocytes % Neutrophils # (Manual) RBC Morphology Anisocytosis Macrocytosis ABG pH ABG pCO2 ABG pO2 ABG HCO3 ABG Total CO2 ABG O2 Saturation ABG Base Excess FiO2 Sodium 144 Potassium 4.1 Chloride 119 H Carbon Dioxide 25 BUN 25 H Creatinine 0.70 Estimated GFR > 60.0 BUN/Creatinine Ratio 35.7 H Glucose 84 Calcium 7.5 L Phosphorus 1.8 L Magnesium 2.4 H Total Bilirubin 0.7 AST 32 ALT 49 Alkaline Phosphatase 72 B-Natriuretic Peptide 497 H Total Protein 4.2 L Albumin 2.1 L Globulin 2.1 Albumin/Globulin Ratio 1.0 Procalcitonin 2.75 H Assessment & Plan Assessment & Plan narrative: Val Reyes is a 78-year-old female with past medical history of stage IV breast cancer with brain metastases currently on chemotherapy (last dose 2 weeks ago now on hold secondary to elevated liver function tests), PE on chronic anticoagulation currently on Lovenox with plan to transition to Xarelto, chronic constipation (usually improves with chemotherapy), and hypertension who presented with left lower abdominal pain and has been admitted for a small-bowel obstruction. She is now postoperative day 2 from lysis of adhesions and small-bowel resection. She was extubated yesterday and doing well however today she has developed atrial fibrillation with rapid ventricular response with rates uncontrolled leading to low blood pressures. She is now back in sinus rhythm with adequate blood pressures but requiring Levophed assistance as she does need diuresis. Will plan for an echocardiogram tomorrow to assess her ejection fraction. 1. Now high-grade small-bowel obstruction, acute, present on admission. Active. -Patient presented with LLQ abdominal pain and was found to have partial SBO with significant stool load. -CT abdomen and pelvis demonstrated a few mildly dilated loops of small bowel in the lower abdomen/pelvis with possible adhesion suspicious for early small bowel obstruction. -Small-bowel follow-through demonstrated high-grade small-bowel obstruction. -patient is now postoperative day 2 from lysis of adhesions and small-bowel resection with end-to-end anastomosis. -Held anticoagulation with therapeutic Lovenox for 24 hours, now resumed. -Replete electrolytes as needed with goal K > 4.0 and Mg > 2.0. -Stopped IVF given evidence of volume overload. - start TPN today. - gastric drainage 02/20 550, so far today 225. 2. Acute aspiration with hypoxemic respiratory failure and aspiration pneumonia, not present on admission. - -Patient's NG tube was off of suction overnight and patient aspirated becoming hypoxemic and was provided supplemental oxygen as necessary to keep oxygen saturation 88-92%. Patient was off NC O2 prior to OR. She remained intubated overnight following operative interventions and was extubated the following morning to nasal cannula. She is still requiring some supplemental oxygen at this time. -Started Unasyn 3 g every 6 hours and will continue given new infiltrate on imaging and continued hypoxemia following intubation and pro-calcitionin increase. Currently procalcitonin at 3.45 and downtrending. -patient's current hypoxemic respiratory failure requiring high-flow nasal cannula is likely secondary to volume overload. She has improved with diuresis today. She is being adequately treated for aspiration pneumonia and pro- calcitonin is improving. 3. Hypotension, acute, not present on admission -patient has been tachycardic into the 180s today with uncontrolled AFib with RVR. This is likely cardiogenic in origin however her extremities are warm on my exam. Do not believe she is septic given lack of fever or white blood cell count and she remains on antibiotics and other markers of infection or improving. Her electrolytes are unremarkable except for low phos. She ultimately converted to sinus rhythm after initiation of a diltiazem drip. I was unable to give her additional fluids at this time because she is volume overloaded. I spoke with Dr. Ruiz over the phone who recommended that patient continue with diuresis, start amiodarone, and stop diltiazem infusion and to obtain a stat TTE. -continue to diurese with 80 mg IV b.i.d. - being loaded with amiodarone currently. - continue to try and wean from pressor support. - TTE limited tonight for EF, complete TTE tomorrow. 4. Paroxysmal atrial fibrillation with history of pulmonary embolism on anticoagulation, now with acute episode of RVR due to aspiration with hypoxemia, not present on admission. RVR resolved currently. Management currently documented above under hypotension. -Patient is on Lovenox currently and plans to switch to Xarelto as an outpatient. -Lovenox has been restarted. -hold metoprolol and being loaded with amiodarone. -restart metoprolol when able pending diet advancement after removal of NG tube. 5. Demand ischemia / type II NC, secondary to acute hypoxemia and atrial fibrillation with RVR, not present on admission. Resolved. -Initial troponin 0.321. Repeat troponin trending down 0.270. No need to further trend as hypoxemia resolved and demand ischemia resolved. -Patient denies chest pain or ACS symptoms. No acute ischemic changes on EKG. 6. Stage IV breast cancer with brain metastases, present on admission. Active. -Followed by Dr. Bañuelos of oncology. Continue to hold patient's chemotherapy given elevated liver enzymes. -Continue dexamethasone for brain metastases and cerebral edema and Zometa for history of hypercalcemia of malignancy. 7. Chronic transaminitis, secondary to chemotherapy, present on admission. Resolved. -Followed by Dr. Bañuelos of oncology. Chemotherapy regimen with Faslodex and abemaciclib is currently on hold due to transaminitis. -Continue to monitor LFTs. 8. Acute severe protein calorie malnutrition, present on admission. Active. -BMI 21.6 which is low for her age. -Due to progression of metastatic breast cancer to brain with 14% wt loss in in 6 weeks., BMI low for age (21.6). -Consulted dietitian and we appreciate her recommendations. -Will start standard TPN bag today @ 15 cc / hour x24 hours. Code: DNR Disposition: Patient has been upgraded to ICU status today given afib with RVR and hypotension requiring pressure support for adequate diuresis. I spent 35 minutes providing critical care management this patient. This excludes time spent in performing separately billed procedures.
--- NOTE | 2019-02-21 13:20 | CM.DPC ---
DCP Cont: Spoke to Krystyna at [facility], for she had called for update. Let her know that patient would be starting on TPN, and medically unstable at this time, but would continue to update. They will hold referral. P: DCP to continue to follow closely. Patient is medically unstable at this time. Will continue to check in with family for any needs. Sofia Alexandre RN/Positive Printer Operator
--- NOTE | 2019-02-21 15:00 | PC.NURSE ---
Day Shift Note Drowsy throughout shift with intermittent moaning and crying out, difficulty making needs known. Medicating with morphine for pain (FLACC 7). HR afib RVR upon AM assessment with rate in the 180s, IV metoprolol and IV digoxin given on NOC shift per emar. Crackles heard bilaterally. Oxygen sats 89% on heated HF; RT increased settings to FiO2 of 80% and 55L flow to keep sats greater than 90. Diltiazem IV administered per MD and diltiazem gtt started at 0835 - see emar for titration trends. Levophed gtt started at 1110 at 2 mcg/min to keep MAP greater than 60. 40 mg Lasix IV x2 administered for fluid overload (see emar). Converted to NSR at 1019 - MD notified. Remained in NSR most of shift but went back into afib RVR, rate 150s, at 1432 when diltiazem gtt titrated from 10 mg/hr to 5 mg/hr. Diltiazem gtt currently at 10 mg/hr and levophed remains at 2 mcg/min. MD updated on above. Heated HF currently at 60% FiO2 and 55L with SpO2 96%. 1050 ml out of Anne this shift. Daughter at bedside at this time, supportive. Call light within reach, bed alarm on.
[2019-02-21] MEDS: AMIODARONE 150 MG/100 ML PIGGYBACK 600 MG IV (15:59)
--- NOTE | 2019-02-21 16:07 | DI.ECHO.S_ITS ---
[facility]---------+ [facility] +---------+ : : [address] : [place] : : : : [id number] : : : : Phone: [phone]+ Echocardiogram Report + + :Name: EDU HOGAN Study Date: 02/21/2019 Height: 65 in : :[facility] Weight: 142 lb : : Gender: Female BSA: 1.7 m2 : :: 1940 Age: 78 yrs BP: 120/84 mmHg: :Reason For Study: ASSESS EJECTION FRACTION : : Performed By: Stephen Montes : :Referring: CURTIS JAMES : + + Interpretation Summary This was a limited echocardiogram performed to assess left ventricular systolic function and ejection fraction. The left ventricle is mildly hyperdynamic with the ejection fraction visually estimated to be 75-80%. There are no obvious focal wall motion abnormalities noted but poor endocardial definition reduces the sensitivity for the detection of such. The left ventricle is normal in size with wall thickness that is borderline increased. Diastolic function could not be accurately assessed due to tachycardia. The patient had a regular rhythm with a heart rate of 146-148 beats per minute. Procedure: A 2D and color echocardiogram was performed to assess left ventricular function. The study quality was technically adequate. There is no prior echocardiogram noted for this patient. The patient had a regular rhythm with a heart rate of 146-148 beats per minute. Left Ventricle: The left ventricle is normal in size. Left ventricular wall thickness is borderline increased. The left ventricle is mildly hyperdynamic. The ejection fraction is estimated to be 75-80%. There are no obvious focal wall motion abnormalities noted but poor endocardial definition reduces the sensitivity for the detection of such. Diastolic function could not be accurately assessed due to tachycardia. Great Vessels: The ascending aorta is normal in size. MMode/2D Measurements & Calculations asc Aorta Diam: 2.6 cm Reading Physician:DONNIE
[2019-02-21] MEDS: AMIODARONE 360 MG/200 ML PIGGYBACK 33.33 MG IV (16:08)
[2019-02-21] MEDS: LYTES IV (17:41)
[2019-02-21] MEDS: MULTIVITAMIN IV (17:41)
[2019-02-21] MEDS: [UNRECOGNIZED DRUG - OTHER] IV (17:41)
[2019-02-21] MEDS: TRACE ELEMENTS IV (17:41)
[2019-02-21] MEDS: CALCIUM IV (17:41)
[2019-02-21] MEDS: DEXT IV (17:41)
--- NOTE | 2019-02-21 19:34 | PC.NURSE ---
Addendum entered by India Chavarria R.N. 02/21/19 20:28: 2019 - Dr. Robles and hospitalist in to see patient. Updated both on patient. While both providers present patient converted to NSR with heart rate in the 70's. Both providers aware of change. No new orders at this time. Original Note: 1919 - Dr. Terry updated on heart rate staying in the 140's and that blood pressure is now stable and patient is off of levophed. Order received to Leo/Rosalino palma at this time.
--- NOTE | 2019-02-21 20:18 | PM.PNPO.1 ---
Subjective Subjective Date Patient Seen: 02/21/19 Time Patient Seen: 20:18 Interval history: The patient was seen early this morning and again this evening. She apparently at some time during the day developed rapid response atrial fibrillation which has been difficult to control. Medications she has been given cause hypotension and she was treated for that with Levophed. Presently she is off both of the diltiazem and Levophed is on amiodarone drip. Exam Vital Signs (past 8 hours): - 02/21/19 13:00 02/21/19 14:00 02/21/19 15:42 Temperature 97.0 F L Pulse Rate 75 79 125 H Respiratory Rate 14 19 20 Blood Pressure 94/44 L 97/45 L 103/42 L Pulse Oximetry 96 95 94 02/21/19 16:00 02/21/19 17:00 02/21/19 19:12 Temperature Pulse Rate 111 H 147 H 145 H Respiratory Rate 19 21 30 H Blood Pressure 95/49 L 102/55 L Pulse Oximetry 95 91 94 Fraction of Inspired Oxygen 50 Oxygen Delivery Method Heated High Flow Oxygen Flow Rate 55 Narrative Exam Narrative: Morning that she wants to go home.She is tacking along 130 stool 140s. She is somnolent. Her lungs were more clear this morning my had been. She had some fine crackles in the bases. Her abdomen affect. No bleeding. Present heart rate between 130 and 140. Objective Labs Result Diagrams: 02/21/19 04:35 02/21/19 04:35 Labs: Laboratory Results - last 24 hr 02/21/19 02/21/19 02/21/19 04:35 04:35 04:35 WBC 8.6 D RBC 2.67 L Hgb 9.7 L Hct 27.9 L MCV 104.6 H MCH 36.2 H MCHC 34.6 RDW 15.9 H Plt Count 93 L Neut % (Auto) Not Reportable Lymph % (Auto) Not Reportable Garvin % (Auto) Not Reportable Eos % (Auto) Not Reportable Baso % (Auto) Not Reportable Lymph # (Auto) Not Reportable Garvin # (Auto) Not Reportable Baso # (Auto) Not Reportable Total Counted 100 Seg Neutrophils % 63.0 D Band Neutrophils % 26.0 H Lymphocytes % (Manual) 8.0 L Monocytes % (Manual) 1.0 L Metamyelocytes % 1.0 H Myelocytes % 1.0 H Neutrophils # (Manual) 7654 H RBC Morphology See below Anisocytosis 2+ H Macrocytosis 1+ H Sodium 144 Potassium 4.1 Chloride 119 H Carbon Dioxide 25 BUN 25 H Creatinine 0.70 Estimated GFR > 60.0 BUN/Creatinine Ratio 35.7 H Glucose 84 Calcium 7.5 L Phosphorus 1.8 L Magnesium 2.4 H Total Bilirubin 0.7 AST 32 ALT 49 Alkaline Phosphatase 72 B-Natriuretic Peptide Total Protein 4.2 L Albumin 2.1 L Globulin 2.1 Albumin/Globulin Ratio 1.0 Procalcitonin 2.75 H 02/21/19 04:35 WBC RBC Hgb Hct MCV MCH MCHC RDW Plt Count Neut % (Auto) Lymph % (Auto) Garvin % (Auto) Eos % (Auto) Baso % (Auto) Lymph # (Auto) Garvin # (Auto) Baso # (Auto) Total Counted Seg Neutrophils % Band Neutrophils % Lymphocytes % (Manual) Monocytes % (Manual) Metamyelocytes % Myelocytes % Neutrophils # (Manual) RBC Morphology Anisocytosis Macrocytosis Sodium Potassium Chloride Carbon Dioxide BUN Creatinine Estimated GFR BUN/Creatinine Ratio Glucose Calcium Phosphorus Magnesium Total Bilirubin AST ALT Alkaline Phosphatase B-Natriuretic Peptide 497 H Total Protein Albumin Globulin Albumin/Globulin Ratio Procalcitonin Assessment & Plan Post-op Postoperative Procedures: Procedures Operation Date: 02/19/19 17:15 Actual Procedures Side Surgeon p Exploratory Laparotomy GEN Small Bowel Resection, primary anastamosis Joey Robles MD Postoperative status narrative: Urine output had been adequate through the day. She is probably going to begin to mobilize or 3rd space fluid. This tachycardia is not unexpected. Management poor her internists.
[2019-02-21] MEDS: MORPHINE 2 MG/ML INJ 1 MG IV (21:54)
[2019-02-21] MEDS: AMIODARONE 541 MG/300.56 ML PIGGYBACK 16.7 MG IV (22:27)
[2019-02-22] VITALS (24 sets, daily range): BP systolic 104–180; BP diastolic 45–90; PULSE 70–110; RESP 14–31; TEMP 36.8–37.6; O2SAT 84–99
[2019-02-22] MEDS: HALOPERIDOL 5 MG/ML VIAL IV (01:51)
[2019-02-22] MEDS: PIPERACILLIN-TAZO 3.375 GM/50 ML FROZ.PIGGY IV ×3 (03:06→14:40)
[2019-02-22] MEDS: MORPHINE 2 MG/ML INJ IV ×3 (03:42→21:30)
[2019-02-22 05:55] LABS: Alanine Aminotransferase 71 IU/L (9-52); Albumin 2.2 g/dL (3.5-5.0); Alkaline Phosphatase 91 U/L (38-126); Aspartate Aminotransferase 46 IU/L (14-36); BUN Creatinine Ratio 23.6 (6-22); Bilirubin Total 0.7 mg/dL (0.2-1.3); Blood Urea Nitrogen 26 mg/dL (7-17); Calcium 7.2 mg/dL (8.4-10.2); Carbon Dioxide 27 mmol/L (22-32); Chloride 114 mmol/L (98-107); Globulin 2.1 g/dL (1.7-4.1); Glucose 133 mg/dL (80-110); HEMOLYSIS < 15 (0-50); Magnesium 2.2 mg/dL (1.6-2.3); Phosphorous 2.1 mg/dL (2.8-4.1); Potassium 3.5 mmol/L (3.4-5.1); Sodium 143 mmol/L (137-145); Total Protein 4.3 g/dL (6.3-8.2)
--- NOTE | 2019-02-22 06:50 | PC.NURSE ---
NOC Shift: Pt POD 3 SBO, currently on Amiodorone gtt for Afib RVR yesterday uncontrolled w/Dilt, Digoxin, Metroprolol. Pt converted last evening to NSR. Remains on heated HiFlo NC for low sats increased to 60% overnight for sats less than 88%. Pt awake throughout whole shift despite pain medication given. Pt restless and unconsolable w/comfort measures. Discussed w/ G. Yaya STOKES pt condition, hallucinations and calling out given .5mg IV Haldol with no affect. Pt unable to communicate where she is, or where pain may be. Frequent repositioning and emotional consoling offered for short periods of affectiveness. Remains NPO with ALE Anne. ICU status.
--- NOTE | 2019-02-22 08:57 | P.PN_ITS ---
Subjective Subjective Date Patient Seen: 02/22/19 Interval history: Val Reyes is a 78-year-old female with past medical history of stage IV breast cancer with brain metastases currently on chemotherapy (last dose 2 weeks ago now on hold secondary to elevated liver function tests), PE on chronic anticoagulation currently on Lovenox with plan to transition to Xarelto, chronic constipation (usually improves with chemotherapy), and hypertension who presented with left lower abdominal pain and found to have SBO now status post lysis of adhesions and bowel resection. The patient is lying in bed moaning and appears uncomfortable. She has tenderness to palpation on the left side of her abdomen. Yesterday the patient was diuresed and given rate control medications which dropped her blood pressure briefly requiring vasopressor support with levofed. Due to brief hypotension and metabolic acidosis there is concern for bowel ischemia and lactic acid was ordered which was normal. Patient now has a rise in LFTs possibly due to shock liver vs TPN. She is delirious and scheduled Haldol 1-2 mg every 6 hours which did not improve the patients delerium. Plan to discontinue all medications which could be contributing to delerium including morphine, Haldol, and dexamethasone (as brain metastases are stable). In regard to atrial fibrillation with RVR plan to continue amiodarone and restarted metoprolol 5 mg every 6 hours for which the patient spontaneous converted to sinus rhythm at approximately 10:00. Repeated chest x-ray as patient became increasingly hypoxemic and there was concern for continued aspiration. Chest x-ray demonstrated right basilar aspiration pneumonia with progressive worsening bilateral pulmonary edema. Plan to broaden antibiotics to meropenem 2 g every 12 hours and Flagyl 500 mg every 6 hours. Exam Vital Signs (past 8 hours): - 02/22/19 01:00 02/22/19 02:00 02/22/19 03:00 Temperature Pulse Rate 73 87 92 H Respiratory Rate 15 19 31 H Blood Pressure 121/53 L 126/57 L 104/54 L Pulse Oximetry 93 92 98 02/22/19 04:00 02/22/19 05:00 02/22/19 06:00 Temperature 98.3 F Pulse Rate 86 91 H 87 Respiratory Rate 17 17 16 Blood Pressure 104/59 L 122/54 L 129/60 Pulse Oximetry 97 99 89 L 02/22/19 07:00 Temperature 99.6 F Pulse Rate 107 H Respiratory Rate 14 Blood Pressure 128/72 Pulse Oximetry 96 Fraction of Inspired Oxygen 60 Oxygen Delivery Method Heated High Flow Oxygen Flow Rate 55 Narrative Exam Narrative: General: Elderly female lying in bed moaning and appears uncomfortable, acutely delirious. HEENT: Normocephalic, atraumatic. External ears without defect. Pupils equal, round, and reactive to light. Anicteric sclerae, moist conjunctivae, and no lid lag. NG tube in place. Neck: Supple with full range of motion. No jugular venous distension. No lymphadenopathy or thyromegaly. Cardiovascular: Irregularly irregular without murmurs, rubs, or gallops appreciated. Small macular lesion on right chest. Pulmonary: Diminished throughout with occasional scattered rhonchi and fine bibasilar crackles. No wheeze. Normal respiratory effort without use of accessory muscles. Abdomen: Soft, obese, hypoactive bowel sounds, mild tenderness to palpation and left side of abdomen. Dressing in place over mid abdomen with mild serous drainage. Extremities: No clubbing or cyanosis. Anasarca. Skin: Normal temperature, turgor, and texture; no rash, ulcers, or subcutaneous nodules appreciated. Neurological: Cranial nerves grossly intact. Psychiatric: Acutely delirious with active hallucinations. Objective Labs Result Diagrams: 02/22/19 05:20 02/22/19 05:20 Labs: Laboratory Results - last 24 hr 02/22/19 05:20 Sodium 143 Potassium 3.5 Chloride 114 H Carbon Dioxide 27 BUN 26 H Creatinine 1.10 H Estimated GFR 48.0 L BUN/Creatinine Ratio 23.6 H Glucose 133 H Calcium 7.2 L Phosphorus 2.1 L Magnesium 2.2 Total Bilirubin 0.7 AST 46 H ALT 71 H Alkaline Phosphatase 91 Total Protein 4.3 L Albumin 2.2 L Globulin 2.1 Albumin/Globulin Ratio 1.0 Assessment & Plan Assessment & Plan narrative: Val Reyes is a 78-year-old female with past medical history of stage IV breast cancer with brain metastases currently on chemotherapy (last dose 2 weeks ago now on hold secondary to elevated liver function tests), PE on chronic anticoagulation currently on Lovenox with plan to transition to Xarelto, chronic constipation (usually improves with chemotherapy), and hypertension who presented with left lower abdominal pain and found to have SBO now status post lysis of adhesions and bowel resection. 1. Acute high-grade small-bowel obstruction, status post lysis of adhesions and bowel resection, present on admission. Active. -Patient presented with LLQ abdominal pain and was found to have partial SBO with significant stool load. -CT abdomen and pelvis demonstrated a few mildly dilated loops of small bowel in the lower abdomen/pelvis with possible adhesion suspicious for early small bowel obstruction. -Small-bowel follow-through demonstrated high-grade small-bowel obstruction. -Patient went to OR on 02/19 and is now postoperative day #3 from lysis of adhesions and small-bowel resection with end-to-end anastomosis. -Held therapeutic Lovenox for 24 hours for procedure then resumed 24 hours later. -Continue to monitor and replete electrolytes as needed with goal K > 4.0 and Mg > 2.0. -Discontinued IV fluids as patient is 3rd spacing and developed flash pulmonary edema. -Continue TPN. -NG tube has minimal gastric drainage 150 cc over 24 hours. -General surgery continues to follow. 2. Acute aspiration pneumonia with hypoxemic respiratory failure and ARDS, not present on admission. Active. -Patient's NG tube was off of suction overnight on 02/19/2019 and patient aspirated becoming hypoxemic and was provided supplemental oxygen as necessary to keep oxygen saturation 88-92%. Patient was off NC O2 prior to OR. She remained intubated overnight following operative interventions and was extubated the following morning to nasal cannula. The patient became increasingly hypoxemic and required heated high-flow oxygen to maintain oxygen saturation 88-92% over the following days. Previous provider diuresed patient due to increasing pulmonary edema and anasarca concurrently with rate control medication administration which caused patient to be hypotensive and Levophed was used for approximately 9 hours. Patient was titrated off of Levophed succes sfully. Patient continued to become increasingly hypoxemic today and a repeat chest x-ray was performed as there is concern for continued aspiration. Chest x-ray demonstrated right basilar aspiration pneumonia with progressive worsening bilateral pulmonary edema. Discontinued Zosyn and broadened antibiotics to meropenem 2 g every 12 hours and Flagyl 500 mg every 6 hours. Currently patient is maxed out on heated high-flow which is malfunctioning and she is only able to achieve FiO2 0.75 and flow 55 L if she is even truly receiving that. 3. Acute delirium, not present on admission. Active. -Patient became acutely delirious postoperatively in ICU. Patient continually moans but is unable to verbalize any pain or discomfort and occasionally will say no when asked if she has pain. Started Haldol 1-2 mg every 6 hours today which did not improve the patients delerium. Plan to discontinue all medications which could be contributing to acute delerium including morphine, Haldol, and dexamethasone (as brain metastases are stable). Consider Precedex if able to transfer patient to acute higher level of care. 4. Paroxysmal atrial fibrillation with acute RVR, chronic, present on admiss ion. RVR resolved. -Patient is on Lovenox currently and plans to switch to Xarelto as an outpatient . -Therapeutic Lovenox held for procedure than restarted and will continue. -Continue to monitor and replete electrolytes as needed with goal K > 4.0 and Mg > 2.0. -Continue amiodarone gtt and restarted metoprolol 5 mg IV every 6 hours for rate control. Could consider esmolol if metoprolol does not continue to control rate. Discussed case with [facility] Cardiology Dr. Ruiz who agrees with managem ent. Patient spontaneously converted to sinus rhythm with controlled rate. 5. Acute hypotension, not present on admission. Resolved. -Patient had transient hypotension due to administration of both diuretic and rate control medication concurrently requiring vasopressor support for approximately 9 hours with Levophed. Patient was successfully titrated off of Levophed. Patient is hemodynamically stable with SBP in the 140s. 6. Acute on chronic transaminitis, secondary to chemotherapy, present on admission. Stable. -Followed by Dr. Bañuelos of oncology. Chemotherapy regimen with Faslodex and abemaciclib is currently on hold due to transaminitis. -Transient rise in LFTs likely secondary to hypoperfusion versus TPN. Continue to monitor LFTs. 7. Demand ischemia, secondary to acute hypoxemia and atrial fibrillation with RVR, not present on admission. Resolved. -Initial troponin 0.321. Repeat troponin trending down 0.270. No need to further trend. -Patient denies chest pain or ACS symptoms. No acute ischemic changes on EKG. 8. Stage IV breast cancer with brain metastases, present on admission. Active. -Followed by Dr. Bañuelos of oncology and per Oncology metastatic disease is s table and slightly improved. Continue to hold patient's chemotherapy given elevated liver enzymes. -Continued dexamethasone 1.5 mg daily for brain metastases and cerebral edema and Zometa for history of hypercalcemia of malignancy. 9. Acute severe protein calorie malnutrition, present on admission. Active. -BMI 21.6 which is low for her age. -Due to progression of metastatic breast cancer to brain with 14% wt loss in in 6 weeks, BMI low for age (21.6). -Consulted dietitian and we appreciate her recommendations. -Continue TPN per pharmacist. GI PPx: PPI DVT PPx: Therapeutic Lovenox Nutrition: TPN Disposition: Plan to attempt to transfer patient for high level of care as heated high-flow has been malfunctioning and only potentially able to achieve FiO2 75%.
[2019-02-22] MEDS: METOPROLOL TARTRATE 5 MG/5 ML INJ IV ×4 (09:27→21:45)
[2019-02-22 09:28] LABS: HCO3 ABG 21 mmol/L (22-26); Oxygen Saturation ABG 93 % (95-100); PCO2 ABG 30.5 mmHg (35-45); PO2 ABG 62 mmHg (80-100); TCO2 ABG 21 mmol/L (21-31)
[2019-02-22 09:29] LABS: Fractionated Inspired Oxygen 67; pH ABG 7.44 (7.35-7.45)
[2019-02-22] MEDS: DEXAMETHASONE 4 MG/ML VIAL 1.5 MG IV (09:29)
[2019-02-22] MEDS: PANTOPRAZOLE 40 MG VIAL IV (09:34)
[2019-02-22] MEDS: ENOXAPARIN 80 MG/0.8 ML SYRINGE 65 MG SUBCUT ×2 (09:34→21:17)
[2019-02-22] MEDS: POTASSIUM CHLORIDE 60 MEQ in SODIUM CHLORIDE 0.9% 500 ML 88.333 ML IV (09:39)
[2019-02-22] MEDS: HALOPERIDOL 5 MG/ML VIAL 1 MG IV (09:40)
--- NOTE | 2019-02-22 09:52 | DI.RAD.S_ITS ---
PROCEDURE: XR ABDOMEN 1V INDICATIONS: f/u sbo post op TECHNIQUE: One view of the abdomen acquired. COMPARISON: [facility], CR, XR ACUTE ABDOMEN SERIES, 02/19/2019, 3:52. [facility], CR, XR ABDOMEN 1V, 02/19/2019, 8:13. FINDINGS: Surgical changes and devices: NG tube can be seen coiled overlying the fundus of the stomach. Numerous postoperative clips are seen. Bowel: The previously seen oral contrast is seen partially within the cecum and the ascending colon and partially within the distal small bowel. Soft tissues: No suspicious abdominal calcifications. Visualized solid organ contours appear normal in size. Bones: No suspicious bony lesions. Age-appropriate bony degenerative changes are seen. IMPRESSION: The previously administered oral contrast is seen partially within the colon, confirming no complete small bowel obstruction. Dictated by: Joaquin Velasquez M.D. on 02/22/2019 at 9:19 Approved by: Joaquin Velasquez M.D. on 02/22/2019 at 9:20
[2019-02-22 10:04] LABS: Procalcitonin 4.16 ng/mL (<0.5)
[2019-02-22] MEDS: SODIUM CHLORIDE 0.9% 500 ML 1000 ML IV (10:12)
[2019-02-22 10:17] LABS: Lactate (Lactic Acid) 1.6 mmol/L (0.7-2.1)
--- NOTE | 2019-02-22 10:31 | DI.RAD.S_ITS ---
PROCEDURE: XR CHEST 1V INDICATIONS: PNA TECHNIQUE: One view of the chest was acquired. COMPARISON: [facility], CR, XR CHEST 1V, 02/20/2019, 5:45. FINDINGS: Surgical changes and devices: PICC line NG tube are stable. Endotracheal tube has been removed. Left breast and left axillary surgical clips are stable. Lungs and pleura: Trace right-sided pleural effusion. Patchy opacity noted in the right lung base suspicious for aspiration versus pneumonia is not significantly changed compared to 02/20/19. Bilateral perihilar opacities noted suspicious for pulmonary edema has progressed in the interval since prior exam.. Mediastinum: Mediastinal contours appear normal. Heart size is normal. Bones and chest wall: No suspicious bony lesions. Overlying soft tissues appear unremarkable. IMPRESSION: 1. Right basilar aspiration versus pneumonia stable compared to 02/20/19. 2. Bilateral perihilar opacities probable for pulmonary edema demonstrates progression compared to 02/20/19. Dictated by: Nai Beckman MD, PhD on 02/22/2019 at 11:19 Approved by: Nai Beckman MD, PhD on 02/22/2019 at 11:21
[2019-02-22 10:53] LABS: Hematocrit 27.1 % (36-46); Hemoglobin 9.3 g/dL (12.0-16.0); Mean Corpuscular HGB Conc 34.5 % (30-36); Mean Corpuscular Volume 104.4 fL (80-100); Platelet Count 82 X10^3/uL (150-400); Red Blood Cell Count 2.59 X10^6/uL (4.0-5.2); Red Cell Distribution Width 16.2 % (11.6-14.8); White Blood Cell Count 11.1 X10^3/uL (4.5-11.0)
[2019-02-22 10:54] LABS: Add Manual Diff / Slide Review YES
[2019-02-22] MEDS: AMIODARONE 360 MG/200 ML PIGGYBACK 16.667 MG IV ×2 (11:00→22:20)
[2019-02-22 11:16] LABS: Neutrophils Absolute Manual 9879 /uL (3000-5900); Rouleaux 2+; Total Cells Counted 100
[2019-02-22] MEDS: MORPHINE 4 MG/ML INJ IV ×2 (13:20→16:54)
--- NOTE | 2019-02-22 15:17 | PC.NURSE ---
Day Shift Note Pt moaning and restless most of shift, some improvement noted after administration of 4 mg morphine iv. Converted to NSR with PACs at 1000 after metoprolol 5 mg IV. Amidarone gtt at 0.5 mg/min and to continue at this time per Dr. Lloyd. Platelets reviewed with Dr. Lloyd as well and ok for Lovenox to be given until platelets < 50. Heated HF with FiO2 70% and 55L, SpO2 94-96% throughout shift, desatted to 72% when repositioning and bathing, slow to recover. Currently 92% on above settings. Daughter intermittently at bedside and updated.
[2019-02-22] MEDS: HALOPERIDOL 5 MG/ML VIAL 2 MG IV (15:46)
[2019-02-22] MEDS: FAT EMULSIONS 50 GM/250 ML EMULSION IV (17:54)
[2019-02-22] MEDS: DEXT IV (17:55)
[2019-02-22] MEDS: [UNRECOGNIZED DRUG - OTHER] IV (17:55)
[2019-02-22] MEDS: TRACE ELEMENTS IV (17:55)
[2019-02-22] MEDS: CALCIUM IV (17:55)
[2019-02-22] MEDS: MULTIVITAMIN IV (17:55)
[2019-02-22] MEDS: LYTES IV (17:55)
[2019-02-22 19:30] LABS: Fractionated Inspired Oxygen 75; HCO3 ABG 21 mmol/L (22-26); Oxygen Saturation ABG 90 % (95-100); PCO2 ABG 34.7 mmHg (35-45); PO2 ABG 60 mmHg (80-100); TCO2 ABG 22 mmol/L (21-31); pH ABG 7.38 (7.35-7.45)
--- NOTE | 2019-02-22 19:44 | PC.NURSE ---
Addendum entered by India Chavarria R.N. 02/22/19 23:25: Patient was to be transferred to [facility] for increased respiratory care needs. Patient given morphine as ordered for pain at 2130. Patient was also noted to be going in and out of Afib RVR with rates in the 110's and was hypertensive. Hospitalist updated and received order for a one time does of metoprolol IV. Transport arrived to transfer patient to [facility]. Hospitalist contacted patient's daughter and completed a POLST to send with patient. Transport medics attempted to place patient on nonrebreather for transport and patient immediately dropped her oxygen stats to the low 70's. Placed patient back on HHF 75% and 55L where she slowly returned to the mid 80%'s. Hospitalist notified that patient is not tolerating nonrebreather for transport. Hospitalist and respiratory therapist at bedside. Nebulizer given per hospitalist request. Hospitalist called daughter again and discussed plan of care and complications. Transfer to [facility] cancelled and transport team left. Patient then began having O2 saturations in the 70%'s. Respiratory therapy again at bedside and hospitalist notified. Respiratory therapist able to get oxygen saturations back to mid 80%'s. Report given to [facility] nurse. Original Note: Patient noted to have decreased oxygen saturations in the low 80%'s on HHF of 60% FiO2 and 55L. Turned FiO2 up to 75% and called respiratory therapy. Respiratory therapy responded and turned HHF up again. Patient's O2 increased, but only to 86%. Dr. Lloyd notified and stated she would come see patient. Dr. Lloyd and night hospitalist Flip came and assessed patient. New orders received for blood cultures and change in antibiotics. Patient's oxygen saturation is currently 91%. Patient remains moaning and restless in bed. Rarely responds to questions. Physicians aware.
[2019-02-22] MEDS: metroNIDAZOLE 500 MG/100 ML PIGGYBACK 100 MG IV (20:11)
--- NOTE | 2019-02-22 21:15 | PM.DS.1 ---
History of Present Illness History of Present Illness Date Patient Seen: 02/15/19 Chief complaint: stomach pains, lower left side Narrative: Written by Dr. Terry: Val Reyes is a 78-year-old female with past medical history of stage IV breast cancer with brain metastases currently on chemotherapy (last dose 2 weeks ago now on hold secondary to elevated liver function tests), PE on chronic anticoagulation currently on Lovenox with plan to transition to Xarelto, chronic constipation (usually improves with chemotherapy), and hypertension who presented with left lower abdominal pain starting this morning when she woke up. She Has not last flat us or had a bowel movement in the last 2 days, and then tented Colace this morning but this did not help. She describes the abdominal pain as crampy, nonradiating, and severe at times and comes in waves. She came into the emergency room for further evaluation. She denies any fevers, chills, nausea or vomiting, dysuria. She has generalized fatigue but this is relatively unchanged. She does not feel hungry at this time. In the ED, her vital signs are unremarkable. She underwent a CT scan shows a few dilated loops of bowel and constipation. She was seen by surgery who recommended observation, but admission to medicine given her oncologic history. She does not currently have an NG tube, but she quickly developed some abdominal pain and retching when arriving to the floor so she remains NPO at this time. Discharge Providers Provider Date of admission: 02/15/19 12:04 Primary care physician: Ney Matthew MD Consults: 02/20/19 00:16 Consult to Dietitian, Adult Routine Comment: Reason For Exam: Patient on Ventilator and NPO Consult to Discharge Planning Routine Comment: Consult to Respiratory Therapy Evaluate & Treat Comment: [facility] Physician Instructions: Evaluate and treat Discharge provider: Brionna Lloyd DO Summary Hospital Course Discharge Diagnosis: 1. Acute high-grade small-bowel obstruction, status post lysis of adhesions and bowel resection, present on admission. Active. 2. Acute aspiration pneumonia with hypoxemic respiratory failure and ARDS, not present on admission. Active. 3. Acute delirium, not present on admission. Active. 4. Paroxysmal atrial fibrillation with acute RVR, chronic, present on admission. RVR resolved. 5. Acute hypotension, not present on admission. Resolved. 6. Acute on chronic transaminitis, secondary to chemotherapy, present on admission. Stable. 7. Demand ischemia, secondary to acute hypoxemia and atrial fibrillation with RVR, not present on admission. Resolved. 8. Stage IV breast cancer with brain metastases, present on admission. Active. 9. Acute severe protein calorie malnutrition, present on admission. Active. Hospital Course: Val Reyes is a 78-year-old female with past medical history of stage IV breast cancer with brain metastases currently on chemotherapy (last dose 2 weeks ago now on hold secondary to elevated liver function tests), PE on chronic anticoagulation currently on Lovenox with plan to transition to Xarelto, chronic constipation (usually improves with chemotherapy), and hypertension who presented with left lower abdominal pain and found to have SBO now status post lysis of adhesions and bowel resection. 1. Acute high-grade small-bowel obstruction, status post lysis of adhesions and bowel resection, present on admission. Active. -Patient presented with LLQ abdominal pain and was found to have partial SBO with significant stool load. -CT abdomen and pelvis demonstrated a few mildly dilated loops of small bowel in the lower abdomen/pelvis with possible adhesion suspicious for early small bowel obstruction. -Small-bowel follow-through demonstrated high-grade small-bowel obstruction. -Patient went to OR on 02/19 and is now postoperative day #3 from lysis of adhesions and small-bowel resection with end-to-end anastomosis. -Held therapeutic Lovenox for 24 hours for procedure then resumed 24 hours later. -Continue to monitor and replete electrolytes as needed with goal K > 4.0 and Mg > 2.0. -Discontinued IV fluids as patient is 3rd spacing and developed flash pulmonary edema. -Continue TPN. -NG tube has minimal gastric drainage 150 cc over 24 hours. -General surgery continues to follow. Discussed with general surgery Dr. Casillas at [facility] who will be glad to consult. 2. Acute aspiration pneumonia with hypoxemic respiratory failure and ARDS, not present on admission. Active. -Patient's NG tube was off of suction overnight on 02/19/2019 and patient aspirated becoming hypoxemic and was provided supplemental oxygen as necessary to keep oxygen saturation 88-92%. Patient was off NC O2 prior to OR. She remained intubated overnight following operative interventions and was extubated the following morning to nasal cannula. The patient became increasingly hypoxemic and required heated high-flow oxygen to maintain oxygen saturation 88-92% over the following days. Previous provider diuresed patient due to increasing pulmonary edema and anasarca concurrently with rate control medication administration which caused patient to be hypotensive and Levophed was used for approximately 9 hours. Patient was titrated off of Levophed successfully. Patient continued to become increasingly hypoxemic today and a repeat chest x-ray was performed as there is concern for continued aspiration. Chest x-ray demonstrated right basilar aspiration pneumonia with progressive worsening bilateral pulmonary edema. Discontinued Zosyn and broadened antibiotics to meropenem 2 g every 12 hours and Flagyl 500 mg every 6 hours. Ordered repeat blood cultures. Currently patient is maxed out on heated high-flow which is malfunctioning and she is only able to achieve FiO2 0.75 and flow 55 L if she is even truly receiving that. -Discussed case with day camp counselor at [facility] Dr. Watt who would be happy to consult. 3. Acute delirium, not present on admission. Active. -Patient became acutely delirious postoperatively in ICU. Patient continually moans but is unable to verbalize any pain or discomfort and occasionally will say no when asked if she has pain. Started Haldol 1-2 mg every 6 hours today which did not improve the patients delerium. Consider discontinuing all medications which could be contributing to acute delerium including morphine, Haldol, and dexamethasone (as brain metastases are stable). Consider Precedex if able to transfer patient to acute higher level of care. 4. Paroxysmal atrial fibrillation with acute RVR, chronic, present on admission. RVR resolved. -Patient is on Lovenox currently and plans to switch to Xarelto as an outpatient. -Therapeutic Lovenox held for procedure than restarted and will continue. -Continue to monitor and replete electrolytes as needed with goal K > 4.0 and Mg > 2.0. -Continue amiodarone gtt and restarted metoprolol 5 mg IV every 6 hours for rate control. Could consider esmolol if metoprolol does not continue to control rate. Discussed case with [facility] Cardiology Dr. Ruiz who agrees with management. Patient spontaneously converted to sinus rhythm with controlled rate. 5. Acute hypotension, not present on admission. Resolved. -Patient had transient hypotension due to administration of both diuretic and rate control medication concurrently requiring vasopressor support for approximately 9 hours with Levophed. Patient was successfully titrated off of Levophed. Patient is hemodynamically stable with SBP in the 140s. 6. Acute on chronic transaminitis, secondary to chemotherapy, present on admission. Stable. -Followed by Dr. Bañuelos of oncology. Chemotherapy regimen with Faslodex and abemaciclib is currently on hold due to transaminitis. -Transient rise in LFTs likely secondary to hypoperfusion versus TPN. Continue to monitor LFTs. 7. Demand ischemia, secondary to acute hypoxemia and atrial fibrillation with RVR, not present on admission. Resolved. -Initial troponin 0.321. Repeat troponin trending down 0.270. No need to further trend. -Patient denies chest pain or ACS symptoms. No acute ischemic changes on EKG. 8. Stage IV breast cancer with brain metastases, present on admission. Active. -Followed by Dr. Bañuelos of oncology and per Oncology metastatic disease is stable and slightly improved. Continue to hold patient's chemotherapy given elevated liver enzymes. -Continued dexamethasone 1.5 mg daily for brain metastases and cerebral edema and Zometa for history of hypercalcemia of malignancy. 9. Acute severe protein calorie malnutrition, present on admission. Active. -BMI 21.6 which is low for her age. -Due to progression of metastatic breast cancer to brain with 14% wt loss in in 6 weeks, BMI low for age (21.6). -Consulted dietitian and we appreciate her recommendations. -Continue TPN per pharmacist. GI PPx: PPI DVT PPx: Therapeutic Lovenox Nutrition: TPN Disposition: Plan to attempt to transfer patient for high level of care as heated high-flow has been malfunctioning and only potentially able to achieve FiO2 75%. Goals of care discussion was had with patient's daughter Chiara who would like us to try to get her mother through her acute illness if possible and patient continues to decompensate despite all interventions as above she would want to keep patient comfortable. Exam Vital Signs (past 8 hours): - 02/22/19 14:00 02/22/19 15:00 02/22/19 16:00 Temperature 98.5 F 98.7 F Pulse Rate 70 80 79 Respiratory Rate 14 17 18 Blood Pressure 119/59 L 110/45 L 122/53 L Pulse Oximetry 86 L 89 L 89 L 02/22/19 17:00 02/22/19 18:00 02/22/19 19:00 Temperature Pulse Rate 73 90 77 Respiratory Rate 16 19 23 Blood Pressure 131/61 142/87 H 149/87 H Pulse Oximetry 97 90 L 89 L 02/22/19 20:00 02/22/19 21:00 Temperature Pulse Rate 90 93 H Respiratory Rate 23 28 H Blood Pressure 180/78 H 151/90 H Pulse Oximetry 91 86 L Fraction of Inspired Oxygen 70 Oxygen Delivery Method Heated High Flow Oxygen Flow Rate 0 Narrative Exam Narrative: General: Elderly female lying in bed moaning and appears uncomfortable, acutely delirious. HEENT: Normocephalic, atraumatic. External ears without defect. Pupils equal, round, and reactive to light. Anicteric sclerae, moist conjunctivae, and no lid lag. NG tube in place. Neck: Supple with full range of motion. No jugular venous distension. No lymphadenopathy or thyromegaly. Cardiovascular: Irregularly irregular without murmurs, rubs, or gallops appreciated. Small macular lesion on right chest. Pulmonary: Diminished throughout with occasional scattered rhonchi and fine bibasilar crackles. No wheeze. Normal respiratory effort without use of accessory muscles. Abdomen: Soft, obese, hypoactive bowel sounds, mild tenderness to palpation and left side of abdomen. Dressing in place over mid abdomen with mild serous drainage. Extremities: No clubbing or cyanosis. Anasarca. Skin: Normal temperature, turgor, and texture; no rash, ulcers, or subcutaneous nodules appreciated. Neurological: Cranial nerves grossly intact. Psychiatric: Acutely delirious with active hallucinations. Objective Labs Result Diagrams: 02/22/19 05:20 02/22/19 05:20 Labs: Laboratory Results - last 24 hr 02/22/19 02/22/19 02/22/19 05:20 05:20 05:20 WBC 11.1 H RBC 2.59 L Hgb 9.3 L Hct 27.1 L MCV 104.4 H MCH 36.0 H MCHC 34.5 RDW 16.2 H Plt Count 82 L Neut % (Auto) Not Reportable Lymph % (Auto) Not Reportable [place] % (Auto) Not Reportable Eos % (Auto) Not Reportable Baso % (Auto) Not Reportable Lymph # (Auto) Not Reportable [place] # (Auto) Not Reportable Baso # (Auto) Not Reportable Total Counted 100 Seg Neutrophils % 88.0 H Band Neutrophils % 1.0 L Lymphocytes % (Manual) 3.0 L Atypical Lymphs % 2.0 H Monocytes % (Manual) 6.0 Neutrophils # (Manual) 9879 H RBC Morphology Not Reportable Rouleaux 2+ H ABG pH ABG pCO2 ABG pO2 ABG HCO3 ABG Total CO2 ABG O2 Saturation ABG Base Excess FiO2 Sodium 143 Potassium 3.5 Chloride 114 H Carbon Dioxide 27 BUN 26 H Creatinine 1.10 H Estimated GFR 48.0 L BUN/Creatinine Ratio 23.6 H Glucose 133 H Lactate Calcium 7.2 L Phosphorus 2.1 L Magnesium 2.2 Total Bilirubin 0.7 AST 46 H ALT 71 H Alkaline Phosphatase 91 Total Protein 4.3 L Albumin 2.2 L Globulin 2.1 Albumin/Globulin Ratio 1.0 Procalcitonin 4.16 H 02/22/19 02/22/19 02/22/19 09:06 10:00 19:05 WBC RBC Hgb Hct MCV MCH MCHC RDW Plt Count Neut % (Auto) Lymph % (Auto) [place] % (Auto) Eos % (Auto) Baso % (Auto) Lymph # (Auto) [place] # (Auto) Baso # (Auto) Total Counted Seg Neutrophils % Band Neutrophils % Lymphocytes % (Manual) Atypical Lymphs % Monocytes % (Manual) Neutrophils # (Manual) RBC Morphology Rouleaux ABG pH 7.44 7.38 ABG pCO2 30.5 L 34.7 L ABG pO2 62 L 60 L ABG HCO3 21 L 21 L ABG Total CO2 21 22 ABG O2 Saturation 93 L 90 L ABG Base Excess -4.0 L -4.0 L FiO2 67 75 Sodium Potassium Chloride Carbon Dioxide BUN Creatinine Estimated GFR BUN/Creatinine Ratio Glucose Lactate 1.6 Calcium Phosphorus Magnesium Total Bilirubin AST ALT Alkaline Phosphatase Total Protein Albumin Globulin Albumin/Globulin Ratio Procalcitonin Discharge Plan Discharge Med Rec/Prescriptions Prescriptions: No Action metoprolol tartrate 25 MG tablet 25 mg PO BID PRN (Reason: SVT) Qty: 0 RF: 0 docusate sodium 50 mg Capsule 100 mg PO DAILY PRN (Reason: stool softener) RF: 0 nystatin 100,000 unit/mL Suspension 5 ml PO QID RF: 0 abemaciclib 150 mg Tablet 150 mg PO BID 30 Days Qty: 60 RF: 6 acetaminophen [Tylenol] 325 mg Tablet 325 mg PO Q6H PRN (Reason: Pain (Scale Score 4-6)) RF: 0 potassium chloride [Klor-Con Sprinkle] 8 mEq Capsule, Extended Release 8 meq PO BID 30 Days Qty: 60 RF: 3 Xarelto 20 mg Tablet 20 mg PO DAILY Qty: 30 RF: 3 lidocaine HCl [Lidocaine Viscous] 2 % solution 15 ml MM Q4-6H PRN (Reason: pain) Qty: 60 RF: 0 latanoprost 0.005 % drops 1 drp ophthalmic (eye) QPM RF: 0 dexamethasone 1 mg tablet 1.5 mg PO DAILY RF: 0 enoxaparin [Lovenox] 80 mg/0.8 mL syringe 70 mg SUBCUT Q12H RF: 0 pantoprazole 40 mg tablet,delayed release (DR/EC) 40 mg PO DAILY RF: 0 Follow up/Referrals: Ney Matthew MD [Primary Care Provider] - Discharge Data Primary Care Provider: Ney Matthew V
[2019-02-22] MEDS: MEROPENEM 1 GM in SODIUM CHLORIDE 0.9% 100 ML 200 ML IV (21:17)
[2019-02-22] MEDS: ALBUTEROL 2.5 MG/3 ML NEB (ADULT) INH (22:48)
--- NOTE | 2019-02-22 23:56 | P.EN_ITS ---
Event Note Date Patient Seen: 02/22/19 Time Patient Seen: 20:00 Event Note: The patient has been in deteriorating status in ICU with development of ARDS secondary to aspiration pneumonia with a increased white blood cell count and procalcitonin increased to 4.16 this morning. ABG ABG obtained did 1904 this evening reveals a pH of 7.38, pCO2 of 34.7 PO2 60 bicarbonate of 21 with base excess of -4 on heated high-flow nasal cannula at 75% FiO2 at 60 liters/minute. 2030 Dr. Lloyd [place] [facility] a call to Ayesha Landry the patient's daughter taking consent for transfer for higher level of care. Reviewed the rationale for transfer including pulmonology services for treatment of ARDS. Also discussed the risk of transport including arrhythmia, cardiovascular instability, respiratory decompensation, hypoxemia and possibly cardiac arrest. Ms. Reeves provided verbal consent to transfer as the patient's DPOA. 0 [facility] [place] and process of transfer is initiated. [place] critical care transport team is arrived is preparing for transport. While attempting to her the patient for transport patient was transition from heated high-flow system to non-rebreather mask at which time the patient desaturated to 70%. Reviewed options with transport team who indicated that per protocol he was inappropriate to use BiPAP on a patient who is unresponsive and the patient currently has a GCS of 10 with eye opening to pain, inappropriate words and localization of pain. Additionally the patient has NG tube which would impair mask seal complicating ventilation. It would be inappropriate to remove the NG tube for transport since the patient is believed to be aspirating and doing so would further increase risk and complicated clinical picture. The ambulance does not have the wherewithal to manage high-flow oxygen device running at 60 liters/minute to maintain current level of therapy. Phone call is again placed to Ayesha Landry notifying her of the inability to transfer the patient. Discussed the option of intubating the patient for transport noting that is the only modality with which to be successfully complete the transfer. Ms. Landry indicates that her mother does not want to be intubated and declines the procedure. Informed Ms. Landry that we have maximized are respiratory support capability without intubation, and the patient will likely deteriorate. Noted that will continue current treatment with antibiotics, management of cardiac arrhythmias and cardiovascular support as needed. Ms. Landry tearfully acknowledges understanding and indicated that she will be coming into the hospital. Plan at this time is maintain level of care until she arrives and review goals of care in light of projected further respiratory decompensation with recommendation of comfort care in absence of intubation. 02/23/2019, 0030 I have spoken with Ayesha Landry, the patient's daughter and DPOA at bedside with the patient. Reviewed the current patient status noting return to atrial fibrillation, hypoxemia with oxygen saturation in the upper 70s to 80's. Noted the patient is responsive only to tactile or noxious stimulus with moaning in no meaningful communication. Discuss that the only possible bridge to recovery would be intubation to which again Ms. Landry notes that the patient would not want intubation. She further acknowledges that the patient is suffering. Recommended withdrawal of care with comfort measures to treat pain and anxiety. Ms. Landry agrees that is is time. Family members are being contacted by Ms. Landry and will notify us when ready to withdraw. Critical care time in direct patient care and coordination of care with transport personal and family is over 60 minutes.
[2019-02-23] VITALS: BP 133/60; PULSE 109; RESP 45; TEMP 36.1
[2019-02-23] MEDS: METOPROLOL TARTRATE 5 MG/5 ML INJ IV (00:19)
[2019-02-23] MEDS: INSULIN ASPART 100 UNIT/ML INSULN PEN SUBCUT (00:37)
[2019-02-23 01:00] VITALS: BP 142/59; PULSE 83; RESP 42; O2SAT 75
[2019-02-23] MEDS: metroNIDAZOLE 500 MG/100 ML PIGGYBACK 100 MG IV (01:56)
[2019-02-23 02:00] VITALS: BP 152/69; PULSE 120; RESP 27; O2SAT 75
[2019-02-23] MEDS: LORazepam 2 MG/ML INJ 1 MG IV (02:39)
[2019-02-23 03:00] VITALS: BP 142/77; PULSE 108; RESP 44; O2SAT 79
[2019-02-23] MEDS: MORPHINE 2 MG/ML INJ IV (03:06)
[2019-02-23 03:12] VITALS: O2SAT 49
--- NOTE | 2019-02-23 03:35 | PC.NURSE ---
Addendum entered by Neli Rajput R.N. 02/23/19 07:03: [id number] to [facility]. Addendum entered by Neli Rajput R.N. 02/23/19 05:12: IV from right hand dc'd cath intact along with PICC line from upper right arm, and herrera dc'd. Original Note: Erika Javier at bedside, rhythm asystole, no vital signs obtainable.
--- NOTE | 2019-02-23 07:25 | PM.DS.1 ---
History of Present Illness History of Present Illness Date Patient Seen: 02/23/19 Time Patient Seen: 03:30 Chief complaint: stomach pains, lower left side Narrative: Written by Dr. Terry: Val Reyes is a 78-year-old female with past medical history of stage IV breast cancer with brain metastases currently on chemotherapy (last dose 2 weeks ago now on hold secondary to elevated liver function tests), PE on chronic anticoagulation currently on Lovenox with plan to transition to Xarelto, chronic constipation (usually improves with chemotherapy), and hypertension who presented with left lower abdominal pain starting this morning when she woke up. She Has not last flat us or had a bowel movement in the last 2 days, and then tented Colace this morning but this did not help. She describes the abdominal pain as crampy, nonradiating, and severe at times and comes in waves. She came into the emergency room for further evaluation. She denies any fevers, chills, nausea or vomiting, dysuria. She has generalized fatigue but this is relatively unchanged. She does not feel hungry at this time. In the ED, her vital signs are unremarkable. She underwent a CT scan shows a few dilated loops of bowel and constipation. She was seen by surgery who recommended observation, but admission to medicine given her oncologic history. She does not currently have an NG tube, but she quickly developed some abdominal pain and retching when arriving to the floor so she remains NPO at this time. Discharge Providers Provider Date of admission: 02/15/19 12:04 Discharge Date: 02/23/19 Primary care physician: Ney Matthew MD Consults: 02/20/19 00:16 Consult to Dietitian, Adult Routine Comment: Reason For Exam: Patient on Ventilator and NPO Consult to Discharge Planning Routine Comment: Consult to Respiratory Therapy Evaluate & Treat Comment: [facility] care Physician Instructions: Evaluate and treat Discharge provider: DIVYA Billingsley Summary Hospital Course Discharge Diagnosis: 1. Acute high-grade small-bowel obstruction, status post lysis of adhesions and bowel resection, present on admission. Active. 2. Acute aspiration pneumonia with hypoxemic respiratory failure and ARDS, not present on admission. Active. 3. Acute delirium, not present on admission. Active. 4. Paroxysmal atrial fibrillation with acute RVR, chronic, present on admission. RVR resolved. 5. Acute hypotension, not present on admission. Resolved. 6. Acute on chronic transaminitis, secondary to chemotherapy, present on admission. Stable. 7. Demand ischemia, secondary to acute hypoxemia and atrial fibrillation with RVR, not present on admission. Resolved. 8. Stage IV breast cancer with brain metastases, present on admission. Active. 9. Acute severe protein calorie malnutrition, present on admission. Active. Hospital Course: Val Reyes is a 78-year-old female with past medical history of stage IV breast cancer with brain metastases currently on chemotherapy (last dose 2 weeks ago now on hold secondary to elevated liver function tests), PE on chronic anticoagulation currently on Lovenox with plan to transition to Xarelto, chronic constipation (usually improves with chemotherapy), and hypertension who presented with left lower abdominal pain and found to have SBO now status post lysis of adhesions and bowel resection. 1. Acute high-grade small-bowel obstruction, status post lysis of adhesions and bowel resection, present on admission. Active. -Patient presented with LLQ abdominal pain and was found to have partial SBO with significant stool load. -CT abdomen and pelvis demonstrated a few mildly dilated loops of small bowel in the lower abdomen/pelvis with possible adhesion suspicious for early small bowel obstruction. -Small-bowel follow-through demonstrated high-grade small-bowel obstruction. -Patient went to OR on 02/19 and is now postoperative day #3 from lysis of adhesions and small-bowel resection with end-to-end anastomosis. -Held therapeutic Lovenox for 24 hours for procedure then resumed 24 hours later. -Continue to monitor and replete electrolytes as needed with goal K > 4.0 and Mg > 2.0. -Discontinued IV fluids as patient is 3rd spacing and developed flash pulmonary edema. -Continue TPN. -NG tube has minimal gastric drainage 150 cc over 24 hours. -General surgery continues to follow. Discussed with general surgery Dr. Casillas at [facility] who will be glad to consult. 2. Acute aspiration pneumonia with hypoxemic respiratory failure and ARDS, not present on admission. Active. -Patient's NG tube was off of suction overnight on 02/19/2019 and patient aspirated becoming hypoxemic and was provided supplemental oxygen as necessary to keep oxygen saturation 88-92%. Patient was off NC O2 prior to OR. She remained intubated overnight following operative interventions and was extubated the following morning to nasal cannula. The patient became increasingly hypoxemic and required heated high-flow oxygen to maintain oxygen saturation 88-92% over the following days. Previous provider diuresed patient due to increasing pulmonary edema and anasarca concurrently with rate control medication administration which caused patient to be hypotensive and Levophed was used for approximately 9 hours. Patient was titrated off of Levophed successfully. Patient continued to become increasingly hypoxemic today and a repeat chest x-ray was performed as there is concern for continued aspiration. Chest x-ray demonstrated right basilar aspiration pneumonia with progressive worsening bilateral pulmonary edema. Discontinued Zosyn and broadened antibiotics to meropenem 2 g every 12 hours and Flagyl 500 mg every 6 hours. Ordered repeat blood cultures. Currently patient is maxed out on heated high-flow which is malfunctioning and she is only able to achieve FiO2 0.75 and flow 55 L if she is even truly receiving that. -Discussed case with full stack python developer at [facility] Dr. Watt who would be happy to consult. 3. Acute delirium, not present on admission. Active. -Patient became acutely delirious postoperatively in ICU. Patient continually moans but is unable to verbalize any pain or discomfort and occasionally will say no when asked if she has pain. Started Haldol 1-2 mg every 6 hours today which did not improve the patients delerium. Consider discontinuing all medications which could be contributing to acute delerium including morphine, Haldol, and dexamethasone (as brain metastases are stable). Consider Precedex if able to transfer patient to acute higher level of care. 4. Paroxysmal atrial fibrillation with acute RVR, chronic, present on admission. RVR resolved. -Patient is on Lovenox currently and plans to switch to Xarelto as an outpatient. -Therapeutic Lovenox held for procedure than restarted and will continue. -Continue to monitor and replete electrolytes as needed with goal K > 4.0 and Mg > 2.0. -Continue amiodarone gtt and restarted metoprolol 5 mg IV every 6 hours for rate control. Could consider esmolol if metoprolol does not continue to control rate. Discussed case with [facility] Cardiology Dr. Ruiz who agrees with management. Patient spontaneously converted to sinus rhythm with controlled rate. 5. Acute hypotension, complications of medications, not present on admission. Resolved. -Patient had transient hypotension due to administration of both diuretic and rate control medication concurrently requiring vasopressor support for approximately 9 hours with Levophed. Patient was successfully titrated off of Levophed. Patient is hemodynamically stable with SBP in the 140s. 6. Acute on chronic transaminitis, secondary to chemotherapy, present on admission. Stable. -Followed by Dr. Bañuelos of oncology. Chemotherapy regimen with Faslodex and abemaciclib is currently on hold due to transaminitis. -Transient rise in LFTs likely secondary to hypoperfusion versus TPN. Continue to monitor LFTs. 7. Demand ischemia, secondary to acute hypoxemia and atrial fibrillation with RVR, not present on admission. Resolved. -Initial troponin 0.321. Repeat troponin trending down 0.270. No need to further trend. -Patient denies chest pain or ACS symptoms. No acute ischemic changes on EKG. 8. Stage IV breast cancer with brain metastases, present on admission. Active. -Followed by Dr. Bañuelos of oncology and per Oncology metastatic disease is stable and slightly improved. Continue to hold patient's chemotherapy given elevated liver enzymes. -Continued dexamethasone 1.5 mg daily for brain metastases and cerebral edema and Zometa for history of hypercalcemia of malignancy. 9. Acute severe protein calorie malnutrition, present on admission. Active. -BMI 21.6 which is low for her age. -Due to progression of metastatic breast cancer to brain with 14% wt loss in in 6 weeks, BMI low for age (21.6). -Consulted dietitian and we appreciate her recommendations. -Continue TPN per pharmacist. Disposition Plan: Plan to attempt to transfer patient for high level of care as heated high-flow has been malfunctioning and only potentially able to achieve FiO2 75%. Goals of care discussion was had with patient's daughter Chiara who would like us to try to get her mother through her acute illness if possible and patient continues to decompensate despite all interventions as above she would want to keep patient comfortable. 2029 Dr. Lloyd is discussing transfer with [facility] [place], [place]. Placed a call to Ayesha Gris the patient's daughter taking consent for transfer for higher level of care. Reviewed the rationale for transfer including pulmonology services for treatment of ARDS. Also discussed the risk of transport including arrhythmia, cardiovascular instability, respiratory decompensation, hypoxemia and possibly cardiac arrest. Ms. Reeves provided verbal consent to transfer as the patient's DPOA. [address] [facility] [place], [place] accept the patient and process of transfer is initiated. [place] critical care transport team is arrived is preparing for transport. While attempting to her the patient for transport patient was transition from heated high-flow system to non-rebreather mask at which time the patient desaturated to 70%. Reviewed options with transport team who indicated that per protocol he was inappropriate to use BiPAP on a patient who is unresponsive and the patient currently has a GCS of 10 with eye opening to pain, inappropriate words and localization of pain. Additionally the patient has NG tube which would impair mask seal complicating ventilation. It would be inappropriate to remove the NG tube for transport since the patient is believed to be aspirating and doing so would further increase risk and complicated clinical picture. The ambulance does not have the wherewithal to manage high-flow oxygen device running at 60 liters/minute to maintain current level of therapy. Phone call is again placed to Ayesha Landry notifying her of the inability to transfer the patient. Discussed the option of intubating the patient for transport noting that is the only modality with which to be successfully complete the transfer. Ms. Landry indicates that her mother does not want to be intubated and declines the procedure. Informed Ms. Landry that we have maximized are respiratory support capability without intubation, and the patient will likely deteriorate. Noted that will continue current treatment with antibiotics, management of cardiac arrhythmias and cardiovascular support as needed. Ms. Landry tearfully acknowledges understanding and indicated that she will be coming into the hospital. Plan at this time is maintain level of care until she arrives and review goals of care in light of projected further respiratory decompensation with recommendation of comfort care in absence of intubation. 02/23/2019, 0030 I have spoken with Ayesha Landry, the patient's daughter and DPROSINA at bedside with the patient. Reviewed the current patient status noting return to atrial fibrillation, hypoxemia with oxygen saturation in the upper 70s to 80's. Noted the patient is responsive only to tactile or noxious stimulus with moaning in no meaningful communication. Discuss that the only possible bridge to recovery would be intubation to which again Ms. Landry notes that the patient would not want intubation. She further acknowledges that the patient is suffering. Recommended withdrawal of care with comfort measures to treat pain and anxiety. Ms. Landry agrees that is is time. Family members are being contacted by Ms. Landry and will notify us when ready to withdraw. 02/23/2019, 02:40 Have met with the family who is now present at the bedside. The family including Ayesha Landry who is DPOA are requesting pain medication and sedation for comfort. They understand that this will lead to a deterioration in respiration and that we have maximized her respiratory support short of intubation. The have also requested the NG tube be discontinued which is done. At the family direction we will withdraw support and discontinue all other medications and infusion except for a normal saline for lorazapam and morphine. 02/23/2019, 03:30 The patient has passed with family at bedside. There is no pulse no heart tones and no respiration. Time of : 03:30 Status at Discharge Overall status at discharge: other () Time Spent with Patient Time spent: Greater than 30 minutes Exam Vital Signs (past 8 hours): - 02/23/19 00:00 02/23/19 01:00 02/23/19 02:00 Temperature 96.9 F L Pulse Rate 109 H 83 120 H Respiratory Rate 45 H 42 H 27 H Blood Pressure 133/60 142/59 H 152/69 H Pulse Oximetry 75 L 75 L 02/23/19 03:00 02/23/19 03:12 Temperature Pulse Rate 108 H Respiratory Rate 44 H Blood Pressure 142/77 H Pulse Oximetry 79 L 49 L Fraction of Inspired Oxygen 70 Oxygen Delivery Method Nasal Cannula Oxygen Flow Rate 2 Objective Labs Result Diagrams: 02/22/19 05:20 02/22/19 05:20 Labs: Laboratory Results - last 24 hr 02/22/19 02/22/19 02/22/19 05:20 05:20 09:06 WBC 11.1 H RBC 2.59 L Hgb 9.3 L Hct 27.1 L MCV 104.4 H MCH 36.0 H MCHC 34.5 RDW 16.2 H Plt Count 82 L Neut % (Auto) Not Reportable Lymph % (Auto) Not Reportable [place] % (Auto) Not Reportable Eos % (Auto) Not Reportable Baso % (Auto) Not Reportable Lymph # (Auto) Not Reportable [place] # (Auto) Not Reportable Baso # (Auto) Not Reportable Total Counted 100 Seg Neutrophils % 88.0 H Band Neutrophils % 1.0 L Lymphocytes % (Manual) 3.0 L Atypical Lymphs % 2.0 H Monocytes % (Manual) 6.0 Neutrophils # (Manual) 9879 H RBC Morphology Not Reportable Rouleaux 2+ H ABG pH 7.44 ABG pCO2 30.5 L ABG pO2 62 L ABG HCO3 21 L ABG Total CO2 21 ABG O2 Saturation 93 L ABG Base Excess -4.0 L FiO2 67 Lactate Procalcitonin 4.16 H 02/22/19 02/22/19 10:00 19:05 WBC RBC Hgb Hct MCV MCH MCHC RDW Plt Count Neut % (Auto) Lymph % (Auto) [place] % (Auto) Eos % (Auto) Baso % (Auto) Lymph # (Auto) [place] # (Auto) Baso # (Auto) Total Counted Seg Neutrophils % Band Neutrophils % Lymphocytes % (Manual) Atypical Lymphs % Monocytes % (Manual) Neutrophils # (Manual) RBC Morphology Rouleaux ABG pH 7.38 ABG pCO2 34.7 L ABG pO2 60 L ABG HCO3 21 L ABG Total CO2 22 ABG O2 Saturation 90 L ABG Base Excess -4.0 L FiO2 75 Lactate 1.6 Procalcitonin Discharge Plan Discharge Med Rec/Prescriptions Prescriptions: No Action metoprolol tartrate 25 MG tablet 25 mg PO BID PRN (Reason: SVT) Qty: 0 RF: 0 docusate sodium 50 mg Capsule 100 mg PO DAILY PRN (Reason: stool softener) RF: 0 nystatin 100,000 unit/mL Suspension 5 ml PO QID RF: 0 abemaciclib 150 mg Tablet 150 mg PO BID 30 Days Qty: 60 RF: 6 acetaminophen [Tylenol] 325 mg Tablet 325 mg PO Q6H PRN (Reason: Pain (Scale Score 4-6)) RF: 0 potassium chloride [Klor-Con Sprinkle] 8 mEq Capsule, Extended Release 8 meq PO BID 30 Days Qty: 60 RF: 3 Xarelto 20 mg Tablet 20 mg PO DAILY Qty: 30 RF: 3 lidocaine HCl [Lidocaine Viscous] 2 % solution 15 ml MM Q4-6H PRN (Reason: pain) Qty: 60 RF: 0 latanoprost 0.005 % drops 1 drp ophthalmic (eye) QPM RF: 0 dexamethasone 1 mg tablet 1.5 mg PO DAILY RF: 0 enoxaparin [Lovenox] 80 mg/0.8 mL syringe 70 mg SUBCUT Q12H RF: 0 pantoprazole 40 mg tablet,delayed release (DR/EC) 40 mg PO DAILY RF: 0 Follow up/Referrals: Ney Matthew MD [Primary Care Provider] - Discharge Orders: Discharge (Order); Ordered 02/23/19 Ordered By: Paulino Javier Discharge Data Primary Care Provider: Ney Matthew V Discharges patient from system. Discharge Date/Time: 02/23/19 03:30
== END 2019-02-23 03:30 | disposition expired | DRG 329 ==
LOC: ED 11:02 → AC 12:48 → ICU 02-20 13:17
PROVIDERS: Internal Medicine; Nurse Practitioner Adult Health; Nurse Practitioner Gerontology; Specialist; Admitting Provider Internal Medicine; Emergency Provider Emergency Medicine; PCP Internal Medicine; Visit Provider Internal Medicine
PROC: 0DB80ZZ Excision of Small Intestine, Open Approach (ICD-10-PCS; CPT 49000; principal; 2019-02-19 17:15)
DX: K56.51 Intestinal adhesions [bands], with partial obstruction (principal); E43 Unspecified severe protein-calorie malnutrition; J69.0 Pneumonitis due to inhalation of food and vomit; I21.A1 Myocardial infarction type 2; R40.2124 Coma scale, eyes open, to pain, 24 hours or more after hospital admission; J80 Acute respiratory distress syndrome; C79.31 Secondary malignant neoplasm of brain; I27.82 Chronic pulmonary embolism; C50.919 Malignant neoplasm of unspecified site of unspecified female breast; R74.0 Nonspecific elevation of levels of transaminase and lactic acid dehydrogenase [LDH]; T45.1X5A Adverse effect of antineoplastic and immunosuppressive drugs, initial encounter; G62.9 Polyneuropathy, unspecified; I95.81 Postprocedural hypotension; I48.0 Paroxysmal atrial fibrillation; R41.0 Disorientation, unspecified; R40.2354 Coma scale, best motor response, localizes pain, 24 hours or more after hospital admission; R40.2234 Coma scale, best verbal response, inappropriate words, 24 hours or more after hospital admission; I95.9 Hypotension, unspecified; I10 Essential (primary) hypertension; K59.09 Other constipation; Z79.01 Long term (current) use of anticoagulants; Z87.891 Personal history of nicotine dependence
CPT/HCPCS: 36415; 36569; 36592; 36600; 71045; 74018; 74019; 74022; 74177; 74250; 80048; 80053; 82805; 82962; 83605; 83690; 83735; 83880; 84100; 84145; 84484; 85025; 85610; 85730; 86300; 87040; 87102; 87797; 93005; 93010; 93307; 94002; 94003; 94010; 94760; 94762; 94770; 94799; 96361; 96374; 96375; 97162; 97165; 97530; 99283; 99284; B4189; C9113; J0282; J0295; J0330; J0780; J1100; J1160; J1630; J1650; J1885; J1940; J2060; J2185; J2270; J2405; J2543; J2704; J2765; J3010; J3480; J7613; Q9967